=== PATIENT | male | born 1990 | race African-American/Black ===

== ENCOUNTER 2017-08-23 09:49 | Emergency (ER) | payer OTHER ==
--- OUTSIDE RECORDS SUMMARY | 2017-08-23 09:51 | XMS REPORT | Clinical Summary ---
:1990 Author Organization [facility] Address [address] [place] [address] Phone Care Team Providers Name Role Phone Unavailable Primary Care Provider Unavailable Allergies Active Allergy Reactions Severity Noted Date Comments Penicillins Shortness Of Breath, Rash High 08/16/2015 Reaction to ampicillin, but mother believes patient had no reaction to cefepime/ceftriaxone/zos yn. Tolerated cefepime well inpatient. Current Medications Prescription Sig. Disp. Refills Start Date End Date Status baclofen (LIORESAL) 20 Take 20 mg by Active MG tablet mouth 2 (two) times daily. citalopram (CELEXA) 40 Take 40 mg by Active MG tablet mouth daily. ranitidine (ZANTAC) 75 Take 75 mg by Active MG tablet mouth 2 (two) times daily. cetirizine (ZYRTEC) 10 Take 10 mg by Active MG tablet mouth daily. montelukast (SINGULAIR) Take 10 mg by Active 10 mg tablet mouth nightly. fluticasone (FLONASE) 50 1 spray by Nasal 16 g 0 05/30/2016 05/30/2017 mcg/actuation nasal route daily. spray Active Problems Problem Noted Date Pneumonia 05/23/2016 Seizure ([facility]) 05/19/2016 Status epilepticus ([facility]) 08/17/2015 Leukocytosis 08/17/2015 Thrombocytopenia ([facility]) 08/17/2015 Social History Tobacco Use Types Packs/Day Years Used Date Never Smoker Sex Assigned at Date Recorded Not on file Last Filed Vital Signs Not on file Plan of Treatment Not on file Results Not on fileafter 08/22/2016
--- OUTSIDE RECORDS SUMMARY | 2017-08-23 09:53 | XMS REPORT ---
:1990 [facility] Address [address] [place] [address] Care Team Providers Name Role Phone MORIS ESPINOZA Unavailable Unavailable Problems This patient has no known problems. Allergies, Adverse Reactions, Alerts This patient has no known allergies or adverse reactions. Medications This patient has no known medications. Results Test Description Test Time Test Comments Text Results Atomic Results Result Comments POCT-GLUCOSE METER 2016-05-30 12:23:00 Test Item Value Reference Range Comments POC-GLUCOSE METER (BEAKER) (test 82 mg/dL 70-110 TESTED AT [address] twzk=9352) [facility] [address] POCT-GLUCOSE [id number] 08:12:00 Test Item Value Reference Range Comments POC-GLUCOSE METER (BEAKER) 97 mg/dL 70-110 TESTED AT [address] (test gdhm=5175) [facility] [address] CBC W/PLT COUNT & AUTO [id number] 06:38:00 Test Item Value Reference Range Comments WHITE BLOOD CELL COUNT (BEAKER) (test boae=141) 8.1 K/ L 4.0-10.0 RED BLOOD CELL COUNT (BEAKER) (test lckt=180) 5.24 M/ L 4.20-5.80 HEMOGLOBIN (BEAKER) (test ojlu=931) 13.1 GM/DL 13.0-16.8 HEMATOCRIT (BEAKER) (test fhuz=914) 42.6 % 40.0-50.0 MEAN CORPUSCULAR VOLUME (BEAKER) (test wabb=556) 81.2 fL 82.0-98.0 MEAN CORPUSCULAR HEMOGLOBIN (BEAKER) (test 25.0 pg 27.0-33.0 adwm=628) MEAN CORPUSCULAR HEMOGLOBIN CONC (BEAKER) (test 30.7 GM/DL 32.0-36.0 cufr=536) RED CELL DISTRIBUTION WIDTH (BEAKER) (test 14.6 % 10.3-14.2 xbxy=042) PLATELET COUNT (BEAKER) (test khtk=184) 172 K/CU MM 150-430 MEAN PLATELET VOLUME (BEAKER) (test cttv=556) 11.6 fL 6.5-10.5 NUCLEATED RED BLOOD CELLS (BEAKER) (test 0 /100 WBC 0-0 jjqb=534) NEUTROPHILS RELATIVE PERCENT (BEAKER) (test 42 % hxkt=428) LYMPHOCYTES RELATIVE PERCENT (BEAKER) (test 40 % rivp=188) MONOCYTES RELATIVE PERCENT (BEAKER) (test 15 % hlhc=786) EOSINOPHILS RELATIVE PERCENT (BEAKER) (test 2 % yssh=580) BASOPHILS RELATIVE PERCENT (BEAKER) (test 1 % kvld=683) NEUTROPHILS ABSOLUTE COUNT (BEAKER) (test 3.39 K/ L 1.80-8.00 wagd=304) LYMPHOCYTES ABSOLUTE COUNT (BEAKER) (test 3.28 K/ L 1.48-4.50 xacm=900) MONOCYTES ABSOLUTE COUNT (BEAKER) (test 1.24 K/ L 0.00-1.30 phsl=440) EOSINOPHILS ABSOLUTE COUNT (BEAKER) (test 0.12 K/ L 0.00-0.50 fpqr=245) BASOPHILS ABSOLUTE COUNT (BEAKER) (test 0.09 K/ L 0.00-0.20 cjrc=189) 0.00POCT-GLUCOSE [id number] 04:47:00 Test Item Value Reference Range Comments POC-GLUCOSE METER (BEAKER) 73 mg/dL 70-110 TESTED AT [address] (test tyjs=8082) [facility] [address] POCT-GLUCOSE [id number] 00:27:00 Test Item Value Reference Range Comments POC-GLUCOSE METER (BEAKER) 71 mg/dL 70-110 TESTED AT [address] (test snfk=7745) [facility] [address] POCT-GLUCOSE [id number] 12:03:00 Test Item Value Reference Range Comments POC-GLUCOSE METER (BEAKER) 86 mg/dL 70-110 TESTED AT [address] (test vcau=3374) [facility] [address] POCT-GLUCOSE [id number] 06:10:00 Test Item Value Reference Range Comments POC-GLUCOSE METER (BEAKER) 89 mg/dL 70-110 TESTED AT [address] (test xlrl=3406) [facility] [address] POCT-GLUCOSE [id number] 00:20:00 Test Item Value Reference Range Comments POC-GLUCOSE METER (BEAKER) 77 mg/dL 70-110 TESTED AT [address] (test jlwf=4862) [place] [id number] POCT-GLUCOSE [id number] 19:04:00 Test Item Value Reference Range Comments POC-GLUCOSE METER (BEAKER) 129 mg/dL 70-110 TESTED AT [address] (test mqez=7437) [place] [address] POCT-GLUCOSE [id number] 16:34:00 Test Item Value Reference Range Comments POC-GLUCOSE METER (BEAKER) 120 mg/dL 70-110 TESTED AT [address] (test fxyx=8346) [place] [address] POCT-GLUCOSE [id number] 06:09:00 Test Item Value Reference Range Comments POC-GLUCOSE METER (BEAKER) 76 mg/dL 70-110 TESTED AT [address] (test gddx=9674) [facility] [address] POCT-GLUCOSE [id number] 00:51:00 Test Item Value Reference Range Comments POC-GLUCOSE METER (BEAKER) 84 mg/dL 70-110 TESTED AT [address] (test scgl=3749) [place] [address] POCT-GLUCOSE [id number] 14:52:00 Test Item Value Reference Range Comments POC-GLUCOSE METER (BEAKER) 125 mg/dL 70-110 TESTED AT [address] (test tszz=3536) [place] [address] POCT-GLUCOSE [id number] 22:00:00 Test Item Value Reference Range Comments POC-GLUCOSE METER (BEAKER) 102 mg/dL 70-110 TESTED AT [address] (test glhz=4805) [place] [address] POCT-GLUCOSE [id number] 18:36:00 Test Item Value Reference Range Comments POC-GLUCOSE METER (BEAKER) 60 mg/dL 70-110 TESTED AT [address] (test pwrf=4915) [place] [address] BLOOD [id number] 15:25:00 Test Item Value Reference Range Comments CULTURE (BEAKER) From Anaerobic Bottle Only (test kbiw=5626) Coagulase negative Staphylococcus GRAM STAIN RESULT From anaerobic bottle (BEAKER) (test only: gram positive barr=0585) cocci in clusters POCT-GLUCOSE [id number] 13:24:00 Test Item Value Reference Range Comments POC-GLUCOSE METER (BEAKER) 86 mg/dL 70-110 TESTED AT [facility] [address] [facility] (test wgym=5296) [facility] [address] CBC W/PLT COUNT & AUTO [id number] 10:10:00 Test Item Value Reference Range Comments WHITE BLOOD CELL COUNT (BEAKER) (test rxdf=808) 8.0 K/ L 4.0-10.0 RED BLOOD CELL COUNT (BEAKER) (test iuxc=717) 4.77 M/ L 4.20-5.80 HEMOGLOBIN (BEAKER) (test asgq=152) 13.4 GM/DL 13.0-16.8 HEMATOCRIT (BEAKER) (test vkdn=866) 38.7 % 40.0-50.0 MEAN CORPUSCULAR VOLUME (BEAKER) (test kmtu=602) 81.1 fL 82.0-98.0 MEAN CORPUSCULAR HEMOGLOBIN (BEAKER) (test 28.1 pg 27.0-33.0 zhls=652) MEAN CORPUSCULAR HEMOGLOBIN CONC (BEAKER) (test 34.6 GM/DL 32.0-36.0 ynwy=314) RED CELL DISTRIBUTION WIDTH (BEAKER) (test 13.8 % 10.3-14.2 wbma=778) PLATELET COUNT (BEAKER) (test zjfg=802) 109 K/CU MM 150-430 MEAN PLATELET VOLUME (BEAKER) (test qqnh=679) 11.9 fL 6.5-10.5 NUCLEATED RED BLOOD CELLS (BEAKER) (test 2 /100 WBC 0-0 shwk=930) NEUTROPHILS RELATIVE PERCENT (BEAKER) (test 41 % zyxc=052) LYMPHOCYTES RELATIVE PERCENT (BEAKER) (test 40 % ksmg=560) MONOCYTES RELATIVE PERCENT (BEAKER) (test 17 % pwlb=487) EOSINOPHILS RELATIVE PERCENT (BEAKER) (test 2 % uike=537) BASOPHILS RELATIVE PERCENT (BEAKER) (test 1 % vody=743) NEUTROPHILS ABSOLUTE COUNT (BEAKER) (test 3.26 K/ L 1.80-8.00 prsq=265) LYMPHOCYTES ABSOLUTE COUNT (BEAKER) (test 3.16 K/ L 1.48-4.50 tbgj=174) MONOCYTES ABSOLUTE COUNT (BEAKER) (test 1.39 K/ L 0.00-1.30 rknl=770) EOSINOPHILS ABSOLUTE COUNT (BEAKER) (test 0.13 K/ L 0.00-0.50 rrtp=189) BASOPHILS ABSOLUTE COUNT (BEAKER) (test 0.06 K/ L 0.00-0.20 acci=238) 0.00(MANUAL DIFFERENTIAL)2016-05-26 10:10:00 Test Item Value Reference Range Comments TOTAL COUNTED (BEAKER) (test bgej=8226) PLT MORPHOLOGY (BEAKER) (test ilmr=173) Normal RBC MORPHOLOGY (BEAKER) (test ogpj=833) Normal ATYPICAL LYMPHS(BEAKER) (test sduf=7157) Present POCT-GLUCOSE [id number] 00:30:00 Test Item Value Reference Range Comments POC-GLUCOSE METER (BEAKER) 120 mg/dL 70-110 TESTED AT [address] (test rvag=3033) [place] [address] POCT-GLUCOSE [id number] 18:23:00 Test Item Value Reference Range Comments POC-GLUCOSE METER (BEAKER) 82 mg/dL 70-110 TESTED AT [address] (test lhly=8506) [place] [address] ANTI-NUCLEAR ANTIBODY (NORMA)2016-05-25 13:07:00 Test Item Value Reference Range Comments ANTI-NUCLEAR ANTIBODY (NORMA) (BEAKER) (test Negative Negative wzas=055) POCT-GLUCOSE [id number] 12:50:00 Test Item Value Reference Range Comments POC-GLUCOSE METER (BEAKER) 115 mg/dL 70-110 TESTED AT [address] (test geuf=5289) [place] [address] CBC W/PLT COUNT & AUTO [id number] 11:05:00 Test Item Value Reference Range Comments WHITE BLOOD CELL COUNT (BEAKER) (test lzhe=437) 8.3 K/ L 4.0-10.0 RED BLOOD CELL COUNT (BEAKER) (test tjsj=331) 4.95 M/ L 4.20-5.80 HEMOGLOBIN (BEAKER) (test cfgi=109) 13.2 GM/DL 13.0-16.8 HEMATOCRIT (BEAKER) (test cbml=599) 39.6 % 40.0-50.0 MEAN CORPUSCULAR VOLUME (BEAKER) (test wjrn=119) 80.0 fL 82.0-98.0 MEAN CORPUSCULAR HEMOGLOBIN (BEAKER) (test 26.7 pg 27.0-33.0 ucbp=215) MEAN CORPUSCULAR HEMOGLOBIN CONC (BEAKER) (test 33.3 GM/DL 32.0-36.0 oows=644) RED CELL DISTRIBUTION WIDTH (BEAKER) (test 13.3 % 10.3-14.2 ccdu=774) PLATELET COUNT (BEAKER) (test klcw=460) 101 K/CU MM 150-430 MEAN PLATELET VOLUME (BEAKER) (test xive=567) 11.7 fL 6.5-10.5 NUCLEATED RED BLOOD CELLS (BEAKER) (test 0 /100 WBC 0-0 jkre=593) NEUTROPHILS RELATIVE PERCENT (BEAKER) (test 38 % rzpa=782) LYMPHOCYTES RELATIVE PERCENT (BEAKER) (test 39 % tdab=878) MONOCYTES RELATIVE PERCENT (BEAKER) (test 21 % dzwa=745) EOSINOPHILS RELATIVE PERCENT (BEAKER) (test 2 % cidt=432) BASOPHILS RELATIVE PERCENT (BEAKER) (test 1 % difg=762) NEUTROPHILS ABSOLUTE COUNT (BEAKER) (test 3.15 K/ L 1.80-8.00 gcvj=835) LYMPHOCYTES ABSOLUTE COUNT (BEAKER) (test 3.27 K/ L 1.48-4.50 qkbr=172) MONOCYTES ABSOLUTE COUNT (BEAKER) (test 1.70 K/ L 0.00-1.30 vihx=723) EOSINOPHILS ABSOLUTE COUNT (BEAKER) (test 0.15 K/ L 0.00-0.50 mtdl=946) BASOPHILS ABSOLUTE COUNT (BEAKER) (test 0.04 K/ L 0.00-0.20 fowu=305) 0.00POCT-GLUCOSE [id number] 06:12:00 Test Item Value Reference Range Comments POC-GLUCOSE METER (BEAKER) 83 mg/dL 70-110 TESTED AT [facility] [address] (test kkbp=8027) [facility] [address] SPUTUM CULTURE + GRAM [id number] 02:04:00 Test Item Value Reference Range Comments CULTURE (BEAKER) (test PSEUDOMONAS 3+ Pseudomonas xwde=5129) AERUGINOSA aeruginosa Amikacin (test code=1) Susceptible 0-16 , Resistant <0 or >16 Aztreonam (test Susceptible 0-8 , code=32) Resistant <0 or >8 Cefepime (test code=51) Susceptible 0-8 , Resistant <0 or >8 Ceftazidime (test Susceptible 0-8 , code=27) Resistant <0 or >8 Ciprofloxacin (test Susceptible 0-1 , code=7) Resistant <0 or >1 Doripenem (test Susceptible 0-2 , nexs=431) Resistant <0 or >2 Gentamicin (test Susceptible 0-4 , code=18) Resistant <0 or >4 Levofloxacin (test Susceptible 0-2 , code=22) Resistant <0 or >2 Meropenem (test Susceptible 0-2 , code=34) Resistant <0 or >2 Piperacillin (test Susceptible 0-16 , code=24) Resistant <0 or >16 Piperacillin + Susceptible 0-16 , Tazobactam (test Resistant <0 or >16 code=29) Tobramycin (test Susceptible 0-4 , code=25) Resistant <0 or >4 CULTURE (BEAKER) (test 3+ Moraxella mpjk=204398) catarrhalis CULTURE (BEAKER) (test PSEUDOMONAS 3+ Pseudomonas kdht=14869) AERUGINOSA aeruginosaof a second type Amikacin (test code=1) Susceptible 0-16 , Resistant <0 or >16 Aztreonam (test Susceptible 0-8 , code=32) Resistant <0 or >8 Cefepime (test code=51) Susceptible 0-8 , Resistant <0 or >8 Ceftazidime (test Susceptible 0-8 , code=27) Resistant <0 or >8 Ciprofloxacin (test Susceptible 0-1 , code=7) Resistant <0 or >1 Doripenem (test Susceptible 0-2 , qyun=717) Resistant <0 or >2 Gentamicin (test Susceptible 0-4 , code=18) Resistant <0 or >4 Levofloxacin (test Susceptible 0-2 , code=22) Resistant <0 or >2 Meropenem (test Susceptible 0-2 , code=34) Resistant <0 or >2 Piperacillin (test Susceptible 0-16 , code=24) Resistant <0 or >16 Piperacillin + Susceptible 0-16 , Tazobactam (test Resistant <0 or >16 code=29) Tetracycline (test code=2) Ticarcillin + Susceptible 0-16 , Clavulanic Acid (test Resistant <0 or >16 code=80) Tobramycin (test Susceptible 0-4 , code=25) Resistant <0 or >4 GRAM STAIN RESULT <1+ WBCs (BEAKER) (test apgo=7344) GRAM STAIN RESULT 15-20 epithelial (BEAKER) (test cells lghr=056248) GRAM STAIN RESULT 2+ gram negative rods (BEAKER) (test hmyu=972946) GRAM STAIN RESULT <1+ gram positive (BEAKER) (test rods xtpu=023288) GRAM STAIN RESULT 1+ gram positive (BEAKER) (test cocci in chains and lhss=984864) pairs GRAM STAIN RESULT 1+ gram positive (BEAKER) (test coccobacilli ygqd=640994) 3+ Normal respiratory ralph presentPOCT-GLUCOSE [id number] 00:03:00 Test Item Value Reference Range Comments POC-GLUCOSE METER (BEAKER) 86 mg/dL 70-110 TESTED AT [address] (test wjmu=0489) [place] [address] POCT-GLUCOSE [id number] 14:08:00 Test Item Value Reference Range Comments POC-GLUCOSE METER (BEAKER) 71 mg/dL 70-110 TESTED AT [address] (test bgrr=7499) [place] [address] HEPATITIS B SURFACE [id number] 10:56:00 Test Item Value Reference Range Comments HEPATITIS B SURFACE ANTIBODY (BEAKER) (test < mIU/mL <8.0 rjog=775) HEPATITIS B SURFACE [id number] 10:52:00 Test Item Value Reference Range Comments HEPATITIS B SURFACE ANTIGEN (2) (BEAKER) (test Nonreactive Nonreactive bwtn=1347) HEPATITIS C [id number] 10:52:00 Test Item Value Reference Range Comments HEPATITIS C ANTIBODY (BEAKER) (test cakv=566) Nonreactive Nonreactive HEPATITIS B CORE ANTIBODY, [id number] 10:52:00 Test Item Value Reference Range Comments HEPATITIS B CORE TOTAL ANTIBODY (BEAKER) (test Nonreactive Nonreactive vaex=926) HIV-1 ANTIGEN WITH HIV-1/2 [id number] 10:52:00 Test Item Value Reference Range Comments HIV-1 ANTIGEN WITH HIV 1\T\2 ANTIBODY (2) Nonreactive Nonreactive (BEAKER) (test uoht=6840) PERIPHERAL BLOOD SMEAR - HOLD [id number] 07:58:00 Test Item Value Reference Range Comments PERIPHERAL SMEAR SAVE (BEAKER) (test vteq=5933) saved CBC W/PLT COUNT & AUTO [id number] 07:58:00 Test Item Value Reference Range Comments WHITE BLOOD CELL COUNT (BEAKER) (test uakz=349) 7.1 K/ L 4.0-10.0 RED BLOOD CELL COUNT (BEAKER) (test anml=957) 5.04 M/ L 4.20-5.80 HEMOGLOBIN (BEAKER) (test boba=062) 13.1 GM/DL 13.0-16.8 HEMATOCRIT (BEAKER) (test vhdb=180) 41.3 % 40.0-50.0 MEAN CORPUSCULAR VOLUME (BEAKER) (test ciir=079) 81.9 fL 82.0-98.0 MEAN CORPUSCULAR HEMOGLOBIN (BEAKER) (test 26.0 pg 27.0-33.0 wiat=180) MEAN CORPUSCULAR HEMOGLOBIN CONC (BEAKER) (test 31.8 GM/DL 32.0-36.0 ufej=897) RED CELL DISTRIBUTION WIDTH (BEAKER) (test 13.9 % 10.3-14.2 gppl=044) PLATELET COUNT (BEAKER) (test efcr=034) 87 K/CU MM 150-430 MEAN PLATELET VOLUME (BEAKER) (test wdxn=002) 12.1 fL 6.5-10.5 NUCLEATED RED BLOOD CELLS (BEAKER) (test 0 /100 WBC 0-0 sfff=080) NEUTROPHILS RELATIVE PERCENT (BEAKER) (test 42 % odgk=542) LYMPHOCYTES RELATIVE PERCENT (BEAKER) (test 35 % mhre=315) MONOCYTES RELATIVE PERCENT (BEAKER) (test 21 % kuvk=747) EOSINOPHILS RELATIVE PERCENT (BEAKER) (test 2 % dnnf=422) BASOPHILS RELATIVE PERCENT (BEAKER) (test 1 % psze=283) NEUTROPHILS ABSOLUTE COUNT (BEAKER) (test 2.95 K/ L 1.80-8.00 dglo=640) LYMPHOCYTES ABSOLUTE COUNT (BEAKER) (test 2.44 K/ L 1.48-4.50 uisp=019) MONOCYTES ABSOLUTE COUNT (BEAKER) (test buca=616) 1.50 K/ L 0.00-1.30 EOSINOPHILS ABSOLUTE COUNT (BEAKER) (test 0.12 K/ L 0.00-0.50 pwpy=415) BASOPHILS ABSOLUTE COUNT (BEAKER) (test khvd=899) 0.07 K/ L 0.00-0.20 0.00VITAMIN B12 AND [id number] 07:13:00 Test Item Value Reference Range Comments VITAMIN B12 (BEAKER) (test ucqy=600) 1822 pg/mL 213-816 FOLATE (BEAKER) (test zylx=512) 15.2 ng/mL >=7.0 Effective 2013: Folate Reference Range ChangeNew: >=7.0 Previous: & gt;=5.2G-[id number] 06:54:00 Test Item Value Reference Range Comments D-DIMER QUANTITATIVE (BEAKER) (test ilyc=300) 1.39 MG/L FEU <0.50 Intended Use: The D-Dimer Assay can be used to aid in the diagnosis of Deep Vein Thrombosis (DVT) and Pulmonary Embolism Disease (PED).In patients with low pre-test probability, various studies concerning STA Liatest D-dimer test have reported that with a cutoff value of 0.50 MG/L FEU, the Negative Predictive Value (NPV) regarding the exclusion of thrombosis is within 95-100% range.[id number] 06:53:00 Test Item Value Reference Range Comments FIBRINOGEN LEVEL (BEAKER) (test zazw=191) 355 mg/dl 225-434 [id number] 06:53:00 Test Item Value Reference Range Comments PROTIME (BEAKER) (test bfnq=552) 13.9 seconds 11.7-14.7 INR (BEAKER) (test wljc=167) 1.1 <=5.9 PARTIAL THROMBOPLASTIN TIME (BEAKER) (test 31.7 seconds 22.5-36.0 zrko=849) RECOMMENDED COUMADIN/WARFARIN INR THERAPY RANGESSTANDARD DOSE: 2.0 - 3.0 Includes: PROPHYLAXIS forvenous thrombosis, systemic embolization; TREATMENT for venous thrombosis and/or pulmonary embolus.HIGH RISK: Target INR is 2.5-3.5 for patients with mechanical heart valves.COMPREHENSIVE METABOLIC [id number] 06:40:00 Test Item Value Reference Range Comments TOTAL PROTEIN (BEAKER) 6.8 gm/dL 6.0-8.3 (test sybo=192) ALBUMIN (BEAKER) (test 3.1 g/dL 3.5-5.0 fxgu=5965) ALKALINE PHOSPHATASE 72 U/L 40-150 (BEAKER) (test rshb=339) BILIRUBIN TOTAL (BEAKER) 0.4 mg/dL 0.2-1.2 (test ltkj=550) SODIUM (BEAKER) (test 138 meq/L 136-145 jepx=794) POTASSIUM (BEAKER) (test 4.1 meq/L 3.5-5.1 uqtw=760) CHLORIDE (BEAKER) (test 106 meq/L 98-107 zmsl=186) CO2 (BEAKER) (test 27 meq/L 22-29 alrr=885) BLOOD UREA NITROGEN 9 mg/dL 7-21 (BEAKER) (test twrq=515) CREATININE (BEAKER) (test 0.79 mg/dL 0.57-1.25 qpod=613) GLUCOSE RANDOM (BEAKER) 74 mg/dL 70-105 (test agjl=079) CALCIUM (BEAKER) (test 8.7 mg/dL 8.4-10.2 wbyl=213) AST (SGOT) (BEAKER) (test 37 U/L 5-34 yyqb=020) ALT (SGPT) (BEAKER) (test 27 U/L 6-55 qupo=390) EGFR (BEAKER) (test 143 mL/min/1.73 sq ESTIMATED GFR IS NOT txaq=3528) m ACCURATE CREATININE CLEARANCE IN PREDICTING GLOMERULAR FILTRATION RATE. ESTIMATED GFR IS NOT APPLICABLE FOR DIALYSIS PATIENTS. POCT-GLUCOSE [id number] 00:38:00 Test Item Value Reference Range Comments POC-GLUCOSE METER (BEAKER) 104 mg/dL 70-110 TESTED AT [facility] [address] [facility] (test fwrk=8435) [facility] [address] POCT-GLUCOSE [id number] 17:31:00 Test Item Value Reference Range Comments POC-GLUCOSE METER (BEAKER) 83 mg/dL 70-110 TESTED AT [address] (test yuuo=6254) [facility] [address] HEPARIN [id number] 14:04:00 Test Item Value Reference Range Comments HEPARIN ANTIBODY (BEAKER) (test yiuk=001) Negative Negative HEPARIN ANTIBODY OD (BEAKER) (test fkvr=3053) 0.067 <0.400 4T TOTAL SCORE (BEAKER) (test ppwe=1063) 4 Probability of HIT based on scoring system: 6-8=High probability; 4-5= intermediate probability; 0-3=low probabilityPOCT-GLUCOSE [id number] 09:07: 00 Test Item Value Reference Range Comments POC-GLUCOSE METER (BEAKER) 124 mg/dL 70-110 TESTED AT [facility] [address] (test pumw=2264) [facility] [address] CBC W/PLT COUNT & AUTO [id number] 07:37:00 Test Item Value Reference Range Comments WHITE BLOOD CELL COUNT (BEAKER) (test uqxz=760) 9.1 K/ L 4.0-10.0 RED BLOOD CELL COUNT (BEAKER) (test yfed=182) 4.92 M/ L 4.20-5.80 HEMOGLOBIN (BEAKER) (test jnek=653) 13.1 GM/DL 13.0-16.8 HEMATOCRIT (BEAKER) (test gjlj=328) 40.0 % 40.0-50.0 MEAN CORPUSCULAR VOLUME (BEAKER) (test dgzz=873) 81.2 fL 82.0-98.0 MEAN CORPUSCULAR HEMOGLOBIN (BEAKER) (test 26.7 pg 27.0-33.0 fejk=946) MEAN CORPUSCULAR HEMOGLOBIN CONC (BEAKER) (test 32.8 GM/DL 32.0-36.0 nnnu=401) RED CELL DISTRIBUTION WIDTH (BEAKER) (test 13.6 % 10.3-14.2 uwnj=575) PLATELET COUNT (BEAKER) (test qpzs=438) 72 K/CU MM 150-430 MEAN PLATELET VOLUME (BEAKER) (test mspl=756) 12.7 fL 6.5-10.5 NUCLEATED RED BLOOD CELLS (BEAKER) (test 0 /100 WBC 0-0 nxfr=299) NEUTROPHILS RELATIVE PERCENT (BEAKER) (test 46 % kfxz=227) LYMPHOCYTES RELATIVE PERCENT (BEAKER) (test 33 % jnzm=445) MONOCYTES RELATIVE PERCENT (BEAKER) (test 19 % vymy=592) EOSINOPHILS RELATIVE PERCENT (BEAKER) (test 1 % xdas=916) BASOPHILS RELATIVE PERCENT (BEAKER) (test 0 % znsg=804) NEUTROPHILS ABSOLUTE COUNT (BEAKER) (test 4.22 K/ L 1.80-8.00 tzgw=838) LYMPHOCYTES ABSOLUTE COUNT (BEAKER) (test 2.99 K/ L 1.48-4.50 dsmn=009) MONOCYTES ABSOLUTE COUNT (BEAKER) (test zsws=618) 1.72 K/ L 0.00-1.30 EOSINOPHILS ABSOLUTE COUNT (BEAKER) (test 0.12 K/ L 0.00-0.50 dasd=105) BASOPHILS ABSOLUTE COUNT (BEAKER) (test syzp=760) 0.03 K/ L 0.00-0.20 0.00BASI METABOLIC [id number] 07:14:00 Test Item Value Reference Range Comments SODIUM (BEAKER) (test 140 meq/L 136-145 tlld=420) POTASSIUM (BEAKER) (test 3.3 meq/L 3.5-5.1 zoix=240) CHLORIDE (BEAKER) (test 109 meq/L 98-107 eswx=364) CO2 (BEAKER) (test 24 meq/L 22-29 bfdm=950) BLOOD UREA NITROGEN 9 mg/dL 7-21 (BEAKER) (test vanr=484) CREATININE (BEAKER) (test 0.75 mg/dL 0.57-1.25 wwip=637) GLUCOSE RANDOM (BEAKER) 119 mg/dL 70-105 (test mqgv=734) CALCIUM (BEAKER) (test 8.2 mg/dL 8.4-10.2 rivi=059) EGFR (BEAKER) (test 151 mL/min/1.73 sq m ESTIMATED GFR IS NOT zkpi=7466) ACCURATE CREATININE CLEARANCE IN PREDICTING GLOMERULAR FILTRATION RATE. ESTIMATED GFR IS NOT APPLICABLE FOR DIALYSIS PATIENTS. POCT-GLUCOSE [id number] 06:57:00 Test Item Value Reference Range Comments POC-GLUCOSE METER (BEAKER) 123 mg/dL 70-110 TESTED AT [facility] [address] [facility] (test jlzx=7395) [facility] [address] POCT-GLUCOSE [id number] 02:04:00 Test Item Value Reference Range Comments POC-GLUCOSE METER (BEAKER) 144 mg/dL 70-110 TESTED AT [address] (test vrbz=4842) [facility] [address] POCT-GLUCOSE [id number] 21:58:00 Test Item Value Reference Range Comments POC-GLUCOSE METER (BEAKER) 69 mg/dL 70-110 TESTED AT [address] (test sgfv=7339) [facility] [address] POCT-GLUCOSE [id number] 18:24:00 Test Item Value Reference Range Comments POC-GLUCOSE METER (BEAKER) 155 mg/dL 70-110 TESTED AT [address] (test qymw=1300) [place] [id number] POCT-GLUCOSE [id number] 12:34:00 Test Item Value Reference Range Comments POC-GLUCOSE METER (BEAKER) 123 mg/dL 70-110 TESTED AT [address] (test uvxb=6838) [place] [id number] URINE [id number] 10:43:00 Test Item Value Reference Range Comments CULTURE (BEAKER) (test izid=8510) No growth CBC W/PLT COUNT & AUTO [id number] 08:07:00 Test Item Value Reference Range Comments WHITE BLOOD CELL COUNT (BEAKER) (test hmjg=190) 7.1 K/ L 4.0-10.0 RED BLOOD CELL COUNT (BEAKER) (test zmej=419) 4.91 M/ L 4.20-5.80 HEMOGLOBIN (BEAKER) (test fhlm=303) 12.5 GM/DL 13.0-16.8 HEMATOCRIT (BEAKER) (test vgtq=549) 40.0 % 40.0-50.0 MEAN CORPUSCULAR VOLUME (BEAKER) (test ejdv=267) 81.5 fL 82.0-98.0 MEAN CORPUSCULAR HEMOGLOBIN (BEAKER) (test 25.5 pg 27.0-33.0 yhkr=579) MEAN CORPUSCULAR HEMOGLOBIN CONC (BEAKER) (test 31.2 GM/DL 32.0-36.0 ngsv=646) RED CELL DISTRIBUTION WIDTH (BEAKER) (test 13.4 % 10.3-14.2 cync=866) PLATELET COUNT (BEAKER) (test edsg=075) 56 K/CU MM 150-430 MEAN PLATELET VOLUME (BEAKER) (test ygww=507) 13.5 fL 6.5-10.5 NUCLEATED RED BLOOD CELLS (BEAKER) (test 0 /100 WBC 0-0 lozu=838) NEUTROPHILS RELATIVE PERCENT (BEAKER) (test 46 % osno=846) LYMPHOCYTES RELATIVE PERCENT (BEAKER) (test 37 % wxox=395) MONOCYTES RELATIVE PERCENT (BEAKER) (test 15 % egpb=824) EOSINOPHILS RELATIVE PERCENT (BEAKER) (test 1 % rihk=276) BASOPHILS RELATIVE PERCENT (BEAKER) (test 0 % zkjj=347) NEUTROPHILS ABSOLUTE COUNT (BEAKER) (test 3.27 K/ L 1.80-8.00 gmas=964) LYMPHOCYTES ABSOLUTE COUNT (BEAKER) (test 2.58 K/ L 1.48-4.50 gjgg=472) MONOCYTES ABSOLUTE COUNT (BEAKER) (test saop=913) 1.09 K/ L 0.00-1.30 EOSINOPHILS ABSOLUTE COUNT (BEAKER) (test 0.10 K/ L 0.00-0.50 mdao=024) BASOPHILS ABSOLUTE COUNT (BEAKER) (test cord=183) 0.03 K/ L 0.00-0.20 0.00BASIC METABOLIC [id number] 07:39:00 Test Item Value Reference Range Comments SODIUM (BEAKER) (test 141 meq/L 136-145 gtbb=490) POTASSIUM (BEAKER) (test 3.6 meq/L 3.5-5.1 qrfk=304) CHLORIDE (BEAKER) (test 112 meq/L 98-107 cuwg=934) CO2 (BEAKER) (test 23 meq/L 22-29 jhyw=652) BLOOD UREA NITROGEN 8 mg/dL 7-21 (BEAKER) (test vjlf=976) CREATININE (BEAKER) (test 0.74 mg/dL 0.57-1.25 hdjs=708) GLUCOSE RANDOM (BEAKER) 132 mg/dL 70-105 (test qclh=311) CALCIUM (BEAKER) (test 8.0 mg/dL 8.4-10.2 mpgt=751) EGFR (BEAKER) (test 154 mL/min/1.73 sq m ESTIMATED GFR IS NOT gzoh=4221) ACCURATE CREATININE CLEARANCE IN PREDICTING GLOMERULAR FILTRATION RATE. ESTIMATED GFR IS NOT APPLICABLE FOR DIALYSIS PATIENTS. LACTIC ACID, VENOUS, WHOLE [id number] 07:32:00 Test Item Value Reference Range Comments LACTATE BLOOD VENOUS (2) 1.8 mmol/L 0.5-2.2 Specimen slightly hemolyzed (BEAKER) (test wbrx=4266) Effective 06/17/2015: Units/Reference Range ChangeNew: 0.5-2.2 mmol/L Previous: 5 -20 mg/dLPOCT-GLUCOSE [id number] 07:05:00 Test Item Value Reference Range Comments POC-GLUCOSE METER (BEAKER) 138 mg/dL 70-110 TESTED AT [address] (test axdd=7404) [place] [id number] POCT-GLUCOSE [id number] 00:44:00 Test Item Value Reference Range Comments POC-GLUCOSE METER (BEAKER) 124 mg/dL 70-110 TESTED AT [address] (test hxdl=9411) [place] [address] POCT-GLUCOSE [id number] 18:45:00 Test Item Value Reference Range Comments POC-GLUCOSE METER (BEAKER) 125 mg/dL 70-110 TESTED AT [address] (test efio=1725) [place] [address] LACTIC ACID, VENOUS, WHOLE [id number] 17:34:00 Test Item Value Reference Range Comments LACTATE BLOOD VENOUS (2) (BEAKER) (test 0.8 mmol/L 0.5-2.2 kyol=2286) Effective 06/17/2015: Units/Reference Range ChangeNew: 0.5-2.2 mmol/L Previous: 5 -20 mg/dLPOCT-GLUCOSE [id number] 13:08:00 Test Item Value Reference Range Comments POC-GLUCOSE METER (BEAKER) 130 mg/dL 70-110 TESTED AT [address] (test kbcj=3495) [facility] [address] POCT-GLUCOSE [id number] 12:04:00 Test Item Value Reference Range Comments POC-GLUCOSE METER (BEAKER) 60 mg/dL 70-110 Notified RN or MD Patient (test wrae=9365) refused repeat test/TESTED AT [place] [id number] CBC W/PLT COUNT & AUTO [id number] 06:22:00 Test Item Value Reference Range Comments WHITE BLOOD CELL COUNT (BEAKER) (test wlhz=097) 8.3 K/ L 4.0-10.0 RED BLOOD CELL COUNT (BEAKER) (test dfck=820) 4.70 M/ L 4.20-5.80 HEMOGLOBIN (BEAKER) (test hbfk=343) 12.4 GM/DL 13.0-16.8 HEMATOCRIT (BEAKER) (test hwha=912) 38.3 % 40.0-50.0 MEAN CORPUSCULAR VOLUME (BEAKER) (test ugzg=144) 81.4 fL 82.0-98.0 MEAN CORPUSCULAR HEMOGLOBIN (BEAKER) (test 26.3 pg 27.0-33.0 xvmv=965) MEAN CORPUSCULAR HEMOGLOBIN CONC (BEAKER) (test 32.4 GM/DL 32.0-36.0 yrpp=749) RED CELL DISTRIBUTION WIDTH (BEAKER) (test 13.4 % 10.3-14.2 umgd=216) PLATELET COUNT (BEAKER) (test dlwb=512) 56 K/CU MM 150-430 MEAN PLATELET VOLUME (BEAKER) (test eyze=716) 11.4 fL 6.5-10.5 NUCLEATED RED BLOOD CELLS (BEAKER) (test 0 /100 WBC 0-0 yrfq=450) NEUTROPHILS RELATIVE PERCENT (BEAKER) (test 52 % kawf=756) LYMPHOCYTES RELATIVE PERCENT (BEAKER) (test 33 % dkta=026) MONOCYTES RELATIVE PERCENT (BEAKER) (test 14 % sgfb=236) EOSINOPHILS RELATIVE PERCENT (BEAKER) (test 0 % cpke=429) BASOPHILS RELATIVE PERCENT (BEAKER) (test 0 % mkpd=328) NEUTROPHILS ABSOLUTE COUNT (BEAKER) (test 4.33 K/ L 1.80-8.00 bcjy=441) LYMPHOCYTES ABSOLUTE COUNT (BEAKER) (test 2.75 K/ L 1.48-4.50 crfb=551) MONOCYTES ABSOLUTE COUNT (BEAKER) (test hltl=725) 1.16 K/ L 0.00-1.30 EOSINOPHILS ABSOLUTE COUNT (BEAKER) (test 0.04 K/ L 0.00-0.50 zxro=553) BASOPHILS ABSOLUTE COUNT (BEAKER) (test cslk=509) 0.03 K/ L 0.00-0.20 0.00POCT-GLUCOSE [id number] 06:16:00 Test Item Value Reference Range Comments POC-GLUCOSE METER (BEAKER) 100 mg/dL 70-110 TESTED AT [address] (test xhir=2710) [facility] [address] CALCIUM, [id number] 06:05:00 Test Item Value Reference Range Comments CALCIUM IONIZED (BEAKER) (test dvbo=510) 0.96 mmol/L 1.12-1.27 PH, BLOOD (BEAKER) (test czqz=9693) 7.44 Check serum Ionized Calcium level after 4 hours after IV Calcium replacement.[id number] 05:48:00 Test Item Value Reference Range Comments MAGNESIUM (BEAKER) (test jgkn=089) 1.9 mg/dL 1.6-2.6 BASIC METABOLIC [id number] 05:48:00 Test Item Value Reference Range Comments SODIUM (BEAKER) (test 140 meq/L 136-145 lavo=395) POTASSIUM (BEAKER) (test 3.5 meq/L 3.5-5.1 yghh=646) CHLORIDE (BEAKER) (test 110 meq/L 98-107 bgwv=874) CO2 (BEAKER) (test 22 meq/L 22-29 gmck=887) BLOOD UREA NITROGEN 9 mg/dL 7-21 (BEAKER) (test afkg=516) CREATININE (BEAKER) (test 0.71 mg/dL 0.57-1.25 qzre=266) GLUCOSE RANDOM (BEAKER) 81 mg/dL 70-105 (test vruy=330) CALCIUM (BEAKER) (test 8.0 mg/dL 8.4-10.2 fjnu=200) EGFR (BEAKER) (test 161 mL/min/1.73 sq m ESTIMATED GFR IS NOT skzw=0812) ACCURATE CREATININE CLEARANCE IN PREDICTING GLOMERULAR FILTRATION RATE. ESTIMATED GFR IS NOT APPLICABLE FOR DIALYSIS PATIENTS. POCT-GLUCOSE [id number] 19:22:00 Test Item Value Reference Range Comments POC-GLUCOSE METER (BEAKER) 105 mg/dL 70-110 TESTED AT [address] (test hrny=3662) [place] [id number] POCT-GLUCOSE [id number] 12:14:00 Test Item Value Reference Range Comments POC-GLUCOSE METER (BEAKER) 67 mg/dL 70-110 Notified JOSE ELIAS WRIGHT/TESTED AT [facility] (test lkcu=0854) [address] [place] [address] URINALYSIS W/ [id number] 08:32:00 Test Item Value Reference Range Comments COLOR (BEAKER) (test dyvr=202) Yellow CLARITY (BEAKER) (test mmzn=899) Hazy SPECIFIC GRAVITY UA (BEAKER) (test kwom=510) 1.022 1.001-1.035 PH UA (BEAKER) (test afnw=282) 6.5 5.0-8.0 PROTEIN UA (BEAKER) (test ayen=345) 200 mg/dL Negative GLUCOSE UA (BEAKER) (test adwx=999) Negative Negative KETONES UA (BEAKER) (test bdvq=647) 10 mg/dL Negative BILIRUBIN UA (BEAKER) (test oeud=422) Negative Negative BLOOD UA (BEAKER) (test htlx=822) Moderate Negative NITRITE UA (BEAKER) (test lvza=560) Negative Negative LEUKOCYTE ESTERASE UA (BEAKER) (test uvnn=738) Negative Negative UROBILINOGEN UA (BEAKER) (test sztw=934) 0.2 mg/dL 0.2-1.0 RBC UA (BEAKER) (test kupa=917) > /HPF WBC UA (BEAKER) (test cexc=467) 4 /HPF BACTERIA (BEAKER) (test suij=482) Occasional MUCUS (BEAKER) (test rszr=7858) Many AMORPHOUS CRYSTALS (BEAKER) (test cody=6041) Moderate SOURCE(BEAKER) (test ebhw=5234) POCT-GLUCOSE [id number] 06:40:00 Test Item Value Reference Range Comments POC-GLUCOSE METER (BEAKER) 90 mg/dL 70-110 TESTED AT [address] (test cwwf=4623) [facility] [address] PROTHROMBIN [id number] 04:47:00 Test Item Value Reference Range Comments PROTIME (BEAKER) (test cvbq=108) 14.3 seconds 11.7-14.7 INR (BEAKER) (test getv=111) 1.1 <=5.9 RECOMMENDED COUMADIN/WARFARIN INR THERAPY RANGESSTANDARD DOSE: 2.0 - 3.0 Includes: PROPHYLAXIS forvenous thrombosis, systemic embolization; TREATMENT for venous thrombosis and/or pulmonary embolus.HIGH RISK: Target INR is 2.5-3.5 for patients with mechanical heart valves.CBC W/PLT COUNT & AUTO [id number] 04:37:00 Test Item Value Reference Range Comments WHITE BLOOD CELL COUNT (BEAKER) (test tuiw=106) 12.8 K/ L 4.0-10.0 RED BLOOD CELL COUNT (BEAKER) (test nukn=037) 4.89 M/ L 4.20-5.80 HEMOGLOBIN (BEAKER) (test beut=856) 12.9 GM/DL 13.0-16.8 HEMATOCRIT (BEAKER) (test hwxk=550) 39.7 % 40.0-50.0 MEAN CORPUSCULAR VOLUME (BEAKER) (test cohq=385) 81.3 fL 82.0-98.0 MEAN CORPUSCULAR HEMOGLOBIN (BEAKER) (test 26.4 pg 27.0-33.0 xxsr=305) MEAN CORPUSCULAR HEMOGLOBIN CONC (BEAKER) (test 32.4 GM/DL 32.0-36.0 qciv=599) RED CELL DISTRIBUTION WIDTH (BEAKER) (test 14.2 % 10.3-14.2 dujw=355) PLATELET COUNT (BEAKER) (test uxqj=164) 77 K/CU MM 150-430 MEAN PLATELET VOLUME (BEAKER) (test dqmm=267) 9.1 fL 6.5-10.5 NUCLEATED RED BLOOD CELLS (BEAKER) (test 0 /100 WBC 0-0 uius=219) NEUTROPHILS RELATIVE PERCENT (BEAKER) (test 77 % tfxg=856) LYMPHOCYTES RELATIVE PERCENT (BEAKER) (test 13 % iysv=387) MONOCYTES RELATIVE PERCENT (BEAKER) (test 9 % xhbt=462) EOSINOPHILS RELATIVE PERCENT (BEAKER) (test 0 % lefi=537) BASOPHILS RELATIVE PERCENT (BEAKER) (test 0 % blnk=594) NEUTROPHILS ABSOLUTE COUNT (BEAKER) (test 9.91 K/ L 1.80-8.00 lqct=705) LYMPHOCYTES ABSOLUTE COUNT (BEAKER) (test 1.72 K/ L 1.48-4.50 nlgn=541) MONOCYTES ABSOLUTE COUNT (BEAKER) (test rkwh=045) 1.13 K/ L 0.00-1.30 EOSINOPHILS ABSOLUTE COUNT (BEAKER) (test 0.02 K/ L 0.00-0.50 jnzf=570) BASOPHILS ABSOLUTE COUNT (BEAKER) (test omit=122) 0.05 K/ L 0.00-0.20 [id number] 04:27:00 Test Item Value Reference Range Comments ALBUMIN (BEAKER) (test ieqp=1803) 2.9 g/dL 3.5-5.0 BASIC METABOLIC [id number] 04:25:00 Test Item Value Reference Range Comments SODIUM (BEAKER) (test 141 meq/L 136-145 pzdp=884) POTASSIUM (BEAKER) (test 4.6 meq/L 3.5-5.1 clli=689) CHLORIDE (BEAKER) (test 111 meq/L 98-107 xclk=229) CO2 (BEAKER) (test 19 meq/L 22-29 tpds=118) BLOOD UREA NITROGEN 13 mg/dL 7-21 (BEAKER) (test xnor=331) CREATININE (BEAKER) (test 0.81 mg/dL 0.57-1.25 hfxu=493) GLUCOSE RANDOM (BEAKER) 99 mg/dL 70-105 (test mgxz=397) CALCIUM (BEAKER) (test 8.1 mg/dL 8.4-10.2 xtps=991) EGFR (BEAKER) (test 139 mL/min/1.73 sq m ESTIMATED GFR IS NOT aaaa=3762) ACCURATE CREATININE CLEARANCE IN PREDICTING GLOMERULAR FILTRATION RATE. ESTIMATED GFR IS NOT APPLICABLE FOR DIALYSIS PATIENTS. PHENYTOIN LEVEL, [id number] 04:17:00 Test Item Value Reference Range Comments PHENYTOIN (DILANTIN) (BEAKER) (test qulx=642) 5.9 ug/mL 10.0-20.0 POCT-GLUCOSE [id number] 00:13:00 Test Item Value Reference Range Comments POC-GLUCOSE METER (BEAKER) 96 mg/dL 70-110 TESTED AT [facility] [address] [facility] (test vkpo=4608) [facility] [address]
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
[2017-08-23 10:57] LABS: Urine Blood NEGATIVE (NEG); Urine Glucose NEGATIVE (NEG); Urine Protein 1+ (NEG); Urine pH 7.5 (5.0-7.0)
[2017-08-23 11:08] LABS: Urine Bacteria <20 /HPF (NONE SEEN); Urine Culture Reflex Order NOT NEEDED; Urine Mucus 3+ /HPF (NONE SEEN); Urine RBC <5 /HPF (NONE SEEN); Urine Sperm PRESENT (NONE SEEN)
[2017-08-23 12:42] VITALS: TEMP 99.3
[2017-08-23 12:43] VITALS: BP 113/71; O2SAT 97
== END 2017-08-23 12:37 | disposition home or self-care (01) ==
LOC: ER 09:49
DX: K94.23 Gastrostomy malfunction (principal); N39.0 Urinary tract infection, site not specified; J45.909 Unspecified asthma, uncomplicated; Y83.8 Other surgical procedures as the cause of abnormal reaction of the patient, or of later complication, without mention of misadventure at the time of the procedure; Z88.0 Allergy status to penicillin
CPT/HCPCS: 81003; 81015; 87077; 87086; 87088; 87186; 99283

== ENCOUNTER 2017-08-25 05:28 | Observation (INO) | payer OTHER ==
--- OUTSIDE RECORDS SUMMARY | 2017-08-25 05:32 | XMS REPORT | Clinical Summary ---
:1990 Author Organization [facility] Address [address] [place] [address] Phone Care Team Providers Name Role Phone [...] Problems Problem Noted Date Pneumonia 05/23/2016 Seizure ([facility]) 05/19/2016 Status epilepticus ([facility]) 08/17/2015 Leukocytosis 08/17/2015 Thrombocytopenia ([facility]) 08/17/2015 Social History Tobacco Use Types Packs/Day Years Used Date Never Smoker Sex Assigned at Date Recorded Not on file Last Filed Vital Signs Not on file Plan of Treatment Not on file Results Not on fileafter 08/24/2016
--- OUTSIDE RECORDS SUMMARY | 2017-08-25 05:32 | XMS REPORT ---
:1990 [facility] Address [address] [place] [address] Care Team Providers Name Role Phone MORIS [...] (BEAKER) (test 82 mg/dL 70-110 TESTED AT [address] uvht=1524) [facility] [address] POCT-GLUCOSE [id number] 08:12:00 Test Item Value Reference Range Comments POC-GLUCOSE METER (BEAKER) 97 mg/dL 70-110 TESTED AT [address] (test ehdm=7542) [facility] [address] CBC W/PLT COUNT & AUTO [id number] 06:38:00 Test Item Value Reference Range Comments WHITE BLOOD CELL COUNT (BEAKER) (test heem=069) 8.1 K/ L 4.0-10.0 RED BLOOD CELL COUNT (BEAKER) (test pnnt=237) 5.24 M/ L 4.20-5.80 HEMOGLOBIN (BEAKER) (test siww=346) 13.1 GM/DL 13.0-16.8 HEMATOCRIT (BEAKER) (test xxxe=592) 42.6 % 40.0-50.0 MEAN CORPUSCULAR VOLUME (BEAKER) (test jerb=007) 81.2 fL 82.0-98.0 MEAN CORPUSCULAR HEMOGLOBIN (BEAKER) (test 25.0 pg 27.0-33.0 ghji=841) MEAN CORPUSCULAR HEMOGLOBIN CONC (BEAKER) (test 30.7 GM/DL 32.0-36.0 tygo=017) RED CELL DISTRIBUTION WIDTH (BEAKER) (test 14.6 % 10.3-14.2 fexn=372) PLATELET COUNT (BEAKER) (test obnb=584) 172 K/CU MM 150-430 MEAN PLATELET VOLUME (BEAKER) (test tqpb=048) 11.6 fL 6.5-10.5 NUCLEATED RED BLOOD CELLS (BEAKER) (test 0 /100 WBC 0-0 luvc=984) NEUTROPHILS RELATIVE PERCENT (BEAKER) (test 42 % qonv=791) LYMPHOCYTES RELATIVE PERCENT (BEAKER) (test 40 % hkta=286) MONOCYTES RELATIVE PERCENT (BEAKER) (test 15 % tzfm=788) EOSINOPHILS RELATIVE PERCENT (BEAKER) (test 2 % iino=559) BASOPHILS RELATIVE PERCENT (BEAKER) (test 1 % anhm=849) NEUTROPHILS ABSOLUTE COUNT (BEAKER) (test 3.39 K/ L 1.80-8.00 qsbu=266) LYMPHOCYTES ABSOLUTE COUNT (BEAKER) (test 3.28 K/ L 1.48-4.50 vdzw=385) MONOCYTES ABSOLUTE COUNT (BEAKER) (test 1.24 K/ L 0.00-1.30 nkhg=010) EOSINOPHILS ABSOLUTE COUNT (BEAKER) (test 0.12 K/ L 0.00-0.50 lfhz=964) BASOPHILS ABSOLUTE COUNT (BEAKER) (test 0.09 K/ L 0.00-0.20 frnh=651) 0.00POCT-GLUCOSE [id number] 04:47:00 Test Item Value Reference Range Comments POC-GLUCOSE METER (BEAKER) 73 mg/dL 70-110 TESTED AT [address] (test meca=0539) [facility] [address] POCT-GLUCOSE [id number] 00:27:00 Test Item Value Reference Range Comments POC-GLUCOSE METER (BEAKER) 71 mg/dL 70-110 TESTED AT [address] (test umoe=3839) [facility] [address] POCT-GLUCOSE [id number] 12:03:00 Test Item Value Reference Range Comments POC-GLUCOSE METER (BEAKER) 86 mg/dL 70-110 TESTED AT [address] (test jsqe=7523) [facility] [address] POCT-GLUCOSE [id number] 06:10:00 Test Item Value Reference Range Comments POC-GLUCOSE METER (BEAKER) 89 mg/dL 70-110 TESTED AT [address] (test kote=0930) [facility] [address] POCT-GLUCOSE [id number] 00:20:00 Test Item Value Reference Range Comments POC-GLUCOSE METER (BEAKER) 77 mg/dL 70-110 TESTED AT [address] (test ihhv=7898) [place] [id number] POCT-GLUCOSE [id number] 19:04:00 Test Item Value Reference Range Comments POC-GLUCOSE METER (BEAKER) 129 mg/dL 70-110 TESTED AT [address] (test gcin=4383) [place] [address] POCT-GLUCOSE [id number] 16:34:00 Test Item Value Reference Range Comments POC-GLUCOSE METER (BEAKER) 120 mg/dL 70-110 TESTED AT [address] (test gtzd=3770) [place] [address] POCT-GLUCOSE [id number] 06:09:00 Test Item Value Reference Range Comments POC-GLUCOSE METER (BEAKER) 76 mg/dL 70-110 TESTED AT [address] (test dbmw=6924) [facility] [address] POCT-GLUCOSE [id number] 00:51:00 Test Item Value Reference Range Comments POC-GLUCOSE METER (BEAKER) 84 mg/dL 70-110 TESTED AT [address] (test nwnq=7795) [place] [address] POCT-GLUCOSE [id number] 14:52:00 Test Item Value Reference Range Comments POC-GLUCOSE METER (BEAKER) 125 mg/dL 70-110 TESTED AT [address] (test ernr=6546) [place] [address] POCT-GLUCOSE [id number] 22:00:00 Test Item Value Reference Range Comments POC-GLUCOSE METER (BEAKER) 102 mg/dL 70-110 TESTED AT [address] (test pkii=5247) [place] [address] POCT-GLUCOSE [id number] 18:36:00 Test Item Value Reference Range Comments POC-GLUCOSE METER (BEAKER) 60 mg/dL 70-110 TESTED AT [address] (test pvho=7452) [place] [address] BLOOD [id number] 15:25:00 Test Item Value Reference Range Comments CULTURE (BEAKER) From Anaerobic Bottle Only (test evth=9730) Coagulase negative Staphylococcus GRAM STAIN RESULT From anaerobic bottle (BEAKER) (test only: gram positive yizm=0887) cocci in clusters POCT-GLUCOSE [id number] 13:24:00 Test Item Value Reference Range Comments POC-GLUCOSE METER (BEAKER) 86 mg/dL 70-[address] [facility] [address] [facility] (test cimk=1268) [facility] [address] CBC W/PLT COUNT & AUTO [id number] 10:10:00 Test Item Value Reference Range Comments WHITE BLOOD CELL COUNT (BEAKER) (test zrao=236) 8.0 K/ L 4.0-10.0 RED BLOOD CELL COUNT (BEAKER) (test dkrf=188) 4.77 M/ L 4.20-5.80 HEMOGLOBIN (BEAKER) (test epxy=164) 13.4 GM/DL 13.0-16.8 HEMATOCRIT (BEAKER) (test qwpu=518) 38.7 % 40.0-50.0 MEAN CORPUSCULAR VOLUME (BEAKER) (test ngdc=861) 81.1 fL 82.0-98.0 MEAN CORPUSCULAR HEMOGLOBIN (BEAKER) (test 28.1 pg 27.0-33.0 lucc=239) MEAN CORPUSCULAR HEMOGLOBIN CONC (BEAKER) (test 34.6 GM/DL 32.0-36.0 ykdc=396) RED CELL DISTRIBUTION WIDTH (BEAKER) (test 13.8 % 10.3-14.2 bici=088) PLATELET COUNT (BEAKER) (test rmcv=057) 109 K/CU MM 150-430 MEAN PLATELET VOLUME (BEAKER) (test qrvj=515) 11.9 fL 6.5-10.5 NUCLEATED RED BLOOD CELLS (BEAKER) (test 2 /100 WBC 0-0 kdqr=430) NEUTROPHILS RELATIVE PERCENT (BEAKER) (test 41 % hrnz=563) LYMPHOCYTES RELATIVE PERCENT (BEAKER) (test 40 % rsha=073) MONOCYTES RELATIVE PERCENT (BEAKER) (test 17 % fdgw=108) EOSINOPHILS RELATIVE PERCENT (BEAKER) (test 2 % kmxx=489) BASOPHILS RELATIVE PERCENT (BEAKER) (test 1 % hxrz=582) NEUTROPHILS ABSOLUTE COUNT (BEAKER) (test 3.26 K/ L 1.80-8.00 clrx=275) LYMPHOCYTES ABSOLUTE COUNT (BEAKER) (test 3.16 K/ L 1.48-4.50 jraa=460) MONOCYTES ABSOLUTE COUNT (BEAKER) (test 1.39 K/ L 0.00-1.30 tibe=914) EOSINOPHILS ABSOLUTE COUNT (BEAKER) (test 0.13 K/ L 0.00-0.50 lumw=975) BASOPHILS ABSOLUTE COUNT (BEAKER) (test 0.06 K/ L 0.00-0.20 hxiv=536) 0.00(MANUAL DIFFERENTIAL)2016-05-26 10:10:00 Test Item Value Reference Range Comments TOTAL COUNTED (BEAKER) (test ccfl=3200) PLT MORPHOLOGY (BEAKER) (test tqce=155) Normal RBC MORPHOLOGY (BEAKER) (test vrqq=150) Normal ATYPICAL LYMPHS(BEAKER) (test wfov=8262) Present POCT-GLUCOSE [id number] 00:30:00 Test Item Value Reference Range Comments POC-GLUCOSE METER (BEAKER) 120 mg/dL 70-110 TESTED AT [address] (test kbeo=6600) [place] [address] POCT-GLUCOSE [id number] 18:23:00 Test Item Value Reference Range Comments POC-GLUCOSE METER (BEAKER) 82 mg/dL 70-110 TESTED AT [address] (test okmi=9745) [place] [address] ANTI-NUCLEAR ANTIBODY (NORMA)2016-05-25 13:07:00 Test Item Value Reference Range Comments ANTI-NUCLEAR ANTIBODY (NORMA) (BEAKER) (test Negative Negative brqp=668) POCT-GLUCOSE [id number] 12:50:00 Test Item Value Reference Range Comments POC-GLUCOSE METER (BEAKER) 115 mg/dL 70-110 TESTED AT [address] (test fose=4547) [place] [address] CBC W/PLT COUNT & AUTO [id number] 11:05:00 Test Item Value Reference Range Comments WHITE BLOOD CELL COUNT (BEAKER) (test awjc=887) 8.3 K/ L 4.0-10.0 RED BLOOD CELL COUNT (BEAKER) (test twjq=445) 4.95 M/ L 4.20-5.80 HEMOGLOBIN (BEAKER) (test fhfv=409) 13.2 GM/DL 13.0-16.8 HEMATOCRIT (BEAKER) (test vwhp=487) 39.6 % 40.0-50.0 MEAN CORPUSCULAR VOLUME (BEAKER) (test hcjq=495) 80.0 fL 82.0-98.0 MEAN CORPUSCULAR HEMOGLOBIN (BEAKER) (test 26.7 pg 27.0-33.0 ycmi=672) MEAN CORPUSCULAR HEMOGLOBIN CONC (BEAKER) (test 33.3 GM/DL 32.0-36.0 ygid=933) RED CELL DISTRIBUTION WIDTH (BEAKER) (test 13.3 % 10.3-14.2 acld=056) PLATELET COUNT (BEAKER) (test vvdh=529) 101 K/CU MM 150-430 MEAN PLATELET VOLUME (BEAKER) (test vgbt=147) 11.7 fL 6.5-10.5 NUCLEATED RED BLOOD CELLS (BEAKER) (test 0 /100 WBC 0-0 wfsi=373) NEUTROPHILS RELATIVE PERCENT (BEAKER) (test 38 % jifc=811) LYMPHOCYTES RELATIVE PERCENT (BEAKER) (test 39 % ytae=002) MONOCYTES RELATIVE PERCENT (BEAKER) (test 21 % pzpa=420) EOSINOPHILS RELATIVE PERCENT (BEAKER) (test 2 % ipea=039) BASOPHILS RELATIVE PERCENT (BEAKER) (test 1 % lvjt=551) NEUTROPHILS ABSOLUTE COUNT (BEAKER) (test 3.15 K/ L 1.80-8.00 jruc=626) LYMPHOCYTES ABSOLUTE COUNT (BEAKER) (test 3.27 K/ L 1.48-4.50 xuwo=175) MONOCYTES ABSOLUTE COUNT (BEAKER) (test 1.70 K/ L 0.00-1.30 klwz=058) EOSINOPHILS ABSOLUTE COUNT (BEAKER) (test 0.15 K/ L 0.00-0.50 rtti=577) BASOPHILS ABSOLUTE COUNT (BEAKER) (test 0.04 K/ L 0.00-0.20 zghn=627) 0.00POCT-GLUCOSE [id number] 06:12:00 Test Item Value Reference Range Comments POC-GLUCOSE METER (BEAKER) 83 mg/dL 70-[address] [facility] [address] (test pqeg=7411) [facility] [address] SPUTUM CULTURE + GRAM [id number] 02:04:00 Test Item Value Reference Range Comments CULTURE (BEAKER) (test PSEUDOMONAS 3+ Pseudomonas zksa=7262) AERUGINOSA aeruginosa Amikacin (test code=1) Susceptible 0-16 , Resistant <0 or >16 Aztreonam (test Susceptible 0-8 , code=32) Resistant <0 or >8 Cefepime (test code=51) Susceptible 0-8 , Resistant <0 or >8 Ceftazidime (test Susceptible 0-8 , code=27) Resistant <0 or >8 Ciprofloxacin (test Susceptible 0-1 , code=7) Resistant <0 or >1 Doripenem (test Susceptible 0-2 , lkgg=209) Resistant <0 or >2 Gentamicin (test Susceptible [...] or >4 CULTURE (BEAKER) (test 3+ Moraxella wcbi=933873) catarrhalis CULTURE (BEAKER) (test PSEUDOMONAS 3+ Pseudomonas qylo=99422) AERUGINOSA aeruginosaof a second type Amikacin (test code=1) Susceptible 0-16 , Resistant <0 or >16 Aztreonam (test Susceptible 0-8 , code=32) Resistant <0 or >8 Cefepime (test code=51) Susceptible 0-8 , Resistant <0 or >8 Ceftazidime (test Susceptible 0-8 , code=27) Resistant <0 or >8 Ciprofloxacin (test Susceptible 0-1 , code=7) Resistant <0 or >1 Doripenem (test Susceptible 0-2 , nmql=547) Resistant <0 or >2 Gentamicin (test Susceptible [...] GRAM STAIN RESULT <1+ WBCs (BEAKER) (test hwnx=6968) GRAM STAIN RESULT 15-20 epithelial (BEAKER) (test cells hbpg=577876) GRAM STAIN RESULT 2+ gram negative rods (BEAKER) (test bykh=526328) GRAM STAIN RESULT <1+ gram positive (BEAKER) (test rods clmd=856863) GRAM STAIN RESULT 1+ gram positive (BEAKER) (test cocci in chains and zxxj=294873) pairs GRAM STAIN RESULT 1+ gram positive (BEAKER) (test coccobacilli vpko=948066) 3+ Normal respiratory ralph presentPOCT-GLUCOSE [id number] 00:03:00 Test Item Value Reference Range Comments POC-GLUCOSE METER (BEAKER) 86 mg/dL 70-110 TESTED AT [address] (test svxq=6914) [place] [address] POCT-GLUCOSE [id number] 14:08:00 Test Item Value Reference Range Comments POC-GLUCOSE METER (BEAKER) 71 mg/dL 70-110 TESTED AT [address] (test uiux=0789) [place] [address] HEPATITIS B SURFACE [id number] 10:56:00 Test Item Value Reference Range Comments HEPATITIS B SURFACE ANTIBODY (BEAKER) (test < mIU/mL <8.0 hepa=074) HEPATITIS B SURFACE [id number] 10:52:00 Test Item Value Reference Range Comments HEPATITIS B SURFACE ANTIGEN (2) (BEAKER) (test Nonreactive Nonreactive zttm=6145) HEPATITIS C [id number] 10:52:00 Test Item Value Reference Range Comments HEPATITIS C ANTIBODY (BEAKER) (test thxz=284) Nonreactive Nonreactive HEPATITIS B CORE ANTIBODY, [id number] 10:52:00 Test Item Value Reference Range Comments HEPATITIS B CORE TOTAL ANTIBODY (BEAKER) (test Nonreactive Nonreactive lcnz=293) HIV-1 ANTIGEN WITH HIV-1/2 [id number] 10:52:00 Test Item Value Reference Range Comments HIV-1 ANTIGEN WITH HIV 1\T\2 ANTIBODY (2) Nonreactive Nonreactive (BEAKER) (test upuy=2536) PERIPHERAL BLOOD SMEAR - HOLD [id number] 07:58:00 Test Item Value Reference Range Comments PERIPHERAL SMEAR SAVE (BEAKER) (test vggl=3545) saved CBC W/PLT COUNT & AUTO [id number] 07:58:00 Test Item Value Reference Range Comments WHITE BLOOD CELL COUNT (BEAKER) (test drkl=044) 7.1 K/ L 4.0-10.0 RED BLOOD CELL COUNT (BEAKER) (test gpza=511) 5.04 M/ L 4.20-5.80 HEMOGLOBIN (BEAKER) (test ribj=060) 13.1 GM/DL 13.0-16.8 HEMATOCRIT (BEAKER) (test nuvs=101) 41.3 % 40.0-50.0 MEAN CORPUSCULAR VOLUME (BEAKER) (test pric=422) 81.9 fL 82.0-98.0 MEAN CORPUSCULAR HEMOGLOBIN (BEAKER) (test 26.0 pg 27.0-33.0 boxg=299) MEAN CORPUSCULAR HEMOGLOBIN CONC (BEAKER) (test 31.8 GM/DL 32.0-36.0 hyqk=921) RED CELL DISTRIBUTION WIDTH (BEAKER) (test 13.9 % 10.3-14.2 qefj=429) PLATELET COUNT (BEAKER) (test ufpr=800) 87 K/CU MM 150-430 MEAN PLATELET VOLUME (BEAKER) (test nxfc=268) 12.1 fL 6.5-10.5 NUCLEATED RED BLOOD CELLS (BEAKER) (test 0 /100 WBC 0-0 taud=787) NEUTROPHILS RELATIVE PERCENT (BEAKER) (test 42 % mmcw=935) LYMPHOCYTES RELATIVE PERCENT (BEAKER) (test 35 % abnu=548) MONOCYTES RELATIVE PERCENT (BEAKER) (test 21 % bjfd=656) EOSINOPHILS RELATIVE PERCENT (BEAKER) (test 2 % tftp=705) BASOPHILS RELATIVE PERCENT (BEAKER) (test 1 % qumn=500) NEUTROPHILS ABSOLUTE COUNT (BEAKER) (test 2.95 K/ L 1.80-8.00 rumd=716) LYMPHOCYTES ABSOLUTE COUNT (BEAKER) (test 2.44 K/ L 1.48-4.50 scqs=762) MONOCYTES ABSOLUTE COUNT (BEAKER) (test aqkx=263) 1.50 K/ L 0.00-1.30 EOSINOPHILS ABSOLUTE COUNT (BEAKER) (test 0.12 K/ L 0.00-0.50 ptwb=930) BASOPHILS ABSOLUTE COUNT (BEAKER) (test jgiw=065) 0.07 K/ L 0.00-0.20 0.00VITAMIN B12 AND [id number] 07:13:00 Test Item Value Reference Range Comments VITAMIN B12 (BEAKER) (test pkhk=837) 1822 pg/mL 213-816 FOLATE (BEAKER) (test onwx=123) 15.2 ng/mL >=7.0 Effective 2013: Folate Reference Range ChangeNew: >=7.0 Previous: & gt;=[id number] 06:54:00 Test Item Value Reference Range Comments D-DIMER QUANTITATIVE (BEAKER) (test gujs=366) 1.39 MG/L FEU <0.50 Intended Use: The D-Dimer Assay can be used to aid in the diagnosis of Deep Vein Thrombosis (DVT) and Pulmonary Embolism Disease (PED).In patients with low pre-test probability, various studies concerning STA Liatest D-dimer test have reported that with a cutoff value of 0.50 MG/L FEU, the Negative Predictive Value (NPV) regarding the exclusion of thrombosis is within 95-100% range.[id number] 06:53:00 Test Item Value Reference Range Comments FIBRINOGEN LEVEL (BEAKER) (test setq=096) 355 mg/dl 225-434 [id number] 06:53:00 Test Item Value Reference Range Comments PROTIME (BEAKER) (test xopj=615) 13.9 seconds 11.7-14.7 INR (BEAKER) (test qbfp=011) 1.1 <=5.9 PARTIAL THROMBOPLASTIN TIME (BEAKER) (test 31.7 seconds 22.5-36.0 wois=956) RECOMMENDED COUMADIN/WARFARIN INR THERAPY RANGESSTANDARD DOSE: 2.0 - 3.0 Includes: PROPHYLAXIS forvenous thrombosis, systemic embolization; TREATMENT for venous thrombosis and/or pulmonary embolus.HIGH RISK: Target INR is 2.5-3.5 for patients with mechanical heart valves.COMPREHENSIVE METABOLIC [id number] 06:40:00 Test Item Value Reference Range Comments TOTAL PROTEIN (BEAKER) 6.8 gm/dL 6.0-8.3 (test trpp=976) ALBUMIN (BEAKER) (test 3.1 g/dL 3.5-5.0 uadb=8553) ALKALINE PHOSPHATASE 72 U/L 40-150 (BEAKER) (test virv=716) BILIRUBIN TOTAL (BEAKER) 0.4 mg/dL 0.2-1.2 (test swcw=533) SODIUM (BEAKER) (test 138 meq/L 136-145 afwk=235) POTASSIUM (BEAKER) (test 4.1 meq/L 3.5-5.1 myme=801) CHLORIDE (BEAKER) (test 106 meq/L 98-107 wnqy=424) CO2 (BEAKER) (test 27 meq/L 22-29 xrkd=063) BLOOD UREA NITROGEN 9 mg/dL 7-21 (BEAKER) (test argf=665) CREATININE (BEAKER) (test 0.79 mg/dL 0.57-1.25 naqw=876) GLUCOSE RANDOM (BEAKER) 74 mg/dL 70-105 (test xwwl=916) CALCIUM (BEAKER) (test 8.7 mg/dL 8.4-10.2 zgbm=611) AST (SGOT) (BEAKER) (test 37 U/L 5-34 ukwq=892) ALT (SGPT) (BEAKER) (test 27 U/L 6-55 mamn=268) EGFR (BEAKER) (test 143 mL/min/1.73 sq ESTIMATED GFR IS NOT hazs=6887) m ACCURATE CREATININE CLEARANCE IN PREDICTING GLOMERULAR FILTRATION RATE. ESTIMATED GFR IS NOT APPLICABLE FOR DIALYSIS PATIENTS. POCT-GLUCOSE [id number] 00:38:00 Test Item Value Reference Range Comments POC-GLUCOSE METER (BEAKER) 104 mg/dL 70-[address] [facility] [address] [facility] (test hgeo=8314) [facility] [address] POCT-GLUCOSE [id number] 17:31:00 Test Item Value Reference Range Comments POC-GLUCOSE METER (BEAKER) 83 mg/dL 70-110 TESTED AT [address] (test qsll=5301) [facility] [address] HEPARIN [id number] 14:04:00 Test Item Value Reference Range Comments HEPARIN ANTIBODY (BEAKER) (test jocx=241) Negative Negative HEPARIN ANTIBODY OD (BEAKER) (test agfa=9966) 0.067 <0.400 4T TOTAL SCORE (BEAKER) (test txop=2668) 4 Probability of HIT based on scoring system: 6-8=High probability; 4-5= intermediate probability; 0-3=low probabilityPOCT-GLUCOSE [id number] 09:07: 00 Test Item Value Reference Range Comments POC-GLUCOSE METER (BEAKER) 124 mg/dL 70-[address] [facility] [address] (test vtwm=6421) [facility] [address] CBC W/PLT COUNT & AUTO [id number] 07:37:00 Test Item Value Reference Range Comments WHITE BLOOD CELL COUNT (BEAKER) (test fdbp=023) 9.1 K/ L 4.0-10.0 RED BLOOD CELL COUNT (BEAKER) (test rvch=366) 4.92 M/ L 4.20-5.80 HEMOGLOBIN (BEAKER) (test dyte=047) 13.1 GM/DL 13.0-16.8 HEMATOCRIT (BEAKER) (test wyss=482) 40.0 % 40.0-50.0 MEAN CORPUSCULAR VOLUME (BEAKER) (test wtje=122) 81.2 fL 82.0-98.0 MEAN CORPUSCULAR HEMOGLOBIN (BEAKER) (test 26.7 pg 27.0-33.0 cazu=075) MEAN CORPUSCULAR HEMOGLOBIN CONC (BEAKER) (test 32.8 GM/DL 32.0-36.0 yqma=044) RED CELL DISTRIBUTION WIDTH (BEAKER) (test 13.6 % 10.3-14.2 ucug=884) PLATELET COUNT (BEAKER) (test iovn=729) 72 K/CU MM 150-430 MEAN PLATELET VOLUME (BEAKER) (test llcz=218) 12.7 fL 6.5-10.5 NUCLEATED RED BLOOD CELLS (BEAKER) (test 0 /100 WBC 0-0 syse=299) NEUTROPHILS RELATIVE PERCENT (BEAKER) (test 46 % htfa=418) LYMPHOCYTES RELATIVE PERCENT (BEAKER) (test 33 % jqmo=509) MONOCYTES RELATIVE PERCENT (BEAKER) (test 19 % uywd=379) EOSINOPHILS RELATIVE PERCENT (BEAKER) (test 1 % cshu=677) BASOPHILS RELATIVE PERCENT (BEAKER) (test 0 % pbem=761) NEUTROPHILS ABSOLUTE COUNT (BEAKER) (test 4.22 K/ L 1.80-8.00 stgq=951) LYMPHOCYTES ABSOLUTE COUNT (BEAKER) (test 2.99 K/ L 1.48-4.50 jkwo=737) MONOCYTES ABSOLUTE COUNT (BEAKER) (test lsev=901) 1.72 K/ L 0.00-1.30 EOSINOPHILS ABSOLUTE COUNT (BEAKER) (test 0.12 K/ L 0.00-0.50 gyyk=286) BASOPHILS ABSOLUTE COUNT (BEAKER) (test vlwk=215) 0.03 K/ L 0.00-0.20 0.00BASI METABOLIC [id number] 07:14:00 Test Item Value Reference Range Comments SODIUM (BEAKER) (test 140 meq/L 136-145 ewgh=920) POTASSIUM (BEAKER) (test 3.3 meq/L 3.5-5.1 absg=959) CHLORIDE (BEAKER) (test 109 meq/L 98-107 wksa=194) CO2 (BEAKER) (test 24 meq/L 22-29 xtss=226) BLOOD UREA NITROGEN 9 mg/dL 7-21 (BEAKER) (test hdja=817) CREATININE (BEAKER) (test 0.75 mg/dL 0.57-1.25 jdxf=689) GLUCOSE RANDOM (BEAKER) 119 mg/dL 70-105 (test kigh=944) CALCIUM (BEAKER) (test 8.2 mg/dL 8.4-10.2 rbkq=207) EGFR (BEAKER) (test 151 mL/min/1.73 sq m ESTIMATED GFR IS NOT zjyt=4017) ACCURATE CREATININE CLEARANCE IN PREDICTING GLOMERULAR FILTRATION RATE. ESTIMATED GFR IS NOT APPLICABLE FOR DIALYSIS PATIENTS. POCT-GLUCOSE [id number] 06:57:00 Test Item Value Reference Range Comments POC-GLUCOSE METER (BEAKER) 123 mg/dL 70-[address] [facility] [address] [facility] (test zmha=0184) [facility] [address] POCT-GLUCOSE [id number] 02:04:00 Test Item Value Reference Range Comments POC-GLUCOSE METER (BEAKER) 144 mg/dL 70-110 TESTED AT [address] (test vrdl=7972) [facility] [address] POCT-GLUCOSE [id number] 21:58:00 Test Item Value Reference Range Comments POC-GLUCOSE METER (BEAKER) 69 mg/dL 70-110 TESTED AT [address] (test qamq=8627) [facility] [address] POCT-GLUCOSE [id number] 18:24:00 Test Item Value Reference Range Comments POC-GLUCOSE METER (BEAKER) 155 mg/dL 70-110 TESTED AT [address] (test gohv=0428) [place] [id number] POCT-GLUCOSE [id number] 12:34:00 Test Item Value Reference Range Comments POC-GLUCOSE METER (BEAKER) 123 mg/dL 70-110 TESTED AT [address] (test akea=7069) [place] [id number] URINE [id number] 10:43:00 Test Item Value Reference Range Comments CULTURE (BEAKER) (test tktv=5569) No growth CBC W/PLT COUNT & AUTO [id number] 08:07:00 Test Item Value Reference Range Comments WHITE BLOOD CELL COUNT (BEAKER) (test nmzg=198) 7.1 K/ L 4.0-10.0 RED BLOOD CELL COUNT (BEAKER) (test xqwo=980) 4.91 M/ L 4.20-5.80 HEMOGLOBIN (BEAKER) (test avwp=312) 12.5 GM/DL 13.0-16.8 HEMATOCRIT (BEAKER) (test ncdk=463) 40.0 % 40.0-50.0 MEAN CORPUSCULAR VOLUME (BEAKER) (test aqaa=661) 81.5 fL 82.0-98.0 MEAN CORPUSCULAR HEMOGLOBIN (BEAKER) (test 25.5 pg 27.0-33.0 irkl=037) MEAN CORPUSCULAR HEMOGLOBIN CONC (BEAKER) (test 31.2 GM/DL 32.0-36.0 zimo=977) RED CELL DISTRIBUTION WIDTH (BEAKER) (test 13.4 % 10.3-14.2 bsch=297) PLATELET COUNT (BEAKER) (test erti=043) 56 K/CU MM 150-430 MEAN PLATELET VOLUME (BEAKER) (test hvpy=014) 13.5 fL 6.5-10.5 NUCLEATED RED BLOOD CELLS (BEAKER) (test 0 /100 WBC 0-0 oyqc=957) NEUTROPHILS RELATIVE PERCENT (BEAKER) (test 46 % hjjb=274) LYMPHOCYTES RELATIVE PERCENT (BEAKER) (test 37 % rnwd=314) MONOCYTES RELATIVE PERCENT (BEAKER) (test 15 % mxhh=245) EOSINOPHILS RELATIVE PERCENT (BEAKER) (test 1 % leeh=425) BASOPHILS RELATIVE PERCENT (BEAKER) (test 0 % ypnd=964) NEUTROPHILS ABSOLUTE COUNT (BEAKER) (test 3.27 K/ L 1.80-8.00 yddg=658) LYMPHOCYTES ABSOLUTE COUNT (BEAKER) (test 2.58 K/ L 1.48-4.50 luol=178) MONOCYTES ABSOLUTE COUNT (BEAKER) (test uxlx=218) 1.09 K/ L 0.00-1.30 EOSINOPHILS ABSOLUTE COUNT (BEAKER) (test 0.10 K/ L 0.00-0.50 bidd=327) BASOPHILS ABSOLUTE COUNT (BEAKER) (test zbxh=482) 0.03 K/ L 0.00-0.20 0.00BASIC METABOLIC [id number] 07:39:00 Test Item Value Reference Range Comments SODIUM (BEAKER) (test 141 meq/L 136-145 jawc=653) POTASSIUM (BEAKER) (test 3.6 meq/L 3.5-5.1 dphc=003) CHLORIDE (BEAKER) (test 112 meq/L 98-107 dsym=335) CO2 (BEAKER) (test 23 meq/L 22-29 qefm=112) BLOOD UREA NITROGEN 8 mg/dL 7-21 (BEAKER) (test yeso=967) CREATININE (BEAKER) (test 0.74 mg/dL 0.57-1.25 zlfm=834) GLUCOSE RANDOM (BEAKER) 132 mg/dL 70-105 (test sxds=999) CALCIUM (BEAKER) (test 8.0 mg/dL 8.4-10.2 kmew=068) EGFR (BEAKER) (test 154 mL/min/1.73 sq m ESTIMATED GFR IS NOT csjt=5063) ACCURATE CREATININE CLEARANCE IN PREDICTING GLOMERULAR FILTRATION RATE. ESTIMATED GFR IS NOT APPLICABLE FOR DIALYSIS PATIENTS. LACTIC ACID, VENOUS, WHOLE [id number] 07:32:00 Test Item Value Reference Range Comments LACTATE BLOOD VENOUS (2) 1.8 mmol/L 0.5-2.2 Specimen slightly hemolyzed (BEAKER) (test ftlj=6410) Effective 06/17/2015: Units/Reference Range ChangeNew: 0.5-2.2 mmol/L Previous: 5 -20 mg/dLPOCT-GLUCOSE [id number] 07:05:00 Test Item Value Reference Range Comments POC-GLUCOSE METER (BEAKER) 138 mg/dL 70-110 TESTED AT [address] (test mzvy=4884) [place] [id number] POCT-GLUCOSE [id number] 00:44:00 Test Item Value Reference Range Comments POC-GLUCOSE METER (BEAKER) 124 mg/dL 70-110 TESTED AT [address] (test tbmw=9538) [place] [address] POCT-GLUCOSE [id number] 18:45:00 Test Item Value Reference Range Comments POC-GLUCOSE METER (BEAKER) 125 mg/dL 70-110 TESTED AT [address] (test mixd=5471) [place] [address] LACTIC ACID, VENOUS, WHOLE [id number] 17:34:00 Test Item Value Reference Range Comments LACTATE BLOOD VENOUS (2) (BEAKER) (test 0.8 mmol/L 0.5-2.2 kjwq=7573) Effective 06/17/2015: Units/Reference Range ChangeNew: 0.5-2.2 mmol/L Previous: 5 -20 mg/dLPOCT-GLUCOSE [id number] 13:08:00 Test Item Value Reference Range Comments POC-GLUCOSE METER (BEAKER) 130 mg/dL 70-110 TESTED AT [address] (test npbo=9550) [facility] [address] POCT-GLUCOSE [id number] 12:04:00 Test Item Value Reference Range Comments POC-GLUCOSE METER (BEAKER) 60 mg/dL 70-110 Notified RN or MD Patient (test wxhq=9480) refused repeat test/TESTED AT [place] [id number] CBC W/PLT COUNT & AUTO [id number] 06:22:00 Test Item Value Reference Range Comments WHITE BLOOD CELL COUNT (BEAKER) (test appg=177) 8.3 K/ L 4.0-10.0 RED BLOOD CELL COUNT (BEAKER) (test tpmk=562) 4.70 M/ L 4.20-5.80 HEMOGLOBIN (BEAKER) (test fpge=269) 12.4 GM/DL 13.0-16.8 HEMATOCRIT (BEAKER) (test itxx=997) 38.3 % 40.0-50.0 MEAN CORPUSCULAR VOLUME (BEAKER) (test fhbw=117) 81.4 fL 82.0-98.0 MEAN CORPUSCULAR HEMOGLOBIN (BEAKER) (test 26.3 pg 27.0-33.0 uxxi=142) MEAN CORPUSCULAR HEMOGLOBIN CONC (BEAKER) (test 32.4 GM/DL 32.0-36.0 ardj=195) RED CELL DISTRIBUTION WIDTH (BEAKER) (test 13.4 % 10.3-14.2 bvrb=707) PLATELET COUNT (BEAKER) (test bnwo=648) 56 K/CU MM 150-430 MEAN PLATELET VOLUME (BEAKER) (test dneu=482) 11.4 fL 6.5-10.5 NUCLEATED RED BLOOD CELLS (BEAKER) (test 0 /100 WBC 0-0 uwwf=199) NEUTROPHILS RELATIVE PERCENT (BEAKER) (test 52 % nhgl=850) LYMPHOCYTES RELATIVE PERCENT (BEAKER) (test 33 % nqxc=596) MONOCYTES RELATIVE PERCENT (BEAKER) (test 14 % wccw=724) EOSINOPHILS RELATIVE PERCENT (BEAKER) (test 0 % mnyr=386) BASOPHILS RELATIVE PERCENT (BEAKER) (test 0 % fisj=716) NEUTROPHILS ABSOLUTE COUNT (BEAKER) (test 4.33 K/ L 1.80-8.00 tsqt=836) LYMPHOCYTES ABSOLUTE COUNT (BEAKER) (test 2.75 K/ L 1.48-4.50 mwxf=082) MONOCYTES ABSOLUTE COUNT (BEAKER) (test ofmp=378) 1.16 K/ L 0.00-1.30 EOSINOPHILS ABSOLUTE COUNT (BEAKER) (test 0.04 K/ L 0.00-0.50 amsb=671) BASOPHILS ABSOLUTE COUNT (BEAKER) (test aqqm=173) 0.03 K/ L 0.00-0.20 0.00POCT-GLUCOSE [id number] 06:16:00 Test Item Value Reference Range Comments POC-GLUCOSE METER (BEAKER) 100 mg/dL 70-110 TESTED AT [address] (test gzoy=1092) [facility] [address] CALCIUM, [id number] 06:05:00 Test Item Value Reference Range Comments CALCIUM IONIZED (BEAKER) (test dvwv=381) 0.96 mmol/L 1.12-1.27 PH, BLOOD (BEAKER) (test sqjb=0876) 7.44 Check serum Ionized Calcium level after 4 hours after IV Calcium replacement.[id number] 05:48:00 Test Item Value Reference Range Comments MAGNESIUM (BEAKER) (test gsmi=909) 1.9 mg/dL 1.6-2.6 BASIC METABOLIC [id number] 05:48:00 Test Item Value Reference Range Comments SODIUM (BEAKER) (test 140 meq/L 136-145 rowj=466) POTASSIUM (BEAKER) (test 3.5 meq/L 3.5-5.1 mhnp=275) CHLORIDE (BEAKER) (test 110 meq/L 98-107 uodx=980) CO2 (BEAKER) (test 22 meq/L 22-29 eugv=183) BLOOD UREA NITROGEN 9 mg/dL 7-21 (BEAKER) (test rygr=978) CREATININE (BEAKER) (test 0.71 mg/dL 0.57-1.25 qqtp=403) GLUCOSE RANDOM (BEAKER) 81 mg/dL 70-105 (test gtri=593) CALCIUM (BEAKER) (test 8.0 mg/dL 8.4-10.2 juuk=903) EGFR (BEAKER) (test 161 mL/min/1.73 sq m ESTIMATED GFR IS NOT zyeg=8173) ACCURATE CREATININE CLEARANCE IN PREDICTING GLOMERULAR FILTRATION RATE. ESTIMATED GFR IS NOT APPLICABLE FOR DIALYSIS PATIENTS. POCT-GLUCOSE [id number] 19:22:00 Test Item Value Reference Range Comments POC-GLUCOSE METER (BEAKER) 105 mg/dL 70-110 TESTED AT [address] (test vklf=5202) [place] [id number] POCT-GLUCOSE [id number] 12:14:00 Test Item Value Reference Range Comments POC-GLUCOSE METER (BEAKER) 67 mg/dL 70-110 Notified JOSE ELIAS WRIGHT/TESTED AT [facility] (test vcuy=3230) [address] [place] [address] URINALYSIS W/ [id number] 08:32:00 Test Item Value Reference Range Comments COLOR (BEAKER) (test csdq=518) Yellow CLARITY (BEAKER) (test hbrf=325) Hazy SPECIFIC GRAVITY UA (BEAKER) (test gwyo=745) 1.022 1.001-1.035 PH UA (BEAKER) (test jaua=138) 6.5 5.0-8.0 PROTEIN UA (BEAKER) (test pjca=684) 200 mg/dL Negative GLUCOSE UA (BEAKER) (test kzcq=328) Negative Negative KETONES UA (BEAKER) (test oeia=308) 10 mg/dL Negative BILIRUBIN UA (BEAKER) (test ubux=406) Negative Negative BLOOD UA (BEAKER) (test pjev=988) Moderate Negative NITRITE UA (BEAKER) (test uhjr=598) Negative Negative LEUKOCYTE ESTERASE UA (BEAKER) (test rzne=795) Negative Negative UROBILINOGEN UA (BEAKER) (test yjcg=896) 0.2 mg/dL 0.2-1.0 RBC UA (BEAKER) (test adye=009) > /HPF WBC UA (BEAKER) (test erdg=166) 4 /HPF BACTERIA (BEAKER) (test atwt=917) Occasional MUCUS (BEAKER) (test fvfa=0784) Many AMORPHOUS CRYSTALS (BEAKER) (test kzyg=7870) Moderate SOURCE(BEAKER) (test pkhp=6358) POCT-GLUCOSE [id number] 06:40:00 Test Item Value Reference Range Comments POC-GLUCOSE METER (BEAKER) 90 mg/dL 70-110 TESTED AT [address] (test euco=7797) [facility] [address] PROTHROMBIN [id number] 04:47:00 Test Item Value Reference Range Comments PROTIME (BEAKER) (test prln=153) 14.3 seconds 11.7-14.7 INR (BEAKER) (test ikyg=849) 1.1 <=5.9 RECOMMENDED COUMADIN/WARFARIN INR THERAPY RANGESSTANDARD DOSE: 2.0 - 3.0 Includes: PROPHYLAXIS forvenous thrombosis, systemic embolization; TREATMENT for venous thrombosis and/or pulmonary embolus.HIGH RISK: Target INR is 2.5-3.5 for patients with mechanical heart valves.CBC W/PLT COUNT & AUTO [id number] 04:37:00 Test Item Value Reference Range Comments WHITE BLOOD CELL COUNT (BEAKER) (test rylv=064) 12.8 K/ L 4.0-10.0 RED BLOOD CELL COUNT (BEAKER) (test czyb=861) 4.89 M/ L 4.20-5.80 HEMOGLOBIN (BEAKER) (test mamw=218) 12.9 GM/DL 13.0-16.8 HEMATOCRIT (BEAKER) (test aasd=702) 39.7 % 40.0-50.0 MEAN CORPUSCULAR VOLUME (BEAKER) (test nhst=908) 81.3 fL 82.0-98.0 MEAN CORPUSCULAR HEMOGLOBIN (BEAKER) (test 26.4 pg 27.0-33.0 xwbg=690) MEAN CORPUSCULAR HEMOGLOBIN CONC (BEAKER) (test 32.4 GM/DL 32.0-36.0 rvnk=470) RED CELL DISTRIBUTION WIDTH (BEAKER) (test 14.2 % 10.3-14.2 pcfm=647) PLATELET COUNT (BEAKER) (test ssxj=429) 77 K/CU MM 150-430 MEAN PLATELET VOLUME (BEAKER) (test nrat=031) 9.1 fL 6.5-10.5 NUCLEATED RED BLOOD CELLS (BEAKER) (test 0 /100 WBC 0-0 obgn=312) NEUTROPHILS RELATIVE PERCENT (BEAKER) (test 77 % lbfo=440) LYMPHOCYTES RELATIVE PERCENT (BEAKER) (test 13 % atwp=214) MONOCYTES RELATIVE PERCENT (BEAKER) (test 9 % zejd=697) EOSINOPHILS RELATIVE PERCENT (BEAKER) (test 0 % cmht=049) BASOPHILS RELATIVE PERCENT (BEAKER) (test 0 % syfr=109) NEUTROPHILS ABSOLUTE COUNT (BEAKER) (test 9.91 K/ L 1.80-8.00 pxrc=289) LYMPHOCYTES ABSOLUTE COUNT (BEAKER) (test 1.72 K/ L 1.48-4.50 tpmr=737) MONOCYTES ABSOLUTE COUNT (BEAKER) (test mhry=615) 1.13 K/ L 0.00-1.30 EOSINOPHILS ABSOLUTE COUNT (BEAKER) (test 0.02 K/ L 0.00-0.50 ospb=665) BASOPHILS ABSOLUTE COUNT (BEAKER) (test yeas=468) 0.05 K/ L 0.00-0.20 [id number] 04:27:00 Test Item Value Reference Range Comments ALBUMIN (BEAKER) (test bmjz=4734) 2.9 g/dL 3.5-5.0 BASIC METABOLIC [id number] 04:25:00 Test Item Value Reference Range Comments SODIUM (BEAKER) (test 141 meq/L 136-145 ghhp=626) POTASSIUM (BEAKER) (test 4.6 meq/L 3.5-5.1 dlfo=462) CHLORIDE (BEAKER) (test 111 meq/L 98-107 kiaa=052) CO2 (BEAKER) (test 19 meq/L 22-29 zbad=726) BLOOD UREA NITROGEN 13 mg/dL 7-21 (BEAKER) (test boik=440) CREATININE (BEAKER) (test 0.81 mg/dL 0.57-1.25 lxgr=983) GLUCOSE RANDOM (BEAKER) 99 mg/dL 70-105 (test irhm=668) CALCIUM (BEAKER) (test 8.1 mg/dL 8.4-10.2 llwk=971) EGFR (BEAKER) (test 139 mL/min/1.73 sq m ESTIMATED GFR IS NOT yipy=4681) ACCURATE CREATININE CLEARANCE IN PREDICTING GLOMERULAR FILTRATION RATE. ESTIMATED GFR IS NOT APPLICABLE FOR DIALYSIS PATIENTS. PHENYTOIN LEVEL, [id number] 04:17:00 Test Item Value Reference Range Comments PHENYTOIN (DILANTIN) (BEAKER) (test tpbt=264) 5.9 ug/mL 10.0-20.0 POCT-GLUCOSE [id number] 00:13:00 Test Item Value Reference Range Comments POC-GLUCOSE METER (BEAKER) 96 mg/dL 70-[address] [facility] [address] [facility] (test yspm=5743) [facility] [address]
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
[2017-08-25] MEDS ORDERED: NA CHLORIDE 0.9% 100 ML IV ONE (06:14)
[2017-08-25] MEDS ORDERED: NA CHLORIDE 0.9% 1,000 ML ONE (06:14)
[2017-08-25] MEDS ORDERED: LEVETIRACETAM 500 MG/5 ML VIAL IV ONE (06:14)
[2017-08-25 06:26] LABS: Absolute Lymphocytes (CBC) 2.3 K/uL (0.7-4.9); Absolute Neutrophil 7.9 K/uL (1.8-8.0); Basophils % 0.4 % (0-1.3); Eosinophils % 0.1 % (0-4.4); Hematocrit 47.2 % (39.6-49.0); Lymphocytes % 20.6 % (15.3-44.8); MCH 25.5 pg (27.0-35.0); MCV 79.6 fL (80-100); MPV 12.5 fL (7.6-11.3); Monocytes % 9.1 % (3.3-12.3); RBC Red Blood Cell Count 5.93 M/uL (4.33-5.43)
[2017-08-25 06:34] LABS: ALT/SGPT 35 U/L (12-78); AST/SGOT 25 U/L (15-37); Albumin 3.8 g/dL (3.4-5.0); Alkaline Phosphatase 108 U/L (45-117); BUN Blood Urea Nitrogen 23 mg/dL (7-18); Bicarbonate 23 mmol/L (21-32); Bilirubin Total 0.8 mg/dL (0.2-1.0); Glucose Level 79 mg/dL (74-106); Potassium 3.9 mmol/L (3.5-5.1); Protein, Total 9.3 g/dL (6.4-8.2); Sodium Level 141 mmol/L (136-145)
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
[2017-08-25] MEDS: NA CHLORIDE 0.9% 1,000 ML IV SCH ×4 (07:00→15:12)
[2017-08-25] MEDS ORDERED: NA CHLORIDE 0.9% 0 ML ONE (07:50)
--- NOTE | 2017-08-25 08:41 | RAD REPORT ---
EXAM DESCRIPTION: RAD - Chest Single View - 08/25/2017 7:33 am CLINICAL HISTORY: COUGH Chest pain. COMPARISON: Chest Single View dated 05/19/2016; Chest Single View dated 01/10/2016; Chest Single View dated 08/16/2015; CHEST SINGLE VIEW dated 04/06/2015 FINDINGS: Portable technique limits examination quality. The lungs are underinflated resulting in vascular crowding. The heart is upper limit normal in size w ith tortuous thoracic aorta. Fullness along the right hilar and peritracheal stripe appears unchanged and chronic in nature. No displaced fractures are seen. IMPRESSION: No acute intrathoracic process suspected.
[2017-08-25] MEDS ORDERED: ONDANSETRON 4 MG/2 ML VIAL IV PRN (09:57)
[2017-08-25 10:40] VITALS: BMI 24.7
[2017-08-25] MEDS ORDERED: LIDOCAINE 1% MPF 5 ML VIAL ONE (14:32)
[2017-08-25] MEDS ORDERED: PROPOFOL 200 MG/20 ML VIAL IV ONE (14:32)
[2017-08-25 15:29] VITALS: O2SAT 97
--- NOTE | 2017-08-25 17:11 | OP ---
Date of Procedure: 08/25/2017 Surgeon: Ira Ely MD Procedures: 1.Esophagogastroduodenoscopy. 2.Old PEG tube removal. 3.New PEG tube placement, 20-Portuguese. Indications: See my consult. Anesthesia: By Department of Anesthesia. Medications: See the anesthesia provider document. Complexity: Moderate. Tolerance Of Sedation: Excellent. Procedure In Detail: The procedure, possible complications, alternatives, and possible complications explained to the family. Informed consent was obtained. The patient was placed supine. After appr opriate level of anesthesia, scope was passed. Esophageal mucosa in the proximal, mid, and distal as pect appeared to be within normal range. In the stomach, diffuse gastritis noted. PEG tube appeared to be mushroom variety and was pulled out. Duodenal bulb, duodenal angle, duodenal part 2 appeared to be within normal range. Existing stoma was used to minimize the invasiveness of the procedure and using strictly photovoltaic technician nique, a 20-Portuguese PEG tube was replaced and put at 3.5 cm to anterior abdominal wall that left enoug h laxity and 360 degree rotation. As noted above, there is ischemic injury in the skin area. Impression: Successful PEG tube placement. Plan: Use the PEG tube for all purposes since only existing stoma has been used and no new incision has been done. Complications: None immediately. The patient tolerated the procedure well. Disposition: As above. KATHERINE/SAMMY Voice ID: [id number] Report ID: [id number]
--- NOTE | 2017-08-25 17:11 | CON ---
Date of Consultation: 08/25/2017 A 26-year-old male, Dr. Arreola. Reason For Consultation: Dysfunctional PEG tube, possible seizure activity. History Of Present Illness: Mr. Lopez is a 26-year-old gentleman, who is paraplegic and does not giv e any history. No communication can be done with him. According to the family, his sister was watch ing him, who saw "weird eye movement." Thought he might have had a seizure. The patient has been oseas luated in the ER, has been kept n.p.o. Later on, anesthesia MD, Dr. Sandoval was called in, who thought that he needed neurology clearance and apparently neurology clearance has been obtained. For last ma ny years, the patient has been fed through the PEG tube. The patient's family does not know exactly where this PEG tube has been placed and what type of PEG tube is this. There is no history of hemate mesis, melena, or hematochezia. Physical Examination: General: No other acute distress noted. Hemodynamic and respiratory profile within normal range. HEENT: Apparently, atraumatic normocephalic. No other changes noted. Neck: Very stiff, however, this appears to be chronic. Pulmonary: Bilateral crackles, however, air exchange is good. Cardiac: S1, S2 is normal. Abdomen: Soft, nontender, nondistended. The PEG tube site has minimum discharge. Skin: Deteriorated, likely from chronic ischemic changes. Bowel sounds are excellent. Neurologic: Paraplegic. Cannot communicate. Impression, Plan, Recommendation: Mr. lopez is a 26-year-old gentleman, who has dysphagia and organi c brain syndrome, paraplegic. Therefore dysfunctioning PEG tube needs to be replaced as soon as poss ible. In fact, this will be very important for his fluid nutrition and medication status. I have sp oken with the family and we have discussed about the possibility of bleeding, perforation, tear, infe ction, sepsis, need for surgery, need for blood transfusion, accidental misplacement along with anest hesia related risks including rare fatalities. They have good understanding. They are agreeable. H is ASA classification will be 3. KATHERINE/MODL Voice ID: [id number] Report ID: [id number]
[2017-08-25 18:21] VITALS: BP 107/58; TEMP 97.1
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
== END 2017-08-25 17:50 | disposition home or self-care (01) ==
LOC: ER 05:28 → ERHOLD 06:36 → 2ND 08:11
PROVIDERS: ADMIT Internal Medicine; ATTEND Family Medicine
PROC: 0DH63UZ Insertion of Feeding Device into Stomach, Percutaneous Approach (ICD-10-PCS; principal; 2017-08-25 15:00)
DX: K94.23 Gastrostomy malfunction (principal); G40.209 Localization-related (focal) (partial) symptomatic epilepsy and epileptic syndromes with complex partial seizures, not intractable, without status epilepticus; Z87.820 Personal history of traumatic brain injury; G82.50 Quadriplegia, unspecified
CPT/HCPCS: 36415; 43246; 71045; 80053; 85025; 96365; 96366; 99285; J1953; J7030 ×2; 96361; G0378

== ENCOUNTER 2017-09-03 00:43 | Emergency (ER) | payer OTHER ==
--- OUTSIDE RECORDS SUMMARY | 2017-09-03 00:46 | XMS REPORT | Clinical Summary ---
:1990 Author Organization [facility] Address [address] [place] [address] Phone Care Team Providers Name Role Phone [...] Problems Problem Noted Date Pneumonia 05/23/2016 Seizure ([facility]) 05/19/2016 Status epilepticus ([facility]) 08/17/2015 Leukocytosis 08/17/2015 Thrombocytopenia ([facility]) 08/17/2015 Social History Tobacco Use Types Packs/Day Years Used Date Never Smoker Sex Assigned at Date Recorded Not on file Last Filed Vital Signs Not on file Plan of Treatment Not on file Results Not on fileafter 09/02/2016
--- OUTSIDE RECORDS SUMMARY | 2017-09-03 00:46 | XMS REPORT ---
:1990 [facility] [address] [place] [address] Care Team Providers Name Role Phone MORIS [...] (BEAKER) (test 82 mg/dL 70-110 TESTED AT [address] kyla=4521) [facility] [address] POCT-GLUCOSE [id number] 08:12:00 Test Item Value Reference Range Comments POC-GLUCOSE METER (BEAKER) 97 mg/dL 70-110 TESTED AT [address] (test zrkv=6846) [facility] [address] CBC W/PLT COUNT & AUTO [id number] 06:38:00 Test Item Value Reference Range Comments WHITE BLOOD CELL COUNT (BEAKER) (test kzxe=731) 8.1 K/ L 4.0-10.0 RED BLOOD CELL COUNT (BEAKER) (test cxmb=451) 5.24 M/ L 4.20-5.80 HEMOGLOBIN (BEAKER) (test bywz=474) 13.1 GM/DL 13.0-16.8 HEMATOCRIT (BEAKER) (test jwji=643) 42.6 % 40.0-50.0 MEAN CORPUSCULAR VOLUME (BEAKER) (test uuzh=843) 81.2 fL 82.0-98.0 MEAN CORPUSCULAR HEMOGLOBIN (BEAKER) (test 25.0 pg 27.0-33.0 iswg=465) MEAN CORPUSCULAR HEMOGLOBIN CONC (BEAKER) (test 30.7 GM/DL 32.0-36.0 rtij=428) RED CELL DISTRIBUTION WIDTH (BEAKER) (test 14.6 % 10.3-14.2 vxpg=194) PLATELET COUNT (BEAKER) (test lhgl=159) 172 K/CU MM 150-430 MEAN PLATELET VOLUME (BEAKER) (test fkkb=334) 11.6 fL 6.5-10.5 NUCLEATED RED BLOOD CELLS (BEAKER) (test 0 /100 WBC 0-0 exvu=072) NEUTROPHILS RELATIVE PERCENT (BEAKER) (test 42 % rcni=568) LYMPHOCYTES RELATIVE PERCENT (BEAKER) (test 40 % iggv=500) MONOCYTES RELATIVE PERCENT (BEAKER) (test 15 % jhro=643) EOSINOPHILS RELATIVE PERCENT (BEAKER) (test 2 % gydv=388) BASOPHILS RELATIVE PERCENT (BEAKER) (test 1 % dfve=071) NEUTROPHILS ABSOLUTE COUNT (BEAKER) (test 3.39 K/ L 1.80-8.00 wjeh=788) LYMPHOCYTES ABSOLUTE COUNT (BEAKER) (test 3.28 K/ L 1.48-4.50 mvkg=200) MONOCYTES ABSOLUTE COUNT (BEAKER) (test 1.24 K/ L 0.00-1.30 zesx=561) EOSINOPHILS ABSOLUTE COUNT (BEAKER) (test 0.12 K/ L 0.00-0.50 egen=785) BASOPHILS ABSOLUTE COUNT (BEAKER) (test 0.09 K/ L 0.00-0.20 fniv=654) 0.00POCT-GLUCOSE [id number] 04:47:00 Test Item Value Reference Range Comments POC-GLUCOSE METER (BEAKER) 73 mg/dL 70-110 TESTED AT [address] (test xivv=4943) [facility] [address] POCT-GLUCOSE [id number] 00:27:00 Test Item Value Reference Range Comments POC-GLUCOSE METER (BEAKER) 71 mg/dL 70-110 TESTED AT [address] (test rlbz=3945) [facility] [address] POCT-GLUCOSE [id number] 12:03:00 Test Item Value Reference Range Comments POC-GLUCOSE METER (BEAKER) 86 mg/dL 70-110 TESTED AT [address] (test hmqs=6528) [facility] [address] POCT-GLUCOSE [id number] 06:10:00 Test Item Value Reference Range Comments POC-GLUCOSE METER (BEAKER) 89 mg/dL 70-110 TESTED AT [address] (test mzaw=1430) [facility] [address] POCT-GLUCOSE [id number] 00:20:00 Test Item Value Reference Range Comments POC-GLUCOSE METER (BEAKER) 77 mg/dL 70-110 TESTED AT [address] (test rcng=6689) [place] [address] POCT-GLUCOSE [id number] 19:04:00 Test Item Value Reference Range Comments POC-GLUCOSE METER (BEAKER) 129 mg/dL 70-110 TESTED AT [address] (test beja=1986) [place] [address] POCT-GLUCOSE [id number] 16:34:00 Test Item Value Reference Range Comments POC-GLUCOSE METER (BEAKER) 120 mg/dL 70-110 TESTED AT [address] (test xlgf=2942) [place] [address] POCT-GLUCOSE [id number] 06:09:00 Test Item Value Reference Range Comments POC-GLUCOSE METER (BEAKER) 76 mg/dL 70-110 TESTED AT [address] (test qqhs=9765) [facility] [address] POCT-GLUCOSE [id number] 00:51:00 Test Item Value Reference Range Comments POC-GLUCOSE METER (BEAKER) 84 mg/dL 70-110 TESTED AT [address] (test qzmv=3738) [place] [address] POCT-GLUCOSE [id number] 14:52:00 Test Item Value Reference Range Comments POC-GLUCOSE METER (BEAKER) 125 mg/dL 70-110 TESTED AT [address] (test ecxx=2608) [place] [address] POCT-GLUCOSE [id number] 22:00:00 Test Item Value Reference Range Comments POC-GLUCOSE METER (BEAKER) 102 mg/dL 70-110 TESTED AT [address] (test wgsj=1342) [place] [address] POCT-GLUCOSE [id number] 18:36:00 Test Item Value Reference Range Comments POC-GLUCOSE METER (BEAKER) 60 mg/dL 70-110 TESTED AT [address] (test bedz=2463) [place] [address] BLOOD [id number] 15:25:00 Test Item Value Reference Range Comments CULTURE (BEAKER) From Anaerobic Bottle Only (test vvwq=4976) Coagulase negative Staphylococcus GRAM STAIN RESULT From anaerobic bottle (BEAKER) (test only: gram positive cvde=9874) cocci in clusters POCT-GLUCOSE [id number] 13:24:00 Test Item Value Reference Range Comments POC-GLUCOSE METER (BEAKER) 86 mg/dL 70-110 TESTED AT [facility] [address] [facility] (test cfbp=4547) [facility] [address] CBC W/PLT COUNT & AUTO [id number] 10:10:00 Test Item Value Reference Range Comments WHITE BLOOD CELL COUNT (BEAKER) (test cucx=423) 8.0 K/ L 4.0-10.0 RED BLOOD CELL COUNT (BEAKER) (test odpn=727) 4.77 M/ L 4.20-5.80 HEMOGLOBIN (BEAKER) (test ijit=442) 13.4 GM/DL 13.0-16.8 HEMATOCRIT (BEAKER) (test hyxz=383) 38.7 % 40.0-50.0 MEAN CORPUSCULAR VOLUME (BEAKER) (test obrq=775) 81.1 fL 82.0-98.0 MEAN CORPUSCULAR HEMOGLOBIN (BEAKER) (test 28.1 pg 27.0-33.0 bkvv=831) MEAN CORPUSCULAR HEMOGLOBIN CONC (BEAKER) (test 34.6 GM/DL 32.0-36.0 ifbf=727) RED CELL DISTRIBUTION WIDTH (BEAKER) (test 13.8 % 10.3-14.2 jmlt=352) PLATELET COUNT (BEAKER) (test jpik=260) 109 K/CU MM 150-430 MEAN PLATELET VOLUME (BEAKER) (test cpvl=894) 11.9 fL 6.5-10.5 NUCLEATED RED BLOOD CELLS (BEAKER) (test 2 /100 WBC 0-0 oszk=816) NEUTROPHILS RELATIVE PERCENT (BEAKER) (test 41 % vvuh=093) LYMPHOCYTES RELATIVE PERCENT (BEAKER) (test 40 % buij=413) MONOCYTES RELATIVE PERCENT (BEAKER) (test 17 % xelw=298) EOSINOPHILS RELATIVE PERCENT (BEAKER) (test 2 % gnhs=334) BASOPHILS RELATIVE PERCENT (BEAKER) (test 1 % qscd=615) NEUTROPHILS ABSOLUTE COUNT (BEAKER) (test 3.26 K/ L 1.80-8.00 hasl=242) LYMPHOCYTES ABSOLUTE COUNT (BEAKER) (test 3.16 K/ L 1.48-4.50 wdys=092) MONOCYTES ABSOLUTE COUNT (BEAKER) (test 1.39 K/ L 0.00-1.30 wxdx=528) EOSINOPHILS ABSOLUTE COUNT (BEAKER) (test 0.13 K/ L 0.00-0.50 vxri=769) BASOPHILS ABSOLUTE COUNT (BEAKER) (test 0.06 K/ L 0.00-0.20 ojrm=780) 0.00(MANUAL DIFFERENTIAL)2016-05-26 10:10:00 Test Item Value Reference Range Comments TOTAL COUNTED (BEAKER) (test vtxj=8560) PLT MORPHOLOGY (BEAKER) (test parq=593) Normal RBC MORPHOLOGY (BEAKER) (test onwr=462) Normal ATYPICAL LYMPHS(BEAKER) (test rpur=9966) Present POCT-GLUCOSE [id number] 00:30:00 Test Item Value Reference Range Comments POC-GLUCOSE METER (BEAKER) 120 mg/dL 70-110 TESTED AT [address] (test ecam=7893) [place] [address] POCT-GLUCOSE [id number] 18:23:00 Test Item Value Reference Range Comments POC-GLUCOSE METER (BEAKER) 82 mg/dL 70-110 TESTED AT [address] (test iebo=7249) [place] [address] ANTI-NUCLEAR ANTIBODY (NORMA)2016-05-25 13:07:00 Test Item Value Reference Range Comments ANTI-NUCLEAR ANTIBODY (NORMA) (BEAKER) (test Negative Negative dfdw=998) POCT-GLUCOSE [id number] 12:50:00 Test Item Value Reference Range Comments POC-GLUCOSE METER (BEAKER) 115 mg/dL 70-110 TESTED AT [address] (test iyoj=1138) [place] [address] CBC W/PLT COUNT & AUTO [id number] 11:05:00 Test Item Value Reference Range Comments WHITE BLOOD CELL COUNT (BEAKER) (test wkkn=074) 8.3 K/ L 4.0-10.0 RED BLOOD CELL COUNT (BEAKER) (test ectg=572) 4.95 M/ L 4.20-5.80 HEMOGLOBIN (BEAKER) (test xvbx=315) 13.2 GM/DL 13.0-16.8 HEMATOCRIT (BEAKER) (test ryjc=863) 39.6 % 40.0-50.0 MEAN CORPUSCULAR VOLUME (BEAKER) (test ygwy=257) 80.0 fL 82.0-98.0 MEAN CORPUSCULAR HEMOGLOBIN (BEAKER) (test 26.7 pg 27.0-33.0 kyss=239) MEAN CORPUSCULAR HEMOGLOBIN CONC (BEAKER) (test 33.3 GM/DL 32.0-36.0 pxzu=512) RED CELL DISTRIBUTION WIDTH (BEAKER) (test 13.3 % 10.3-14.2 ehgf=024) PLATELET COUNT (BEAKER) (test owuz=768) 101 K/CU MM 150-430 MEAN PLATELET VOLUME (BEAKER) (test cfoh=754) 11.7 fL 6.5-10.5 NUCLEATED RED BLOOD CELLS (BEAKER) (test 0 /100 WBC 0-0 skns=895) NEUTROPHILS RELATIVE PERCENT (BEAKER) (test 38 % iqmz=982) LYMPHOCYTES RELATIVE PERCENT (BEAKER) (test 39 % uhnq=765) MONOCYTES RELATIVE PERCENT (BEAKER) (test 21 % htog=315) EOSINOPHILS RELATIVE PERCENT (BEAKER) (test 2 % txhb=010) BASOPHILS RELATIVE PERCENT (BEAKER) (test 1 % holm=139) NEUTROPHILS ABSOLUTE COUNT (BEAKER) (test 3.15 K/ L 1.80-8.00 ffiw=863) LYMPHOCYTES ABSOLUTE COUNT (BEAKER) (test 3.27 K/ L 1.48-4.50 nufl=628) MONOCYTES ABSOLUTE COUNT (BEAKER) (test 1.70 K/ L 0.00-1.30 pxuw=140) EOSINOPHILS ABSOLUTE COUNT (BEAKER) (test 0.15 K/ L 0.00-0.50 irbv=475) BASOPHILS ABSOLUTE COUNT (BEAKER) (test 0.04 K/ L 0.00-0.20 yukf=895) 0.00POCT-GLUCOSE [id number] 06:12:00 Test Item Value Reference Range Comments POC-GLUCOSE METER (BEAKER) 83 mg/dL 70-110 TESTED AT [facility] [address] (test buye=8413) [facility] [address] SPUTUM CULTURE + GRAM [id number] 02:04:00 Test Item Value Reference Range Comments CULTURE (BEAKER) (test PSEUDOMONAS 3+ Pseudomonas ffpk=1489) AERUGINOSA aeruginosa Amikacin (test code=1) Susceptible 0-16 , Resistant <0 or >16 Aztreonam (test Susceptible 0-8 , code=32) Resistant <0 or >8 Cefepime (test code=51) Susceptible 0-8 , Resistant <0 or >8 Ceftazidime (test Susceptible 0-8 , code=27) Resistant <0 or >8 Ciprofloxacin (test Susceptible 0-1 , code=7) Resistant <0 or >1 Doripenem (test Susceptible 0-2 , gpsd=907) Resistant <0 or >2 Gentamicin (test Susceptible [...] or >4 CULTURE (BEAKER) (test 3+ Moraxella jvwe=108968) catarrhalis CULTURE (BEAKER) (test PSEUDOMONAS 3+ Pseudomonas ignh=78149) AERUGINOSA aeruginosaof a second type Amikacin (test code=1) Susceptible 0-16 , Resistant <0 or >16 Aztreonam (test Susceptible 0-8 , code=32) Resistant <0 or >8 Cefepime (test code=51) Susceptible 0-8 , Resistant <0 or >8 Ceftazidime (test Susceptible 0-8 , code=27) Resistant <0 or >8 Ciprofloxacin (test Susceptible 0-1 , code=7) Resistant <0 or >1 Doripenem (test Susceptible 0-2 , aeew=048) Resistant <0 or >2 Gentamicin (test Susceptible [...] GRAM STAIN RESULT <1+ WBCs (BEAKER) (test otwo=9297) GRAM STAIN RESULT 15-20 epithelial (BEAKER) (test cells mxcn=492005) GRAM STAIN RESULT 2+ gram negative rods (BEAKER) (test jrbp=670371) GRAM STAIN RESULT <1+ gram positive (BEAKER) (test rods cvov=930005) GRAM STAIN RESULT 1+ gram positive (BEAKER) (test cocci in chains and uykd=795037) pairs GRAM STAIN RESULT 1+ gram positive (BEAKER) (test coccobacilli okjd=704957) 3+ Normal respiratory ralph presentPOCT-GLUCOSE [id number] 00:03:00 Test Item Value Reference Range Comments POC-GLUCOSE METER (BEAKER) 86 mg/dL 70-110 TESTED AT [address] (test psll=8457) [place] [address] POCT-GLUCOSE [id number] 14:08:00 Test Item Value Reference Range Comments POC-GLUCOSE METER (BEAKER) 71 mg/dL 70-110 TESTED AT [address] (test noof=7602) [place] [address] HEPATITIS B SURFACE [id number] 10:56:00 Test Item Value Reference Range Comments HEPATITIS B SURFACE ANTIBODY (BEAKER) (test < mIU/mL <8.0 ywia=433) HEPATITIS B SURFACE [id number] 10:52:00 Test Item Value Reference Range Comments HEPATITIS B SURFACE ANTIGEN (2) (BEAKER) (test Nonreactive Nonreactive ruok=4101) HEPATITIS C [id number] 10:52:00 Test Item Value Reference Range Comments HEPATITIS C ANTIBODY (BEAKER) (test hwjb=724) Nonreactive Nonreactive HEPATITIS B CORE ANTIBODY, [id number] 10:52:00 Test Item Value Reference Range Comments HEPATITIS B CORE TOTAL ANTIBODY (BEAKER) (test Nonreactive Nonreactive jkmq=663) HIV-1 ANTIGEN WITH HIV-1/2 [id number] 10:52:00 Test Item Value Reference Range Comments HIV-1 ANTIGEN WITH HIV 1\T\2 ANTIBODY (2) Nonreactive Nonreactive (BEAKER) (test wcke=7325) PERIPHERAL BLOOD SMEAR - HOLD [id number] 07:58:00 Test Item Value Reference Range Comments PERIPHERAL SMEAR SAVE (BEAKER) (test wwcf=7292) saved CBC W/PLT COUNT & AUTO [id number] 07:58:00 Test Item Value Reference Range Comments WHITE BLOOD CELL COUNT (BEAKER) (test vseu=447) 7.1 K/ L 4.0-10.0 RED BLOOD CELL COUNT (BEAKER) (test iiyl=508) 5.04 M/ L 4.20-5.80 HEMOGLOBIN (BEAKER) (test bgqy=454) 13.1 GM/DL 13.0-16.8 HEMATOCRIT (BEAKER) (test jauy=444) 41.3 % 40.0-50.0 MEAN CORPUSCULAR VOLUME (BEAKER) (test slzk=881) 81.9 fL 82.0-98.0 MEAN CORPUSCULAR HEMOGLOBIN (BEAKER) (test 26.0 pg 27.0-33.0 liax=666) MEAN CORPUSCULAR HEMOGLOBIN CONC (BEAKER) (test 31.8 GM/DL 32.0-36.0 rstz=492) RED CELL DISTRIBUTION WIDTH (BEAKER) (test 13.9 % 10.3-14.2 gtsr=752) PLATELET COUNT (BEAKER) (test spik=187) 87 K/CU MM 150-430 MEAN PLATELET VOLUME (BEAKER) (test lqvp=937) 12.1 fL 6.5-10.5 NUCLEATED RED BLOOD CELLS (BEAKER) (test 0 /100 WBC 0-0 pgvq=165) NEUTROPHILS RELATIVE PERCENT (BEAKER) (test 42 % ilqb=192) LYMPHOCYTES RELATIVE PERCENT (BEAKER) (test 35 % azls=260) MONOCYTES RELATIVE PERCENT (BEAKER) (test 21 % nqso=961) EOSINOPHILS RELATIVE PERCENT (BEAKER) (test 2 % bkeq=197) BASOPHILS RELATIVE PERCENT (BEAKER) (test 1 % vnwh=423) NEUTROPHILS ABSOLUTE COUNT (BEAKER) (test 2.95 K/ L 1.80-8.00 jwme=446) LYMPHOCYTES ABSOLUTE COUNT (BEAKER) (test 2.44 K/ L 1.48-4.50 kdxb=838) MONOCYTES ABSOLUTE COUNT (BEAKER) (test vxtn=289) 1.50 K/ L 0.00-1.30 EOSINOPHILS ABSOLUTE COUNT (BEAKER) (test 0.12 K/ L 0.00-0.50 optc=109) BASOPHILS ABSOLUTE COUNT (BEAKER) (test grlk=284) 0.07 K/ L 0.00-0.20 0.00VITAMIN B12 AND [id number] 07:13:00 Test Item Value Reference Range Comments VITAMIN B12 (BEAKER) (test qfjy=616) 1822 pg/mL 213-816 FOLATE (BEAKER) (test wnvq=963) 15.2 ng/mL >=7.0 Effective 2013: Folate Reference Range ChangeNew: >=7.0 Previous: & gt;=5.8I-[id number] 06:54:00 Test Item Value Reference Range Comments D-DIMER QUANTITATIVE (BEAKER) (test apby=725) 1.39 MG/L FEU <0.50 Intended Use: The D-Dimer Assay can be used to aid in the diagnosis of Deep Vein Thrombosis (DVT) and Pulmonary Embolism Disease (PED).In patients with low pre-test probability, various studies concerning STA Liatest D-dimer test have reported that with a cutoff value of 0.50 MG/L FEU, the Negative Predictive Value (NPV) regarding the exclusion of thrombosis is within 95-100% range.[id number] 06:53:00 Test Item Value Reference Range Comments FIBRINOGEN LEVEL (BEAKER) (test qvnh=882) 355 mg/dl 225-434 PT/[id number] 06:53:00 Test Item Value Reference Range Comments PROTIME (BEAKER) (test cbzs=692) 13.9 seconds 11.7-14.7 INR (BEAKER) (test zrvb=134) 1.1 <=5.9 PARTIAL THROMBOPLASTIN TIME (BEAKER) (test 31.7 seconds 22.5-36.0 lujl=315) RECOMMENDED COUMADIN/WARFARIN INR THERAPY RANGESSTANDARD DOSE: 2.0 - 3.0 Includes: PROPHYLAXIS forvenous thrombosis, systemic embolization; TREATMENT for venous thrombosis and/or pulmonary embolus.HIGH RISK: Target INR is 2.5-3.5 for patients with mechanical heart valves.COMPREHENSIVE METABOLIC [id number] 06:40:00 Test Item Value Reference Range Comments TOTAL PROTEIN (BEAKER) 6.8 gm/dL 6.0-8.3 (test pzos=011) ALBUMIN (BEAKER) (test 3.1 g/dL 3.5-5.0 miri=3419) ALKALINE PHOSPHATASE 72 U/L 40-150 (BEAKER) (test pqib=689) BILIRUBIN TOTAL (BEAKER) 0.4 mg/dL 0.2-1.2 (test zjoo=605) SODIUM (BEAKER) (test 138 meq/L 136-145 ybuy=935) POTASSIUM (BEAKER) (test 4.1 meq/L 3.5-5.1 urdu=105) CHLORIDE (BEAKER) (test 106 meq/L 98-107 lium=598) CO2 (BEAKER) (test 27 meq/L 22-29 eqlx=914) BLOOD UREA NITROGEN 9 mg/dL 7-21 (BEAKER) (test oxtk=585) CREATININE (BEAKER) (test 0.79 mg/dL 0.57-1.25 rcvy=015) GLUCOSE RANDOM (BEAKER) 74 mg/dL 70-105 (test dbmt=813) CALCIUM (BEAKER) (test 8.7 mg/dL 8.4-10.2 fuol=984) AST (SGOT) (BEAKER) (test 37 U/L 5-34 hkdm=289) ALT (SGPT) (BEAKER) (test 27 U/L 6-55 aljk=008) EGFR (BEAKER) (test 143 mL/min/1.73 sq ESTIMATED GFR IS NOT lbxf=9887) m ACCURATE CREATININE CLEARANCE IN PREDICTING GLOMERULAR FILTRATION RATE. ESTIMATED GFR IS NOT APPLICABLE FOR DIALYSIS PATIENTS. POCT-GLUCOSE [id number] 00:38:00 Test Item Value Reference Range Comments POC-GLUCOSE METER (BEAKER) 104 mg/dL 70-110 TESTED AT [facility] [address] [facility] (test buto=2440) [facility] [address] POCT-GLUCOSE [id number] 17:31:00 Test Item Value Reference Range Comments POC-GLUCOSE METER (BEAKER) 83 mg/dL 70-110 TESTED AT [address] (test vvwa=3086) [facility] [address] HEPARIN [id number] 14:04:00 Test Item Value Reference Range Comments HEPARIN ANTIBODY (BEAKER) (test phvu=915) Negative Negative HEPARIN ANTIBODY OD (BEAKER) (test hnea=9253) 0.067 <0.400 4T TOTAL SCORE (BEAKER) (test lsep=3618) 4 Probability of HIT based on scoring system: 6-8=High probability; 4-5= intermediate probability; 0-3=low probabilityPOCT-GLUCOSE [id number] 09:07: 00 Test Item Value Reference Range Comments POC-GLUCOSE METER (BEAKER) 124 mg/dL 70-110 TESTED AT [facility] [address] (test pjte=1845) [facility] [address] CBC W/PLT COUNT & AUTO [id number] 07:37:00 Test Item Value Reference Range Comments WHITE BLOOD CELL COUNT (BEAKER) (test tdqv=056) 9.1 K/ L 4.0-10.0 RED BLOOD CELL COUNT (BEAKER) (test agdt=676) 4.92 M/ L 4.20-5.80 HEMOGLOBIN (BEAKER) (test bosl=789) 13.1 GM/DL 13.0-16.8 HEMATOCRIT (BEAKER) (test cboa=466) 40.0 % 40.0-50.0 MEAN CORPUSCULAR VOLUME (BEAKER) (test csqb=719) 81.2 fL 82.0-98.0 MEAN CORPUSCULAR HEMOGLOBIN (BEAKER) (test 26.7 pg 27.0-33.0 bfpt=285) MEAN CORPUSCULAR HEMOGLOBIN CONC (BEAKER) (test 32.8 GM/DL 32.0-36.0 jszo=081) RED CELL DISTRIBUTION WIDTH (BEAKER) (test 13.6 % 10.3-14.2 jnpt=601) PLATELET COUNT (BEAKER) (test ahcl=196) 72 K/CU MM 150-430 MEAN PLATELET VOLUME (BEAKER) (test rsqc=010) 12.7 fL 6.5-10.5 NUCLEATED RED BLOOD CELLS (BEAKER) (test 0 /100 WBC 0-0 ymig=042) NEUTROPHILS RELATIVE PERCENT (BEAKER) (test 46 % ksea=647) LYMPHOCYTES RELATIVE PERCENT (BEAKER) (test 33 % nerv=017) MONOCYTES RELATIVE PERCENT (BEAKER) (test 19 % pnfi=067) EOSINOPHILS RELATIVE PERCENT (BEAKER) (test 1 % sozf=577) BASOPHILS RELATIVE PERCENT (BEAKER) (test 0 % rtlf=248) NEUTROPHILS ABSOLUTE COUNT (BEAKER) (test 4.22 K/ L 1.80-8.00 axmj=707) LYMPHOCYTES ABSOLUTE COUNT (BEAKER) (test 2.99 K/ L 1.48-4.50 bziq=223) MONOCYTES ABSOLUTE COUNT (BEAKER) (test jjei=143) 1.72 K/ L 0.00-1.30 EOSINOPHILS ABSOLUTE COUNT (BEAKER) (test 0.12 K/ L 0.00-0.50 oixt=154) BASOPHILS ABSOLUTE COUNT (BEAKER) (test jxni=126) 0.03 K/ L 0.00-0.20 0.00BASI METABOLIC [id number] 07:14:00 Test Item Value Reference Range Comments SODIUM (BEAKER) (test 140 meq/L 136-145 htcg=245) POTASSIUM (BEAKER) (test 3.3 meq/L 3.5-5.1 xudt=396) CHLORIDE (BEAKER) (test 109 meq/L 98-107 ptvu=847) CO2 (BEAKER) (test 24 meq/L 22-29 icfv=016) BLOOD UREA NITROGEN 9 mg/dL 7-21 (BEAKER) (test xkhg=128) CREATININE (BEAKER) (test 0.75 mg/dL 0.57-1.25 wzmr=669) GLUCOSE RANDOM (BEAKER) 119 mg/dL 70-105 (test pyol=471) CALCIUM (BEAKER) (test 8.2 mg/dL 8.4-10.2 vpth=016) EGFR (BEAKER) (test 151 mL/min/1.73 sq m ESTIMATED GFR IS NOT rumy=1545) ACCURATE CREATININE CLEARANCE IN PREDICTING GLOMERULAR FILTRATION RATE. ESTIMATED GFR IS NOT APPLICABLE FOR DIALYSIS PATIENTS. POCT-GLUCOSE [id number] 06:57:00 Test Item Value Reference Range Comments POC-GLUCOSE METER (BEAKER) 123 mg/dL 70-110 TESTED AT [facility] [address] [facility] (test qnhi=3000) [facility] [address] POCT-GLUCOSE [id number] 02:04:00 Test Item Value Reference Range Comments POC-GLUCOSE METER (BEAKER) 144 mg/dL 70-110 TESTED AT [address] (test ezgx=8631) [facility] [address] POCT-GLUCOSE [id number] 21:58:00 Test Item Value Reference Range Comments POC-GLUCOSE METER (BEAKER) 69 mg/dL 70-110 TESTED AT [address] (test yryw=0020) [facility] [address] POCT-GLUCOSE [id number] 18:24:00 Test Item Value Reference Range Comments POC-GLUCOSE METER (BEAKER) 155 mg/dL 70-110 TESTED AT [address] (test kuar=0312) [place] [id number] POCT-GLUCOSE [id number] 12:34:00 Test Item Value Reference Range Comments POC-GLUCOSE METER (BEAKER) 123 mg/dL 70-110 TESTED AT [address] (test quhu=7596) [place] [id number] URINE [id number] 10:43:00 Test Item Value Reference Range Comments CULTURE (BEAKER) (test ezwf=9514) No growth CBC W/PLT COUNT & AUTO [id number] 08:07:00 Test Item Value Reference Range Comments WHITE BLOOD CELL COUNT (BEAKER) (test vlal=184) 7.1 K/ L 4.0-10.0 RED BLOOD CELL COUNT (BEAKER) (test wbou=888) 4.91 M/ L 4.20-5.80 HEMOGLOBIN (BEAKER) (test ypat=737) 12.5 GM/DL 13.0-16.8 HEMATOCRIT (BEAKER) (test mcmg=734) 40.0 % 40.0-50.0 MEAN CORPUSCULAR VOLUME (BEAKER) (test fack=963) 81.5 fL 82.0-98.0 MEAN CORPUSCULAR HEMOGLOBIN (BEAKER) (test 25.5 pg 27.0-33.0 scoz=368) MEAN CORPUSCULAR HEMOGLOBIN CONC (BEAKER) (test 31.2 GM/DL 32.0-36.0 ffyn=148) RED CELL DISTRIBUTION WIDTH (BEAKER) (test 13.4 % 10.3-14.2 jaid=179) PLATELET COUNT (BEAKER) (test kqjg=297) 56 K/CU MM 150-430 MEAN PLATELET VOLUME (BEAKER) (test ezib=978) 13.5 fL 6.5-10.5 NUCLEATED RED BLOOD CELLS (BEAKER) (test 0 /100 WBC 0-0 ctch=661) NEUTROPHILS RELATIVE PERCENT (BEAKER) (test 46 % akxm=148) LYMPHOCYTES RELATIVE PERCENT (BEAKER) (test 37 % bmry=559) MONOCYTES RELATIVE PERCENT (BEAKER) (test 15 % vktk=448) EOSINOPHILS RELATIVE PERCENT (BEAKER) (test 1 % cvog=586) BASOPHILS RELATIVE PERCENT (BEAKER) (test 0 % sxdw=940) NEUTROPHILS ABSOLUTE COUNT (BEAKER) (test 3.27 K/ L 1.80-8.00 heff=812) LYMPHOCYTES ABSOLUTE COUNT (BEAKER) (test 2.58 K/ L 1.48-4.50 qagy=941) MONOCYTES ABSOLUTE COUNT (BEAKER) (test amah=879) 1.09 K/ L 0.00-1.30 EOSINOPHILS ABSOLUTE COUNT (BEAKER) (test 0.10 K/ L 0.00-0.50 jgwe=593) BASOPHILS ABSOLUTE COUNT (BEAKER) (test hwlz=198) 0.03 K/ L 0.00-0.20 0.00BASIC METABOLIC [id number] 07:39:00 Test Item Value Reference Range Comments SODIUM (BEAKER) (test 141 meq/L 136-145 yxjv=580) POTASSIUM (BEAKER) (test 3.6 meq/L 3.5-5.1 ymsq=003) CHLORIDE (BEAKER) (test 112 meq/L 98-107 wxim=474) CO2 (BEAKER) (test 23 meq/L 22-29 hgsr=577) BLOOD UREA NITROGEN 8 mg/dL 7-21 (BEAKER) (test eyvl=529) CREATININE (BEAKER) (test 0.74 mg/dL 0.57-1.25 wnym=441) GLUCOSE RANDOM (BEAKER) 132 mg/dL 70-105 (test jhsp=933) CALCIUM (BEAKER) (test 8.0 mg/dL 8.4-10.2 yzed=158) EGFR (BEAKER) (test 154 mL/min/1.73 sq m ESTIMATED GFR IS NOT noys=5178) ACCURATE CREATININE CLEARANCE IN PREDICTING GLOMERULAR FILTRATION RATE. ESTIMATED GFR IS NOT APPLICABLE FOR DIALYSIS PATIENTS. LACTIC ACID, VENOUS, WHOLE [id number] 07:32:00 Test Item Value Reference Range Comments LACTATE BLOOD VENOUS (2) 1.8 mmol/L 0.5-2.2 Specimen slightly hemolyzed (BEAKER) (test etcx=5207) Effective 06/17/2015: Units/Reference Range ChangeNew: 0.5-2.2 mmol/L Previous: 5 -20 mg/dLPOCT-GLUCOSE [id number] 07:05:00 Test Item Value Reference Range Comments POC-GLUCOSE METER (BEAKER) 138 mg/dL 70-110 TESTED AT [address] (test uhwq=4842) [place] [id number] POCT-GLUCOSE [id number] 00:44:00 Test Item Value Reference Range Comments POC-GLUCOSE METER (BEAKER) 124 mg/dL 70-110 TESTED AT [address] (test xdnn=6197) [place] [address] POCT-GLUCOSE [id number] 18:45:00 Test Item Value Reference Range Comments POC-GLUCOSE METER (BEAKER) 125 mg/dL 70-110 TESTED AT [address] (test gchs=9346) [place] [address] LACTIC ACID, VENOUS, WHOLE [id number] 17:34:00 Test Item Value Reference Range Comments LACTATE BLOOD VENOUS (2) (BEAKER) (test 0.8 mmol/L 0.5-2.2 poxl=5869) Effective 06/17/2015: Units/Reference Range ChangeNew: 0.5-2.2 mmol/L Previous: 5 -20 mg/dLPOCT-GLUCOSE [id number] 13:08:00 Test Item Value Reference Range Comments POC-GLUCOSE METER (BEAKER) 130 mg/dL 70-110 TESTED AT [address] (test zsal=0990) [facility] [address] POCT-GLUCOSE [id number] 12:04:00 Test Item Value Reference Range Comments POC-GLUCOSE METER (BEAKER) 60 mg/dL 70-110 Notified RN or MD Patient (test jrck=7844) refused repeat test/TESTED AT [place] [id number] CBC W/PLT COUNT & AUTO [id number] 06:22:00 Test Item Value Reference Range Comments WHITE BLOOD CELL COUNT (BEAKER) (test knsj=887) 8.3 K/ L 4.0-10.0 RED BLOOD CELL COUNT (BEAKER) (test cxya=009) 4.70 M/ L 4.20-5.80 HEMOGLOBIN (BEAKER) (test tveu=546) 12.4 GM/DL 13.0-16.8 HEMATOCRIT (BEAKER) (test okjq=999) 38.3 % 40.0-50.0 MEAN CORPUSCULAR VOLUME (BEAKER) (test itla=583) 81.4 fL 82.0-98.0 MEAN CORPUSCULAR HEMOGLOBIN (BEAKER) (test 26.3 pg 27.0-33.0 gjzs=300) MEAN CORPUSCULAR HEMOGLOBIN CONC (BEAKER) (test 32.4 GM/DL 32.0-36.0 rgiy=917) RED CELL DISTRIBUTION WIDTH (BEAKER) (test 13.4 % 10.3-14.2 gwkp=262) PLATELET COUNT (BEAKER) (test eghy=148) 56 K/CU MM 150-430 MEAN PLATELET VOLUME (BEAKER) (test ogoq=265) 11.4 fL 6.5-10.5 NUCLEATED RED BLOOD CELLS (BEAKER) (test 0 /100 WBC 0-0 zjzw=011) NEUTROPHILS RELATIVE PERCENT (BEAKER) (test 52 % tjtc=205) LYMPHOCYTES RELATIVE PERCENT (BEAKER) (test 33 % kulm=240) MONOCYTES RELATIVE PERCENT (BEAKER) (test 14 % zolx=295) EOSINOPHILS RELATIVE PERCENT (BEAKER) (test 0 % kzri=971) BASOPHILS RELATIVE PERCENT (BEAKER) (test 0 % rwrs=312) NEUTROPHILS ABSOLUTE COUNT (BEAKER) (test 4.33 K/ L 1.80-8.00 zknu=638) LYMPHOCYTES ABSOLUTE COUNT (BEAKER) (test 2.75 K/ L 1.48-4.50 epsl=624) MONOCYTES ABSOLUTE COUNT (BEAKER) (test ikas=823) 1.16 K/ L 0.00-1.30 EOSINOPHILS ABSOLUTE COUNT (BEAKER) (test 0.04 K/ L 0.00-0.50 hvwv=491) BASOPHILS ABSOLUTE COUNT (BEAKER) (test nbak=028) 0.03 K/ L 0.00-0.20 0.00POCT-GLUCOSE [id number] 06:16:00 Test Item Value Reference Range Comments POC-GLUCOSE METER (BEAKER) 100 mg/dL 70-110 TESTED AT [address] (test kgaf=8210) [facility] [id number] CALCIUM, [id number] 06:05:00 Test Item Value Reference Range Comments CALCIUM IONIZED (BEAKER) (test iunj=357) 0.96 mmol/L 1.12-1.27 PH, BLOOD (BEAKER) (test njqk=3339) 7.44 Check serum Ionized Calcium level after 4 hours after IV Calcium replacement.[id number] 05:48:00 Test Item Value Reference Range Comments MAGNESIUM (BEAKER) (test bfbi=752) 1.9 mg/dL 1.6-2.6 BASIC METABOLIC [id number] 05:48:00 Test Item Value Reference Range Comments SODIUM (BEAKER) (test 140 meq/L 136-145 nikk=925) POTASSIUM (BEAKER) (test 3.5 meq/L 3.5-5.1 nwhp=633) CHLORIDE (BEAKER) (test 110 meq/L 98-107 krqp=151) CO2 (BEAKER) (test 22 meq/L 22-29 bqxr=705) BLOOD UREA NITROGEN 9 mg/dL 7-21 (BEAKER) (test juwv=264) CREATININE (BEAKER) (test 0.71 mg/dL 0.57-1.25 nxfu=479) GLUCOSE RANDOM (BEAKER) 81 mg/dL 70-105 (test azzf=953) CALCIUM (BEAKER) (test 8.0 mg/dL 8.4-10.2 luin=076) EGFR (BEAKER) (test 161 mL/min/1.73 sq m ESTIMATED GFR IS NOT vbvp=2059) ACCURATE CREATININE CLEARANCE IN PREDICTING GLOMERULAR FILTRATION RATE. ESTIMATED GFR IS NOT APPLICABLE FOR DIALYSIS PATIENTS. POCT-GLUCOSE [id number] 19:22:00 Test Item Value Reference Range Comments POC-GLUCOSE METER (BEAKER) 105 mg/dL 70-110 TESTED AT [address] (test gejj=7966) [place] [id number] POCT-GLUCOSE [id number] 12:14:00 Test Item Value Reference Range Comments POC-GLUCOSE METER (BEAKER) 67 mg/dL 70-110 Notified JOSE ELIAS WRIGHT/TESTED AT [facility] (test ekwf=7812) [address] [place] [address] URINALYSIS W/ [id number] 08:32:00 Test Item Value Reference Range Comments COLOR (BEAKER) (test ogle=437) Yellow CLARITY (BEAKER) (test qswn=244) Hazy SPECIFIC GRAVITY UA (BEAKER) (test mmdm=019) 1.022 1.001-1.035 PH UA (BEAKER) (test pvzv=275) 6.5 5.0-8.0 PROTEIN UA (BEAKER) (test hgmw=736) 200 mg/dL Negative GLUCOSE UA (BEAKER) (test fxlw=798) Negative Negative KETONES UA (BEAKER) (test kipe=094) 10 mg/dL Negative BILIRUBIN UA (BEAKER) (test ivpy=773) Negative Negative BLOOD UA (BEAKER) (test cvsw=794) Moderate Negative NITRITE UA (BEAKER) (test csyq=706) Negative Negative LEUKOCYTE ESTERASE UA (BEAKER) (test oeap=551) Negative Negative UROBILINOGEN UA (BEAKER) (test ewon=056) 0.2 mg/dL 0.2-1.0 RBC UA (BEAKER) (test gnvb=150) > /HPF WBC UA (BEAKER) (test pkbp=551) 4 /HPF BACTERIA (BEAKER) (test fhsj=369) Occasional MUCUS (BEAKER) (test frhg=6906) Many AMORPHOUS CRYSTALS (BEAKER) (test vpue=7791) Moderate SOURCE(BEAKER) (test ovwi=6628) POCT-GLUCOSE [id number] 06:40:00 Test Item Value Reference Range Comments POC-GLUCOSE METER (BEAKER) 90 mg/dL 70-110 TESTED AT [address] (test jpkr=1945) [facility] [address] PROTHROMBIN [id number] 04:47:00 Test Item Value Reference Range Comments PROTIME (BEAKER) (test jrrn=651) 14.3 seconds 11.7-14.7 INR (BEAKER) (test dnsk=231) 1.1 <=5.9 RECOMMENDED COUMADIN/WARFARIN INR THERAPY RANGESSTANDARD DOSE: 2.0 - 3.0 Includes: PROPHYLAXIS forvenous thrombosis, systemic embolization; TREATMENT for venous thrombosis and/or pulmonary embolus.HIGH RISK: Target INR is 2.5-3.5 for patients with mechanical heart valves.CBC W/PLT COUNT & AUTO [id number] 04:37:00 Test Item Value Reference Range Comments WHITE BLOOD CELL COUNT (BEAKER) (test uzrm=688) 12.8 K/ L 4.0-10.0 RED BLOOD CELL COUNT (BEAKER) (test ridn=211) 4.89 M/ L 4.20-5.80 HEMOGLOBIN (BEAKER) (test kelt=388) 12.9 GM/DL 13.0-16.8 HEMATOCRIT (BEAKER) (test mkvt=116) 39.7 % 40.0-50.0 MEAN CORPUSCULAR VOLUME (BEAKER) (test mktn=343) 81.3 fL 82.0-98.0 MEAN CORPUSCULAR HEMOGLOBIN (BEAKER) (test 26.4 pg 27.0-33.0 ktwi=235) MEAN CORPUSCULAR HEMOGLOBIN CONC (BEAKER) (test 32.4 GM/DL 32.0-36.0 pqmh=417) RED CELL DISTRIBUTION WIDTH (BEAKER) (test 14.2 % 10.3-14.2 vvmu=639) PLATELET COUNT (BEAKER) (test hdut=250) 77 K/CU MM 150-430 MEAN PLATELET VOLUME (BEAKER) (test xbek=583) 9.1 fL 6.5-10.5 NUCLEATED RED BLOOD CELLS (BEAKER) (test 0 /100 WBC 0-0 cjoo=033) NEUTROPHILS RELATIVE PERCENT (BEAKER) (test 77 % udvz=028) LYMPHOCYTES RELATIVE PERCENT (BEAKER) (test 13 % vjkx=453) MONOCYTES RELATIVE PERCENT (BEAKER) (test 9 % uqqs=859) EOSINOPHILS RELATIVE PERCENT (BEAKER) (test 0 % yypm=185) BASOPHILS RELATIVE PERCENT (BEAKER) (test 0 % agwr=824) NEUTROPHILS ABSOLUTE COUNT (BEAKER) (test 9.91 K/ L 1.80-8.00 uhci=571) LYMPHOCYTES ABSOLUTE COUNT (BEAKER) (test 1.72 K/ L 1.48-4.50 kaqn=847) MONOCYTES ABSOLUTE COUNT (BEAKER) (test mydg=101) 1.13 K/ L 0.00-1.30 EOSINOPHILS ABSOLUTE COUNT (BEAKER) (test 0.02 K/ L 0.00-0.50 yooe=843) BASOPHILS ABSOLUTE COUNT (BEAKER) (test znem=106) 0.05 K/ L 0.00-0.20 [id number] 04:27:00 Test Item Value Reference Range Comments ALBUMIN (BEAKER) (test thyw=6383) 2.9 g/dL 3.5-5.0 BASIC METABOLIC [id number] 04:25:00 Test Item Value Reference Range Comments SODIUM (BEAKER) (test 141 meq/L 136-145 wxwy=417) POTASSIUM (BEAKER) (test 4.6 meq/L 3.5-5.1 kreg=214) CHLORIDE (BEAKER) (test 111 meq/L 98-107 hgzs=279) CO2 (BEAKER) (test 19 meq/L 22-29 xyma=429) BLOOD UREA NITROGEN 13 mg/dL 7-21 (BEAKER) (test mrwc=030) CREATININE (BEAKER) (test 0.81 mg/dL 0.57-1.25 ghjl=603) GLUCOSE RANDOM (BEAKER) 99 mg/dL 70-105 (test bnoh=820) CALCIUM (BEAKER) (test 8.1 mg/dL 8.4-10.2 ggad=697) EGFR (BEAKER) (test 139 mL/min/1.73 sq m ESTIMATED GFR IS NOT swvt=4429) ACCURATE CREATININE CLEARANCE IN PREDICTING GLOMERULAR FILTRATION RATE. ESTIMATED GFR IS NOT APPLICABLE FOR DIALYSIS PATIENTS. PHENYTOIN LEVEL, [id number] 04:17:00 Test Item Value Reference Range Comments PHENYTOIN (DILANTIN) (BEAKER) (test gcce=142) 5.9 ug/mL 10.0-20.0 POCT-GLUCOSE [id number] 00:13:00 Test Item Value Reference Range Comments POC-GLUCOSE METER (BEAKER) 96 mg/dL 70-110 TESTED AT [facility] [address] [facility] (test oefi=4204) [facility] [address]
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
[2017-09-03 02:32] VITALS: BP 99/75; O2SAT 96
--- NOTE | 2017-09-03 08:29 | RAD REPORT ---
EXAM DESCRIPTION: RAD - Abdomen Acute Series - 09/03/2017 1:44 am CLINICAL HISTORY: Leaking G-tube, to check or repositioning procedure COMPARISON: None. FINDINGS: Two KUB images of the upper abdomen were obtained. Balloon tip of a G-tube is present. Thi s is hyperdense indicating a contrast material within the lumen of the bulb. The bulb is superimposed over the gastric air bubble. Stomach is not dilated. Motion degradation is present. No contrast appe ars to been injected via the tube itself. No abnormal air density. Balloon tip is superimposed over t he gastric bubble. Positioning of the balloon tip relative to the stomach in the anterior posterior p leena cannot be confirmed. IMPRESSION: Hyperdense balloon tip of a PEG tube is superimposed over nondilated stomach.
== END 2017-09-03 02:20 | disposition home or self-care (01) ==
LOC: ER 00:43
DX: Z43.1 Encounter for attention to gastrostomy (principal); G40.909 Epilepsy, unspecified, not intractable, without status epilepticus; G82.50 Quadriplegia, unspecified; Z88.0 Allergy status to penicillin
CPT/HCPCS: 74022; 99283

== ENCOUNTER 2018-04-28 15:36 | Emergency (ER) | payer OTHER ==
--- OUTSIDE RECORDS SUMMARY | 2018-04-28 15:39 | XMS REPORT | Clinical Summary ---
:1990 Author Organization [facility] Address [address] [place] [address] Care Team Providers Name Role Phone Emilie Primary Care Provider Allergies Active Allergy Reactions Severity Noted Date Comments Penicillins Shortness Of Breath, Rash High 08/16/2015 Reaction to ampicillin, but mother believes patient had no reaction to cefepime/ceftriaxone/zos yn. Tolerated cefepime well inpatient. Medications Medication Sig Dispensed Refills Start Date End Date Status baclofen (LIORESAL) 20 Take 20 mg by 0 Active MG tablet mouth 2 (two) times daily. citalopram (CELEXA) 40 Take 40 mg by 0 Active MG tablet mouth daily. ranitidine (ZANTAC) 75 Take 75 mg by 0 Active MG tablet mouth 2 (two) times daily. cetirizine (ZYRTEC) 10 Take 10 mg by 0 Active MG tablet mouth daily. montelukast Take 10 mg by 0 Active (SINGULAIR) 10 mg mouth nightly. tablet fluticasone (FLONASE) 1 spray by 16 g 0 05/30/2016 05/30/2017 50 mcg/actuation nasal Nasal route spray daily. Active Problems Problem Noted Date Pneumonia 05/23/2016 Seizure 05/19/2016 Status epilepticus 08/17/2015 Leukocytosis 08/17/2015 Thrombocytopenia 08/17/2015 Social History Tobacco Use Types Packs/Day Years Used Date Never Smoker Sex Assigned at Date Recorded Not on file Job Start Date Occupation Industry Not on file Not on file Not on file Travel History Travel Start Travel End No recent travel history available. Last Filed Vital Signs Not on file Plan of Treatment Not on file Results Not on fileafter 04/27/2017 Insurance Payer Benefit Plan / Group Subscriber ID Type Phone Address MEDICARE MEDICARE A B xxxxxxxxxx Medicare MEDICAID MEDICAID [facility] xxxxxxxxx Medicaid Advance Directives For more information, please contact:[address] [phone] Code Status Date Activated Date Inactivated Comments Full Code 05/21/2016 5:03 PM 05/30/2016 4:08 PM This code status was determined by: Patient Full Code 01/10/2016 6:01 PM 01/21/2016 1:51 PM This code status was determined by: Patient Full Code 08/16/2015 5:09 PM 08/20/2015 4:36 PM This code status was determined by: Patient
--- OUTSIDE RECORDS SUMMARY | 2018-04-28 15:40 | XMS REPORT ---
:1990 [facility] [address] [place] [address] Care Team Providers Name Role Phone MORIS [...] (BEAKER) (test 82 mg/dL 70-110 TESTED AT [address] wfmw=7458) [facility] [address] POCT-GLUCOSE [id number] 08:12:00 Test Item Value Reference Range Comments POC-GLUCOSE METER (BEAKER) 97 mg/dL 70-110 TESTED AT [address] (test qqfo=8566) [facility] [address] CBC W/PLT COUNT & AUTO [id number] 06:38:00 Test Item Value Reference Range Comments WHITE BLOOD CELL COUNT (BEAKER) (test fspy=812) 8.1 K/ L 4.0-10.0 RED BLOOD CELL COUNT (BEAKER) (test qgav=050) 5.24 M/ L 4.20-5.80 HEMOGLOBIN (BEAKER) (test cbbr=234) 13.1 GM/DL 13.0-16.8 HEMATOCRIT (BEAKER) (test gsur=084) 42.6 % 40.0-50.0 MEAN CORPUSCULAR VOLUME (BEAKER) (test srcx=688) 81.2 fL 82.0-98.0 MEAN CORPUSCULAR HEMOGLOBIN (BEAKER) (test 25.0 pg 27.0-33.0 uihe=154) MEAN CORPUSCULAR HEMOGLOBIN CONC (BEAKER) (test 30.7 GM/DL 32.0-36.0 bcyt=573) RED CELL DISTRIBUTION WIDTH (BEAKER) (test 14.6 % 10.3-14.2 cxbp=562) PLATELET COUNT (BEAKER) (test xlqp=784) 172 K/CU MM 150-430 MEAN PLATELET VOLUME (BEAKER) (test dhoz=865) 11.6 fL 6.5-10.5 NUCLEATED RED BLOOD CELLS (BEAKER) (test 0 /100 WBC 0-0 kxbo=125) NEUTROPHILS RELATIVE PERCENT (BEAKER) (test 42 % azzz=738) LYMPHOCYTES RELATIVE PERCENT (BEAKER) (test 40 % cyjx=700) MONOCYTES RELATIVE PERCENT (BEAKER) (test 15 % wztr=220) EOSINOPHILS RELATIVE PERCENT (BEAKER) (test 2 % xxah=412) BASOPHILS RELATIVE PERCENT (BEAKER) (test 1 % cquj=835) NEUTROPHILS ABSOLUTE COUNT (BEAKER) (test 3.39 K/ L 1.80-8.00 mczt=776) LYMPHOCYTES ABSOLUTE COUNT (BEAKER) (test 3.28 K/ L 1.48-4.50 gxme=012) MONOCYTES ABSOLUTE COUNT (BEAKER) (test 1.24 K/ L 0.00-1.30 qiqu=620) EOSINOPHILS ABSOLUTE COUNT (BEAKER) (test 0.12 K/ L 0.00-0.50 rivc=092) BASOPHILS ABSOLUTE COUNT (BEAKER) (test 0.09 K/ L 0.00-0.20 eueq=427) 0.00POCT-GLUCOSE [id number] 04:47:00 Test Item Value Reference Range Comments POC-GLUCOSE METER (BEAKER) 73 mg/dL 70-110 TESTED AT [address] (test opve=8575) [facility] [address] POCT-GLUCOSE [id number] 00:27:00 Test Item Value Reference Range Comments POC-GLUCOSE METER (BEAKER) 71 mg/dL 70-110 TESTED AT [address] (test csln=8200) [facility] [address] POCT-GLUCOSE [id number] 12:03:00 Test Item Value Reference Range Comments POC-GLUCOSE METER (BEAKER) 86 mg/dL 70-110 TESTED AT [address] (test xyro=2155) [facility] [address] POCT-GLUCOSE [id number] 06:10:00 Test Item Value Reference Range Comments POC-GLUCOSE METER (BEAKER) 89 mg/dL 70-110 TESTED AT [address] (test jbbr=7282) [facility] [address] POCT-GLUCOSE [id number] 00:20:00 Test Item Value Reference Range Comments POC-GLUCOSE METER (BEAKER) 77 mg/dL 70-110 TESTED AT [address] (test upfw=1258) [place] [id number] POCT-GLUCOSE [id number] 19:04:00 Test Item Value Reference Range Comments POC-GLUCOSE METER (BEAKER) 129 mg/dL 70-110 TESTED AT [address] (test bmwk=2317) [place] [id number] POCT-GLUCOSE [id number] 16:34:00 Test Item Value Reference Range Comments POC-GLUCOSE METER (BEAKER) 120 mg/dL 70-110 TESTED AT [address] (test aqnr=7432) [place] [id number] POCT-GLUCOSE [id number] 06:09:00 Test Item Value Reference Range Comments POC-GLUCOSE METER (BEAKER) 76 mg/dL 70-110 TESTED AT [address] (test gkfi=2463) [facility] [address] POCT-GLUCOSE [id number] 00:51:00 Test Item Value Reference Range Comments POC-GLUCOSE METER (BEAKER) 84 mg/dL 70-110 TESTED AT [address] (test wqeg=2729) [place] [address] POCT-GLUCOSE [id number] 14:52:00 Test Item Value Reference Range Comments POC-GLUCOSE METER (BEAKER) 125 mg/dL 70-110 TESTED AT [address] (test nkeb=4393) [place] [id number] POCT-GLUCOSE [id number] 22:00:00 Test Item Value Reference Range Comments POC-GLUCOSE METER (BEAKER) 102 mg/dL 70-110 TESTED AT [address] (test cqya=3690) [place] [address] POCT-GLUCOSE [id number] 18:36:00 Test Item Value Reference Range Comments POC-GLUCOSE METER (BEAKER) 60 mg/dL 70-110 TESTED AT [address] (test ekqz=7460) [place] [address] BLOOD [id number] 15:25:00 Test Item Value Reference Range Comments CULTURE (BEAKER) From Anaerobic Bottle Only (test mbqi=6617) Coagulase negative Staphylococcus GRAM STAIN RESULT From anaerobic bottle (BEAKER) (test only: gram positive ykpi=4158) cocci in clusters POCT-GLUCOSE [id number] 13:24:00 Test Item Value Reference Range Comments POC-GLUCOSE METER (BEAKER) 86 mg/dL 70-[address] [facility] [address] [facility] (test kedb=1250) [facility] [address] CBC W/PLT COUNT & AUTO [id number] 10:10:00 Test Item Value Reference Range Comments WHITE BLOOD CELL COUNT (BEAKER) (test llkq=320) 8.0 K/ L 4.0-10.0 RED BLOOD CELL COUNT (BEAKER) (test hmai=007) 4.77 M/ L 4.20-5.80 HEMOGLOBIN (BEAKER) (test moqd=501) 13.4 GM/DL 13.0-16.8 HEMATOCRIT (BEAKER) (test butb=070) 38.7 % 40.0-50.0 MEAN CORPUSCULAR VOLUME (BEAKER) (test ygep=960) 81.1 fL 82.0-98.0 MEAN CORPUSCULAR HEMOGLOBIN (BEAKER) (test 28.1 pg 27.0-33.0 bvrg=791) MEAN CORPUSCULAR HEMOGLOBIN CONC (BEAKER) (test 34.6 GM/DL 32.0-36.0 cbza=242) RED CELL DISTRIBUTION WIDTH (BEAKER) (test 13.8 % 10.3-14.2 otla=141) PLATELET COUNT (BEAKER) (test dmnk=379) 109 K/CU MM 150-430 MEAN PLATELET VOLUME (BEAKER) (test slae=589) 11.9 fL 6.5-10.5 NUCLEATED RED BLOOD CELLS (BEAKER) (test 2 /100 WBC 0-0 xvwe=859) NEUTROPHILS RELATIVE PERCENT (BEAKER) (test 41 % jkqe=110) LYMPHOCYTES RELATIVE PERCENT (BEAKER) (test 40 % ojeu=148) MONOCYTES RELATIVE PERCENT (BEAKER) (test 17 % frcb=708) EOSINOPHILS RELATIVE PERCENT (BEAKER) (test 2 % ampm=264) BASOPHILS RELATIVE PERCENT (BEAKER) (test 1 % xvbl=652) NEUTROPHILS ABSOLUTE COUNT (BEAKER) (test 3.26 K/ L 1.80-8.00 desx=867) LYMPHOCYTES ABSOLUTE COUNT (BEAKER) (test 3.16 K/ L 1.48-4.50 zwqq=868) MONOCYTES ABSOLUTE COUNT (BEAKER) (test 1.39 K/ L 0.00-1.30 pgwl=858) EOSINOPHILS ABSOLUTE COUNT (BEAKER) (test 0.13 K/ L 0.00-0.50 nvii=544) BASOPHILS ABSOLUTE COUNT (BEAKER) (test 0.06 K/ L 0.00-0.20 mfjh=767) 0.00(MANUAL DIFFERENTIAL)2016-05-26 10:10:00 Test Item Value Reference Range Comments TOTAL COUNTED (BEAKER) (test fdjy=3896) PLT MORPHOLOGY (BEAKER) (test ugxe=463) Normal RBC MORPHOLOGY (BEAKER) (test unbb=414) Normal ATYPICAL LYMPHS(BEAKER) (test dnyp=2212) Present POCT-GLUCOSE [id number] 00:30:00 Test Item Value Reference Range Comments POC-GLUCOSE METER (BEAKER) 120 mg/dL 70-110 TESTED AT [address] (test xuvg=8022) [place] [address] POCT-GLUCOSE [id number] 18:23:00 Test Item Value Reference Range Comments POC-GLUCOSE METER (BEAKER) 82 mg/dL 70-110 TESTED AT [address] (test kinp=1311) [place] [address] ANTI-NUCLEAR ANTIBODY (NORMA)2016-05-25 13:07:00 Test Item Value Reference Range Comments ANTI-NUCLEAR ANTIBODY (NORMA) (BEAKER) (test Negative Negative bkzz=037) POCT-GLUCOSE [id number] 12:50:00 Test Item Value Reference Range Comments POC-GLUCOSE METER (BEAKER) 115 mg/dL 70-110 TESTED AT [address] (test fzez=5471) [place] [address] CBC W/PLT COUNT & AUTO [id number] 11:05:00 Test Item Value Reference Range Comments WHITE BLOOD CELL COUNT (BEAKER) (test rekk=374) 8.3 K/ L 4.0-10.0 RED BLOOD CELL COUNT (BEAKER) (test fgds=508) 4.95 M/ L 4.20-5.80 HEMOGLOBIN (BEAKER) (test ceqn=522) 13.2 GM/DL 13.0-16.8 HEMATOCRIT (BEAKER) (test rgho=529) 39.6 % 40.0-50.0 MEAN CORPUSCULAR VOLUME (BEAKER) (test gxyo=384) 80.0 fL 82.0-98.0 MEAN CORPUSCULAR HEMOGLOBIN (BEAKER) (test 26.7 pg 27.0-33.0 wolz=868) MEAN CORPUSCULAR HEMOGLOBIN CONC (BEAKER) (test 33.3 GM/DL 32.0-36.0 bwwd=522) RED CELL DISTRIBUTION WIDTH (BEAKER) (test 13.3 % 10.3-14.2 oouk=799) PLATELET COUNT (BEAKER) (test umvo=387) 101 K/CU MM 150-430 MEAN PLATELET VOLUME (BEAKER) (test lcpg=161) 11.7 fL 6.5-10.5 NUCLEATED RED BLOOD CELLS (BEAKER) (test 0 /100 WBC 0-0 bkzt=635) NEUTROPHILS RELATIVE PERCENT (BEAKER) (test 38 % yspe=392) LYMPHOCYTES RELATIVE PERCENT (BEAKER) (test 39 % dczj=427) MONOCYTES RELATIVE PERCENT (BEAKER) (test 21 % nuev=551) EOSINOPHILS RELATIVE PERCENT (BEAKER) (test 2 % wzbz=616) BASOPHILS RELATIVE PERCENT (BEAKER) (test 1 % yimk=073) NEUTROPHILS ABSOLUTE COUNT (BEAKER) (test 3.15 K/ L 1.80-8.00 yabt=776) LYMPHOCYTES ABSOLUTE COUNT (BEAKER) (test 3.27 K/ L 1.48-4.50 luyq=512) MONOCYTES ABSOLUTE COUNT (BEAKER) (test 1.70 K/ L 0.00-1.30 eieh=654) EOSINOPHILS ABSOLUTE COUNT (BEAKER) (test 0.15 K/ L 0.00-0.50 iftl=846) BASOPHILS ABSOLUTE COUNT (BEAKER) (test 0.04 K/ L 0.00-0.20 phrd=812) 0.00POCT-GLUCOSE [id number] 06:12:00 Test Item Value Reference Range Comments POC-GLUCOSE METER (BEAKER) 83 mg/dL 70-[address] [facility] [address] (test decv=0517) [facility] [address] SPUTUM CULTURE + GRAM [id number] 02:04:00 Test Item Value Reference Range Comments CULTURE (BEAKER) (test PSEUDOMONAS 3+ Pseudomonas cvge=1818) AERUGINOSA aeruginosa Amikacin (test code=1) Susceptible 0-16 , Resistant <0 or >16 Aztreonam (test Susceptible 0-8 , code=32) Resistant <0 or >8 Cefepime (test code=51) Susceptible 0-8 , Resistant <0 or >8 Ceftazidime (test Susceptible 0-8 , code=27) Resistant <0 or >8 Ciprofloxacin (test Susceptible 0-1 , code=7) Resistant <0 or >1 Doripenem (test Susceptible 0-2 , xbvv=164) Resistant <0 or >2 Gentamicin (test Susceptible [...] or >4 CULTURE (BEAKER) (test 3+ Moraxella uxmy=343244) catarrhalis CULTURE (BEAKER) (test PSEUDOMONAS 3+ Pseudomonas gxbr=72893) AERUGINOSA aeruginosaof a second type Amikacin (test code=1) Susceptible 0-16 , Resistant <0 or >16 Aztreonam (test Susceptible 0-8 , code=32) Resistant <0 or >8 Cefepime (test code=51) Susceptible 0-8 , Resistant <0 or >8 Ceftazidime (test Susceptible 0-8 , code=27) Resistant <0 or >8 Ciprofloxacin (test Susceptible 0-1 , code=7) Resistant <0 or >1 Doripenem (test Susceptible 0-2 , lcli=552) Resistant <0 or >2 Gentamicin (test Susceptible [...] GRAM STAIN RESULT <1+ WBCs (BEAKER) (test rmog=9815) GRAM STAIN RESULT 15-20 epithelial (BEAKER) (test cells gcue=604862) GRAM STAIN RESULT 2+ gram negative rods (BEAKER) (test fuop=028382) GRAM STAIN RESULT <1+ gram positive (BEAKER) (test rods facg=612480) GRAM STAIN RESULT 1+ gram positive (BEAKER) (test cocci in chains and scdh=547823) pairs GRAM STAIN RESULT 1+ gram positive (BEAKER) (test coccobacilli hdvm=771006) 3+ Normal respiratory ralph presentPOCT-GLUCOSE [id number] 00:03:00 Test Item Value Reference Range Comments POC-GLUCOSE METER (BEAKER) 86 mg/dL 70-110 TESTED AT [address] (test uvrt=2013) [place] [address] POCT-GLUCOSE [id number] 14:08:00 Test Item Value Reference Range Comments POC-GLUCOSE METER (BEAKER) 71 mg/dL 70-110 TESTED AT [address] (test uiuk=6572) [place] [address] HEPATITIS B SURFACE [id number] 10:56:00 Test Item Value Reference Range Comments HEPATITIS B SURFACE ANTIBODY (BEAKER) (test < mIU/mL <8.0 naqx=790) HEPATITIS B SURFACE [id number] 10:52:00 Test Item Value Reference Range Comments HEPATITIS B SURFACE ANTIGEN (2) (BEAKER) (test Nonreactive Nonreactive hgsr=9928) HEPATITIS C [id number] 10:52:00 Test Item Value Reference Range Comments HEPATITIS C ANTIBODY (BEAKER) (test ybxw=215) Nonreactive Nonreactive HEPATITIS B CORE ANTIBODY, [id number] 10:52:00 Test Item Value Reference Range Comments HEPATITIS B CORE TOTAL ANTIBODY (BEAKER) (test Nonreactive Nonreactive sneh=782) HIV-1 ANTIGEN WITH HIV-1/2 [id number] 10:52:00 Test Item Value Reference Range Comments HIV-1 ANTIGEN WITH HIV 1\T\2 ANTIBODY (2) Nonreactive Nonreactive (BEAKER) (test tjff=8271) PERIPHERAL BLOOD SMEAR - HOLD [id number] 07:58:00 Test Item Value Reference Range Comments PERIPHERAL SMEAR SAVE (BEAKER) (test slfp=6108) saved CBC W/PLT COUNT & AUTO [id number] 07:58:00 Test Item Value Reference Range Comments WHITE BLOOD CELL COUNT (BEAKER) (test ehms=096) 7.1 K/ L 4.0-10.0 RED BLOOD CELL COUNT (BEAKER) (test seoo=098) 5.04 M/ L 4.20-5.80 HEMOGLOBIN (BEAKER) (test sqox=226) 13.1 GM/DL 13.0-16.8 HEMATOCRIT (BEAKER) (test dssc=848) 41.3 % 40.0-50.0 MEAN CORPUSCULAR VOLUME (BEAKER) (test dxux=948) 81.9 fL 82.0-98.0 MEAN CORPUSCULAR HEMOGLOBIN (BEAKER) (test 26.0 pg 27.0-33.0 anod=369) MEAN CORPUSCULAR HEMOGLOBIN CONC (BEAKER) (test 31.8 GM/DL 32.0-36.0 dkgi=505) RED CELL DISTRIBUTION WIDTH (BEAKER) (test 13.9 % 10.3-14.2 loue=550) PLATELET COUNT (BEAKER) (test kyco=527) 87 K/CU MM 150-430 MEAN PLATELET VOLUME (BEAKER) (test cgem=644) 12.1 fL 6.5-10.5 NUCLEATED RED BLOOD CELLS (BEAKER) (test 0 /100 WBC 0-0 rlsz=686) NEUTROPHILS RELATIVE PERCENT (BEAKER) (test 42 % oznh=209) LYMPHOCYTES RELATIVE PERCENT (BEAKER) (test 35 % qzhb=666) MONOCYTES RELATIVE PERCENT (BEAKER) (test 21 % avbs=374) EOSINOPHILS RELATIVE PERCENT (BEAKER) (test 2 % imrn=275) BASOPHILS RELATIVE PERCENT (BEAKER) (test 1 % ebsz=970) NEUTROPHILS ABSOLUTE COUNT (BEAKER) (test 2.95 K/ L 1.80-8.00 jvcl=041) LYMPHOCYTES ABSOLUTE COUNT (BEAKER) (test 2.44 K/ L 1.48-4.50 vyks=733) MONOCYTES ABSOLUTE COUNT (BEAKER) (test xfuz=694) 1.50 K/ L 0.00-1.30 EOSINOPHILS ABSOLUTE COUNT (BEAKER) (test 0.12 K/ L 0.00-0.50 ranm=995) BASOPHILS ABSOLUTE COUNT (BEAKER) (test ajwh=715) 0.07 K/ L 0.00-0.20 0.00VITAMIN B12 AND [id number] 07:13:00 Test Item Value Reference Range Comments VITAMIN B12 (BEAKER) (test cwwc=335) 1822 pg/mL 213-816 FOLATE (BEAKER) (test ormw=013) 15.2 ng/mL >=7.0 Effective 2013: Folate Reference Range ChangeNew: >=7.0 Previous: & gt;=5.6Y-[id number] 06:54:00 Test Item Value Reference Range Comments D-DIMER QUANTITATIVE (BEAKER) (test dugf=122) 1.39 MG/L FEU <0.50 Intended Use: The D-Dimer Assay can be used to aid in the diagnosis of Deep Vein Thrombosis (DVT) and Pulmonary Embolism Disease (PED).In patients with low pre-test probability, various studies concerning STA Liatest D-dimer test have reported that with a cutoff value of 0.50 MG/L FEU, the Negative Predictive Value (NPV) regarding the exclusion of thrombosis is within 95-100% range.[id number] 06:53:00 Test Item Value Reference Range Comments FIBRINOGEN LEVEL (BEAKER) (test ziry=823) 355 mg/dl 225-434 [id number] 06:53:00 Test Item Value Reference Range Comments PROTIME (BEAKER) (test kayy=859) 13.9 seconds 11.7-14.7 INR (BEAKER) (test oqov=427) 1.1 <=5.9 PARTIAL THROMBOPLASTIN TIME (BEAKER) (test 31.7 seconds 22.5-36.0 qbew=709) RECOMMENDED COUMADIN/WARFARIN INR THERAPY RANGESSTANDARD DOSE: 2.0 - 3.0 Includes: PROPHYLAXIS forvenous thrombosis, systemic embolization; TREATMENT for venous thrombosis and/or pulmonary embolus.HIGH RISK: Target INR is 2.5-3.5 for patients with mechanical heart valves.COMPREHENSIVE METABOLIC [id number] 06:40:00 Test Item Value Reference Range Comments TOTAL PROTEIN (BEAKER) 6.8 gm/dL 6.0-8.3 (test hoxt=679) ALBUMIN (BEAKER) (test 3.1 g/dL 3.5-5.0 pcos=1174) ALKALINE PHOSPHATASE 72 U/L 40-150 (BEAKER) (test ureb=232) BILIRUBIN TOTAL (BEAKER) 0.4 mg/dL 0.2-1.2 (test jzhm=553) SODIUM (BEAKER) (test 138 meq/L 136-145 ykqm=161) POTASSIUM (BEAKER) (test 4.1 meq/L 3.5-5.1 wclx=119) CHLORIDE (BEAKER) (test 106 meq/L 98-107 kroa=054) CO2 (BEAKER) (test 27 meq/L 22-29 gpmn=666) BLOOD UREA NITROGEN 9 mg/dL 7-21 (BEAKER) (test coib=022) CREATININE (BEAKER) (test 0.79 mg/dL 0.57-1.25 nibr=011) GLUCOSE RANDOM (BEAKER) 74 mg/dL 70-105 (test snqb=033) CALCIUM (BEAKER) (test 8.7 mg/dL 8.4-10.2 siiz=549) AST (SGOT) (BEAKER) (test 37 U/L 5-34 btxc=474) ALT (SGPT) (BEAKER) (test 27 U/L 6-55 yomb=789) EGFR (BEAKER) (test 143 mL/min/1.73 sq ESTIMATED GFR IS NOT bhsn=3144) m ACCURATE CREATININE CLEARANCE IN PREDICTING GLOMERULAR FILTRATION RATE. ESTIMATED GFR IS NOT APPLICABLE FOR DIALYSIS PATIENTS. POCT-GLUCOSE [id number] 00:38:00 Test Item Value Reference Range Comments POC-GLUCOSE METER (BEAKER) 104 mg/dL 70-[address] [facility] [address] [facility] (test wmfo=8433) [facility] [address] POCT-GLUCOSE [id number] 17:31:00 Test Item Value Reference Range Comments POC-GLUCOSE METER (BEAKER) 83 mg/dL 70-110 TESTED AT [address] (test uatb=8874) [facility] [address] HEPARIN [id number] 14:04:00 Test Item Value Reference Range Comments HEPARIN ANTIBODY (BEAKER) (test rlyl=223) Negative Negative HEPARIN ANTIBODY OD (BEAKER) (test empz=2066) 0.067 <0.400 4T TOTAL SCORE (BEAKER) (test imis=4712) 4 Probability of HIT based on scoring system: 6-8=High probability; 4-5= intermediate probability; 0-3=low probabilityPOCT-GLUCOSE [id number] 09:07: 00 Test Item Value Reference Range Comments POC-GLUCOSE METER (BEAKER) 124 mg/dL 70-[address] [facility] [address] (test ahev=0100) [facility] [address] CBC W/PLT COUNT & AUTO [id number] 07:37:00 Test Item Value Reference Range Comments WHITE BLOOD CELL COUNT (BEAKER) (test pdnx=830) 9.1 K/ L 4.0-10.0 RED BLOOD CELL COUNT (BEAKER) (test yyer=743) 4.92 M/ L 4.20-5.80 HEMOGLOBIN (BEAKER) (test qacy=009) 13.1 GM/DL 13.0-16.8 HEMATOCRIT (BEAKER) (test nlbv=747) 40.0 % 40.0-50.0 MEAN CORPUSCULAR VOLUME (BEAKER) (test omih=278) 81.2 fL 82.0-98.0 MEAN CORPUSCULAR HEMOGLOBIN (BEAKER) (test 26.7 pg 27.0-33.0 fyin=734) MEAN CORPUSCULAR HEMOGLOBIN CONC (BEAKER) (test 32.8 GM/DL 32.0-36.0 wglk=447) RED CELL DISTRIBUTION WIDTH (BEAKER) (test 13.6 % 10.3-14.2 jawv=769) PLATELET COUNT (BEAKER) (test utog=978) 72 K/CU MM 150-430 MEAN PLATELET VOLUME (BEAKER) (test cuil=229) 12.7 fL 6.5-10.5 NUCLEATED RED BLOOD CELLS (BEAKER) (test 0 /100 WBC 0-0 zfrh=403) NEUTROPHILS RELATIVE PERCENT (BEAKER) (test 46 % gica=123) LYMPHOCYTES RELATIVE PERCENT (BEAKER) (test 33 % ogca=537) MONOCYTES RELATIVE PERCENT (BEAKER) (test 19 % fhna=603) EOSINOPHILS RELATIVE PERCENT (BEAKER) (test 1 % xfxa=584) BASOPHILS RELATIVE PERCENT (BEAKER) (test 0 % zapn=152) NEUTROPHILS ABSOLUTE COUNT (BEAKER) (test 4.22 K/ L 1.80-8.00 buui=728) LYMPHOCYTES ABSOLUTE COUNT (BEAKER) (test 2.99 K/ L 1.48-4.50 dvjx=241) MONOCYTES ABSOLUTE COUNT (BEAKER) (test ygbx=080) 1.72 K/ L 0.00-1.30 EOSINOPHILS ABSOLUTE COUNT (BEAKER) (test 0.12 K/ L 0.00-0.50 inng=318) BASOPHILS ABSOLUTE COUNT (BEAKER) (test tila=160) 0.03 K/ L 0.00-0.20 0.00BASI METABOLIC [id number] 07:14:00 Test Item Value Reference Range Comments SODIUM (BEAKER) (test 140 meq/L 136-145 nzuu=875) POTASSIUM (BEAKER) (test 3.3 meq/L 3.5-5.1 qrbd=351) CHLORIDE (BEAKER) (test 109 meq/L 98-107 qknh=732) CO2 (BEAKER) (test 24 meq/L 22-29 pbdv=687) BLOOD UREA NITROGEN 9 mg/dL 7-21 (BEAKER) (test kxsh=190) CREATININE (BEAKER) (test 0.75 mg/dL 0.57-1.25 uune=255) GLUCOSE RANDOM (BEAKER) 119 mg/dL 70-105 (test buci=584) CALCIUM (BEAKER) (test 8.2 mg/dL 8.4-10.2 iagt=641) EGFR (BEAKER) (test 151 mL/min/1.73 sq m ESTIMATED GFR IS NOT jmzo=7966) ACCURATE CREATININE CLEARANCE IN PREDICTING GLOMERULAR FILTRATION RATE. ESTIMATED GFR IS NOT APPLICABLE FOR DIALYSIS PATIENTS. POCT-GLUCOSE [id number] 06:57:00 Test Item Value Reference Range Comments POC-GLUCOSE METER (BEAKER) 123 mg/dL 70-[address] [facility] [address] [facility] (test ujwm=1382) [facility] [address] POCT-GLUCOSE [id number] 02:04:00 Test Item Value Reference Range Comments POC-GLUCOSE METER (BEAKER) 144 mg/dL 70-110 TESTED AT [address] (test vgmg=3720) [facility] [address] POCT-GLUCOSE [id number] 21:58:00 Test Item Value Reference Range Comments POC-GLUCOSE METER (BEAKER) 69 mg/dL 70-110 TESTED AT [address] (test tjvt=3116) [facility] [address] POCT-GLUCOSE [id number] 18:24:00 Test Item Value Reference Range Comments POC-GLUCOSE METER (BEAKER) 155 mg/dL 70-110 TESTED AT [address] (test tima=2310) [place] [id number] POCT-GLUCOSE [id number] 12:34:00 Test Item Value Reference Range Comments POC-GLUCOSE METER (BEAKER) 123 mg/dL 70-110 TESTED AT [address] (test uhvy=9151) [place] [id number] URINE [id number] 10:43:00 Test Item Value Reference Range Comments CULTURE (BEAKER) (test dlcg=5531) No growth CBC W/PLT COUNT & AUTO [id number] 08:07:00 Test Item Value Reference Range Comments WHITE BLOOD CELL COUNT (BEAKER) (test btyp=157) 7.1 K/ L 4.0-10.0 RED BLOOD CELL COUNT (BEAKER) (test mift=314) 4.91 M/ L 4.20-5.80 HEMOGLOBIN (BEAKER) (test dwsy=437) 12.5 GM/DL 13.0-16.8 HEMATOCRIT (BEAKER) (test lwpa=918) 40.0 % 40.0-50.0 MEAN CORPUSCULAR VOLUME (BEAKER) (test ozfg=968) 81.5 fL 82.0-98.0 MEAN CORPUSCULAR HEMOGLOBIN (BEAKER) (test 25.5 pg 27.0-33.0 ddgr=691) MEAN CORPUSCULAR HEMOGLOBIN CONC (BEAKER) (test 31.2 GM/DL 32.0-36.0 tcnb=479) RED CELL DISTRIBUTION WIDTH (BEAKER) (test 13.4 % 10.3-14.2 elvm=199) PLATELET COUNT (BEAKER) (test cukm=812) 56 K/CU MM 150-430 MEAN PLATELET VOLUME (BEAKER) (test dzcl=783) 13.5 fL 6.5-10.5 NUCLEATED RED BLOOD CELLS (BEAKER) (test 0 /100 WBC 0-0 gjao=248) NEUTROPHILS RELATIVE PERCENT (BEAKER) (test 46 % nqmo=295) LYMPHOCYTES RELATIVE PERCENT (BEAKER) (test 37 % pwzf=383) MONOCYTES RELATIVE PERCENT (BEAKER) (test 15 % ddtc=137) EOSINOPHILS RELATIVE PERCENT (BEAKER) (test 1 % kyie=342) BASOPHILS RELATIVE PERCENT (BEAKER) (test 0 % yymj=602) NEUTROPHILS ABSOLUTE COUNT (BEAKER) (test 3.27 K/ L 1.80-8.00 qpks=792) LYMPHOCYTES ABSOLUTE COUNT (BEAKER) (test 2.58 K/ L 1.48-4.50 nxvn=767) MONOCYTES ABSOLUTE COUNT (BEAKER) (test loez=764) 1.09 K/ L 0.00-1.30 EOSINOPHILS ABSOLUTE COUNT (BEAKER) (test 0.10 K/ L 0.00-0.50 oast=351) BASOPHILS ABSOLUTE COUNT (BEAKER) (test adzf=998) 0.03 K/ L 0.00-0.20 0.00BASIC METABOLIC [id number] 07:39:00 Test Item Value Reference Range Comments SODIUM (BEAKER) (test 141 meq/L 136-145 wfwg=966) POTASSIUM (BEAKER) (test 3.6 meq/L 3.5-5.1 fpqr=767) CHLORIDE (BEAKER) (test 112 meq/L 98-107 andf=566) CO2 (BEAKER) (test 23 meq/L 22-29 iluy=179) BLOOD UREA NITROGEN 8 mg/dL 7-21 (BEAKER) (test epdy=205) CREATININE (BEAKER) (test 0.74 mg/dL 0.57-1.25 rwvi=903) GLUCOSE RANDOM (BEAKER) 132 mg/dL 70-105 (test gtjb=356) CALCIUM (BEAKER) (test 8.0 mg/dL 8.4-10.2 zpgo=728) EGFR (BEAKER) (test 154 mL/min/1.73 sq m ESTIMATED GFR IS NOT nyfl=8337) ACCURATE CREATININE CLEARANCE IN PREDICTING GLOMERULAR FILTRATION RATE. ESTIMATED GFR IS NOT APPLICABLE FOR DIALYSIS PATIENTS. LACTIC ACID, VENOUS, WHOLE [id number] 07:32:00 Test Item Value Reference Range Comments LACTATE BLOOD VENOUS (2) 1.8 mmol/L 0.5-2.2 Specimen slightly hemolyzed (BEAKER) (test qqah=7502) Effective 06/17/2015: Units/Reference Range ChangeNew: 0.5-2.2 mmol/L Previous: 5 -20 mg/dLPOCT-GLUCOSE [id number] 07:05:00 Test Item Value Reference Range Comments POC-GLUCOSE METER (BEAKER) 138 mg/dL 70-110 TESTED AT [address] (test ngkj=9809) [place] [id number] POCT-GLUCOSE [id number] 00:44:00 Test Item Value Reference Range Comments POC-GLUCOSE METER (BEAKER) 124 mg/dL 70-110 TESTED AT [address] (test rpyp=3711) [place] [address] POCT-GLUCOSE [id number] 18:45:00 Test Item Value Reference Range Comments POC-GLUCOSE METER (BEAKER) 125 mg/dL 70-110 TESTED AT [address] (test jskn=0086) [place] [address] LACTIC ACID, VENOUS, WHOLE [id number] 17:34:00 Test Item Value Reference Range Comments LACTATE BLOOD VENOUS (2) (BEAKER) (test 0.8 mmol/L 0.5-2.2 matc=8978) Effective 06/17/2015: Units/Reference Range ChangeNew: 0.5-2.2 mmol/L Previous: 5 -20 mg/dLPOCT-GLUCOSE [id number] 13:08:00 Test Item Value Reference Range Comments POC-GLUCOSE METER (BEAKER) 130 mg/dL 70-110 TESTED AT [address] (test jkpf=3767) [facility] [address] POCT-GLUCOSE [id number] 12:04:00 Test Item Value Reference Range Comments POC-GLUCOSE METER (BEAKER) 60 mg/dL 70-110 Notified RN or MD Patient (test xcwx=9376) refused repeat test/TESTED AT [place] [id number] CBC W/PLT COUNT & AUTO [id number] 06:22:00 Test Item Value Reference Range Comments WHITE BLOOD CELL COUNT (BEAKER) (test ynan=708) 8.3 K/ L 4.0-10.0 RED BLOOD CELL COUNT (BEAKER) (test vvjk=390) 4.70 M/ L 4.20-5.80 HEMOGLOBIN (BEAKER) (test kith=286) 12.4 GM/DL 13.0-16.8 HEMATOCRIT (BEAKER) (test mtyb=754) 38.3 % 40.0-50.0 MEAN CORPUSCULAR VOLUME (BEAKER) (test tywm=647) 81.4 fL 82.0-98.0 MEAN CORPUSCULAR HEMOGLOBIN (BEAKER) (test 26.3 pg 27.0-33.0 sjmm=761) MEAN CORPUSCULAR HEMOGLOBIN CONC (BEAKER) (test 32.4 GM/DL 32.0-36.0 pang=811) RED CELL DISTRIBUTION WIDTH (BEAKER) (test 13.4 % 10.3-14.2 hgyi=084) PLATELET COUNT (BEAKER) (test jxlt=720) 56 K/CU MM 150-430 MEAN PLATELET VOLUME (BEAKER) (test vubc=532) 11.4 fL 6.5-10.5 NUCLEATED RED BLOOD CELLS (BEAKER) (test 0 /100 WBC 0-0 mkas=105) NEUTROPHILS RELATIVE PERCENT (BEAKER) (test 52 % ydkw=508) LYMPHOCYTES RELATIVE PERCENT (BEAKER) (test 33 % gkrc=214) MONOCYTES RELATIVE PERCENT (BEAKER) (test 14 % kqau=883) EOSINOPHILS RELATIVE PERCENT (BEAKER) (test 0 % ezgq=820) BASOPHILS RELATIVE PERCENT (BEAKER) (test 0 % gqfg=966) NEUTROPHILS ABSOLUTE COUNT (BEAKER) (test 4.33 K/ L 1.80-8.00 oipa=652) LYMPHOCYTES ABSOLUTE COUNT (BEAKER) (test 2.75 K/ L 1.48-4.50 wmwp=191) MONOCYTES ABSOLUTE COUNT (BEAKER) (test qkwg=785) 1.16 K/ L 0.00-1.30 EOSINOPHILS ABSOLUTE COUNT (BEAKER) (test 0.04 K/ L 0.00-0.50 zuuf=317) BASOPHILS ABSOLUTE COUNT (BEAKER) (test qdsy=601) 0.03 K/ L 0.00-0.20 0.00POCT-GLUCOSE [id number] 06:16:00 Test Item Value Reference Range Comments POC-GLUCOSE METER (BEAKER) 100 mg/dL 70-110 TESTED AT [address] (test kelr=4520) [facility] [address] CALCIUM, [id number] 06:05:00 Test Item Value Reference Range Comments CALCIUM IONIZED (BEAKER) (test syuq=332) 0.96 mmol/L 1.12-1.27 PH, BLOOD (BEAKER) (test tfce=6983) 7.44 Check serum Ionized Calcium level after 4 hours after IV Calcium replacement.[id number] 05:48:00 Test Item Value Reference Range Comments MAGNESIUM (BEAKER) (test ihyq=509) 1.9 mg/dL 1.6-2.6 BASIC METABOLIC [id number] 05:48:00 Test Item Value Reference Range Comments SODIUM (BEAKER) (test 140 meq/L 136-145 sctv=723) POTASSIUM (BEAKER) (test 3.5 meq/L 3.5-5.1 osht=838) CHLORIDE (BEAKER) (test 110 meq/L 98-107 kbuh=982) CO2 (BEAKER) (test 22 meq/L 22-29 xodp=256) BLOOD UREA NITROGEN 9 mg/dL 7-21 (BEAKER) (test eqlk=201) CREATININE (BEAKER) (test 0.71 mg/dL 0.57-1.25 xcdl=184) GLUCOSE RANDOM (BEAKER) 81 mg/dL 70-105 (test ntks=191) CALCIUM (BEAKER) (test 8.0 mg/dL 8.4-10.2 cucb=555) EGFR (BEAKER) (test 161 mL/min/1.73 sq m ESTIMATED GFR IS NOT nogp=3885) ACCURATE CREATININE CLEARANCE IN PREDICTING GLOMERULAR FILTRATION RATE. ESTIMATED GFR IS NOT APPLICABLE FOR DIALYSIS PATIENTS. POCT-GLUCOSE [id number] 19:22:00 Test Item Value Reference Range Comments POC-GLUCOSE METER (BEAKER) 105 mg/dL 70-110 TESTED AT [address] (test lrrg=7964) [place] [id number] POCT-GLUCOSE [id number] 12:14:00 Test Item Value Reference Range Comments POC-GLUCOSE METER (BEAKER) 67 mg/dL 70-110 Notified JOSE ELIAS WRIGHT/TESTED AT [facility] (test uafi=0608) [address] [place] [address] URINALYSIS W/ [id number] 08:32:00 Test Item Value Reference Range Comments COLOR (BEAKER) (test ehvo=001) Yellow CLARITY (BEAKER) (test yagb=329) Hazy SPECIFIC GRAVITY UA (BEAKER) (test iglw=721) 1.022 1.001-1.035 PH UA (BEAKER) (test hlhc=088) 6.5 5.0-8.0 PROTEIN UA (BEAKER) (test dzmr=546) 200 mg/dL Negative GLUCOSE UA (BEAKER) (test utes=592) Negative Negative KETONES UA (BEAKER) (test qipw=539) 10 mg/dL Negative BILIRUBIN UA (BEAKER) (test tazg=517) Negative Negative BLOOD UA (BEAKER) (test pvju=962) Moderate Negative NITRITE UA (BEAKER) (test jtzd=931) Negative Negative LEUKOCYTE ESTERASE UA (BEAKER) (test kkmn=492) Negative Negative UROBILINOGEN UA (BEAKER) (test xkln=251) 0.2 mg/dL 0.2-1.0 RBC UA (BEAKER) (test kuve=996) > /HPF WBC UA (BEAKER) (test auzw=487) 4 /HPF BACTERIA (BEAKER) (test offm=754) Occasional MUCUS (BEAKER) (test tsey=4382) Many AMORPHOUS CRYSTALS (BEAKER) (test wphr=8183) Moderate SOURCE(BEAKER) (test ctrg=3581) POCT-GLUCOSE [id number] 06:40:00 Test Item Value Reference Range Comments POC-GLUCOSE METER (BEAKER) 90 mg/dL 70-110 TESTED AT [address] (test tfni=3157) [facility] [address] PROTHROMBIN [id number] 04:47:00 Test Item Value Reference Range Comments PROTIME (BEAKER) (test rwjz=936) 14.3 seconds 11.7-14.7 INR (BEAKER) (test ncpc=748) 1.1 <=5.9 RECOMMENDED COUMADIN/WARFARIN INR THERAPY RANGESSTANDARD DOSE: 2.0 - 3.0 Includes: PROPHYLAXIS forvenous thrombosis, systemic embolization; TREATMENT for venous thrombosis and/or pulmonary embolus.HIGH RISK: Target INR is 2.5-3.5 for patients with mechanical heart valves.CBC W/PLT COUNT & AUTO [id number] 04:37:00 Test Item Value Reference Range Comments WHITE BLOOD CELL COUNT (BEAKER) (test jaqn=505) 12.8 K/ L 4.0-10.0 RED BLOOD CELL COUNT (BEAKER) (test rblf=752) 4.89 M/ L 4.20-5.80 HEMOGLOBIN (BEAKER) (test prlc=148) 12.9 GM/DL 13.0-16.8 HEMATOCRIT (BEAKER) (test aark=265) 39.7 % 40.0-50.0 MEAN CORPUSCULAR VOLUME (BEAKER) (test qhtc=102) 81.3 fL 82.0-98.0 MEAN CORPUSCULAR HEMOGLOBIN (BEAKER) (test 26.4 pg 27.0-33.0 azjv=328) MEAN CORPUSCULAR HEMOGLOBIN CONC (BEAKER) (test 32.4 GM/DL 32.0-36.0 svfj=561) RED CELL DISTRIBUTION WIDTH (BEAKER) (test 14.2 % 10.3-14.2 vyhc=785) PLATELET COUNT (BEAKER) (test njih=816) 77 K/CU MM 150-430 MEAN PLATELET VOLUME (BEAKER) (test kwcv=371) 9.1 fL 6.5-10.5 NUCLEATED RED BLOOD CELLS (BEAKER) (test 0 /100 WBC 0-0 ltrr=366) NEUTROPHILS RELATIVE PERCENT (BEAKER) (test 77 % ziwr=530) LYMPHOCYTES RELATIVE PERCENT (BEAKER) (test 13 % jmca=877) MONOCYTES RELATIVE PERCENT (BEAKER) (test 9 % vclr=557) EOSINOPHILS RELATIVE PERCENT (BEAKER) (test 0 % vcbl=963) BASOPHILS RELATIVE PERCENT (BEAKER) (test 0 % nicl=348) NEUTROPHILS ABSOLUTE COUNT (BEAKER) (test 9.91 K/ L 1.80-8.00 ssvl=244) LYMPHOCYTES ABSOLUTE COUNT (BEAKER) (test 1.72 K/ L 1.48-4.50 upvt=949) MONOCYTES ABSOLUTE COUNT (BEAKER) (test wrze=929) 1.13 K/ L 0.00-1.30 EOSINOPHILS ABSOLUTE COUNT (BEAKER) (test 0.02 K/ L 0.00-0.50 vrzg=010) BASOPHILS ABSOLUTE COUNT (BEAKER) (test tyzb=956) 0.05 K/ L 0.00-0.20 [id number] 04:27:00 Test Item Value Reference Range Comments ALBUMIN (BEAKER) (test sthy=5613) 2.9 g/dL 3.5-5.0 BASIC METABOLIC [id number] 04:25:00 Test Item Value Reference Range Comments SODIUM (BEAKER) (test 141 meq/L 136-145 ssww=006) POTASSIUM (BEAKER) (test 4.6 meq/L 3.5-5.1 kjmo=793) CHLORIDE (BEAKER) (test 111 meq/L 98-107 rmod=640) CO2 (BEAKER) (test 19 meq/L 22-29 pzdl=123) BLOOD UREA NITROGEN 13 mg/dL 7-21 (BEAKER) (test qutz=772) CREATININE (BEAKER) (test 0.81 mg/dL 0.57-1.25 fvft=425) GLUCOSE RANDOM (BEAKER) 99 mg/dL 70-105 (test dosn=550) CALCIUM (BEAKER) (test 8.1 mg/dL 8.4-10.2 yzln=412) EGFR (BEAKER) (test 139 mL/min/1.73 sq m ESTIMATED GFR IS NOT csgx=1363) ACCURATE CREATININE CLEARANCE IN PREDICTING GLOMERULAR FILTRATION RATE. ESTIMATED GFR IS NOT APPLICABLE FOR DIALYSIS PATIENTS. PHENYTOIN LEVEL, [id number] 04:17:00 Test Item Value Reference Range Comments PHENYTOIN (DILANTIN) (BEAKER) (test ozaw=062) 5.9 ug/mL 10.0-20.0 POCT-GLUCOSE [id number] 00:13:00 Test Item Value Reference Range Comments POC-GLUCOSE METER (BEAKER) 96 mg/dL 70-[address] [facility] [address] [facility] (test tdrl=3246) [facility] [address]
--- NOTE | 2018-04-28 17:29 | RAD REPORT ---
EXAM DESCRIPTION: RAD - ENTEROSTOMY TUBE CHECK W/CONTR - 04/28/2018 4:58 pm CLINICAL HISTORY: peg tube placement COMPARISON: Abdomen Pelvis W Contrast dated 08/16/2015 FINDINGS: Two plain radiographs of the abdomen are submitted before and after contrast injection via G-tube. No fluoroscopy performed. On the postcontrast radiographs, contrast fills the stomach, indic ating appropriate placement of feeding tube.
--- NOTE | 2018-04-28 17:29 | RAD REPORT ---
EXAM DESCRIPTION: RAD - Chest Single View - 04/28/2018 4:59 pm CLINICAL HISTORY: FEVER Chest pain. COMPARISON: <Comparisons> FINDINGS: Portable technique limits examination quality. The lungs are grossly clear. The heart is normal in size. No displaced fractures. IMPRESSION: No acute intrathoracic process suspected.
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
[2018-04-28 18:39] VITALS: TEMP 98; O2SAT 98
[2018-04-28 18:41] VITALS: BP 106/74
[2018-04-28 19:54] LABS: Urine Blood NEGATIVE (NEG); Urine Glucose NEGATIVE (NEG); Urine Protein 2+ (NEG); Urine Specific Gravity 1.015 (1.005-1.030); Urine pH 7.5 (5.0-7.0)
== END 2018-04-28 18:35 | disposition home or self-care (01) ==
LOC: ER 15:36
PROC: 0D20XUZ Change Feeding Device in Upper Intestinal Tract, External Approach (ICD-10-PCS; principal; 2018-04-28)
DX: K94.20 Gastrostomy complication, unspecified (principal); J06.9 Acute upper respiratory infection, unspecified; J45.909 Unspecified asthma, uncomplicated; Z88.0 Allergy status to penicillin
CPT/HCPCS: 49465; 51702; 71045; 81003; 87077; 87086; 87088; 87186; 87804; 99284

== ENCOUNTER 2018-05-02 15:57 | Inpatient (IN) | payer OTHER ==
--- OUTSIDE RECORDS SUMMARY | 2018-05-02 15:59 | XMS REPORT | Clinical Summary ---
:1990 Author Organization [facility] Address [address] [place] [address] Care Team Providers Name Role Phone Emilie [...] Not on file Results Not on fileafter 05/01/2017 Insurance Payer Benefit Plan / Group Subscriber ID Type Phone Address MEDICARE MEDICARE A B xxxxxxxxxx Medicare MEDICAID MEDICAID [facility] xxxxxxxxx Medicaid Advance Directives For more information, please contact:[address] [phone] Code Status Date Activated Date Inactivated Comments Full Code 05/21/2016 5:03 PM 05/30/2016 4:08 PM This code status was determined by: Patient Full Code 01/10/2016 6:01 PM 01/21/2016 1:51 PM This code status was determined by: Patient Full Code 08/16/2015 5:09 PM 08/20/2015 4:36 PM This code status was determined by: Patient
--- OUTSIDE RECORDS SUMMARY | 2018-05-02 16:00 | XMS REPORT ---
:1990 [facility] Address [address] [place] [address] Care Team Providers Name Role Phone MORIS [...] (BEAKER) (test 82 mg/dL 70-110 TESTED AT [address] jpqe=3475) [facility] [address] POCT-GLUCOSE [id number] 08:12:00 Test Item Value Reference Range Comments POC-GLUCOSE METER (BEAKER) 97 mg/dL 70-110 TESTED AT [address] (test ufje=2742) [facility] [address] CBC W/PLT COUNT & AUTO [id number] 06:38:00 Test Item Value Reference Range Comments WHITE BLOOD CELL COUNT (BEAKER) (test aora=905) 8.1 K/ L 4.0-10.0 RED BLOOD CELL COUNT (BEAKER) (test tucy=477) 5.24 M/ L 4.20-5.80 HEMOGLOBIN (BEAKER) (test qmax=387) 13.1 GM/DL 13.0-16.8 HEMATOCRIT (BEAKER) (test wsly=161) 42.6 % 40.0-50.0 MEAN CORPUSCULAR VOLUME (BEAKER) (test zkpg=045) 81.2 fL 82.0-98.0 MEAN CORPUSCULAR HEMOGLOBIN (BEAKER) (test 25.0 pg 27.0-33.0 wcnf=579) MEAN CORPUSCULAR HEMOGLOBIN CONC (BEAKER) (test 30.7 GM/DL 32.0-36.0 iifx=016) RED CELL DISTRIBUTION WIDTH (BEAKER) (test 14.6 % 10.3-14.2 wnas=642) PLATELET COUNT (BEAKER) (test qwst=156) 172 K/CU MM 150-430 MEAN PLATELET VOLUME (BEAKER) (test bztr=702) 11.6 fL 6.5-10.5 NUCLEATED RED BLOOD CELLS (BEAKER) (test 0 /100 WBC 0-0 rqmd=355) NEUTROPHILS RELATIVE PERCENT (BEAKER) (test 42 % vcnt=504) LYMPHOCYTES RELATIVE PERCENT (BEAKER) (test 40 % ascf=072) MONOCYTES RELATIVE PERCENT (BEAKER) (test 15 % ihpp=102) EOSINOPHILS RELATIVE PERCENT (BEAKER) (test 2 % edgu=162) BASOPHILS RELATIVE PERCENT (BEAKER) (test 1 % tmwb=479) NEUTROPHILS ABSOLUTE COUNT (BEAKER) (test 3.39 K/ L 1.80-8.00 rwgo=706) LYMPHOCYTES ABSOLUTE COUNT (BEAKER) (test 3.28 K/ L 1.48-4.50 dtvo=928) MONOCYTES ABSOLUTE COUNT (BEAKER) (test 1.24 K/ L 0.00-1.30 ygsx=045) EOSINOPHILS ABSOLUTE COUNT (BEAKER) (test 0.12 K/ L 0.00-0.50 bdxl=962) BASOPHILS ABSOLUTE COUNT (BEAKER) (test 0.09 K/ L 0.00-0.20 itdn=916) 0.00POCT-GLUCOSE [id number] 04:47:00 Test Item Value Reference Range Comments POC-GLUCOSE METER (BEAKER) 73 mg/dL 70-110 TESTED AT [address] (test tyna=4745) [facility] [address] POCT-GLUCOSE [id number] 00:27:00 Test Item Value Reference Range Comments POC-GLUCOSE METER (BEAKER) 71 mg/dL 70-110 TESTED AT [address] (test uobt=1294) [facility] [address] POCT-GLUCOSE [id number] 12:03:00 Test Item Value Reference Range Comments POC-GLUCOSE METER (BEAKER) 86 mg/dL 70-110 TESTED AT [address] (test qcoi=9536) [facility] [address] POCT-GLUCOSE [id number] 06:10:00 Test Item Value Reference Range Comments POC-GLUCOSE METER (BEAKER) 89 mg/dL 70-110 TESTED AT [address] (test stez=1318) [facility] [address] POCT-GLUCOSE [id number] 00:20:00 Test Item Value Reference Range Comments POC-GLUCOSE METER (BEAKER) 77 mg/dL 70-110 TESTED AT [address] (test nhic=3146) [place] [id number] POCT-GLUCOSE [id number] 19:04:00 Test Item Value Reference Range Comments POC-GLUCOSE METER (BEAKER) 129 mg/dL 70-110 TESTED AT [address] (test qtfo=8535) [place] [id number] POCT-GLUCOSE [id number] 16:34:00 Test Item Value Reference Range Comments POC-GLUCOSE METER (BEAKER) 120 mg/dL 70-110 TESTED AT [address] (test gqjp=4211) [place] [id number] POCT-GLUCOSE [id number] 06:09:00 Test Item Value Reference Range Comments POC-GLUCOSE METER (BEAKER) 76 mg/dL 70-110 TESTED AT [address] (test oznn=6241) [facility] [address] POCT-GLUCOSE [id number] 00:51:00 Test Item Value Reference Range Comments POC-GLUCOSE METER (BEAKER) 84 mg/dL 70-110 TESTED AT [address] (test yibv=4417) [place] [id number] POCT-GLUCOSE [id number] 14:52:00 Test Item Value Reference Range Comments POC-GLUCOSE METER (BEAKER) 125 mg/dL 70-110 TESTED AT [address] (test kxtd=5898) [place] [address] POCT-GLUCOSE [id number] 22:00:00 Test Item Value Reference Range Comments POC-GLUCOSE METER (BEAKER) 102 mg/dL 70-110 TESTED AT [address] (test shug=2727) [place] [id number] POCT-GLUCOSE [id number] 18:36:00 Test Item Value Reference Range Comments POC-GLUCOSE METER (BEAKER) 60 mg/dL 70-110 TESTED AT [address] (test vxgv=5979) [place] [id number] BLOOD [id number] 15:25:00 Test Item Value Reference Range Comments CULTURE (BEAKER) From Anaerobic Bottle Only (test wsjk=6152) Coagulase negative Staphylococcus GRAM STAIN RESULT From anaerobic bottle (BEAKER) (test only: gram positive gnph=8693) cocci in clusters POCT-GLUCOSE [id number] 13:24:00 Test Item Value Reference Range Comments POC-GLUCOSE METER (BEAKER) 86 mg/dL 70-[address] [facility] [address] [facility] (test wovu=7092) [facility] [address] CBC W/PLT COUNT & AUTO [id number] 10:10:00 Test Item Value Reference Range Comments WHITE BLOOD CELL COUNT (BEAKER) (test ocos=737) 8.0 K/ L 4.0-10.0 RED BLOOD CELL COUNT (BEAKER) (test pgxs=281) 4.77 M/ L 4.20-5.80 HEMOGLOBIN (BEAKER) (test zxzv=265) 13.4 GM/DL 13.0-16.8 HEMATOCRIT (BEAKER) (test ibgx=120) 38.7 % 40.0-50.0 MEAN CORPUSCULAR VOLUME (BEAKER) (test nqxy=692) 81.1 fL 82.0-98.0 MEAN CORPUSCULAR HEMOGLOBIN (BEAKER) (test 28.1 pg 27.0-33.0 zovh=190) MEAN CORPUSCULAR HEMOGLOBIN CONC (BEAKER) (test 34.6 GM/DL 32.0-36.0 ejkn=021) RED CELL DISTRIBUTION WIDTH (BEAKER) (test 13.8 % 10.3-14.2 ggnb=108) PLATELET COUNT (BEAKER) (test xxjj=294) 109 K/CU MM 150-430 MEAN PLATELET VOLUME (BEAKER) (test xlkt=956) 11.9 fL 6.5-10.5 NUCLEATED RED BLOOD CELLS (BEAKER) (test 2 /100 WBC 0-0 fctj=148) NEUTROPHILS RELATIVE PERCENT (BEAKER) (test 41 % eovp=598) LYMPHOCYTES RELATIVE PERCENT (BEAKER) (test 40 % dyhx=047) MONOCYTES RELATIVE PERCENT (BEAKER) (test 17 % avtb=021) EOSINOPHILS RELATIVE PERCENT (BEAKER) (test 2 % ycol=316) BASOPHILS RELATIVE PERCENT (BEAKER) (test 1 % suni=533) NEUTROPHILS ABSOLUTE COUNT (BEAKER) (test 3.26 K/ L 1.80-8.00 geqb=150) LYMPHOCYTES ABSOLUTE COUNT (BEAKER) (test 3.16 K/ L 1.48-4.50 iura=535) MONOCYTES ABSOLUTE COUNT (BEAKER) (test 1.39 K/ L 0.00-1.30 yqkn=417) EOSINOPHILS ABSOLUTE COUNT (BEAKER) (test 0.13 K/ L 0.00-0.50 hfem=453) BASOPHILS ABSOLUTE COUNT (BEAKER) (test 0.06 K/ L 0.00-0.20 ikge=860) 0.00(MANUAL DIFFERENTIAL)2016-05-26 10:10:00 Test Item Value Reference Range Comments TOTAL COUNTED (BEAKER) (test xzhe=5355) PLT MORPHOLOGY (BEAKER) (test rxdn=409) Normal RBC MORPHOLOGY (BEAKER) (test wiil=868) Normal ATYPICAL LYMPHS(BEAKER) (test nxki=9626) Present POCT-GLUCOSE [id number] 00:30:00 Test Item Value Reference Range Comments POC-GLUCOSE METER (BEAKER) 120 mg/dL 70-110 TESTED AT [address] (test dqsb=6628) [place] [address] POCT-GLUCOSE [id number] 18:23:00 Test Item Value Reference Range Comments POC-GLUCOSE METER (BEAKER) 82 mg/dL 70-110 TESTED AT [address] (test mpnm=8250) [place] [address] ANTI-NUCLEAR ANTIBODY (NORMA)2016-05-25 13:07:00 Test Item Value Reference Range Comments ANTI-NUCLEAR ANTIBODY (NORMA) (BEAKER) (test Negative Negative uflc=246) POCT-GLUCOSE [id number] 12:50:00 Test Item Value Reference Range Comments POC-GLUCOSE METER (BEAKER) 115 mg/dL 70-110 TESTED AT [address] (test lkvu=3311) [place] [address] CBC W/PLT COUNT & AUTO [id number] 11:05:00 Test Item Value Reference Range Comments WHITE BLOOD CELL COUNT (BEAKER) (test ceut=177) 8.3 K/ L 4.0-10.0 RED BLOOD CELL COUNT (BEAKER) (test ogyy=967) 4.95 M/ L 4.20-5.80 HEMOGLOBIN (BEAKER) (test iula=865) 13.2 GM/DL 13.0-16.8 HEMATOCRIT (BEAKER) (test ryjc=094) 39.6 % 40.0-50.0 MEAN CORPUSCULAR VOLUME (BEAKER) (test belj=999) 80.0 fL 82.0-98.0 MEAN CORPUSCULAR HEMOGLOBIN (BEAKER) (test 26.7 pg 27.0-33.0 fqdf=101) MEAN CORPUSCULAR HEMOGLOBIN CONC (BEAKER) (test 33.3 GM/DL 32.0-36.0 qali=145) RED CELL DISTRIBUTION WIDTH (BEAKER) (test 13.3 % 10.3-14.2 oilr=786) PLATELET COUNT (BEAKER) (test zuij=325) 101 K/CU MM 150-430 MEAN PLATELET VOLUME (BEAKER) (test yven=280) 11.7 fL 6.5-10.5 NUCLEATED RED BLOOD CELLS (BEAKER) (test 0 /100 WBC 0-0 utmo=242) NEUTROPHILS RELATIVE PERCENT (BEAKER) (test 38 % efrn=886) LYMPHOCYTES RELATIVE PERCENT (BEAKER) (test 39 % onjv=644) MONOCYTES RELATIVE PERCENT (BEAKER) (test 21 % mvan=098) EOSINOPHILS RELATIVE PERCENT (BEAKER) (test 2 % hhwu=053) BASOPHILS RELATIVE PERCENT (BEAKER) (test 1 % etio=642) NEUTROPHILS ABSOLUTE COUNT (BEAKER) (test 3.15 K/ L 1.80-8.00 dcxt=726) LYMPHOCYTES ABSOLUTE COUNT (BEAKER) (test 3.27 K/ L 1.48-4.50 wbth=084) MONOCYTES ABSOLUTE COUNT (BEAKER) (test 1.70 K/ L 0.00-1.30 cqzx=483) EOSINOPHILS ABSOLUTE COUNT (BEAKER) (test 0.15 K/ L 0.00-0.50 uadh=254) BASOPHILS ABSOLUTE COUNT (BEAKER) (test 0.04 K/ L 0.00-0.20 fjei=599) 0.00POCT-GLUCOSE [id number] 06:12:00 Test Item Value Reference Range Comments POC-GLUCOSE METER (BEAKER) 83 mg/dL 70-[address] [facility] [address] (test vjbj=7356) [facility] [address] SPUTUM CULTURE + GRAM [id number] 02:04:00 Test Item Value Reference Range Comments CULTURE (BEAKER) (test PSEUDOMONAS 3+ Pseudomonas bwtx=4504) AERUGINOSA aeruginosa Amikacin (test code=1) Susceptible 0-16 , Resistant <0 or >16 Aztreonam (test Susceptible 0-8 , code=32) Resistant <0 or >8 Cefepime (test code=51) Susceptible 0-8 , Resistant <0 or >8 Ceftazidime (test Susceptible 0-8 , code=27) Resistant <0 or >8 Ciprofloxacin (test Susceptible 0-1 , code=7) Resistant <0 or >1 Doripenem (test Susceptible 0-2 , lbco=728) Resistant <0 or >2 Gentamicin (test Susceptible [...] or >4 CULTURE (BEAKER) (test 3+ Moraxella gzet=036727) catarrhalis CULTURE (BEAKER) (test PSEUDOMONAS 3+ Pseudomonas rnui=63682) AERUGINOSA aeruginosaof a second type Amikacin (test code=1) Susceptible 0-16 , Resistant <0 or >16 Aztreonam (test Susceptible 0-8 , code=32) Resistant <0 or >8 Cefepime (test code=51) Susceptible 0-8 , Resistant <0 or >8 Ceftazidime (test Susceptible 0-8 , code=27) Resistant <0 or >8 Ciprofloxacin (test Susceptible 0-1 , code=7) Resistant <0 or >1 Doripenem (test Susceptible 0-2 , pbld=936) Resistant <0 or >2 Gentamicin (test Susceptible [...] GRAM STAIN RESULT <1+ WBCs (BEAKER) (test gsbi=5351) GRAM STAIN RESULT 15-20 epithelial (BEAKER) (test cells bvql=442881) GRAM STAIN RESULT 2+ gram negative rods (BEAKER) (test ixvn=102867) GRAM STAIN RESULT <1+ gram positive (BEAKER) (test rods texq=594255) GRAM STAIN RESULT 1+ gram positive (BEAKER) (test cocci in chains and bgvk=394614) pairs GRAM STAIN RESULT 1+ gram positive (BEAKER) (test coccobacilli orha=232675) 3+ Normal respiratory ralph presentPOCT-GLUCOSE [id number] 00:03:00 Test Item Value Reference Range Comments POC-GLUCOSE METER (BEAKER) 86 mg/dL 70-110 TESTED AT [address] (test oxen=6160) [place] [address] POCT-GLUCOSE [id number] 14:08:00 Test Item Value Reference Range Comments POC-GLUCOSE METER (BEAKER) 71 mg/dL 70-110 TESTED AT [address] (test gjeq=4744) [place] [address] HEPATITIS B SURFACE [id number] 10:56:00 Test Item Value Reference Range Comments HEPATITIS B SURFACE ANTIBODY (BEAKER) (test < mIU/mL <8.0 aulj=813) HEPATITIS B SURFACE [id number] 10:52:00 Test Item Value Reference Range Comments HEPATITIS B SURFACE ANTIGEN (2) (BEAKER) (test Nonreactive Nonreactive vrlm=8190) HEPATITIS C [id number] 10:52:00 Test Item Value Reference Range Comments HEPATITIS C ANTIBODY (BEAKER) (test uhov=066) Nonreactive Nonreactive HEPATITIS B CORE ANTIBODY, [id number] 10:52:00 Test Item Value Reference Range Comments HEPATITIS B CORE TOTAL ANTIBODY (BEAKER) (test Nonreactive Nonreactive mtwo=871) HIV-1 ANTIGEN WITH HIV-1/2 [id number] 10:52:00 Test Item Value Reference Range Comments HIV-1 ANTIGEN WITH HIV 1\T\2 ANTIBODY (2) Nonreactive Nonreactive (BEAKER) (test nbcv=8159) PERIPHERAL BLOOD SMEAR - HOLD [id number] 07:58:00 Test Item Value Reference Range Comments PERIPHERAL SMEAR SAVE (BEAKER) (test jrjk=6820) saved CBC W/PLT COUNT & AUTO [id number] 07:58:00 Test Item Value Reference Range Comments WHITE BLOOD CELL COUNT (BEAKER) (test rftw=941) 7.1 K/ L 4.0-10.0 RED BLOOD CELL COUNT (BEAKER) (test opux=007) 5.04 M/ L 4.20-5.80 HEMOGLOBIN (BEAKER) (test crhq=857) 13.1 GM/DL 13.0-16.8 HEMATOCRIT (BEAKER) (test lpwt=123) 41.3 % 40.0-50.0 MEAN CORPUSCULAR VOLUME (BEAKER) (test frnx=470) 81.9 fL 82.0-98.0 MEAN CORPUSCULAR HEMOGLOBIN (BEAKER) (test 26.0 pg 27.0-33.0 krwu=699) MEAN CORPUSCULAR HEMOGLOBIN CONC (BEAKER) (test 31.8 GM/DL 32.0-36.0 ewvk=395) RED CELL DISTRIBUTION WIDTH (BEAKER) (test 13.9 % 10.3-14.2 nctx=224) PLATELET COUNT (BEAKER) (test xtub=000) 87 K/CU MM 150-430 MEAN PLATELET VOLUME (BEAKER) (test jmfq=273) 12.1 fL 6.5-10.5 NUCLEATED RED BLOOD CELLS (BEAKER) (test 0 /100 WBC 0-0 klff=534) NEUTROPHILS RELATIVE PERCENT (BEAKER) (test 42 % qcsm=738) LYMPHOCYTES RELATIVE PERCENT (BEAKER) (test 35 % wjkd=962) MONOCYTES RELATIVE PERCENT (BEAKER) (test 21 % kshw=345) EOSINOPHILS RELATIVE PERCENT (BEAKER) (test 2 % nudt=057) BASOPHILS RELATIVE PERCENT (BEAKER) (test 1 % bqoc=622) NEUTROPHILS ABSOLUTE COUNT (BEAKER) (test 2.95 K/ L 1.80-8.00 onaa=550) LYMPHOCYTES ABSOLUTE COUNT (BEAKER) (test 2.44 K/ L 1.48-4.50 asxf=441) MONOCYTES ABSOLUTE COUNT (BEAKER) (test xhps=325) 1.50 K/ L 0.00-1.30 EOSINOPHILS ABSOLUTE COUNT (BEAKER) (test 0.12 K/ L 0.00-0.50 dalg=209) BASOPHILS ABSOLUTE COUNT (BEAKER) (test julb=609) 0.07 K/ L 0.00-0.20 0.00VITAMIN B12 AND [id number] 07:13:00 Test Item Value Reference Range Comments VITAMIN B12 (BEAKER) (test trok=001) 1822 pg/mL 213-816 FOLATE (BEAKER) (test gsgt=131) 15.2 ng/mL >=7.0 Effective 2013: Folate Reference Range ChangeNew: >=7.0 Previous: & gt;=[id number] 06:54:00 Test Item Value Reference Range Comments D-DIMER QUANTITATIVE (BEAKER) (test ecmm=243) 1.39 MG/L FEU <0.50 Intended Use: The D-Dimer Assay can be used to aid in the diagnosis of Deep Vein Thrombosis (DVT) and Pulmonary Embolism Disease (PED).In patients with low pre-test probability, various studies concerning STA Liatest D-dimer test have reported that with a cutoff value of 0.50 MG/L FEU, the Negative Predictive Value (NPV) regarding the exclusion of thrombosis is within 95-100% range.[id number] 06:53:00 Test Item Value Reference Range Comments FIBRINOGEN LEVEL (BEAKER) (test nrqx=212) 355 mg/dl 225-434 [id number] 06:53:00 Test Item Value Reference Range Comments PROTIME (BEAKER) (test cuga=325) 13.9 seconds 11.7-14.7 INR (BEAKER) (test iwfa=601) 1.1 <=5.9 PARTIAL THROMBOPLASTIN TIME (BEAKER) (test 31.7 seconds 22.5-36.0 qkxp=993) RECOMMENDED COUMADIN/WARFARIN INR THERAPY RANGESSTANDARD DOSE: 2.0 - 3.0 Includes: PROPHYLAXIS forvenous thrombosis, systemic embolization; TREATMENT for venous thrombosis and/or pulmonary embolus.HIGH RISK: Target INR is 2.5-3.5 for patients with mechanical heart valves.COMPREHENSIVE METABOLIC [id number] 06:40:00 Test Item Value Reference Range Comments TOTAL PROTEIN (BEAKER) 6.8 gm/dL 6.0-8.3 (test iiqc=421) ALBUMIN (BEAKER) (test 3.1 g/dL 3.5-5.0 qwjd=6174) ALKALINE PHOSPHATASE 72 U/L 40-150 (BEAKER) (test xqeo=694) BILIRUBIN TOTAL (BEAKER) 0.4 mg/dL 0.2-1.2 (test wcqi=998) SODIUM (BEAKER) (test 138 meq/L 136-145 vsni=403) POTASSIUM (BEAKER) (test 4.1 meq/L 3.5-5.1 idja=161) CHLORIDE (BEAKER) (test 106 meq/L 98-107 uhry=516) CO2 (BEAKER) (test 27 meq/L 22-29 evnb=904) BLOOD UREA NITROGEN 9 mg/dL 7-21 (BEAKER) (test fpth=263) CREATININE (BEAKER) (test 0.79 mg/dL 0.57-1.25 rcdy=959) GLUCOSE RANDOM (BEAKER) 74 mg/dL 70-105 (test ofne=433) CALCIUM (BEAKER) (test 8.7 mg/dL 8.4-10.2 mlmi=463) AST (SGOT) (BEAKER) (test 37 U/L 5-34 sonh=480) ALT (SGPT) (BEAKER) (test 27 U/L 6-55 tygc=985) EGFR (BEAKER) (test 143 mL/min/1.73 sq ESTIMATED GFR IS NOT pmce=6332) m ACCURATE CREATININE CLEARANCE IN PREDICTING GLOMERULAR FILTRATION RATE. ESTIMATED GFR IS NOT APPLICABLE FOR DIALYSIS PATIENTS. POCT-GLUCOSE [id number] 00:38:00 Test Item Value Reference Range Comments POC-GLUCOSE METER (BEAKER) 104 mg/dL 70-[address] [facility] [address] [facility] (test jevb=8369) [facility] [address] POCT-GLUCOSE [id number] 17:31:00 Test Item Value Reference Range Comments POC-GLUCOSE METER (BEAKER) 83 mg/dL 70-110 TESTED AT [address] (test hmqz=3747) [facility] [address] HEPARIN [id number] 14:04:00 Test Item Value Reference Range Comments HEPARIN ANTIBODY (BEAKER) (test gghv=660) Negative Negative HEPARIN ANTIBODY OD (BEAKER) (test pbwv=2609) 0.067 <0.400 4T TOTAL SCORE (BEAKER) (test dtud=4704) 4 Probability of HIT based on scoring system: 6-8=High probability; 4-5= intermediate probability; 0-3=low probabilityPOCT-GLUCOSE [id number] 09:07: 00 Test Item Value Reference Range Comments POC-GLUCOSE METER (BEAKER) 124 mg/dL 70-[address] [facility] [address] (test epbn=1753) [facility] [address] CBC W/PLT COUNT & AUTO [id number] 07:37:00 Test Item Value Reference Range Comments WHITE BLOOD CELL COUNT (BEAKER) (test rbcb=325) 9.1 K/ L 4.0-10.0 RED BLOOD CELL COUNT (BEAKER) (test vlxr=374) 4.92 M/ L 4.20-5.80 HEMOGLOBIN (BEAKER) (test plrd=204) 13.1 GM/DL 13.0-16.8 HEMATOCRIT (BEAKER) (test wrmz=844) 40.0 % 40.0-50.0 MEAN CORPUSCULAR VOLUME (BEAKER) (test iucj=682) 81.2 fL 82.0-98.0 MEAN CORPUSCULAR HEMOGLOBIN (BEAKER) (test 26.7 pg 27.0-33.0 kiqr=883) MEAN CORPUSCULAR HEMOGLOBIN CONC (BEAKER) (test 32.8 GM/DL 32.0-36.0 oeng=170) RED CELL DISTRIBUTION WIDTH (BEAKER) (test 13.6 % 10.3-14.2 tvbi=184) PLATELET COUNT (BEAKER) (test mtqh=613) 72 K/CU MM 150-430 MEAN PLATELET VOLUME (BEAKER) (test yvqt=315) 12.7 fL 6.5-10.5 NUCLEATED RED BLOOD CELLS (BEAKER) (test 0 /100 WBC 0-0 qeer=094) NEUTROPHILS RELATIVE PERCENT (BEAKER) (test 46 % nzzw=725) LYMPHOCYTES RELATIVE PERCENT (BEAKER) (test 33 % frij=926) MONOCYTES RELATIVE PERCENT (BEAKER) (test 19 % bxzq=056) EOSINOPHILS RELATIVE PERCENT (BEAKER) (test 1 % qvkg=175) BASOPHILS RELATIVE PERCENT (BEAKER) (test 0 % iokd=673) NEUTROPHILS ABSOLUTE COUNT (BEAKER) (test 4.22 K/ L 1.80-8.00 fwjb=761) LYMPHOCYTES ABSOLUTE COUNT (BEAKER) (test 2.99 K/ L 1.48-4.50 bipw=991) MONOCYTES ABSOLUTE COUNT (BEAKER) (test nndg=316) 1.72 K/ L 0.00-1.30 EOSINOPHILS ABSOLUTE COUNT (BEAKER) (test 0.12 K/ L 0.00-0.50 zoqn=379) BASOPHILS ABSOLUTE COUNT (BEAKER) (test ygat=504) 0.03 K/ L 0.00-0.20 0.00BASI METABOLIC [id number] 07:14:00 Test Item Value Reference Range Comments SODIUM (BEAKER) (test 140 meq/L 136-145 fzaa=680) POTASSIUM (BEAKER) (test 3.3 meq/L 3.5-5.1 pnua=245) CHLORIDE (BEAKER) (test 109 meq/L 98-107 ftnv=064) CO2 (BEAKER) (test 24 meq/L 22-29 etwm=023) BLOOD UREA NITROGEN 9 mg/dL 7-21 (BEAKER) (test ogwr=843) CREATININE (BEAKER) (test 0.75 mg/dL 0.57-1.25 xsde=395) GLUCOSE RANDOM (BEAKER) 119 mg/dL 70-105 (test vsne=319) CALCIUM (BEAKER) (test 8.2 mg/dL 8.4-10.2 yvez=033) EGFR (BEAKER) (test 151 mL/min/1.73 sq m ESTIMATED GFR IS NOT dhou=9889) ACCURATE CREATININE CLEARANCE IN PREDICTING GLOMERULAR FILTRATION RATE. ESTIMATED GFR IS NOT APPLICABLE FOR DIALYSIS PATIENTS. POCT-GLUCOSE [id number] 06:57:00 Test Item Value Reference Range Comments POC-GLUCOSE METER (BEAKER) 123 mg/dL 70-[address] [facility] [address] [facility] (test cktp=5580) [facility] [address] POCT-GLUCOSE [id number] 02:04:00 Test Item Value Reference Range Comments POC-GLUCOSE METER (BEAKER) 144 mg/dL 70-110 TESTED AT [address] (test tqlt=9486) [facility] [address] POCT-GLUCOSE [id number] 21:58:00 Test Item Value Reference Range Comments POC-GLUCOSE METER (BEAKER) 69 mg/dL 70-110 TESTED AT [address] (test ytoa=9745) [facility] [address] POCT-GLUCOSE [id number] 18:24:00 Test Item Value Reference Range Comments POC-GLUCOSE METER (BEAKER) 155 mg/dL 70-110 TESTED AT [address] (test kcek=3602) [place] [id number] POCT-GLUCOSE [id number] 12:34:00 Test Item Value Reference Range Comments POC-GLUCOSE METER (BEAKER) 123 mg/dL 70-110 TESTED AT [address] (test ymxg=6394) [place] [id number] URINE [id number] 10:43:00 Test Item Value Reference Range Comments CULTURE (BEAKER) (test qswa=0510) No growth CBC W/PLT COUNT & AUTO [id number] 08:07:00 Test Item Value Reference Range Comments WHITE BLOOD CELL COUNT (BEAKER) (test twoe=432) 7.1 K/ L 4.0-10.0 RED BLOOD CELL COUNT (BEAKER) (test yhtm=550) 4.91 M/ L 4.20-5.80 HEMOGLOBIN (BEAKER) (test dwiv=207) 12.5 GM/DL 13.0-16.8 HEMATOCRIT (BEAKER) (test ekqa=444) 40.0 % 40.0-50.0 MEAN CORPUSCULAR VOLUME (BEAKER) (test czss=498) 81.5 fL 82.0-98.0 MEAN CORPUSCULAR HEMOGLOBIN (BEAKER) (test 25.5 pg 27.0-33.0 pbzp=410) MEAN CORPUSCULAR HEMOGLOBIN CONC (BEAKER) (test 31.2 GM/DL 32.0-36.0 yack=490) RED CELL DISTRIBUTION WIDTH (BEAKER) (test 13.4 % 10.3-14.2 rzgj=822) PLATELET COUNT (BEAKER) (test bjwz=275) 56 K/CU MM 150-430 MEAN PLATELET VOLUME (BEAKER) (test tzvj=085) 13.5 fL 6.5-10.5 NUCLEATED RED BLOOD CELLS (BEAKER) (test 0 /100 WBC 0-0 ktpl=879) NEUTROPHILS RELATIVE PERCENT (BEAKER) (test 46 % byno=636) LYMPHOCYTES RELATIVE PERCENT (BEAKER) (test 37 % vbms=228) MONOCYTES RELATIVE PERCENT (BEAKER) (test 15 % bivc=563) EOSINOPHILS RELATIVE PERCENT (BEAKER) (test 1 % iubr=770) BASOPHILS RELATIVE PERCENT (BEAKER) (test 0 % rrgm=238) NEUTROPHILS ABSOLUTE COUNT (BEAKER) (test 3.27 K/ L 1.80-8.00 uoiz=098) LYMPHOCYTES ABSOLUTE COUNT (BEAKER) (test 2.58 K/ L 1.48-4.50 uuao=280) MONOCYTES ABSOLUTE COUNT (BEAKER) (test gdco=742) 1.09 K/ L 0.00-1.30 EOSINOPHILS ABSOLUTE COUNT (BEAKER) (test 0.10 K/ L 0.00-0.50 wicb=852) BASOPHILS ABSOLUTE COUNT (BEAKER) (test drtr=854) 0.03 K/ L 0.00-0.20 0.00BASIC METABOLIC [id number] 07:39:00 Test Item Value Reference Range Comments SODIUM (BEAKER) (test 141 meq/L 136-145 uptn=702) POTASSIUM (BEAKER) (test 3.6 meq/L 3.5-5.1 ubgt=663) CHLORIDE (BEAKER) (test 112 meq/L 98-107 fnul=934) CO2 (BEAKER) (test 23 meq/L 22-29 xnxf=214) BLOOD UREA NITROGEN 8 mg/dL 7-21 (BEAKER) (test bust=297) CREATININE (BEAKER) (test 0.74 mg/dL 0.57-1.25 rabs=384) GLUCOSE RANDOM (BEAKER) 132 mg/dL 70-105 (test atir=651) CALCIUM (BEAKER) (test 8.0 mg/dL 8.4-10.2 avem=192) EGFR (BEAKER) (test 154 mL/min/1.73 sq m ESTIMATED GFR IS NOT qlxw=1238) ACCURATE CREATININE CLEARANCE IN PREDICTING GLOMERULAR FILTRATION RATE. ESTIMATED GFR IS NOT APPLICABLE FOR DIALYSIS PATIENTS. LACTIC ACID, VENOUS, WHOLE [id number] 07:32:00 Test Item Value Reference Range Comments LACTATE BLOOD VENOUS (2) 1.8 mmol/L 0.5-2.2 Specimen slightly hemolyzed (BEAKER) (test rgyq=6977) Effective 06/17/2015: Units/Reference Range ChangeNew: 0.5-2.2 mmol/L Previous: 5 -20 mg/dLPOCT-GLUCOSE [id number] 07:05:00 Test Item Value Reference Range Comments POC-GLUCOSE METER (BEAKER) 138 mg/dL 70-110 TESTED AT [address] (test cgtu=1637) [place] [id number] POCT-GLUCOSE [id number] 00:44:00 Test Item Value Reference Range Comments POC-GLUCOSE METER (BEAKER) 124 mg/dL 70-110 TESTED AT [address] (test ljrx=2623) [place] [address] POCT-GLUCOSE [id number] 18:45:00 Test Item Value Reference Range Comments POC-GLUCOSE METER (BEAKER) 125 mg/dL 70-110 TESTED AT [address] (test heia=9806) [place] [address] LACTIC ACID, VENOUS, WHOLE [id number] 17:34:00 Test Item Value Reference Range Comments LACTATE BLOOD VENOUS (2) (BEAKER) (test 0.8 mmol/L 0.5-2.2 kdxv=0978) Effective 06/17/2015: Units/Reference Range ChangeNew: 0.5-2.2 mmol/L Previous: 5 -20 mg/dLPOCT-GLUCOSE [id number] 13:08:00 Test Item Value Reference Range Comments POC-GLUCOSE METER (BEAKER) 130 mg/dL 70-110 TESTED AT [address] (test pnyp=9073) [facility] [address] POCT-GLUCOSE [id number] 12:04:00 Test Item Value Reference Range Comments POC-GLUCOSE METER (BEAKER) 60 mg/dL 70-110 Notified RN or MD Patient (test rhjl=7017) refused repeat test/TESTED AT [place] [id number] CBC W/PLT COUNT & AUTO [id number] 06:22:00 Test Item Value Reference Range Comments WHITE BLOOD CELL COUNT (BEAKER) (test mjda=273) 8.3 K/ L 4.0-10.0 RED BLOOD CELL COUNT (BEAKER) (test imcd=546) 4.70 M/ L 4.20-5.80 HEMOGLOBIN (BEAKER) (test aqsu=342) 12.4 GM/DL 13.0-16.8 HEMATOCRIT (BEAKER) (test ekxx=852) 38.3 % 40.0-50.0 MEAN CORPUSCULAR VOLUME (BEAKER) (test xdzy=650) 81.4 fL 82.0-98.0 MEAN CORPUSCULAR HEMOGLOBIN (BEAKER) (test 26.3 pg 27.0-33.0 fvch=970) MEAN CORPUSCULAR HEMOGLOBIN CONC (BEAKER) (test 32.4 GM/DL 32.0-36.0 gpnr=648) RED CELL DISTRIBUTION WIDTH (BEAKER) (test 13.4 % 10.3-14.2 zscg=413) PLATELET COUNT (BEAKER) (test wolw=628) 56 K/CU MM 150-430 MEAN PLATELET VOLUME (BEAKER) (test pxgm=831) 11.4 fL 6.5-10.5 NUCLEATED RED BLOOD CELLS (BEAKER) (test 0 /100 WBC 0-0 keis=357) NEUTROPHILS RELATIVE PERCENT (BEAKER) (test 52 % botf=913) LYMPHOCYTES RELATIVE PERCENT (BEAKER) (test 33 % deop=068) MONOCYTES RELATIVE PERCENT (BEAKER) (test 14 % eznx=300) EOSINOPHILS RELATIVE PERCENT (BEAKER) (test 0 % sgvj=841) BASOPHILS RELATIVE PERCENT (BEAKER) (test 0 % zadz=772) NEUTROPHILS ABSOLUTE COUNT (BEAKER) (test 4.33 K/ L 1.80-8.00 lqfs=791) LYMPHOCYTES ABSOLUTE COUNT (BEAKER) (test 2.75 K/ L 1.48-4.50 muam=341) MONOCYTES ABSOLUTE COUNT (BEAKER) (test xntj=326) 1.16 K/ L 0.00-1.30 EOSINOPHILS ABSOLUTE COUNT (BEAKER) (test 0.04 K/ L 0.00-0.50 faob=174) BASOPHILS ABSOLUTE COUNT (BEAKER) (test umnb=762) 0.03 K/ L 0.00-0.20 0.00POCT-GLUCOSE [id number] 06:16:00 Test Item Value Reference Range Comments POC-GLUCOSE METER (BEAKER) 100 mg/dL 70-110 TESTED AT [address] (test pjnv=7648) [facility] [id number] CALCIUM, [id number] 06:05:00 Test Item Value Reference Range Comments CALCIUM IONIZED (BEAKER) (test odvn=188) 0.96 mmol/L 1.12-1.27 PH, BLOOD (BEAKER) (test agtq=4355) 7.44 Check serum Ionized Calcium level after 4 hours after IV Calcium replacement.[id number] 05:48:00 Test Item Value Reference Range Comments MAGNESIUM (BEAKER) (test tqgc=510) 1.9 mg/dL 1.6-2.6 BASIC METABOLIC [id number] 05:48:00 Test Item Value Reference Range Comments SODIUM (BEAKER) (test 140 meq/L 136-145 nkqn=455) POTASSIUM (BEAKER) (test 3.5 meq/L 3.5-5.1 cjbr=053) CHLORIDE (BEAKER) (test 110 meq/L 98-107 ssnh=833) CO2 (BEAKER) (test 22 meq/L 22-29 sljz=928) BLOOD UREA NITROGEN 9 mg/dL 7-21 (BEAKER) (test bgnu=021) CREATININE (BEAKER) (test 0.71 mg/dL 0.57-1.25 fbyy=532) GLUCOSE RANDOM (BEAKER) 81 mg/dL 70-105 (test xazx=894) CALCIUM (BEAKER) (test 8.0 mg/dL 8.4-10.2 lkiw=831) EGFR (BEAKER) (test 161 mL/min/1.73 sq m ESTIMATED GFR IS NOT hhoe=0516) ACCURATE CREATININE CLEARANCE IN PREDICTING GLOMERULAR FILTRATION RATE. ESTIMATED GFR IS NOT APPLICABLE FOR DIALYSIS PATIENTS. POCT-GLUCOSE [id number] 19:22:00 Test Item Value Reference Range Comments POC-GLUCOSE METER (BEAKER) 105 mg/dL 70-110 TESTED AT [address] (test xywl=0095) [place] [id number] POCT-GLUCOSE [id number] 12:14:00 Test Item Value Reference Range Comments POC-GLUCOSE METER (BEAKER) 67 mg/dL 70-110 Notified JOSE ELIAS WRIGHT/TESTED AT [facility] (test jdxj=9147) [address] [place] [address] URINALYSIS W/ [id number] 08:32:00 Test Item Value Reference Range Comments COLOR (BEAKER) (test elzc=402) Yellow CLARITY (BEAKER) (test dshi=596) Hazy SPECIFIC GRAVITY UA (BEAKER) (test kjin=694) 1.022 1.001-1.035 PH UA (BEAKER) (test endl=357) 6.5 5.0-8.0 PROTEIN UA (BEAKER) (test rfhn=947) 200 mg/dL Negative GLUCOSE UA (BEAKER) (test fslm=267) Negative Negative KETONES UA (BEAKER) (test ggwq=960) 10 mg/dL Negative BILIRUBIN UA (BEAKER) (test dbxd=206) Negative Negative BLOOD UA (BEAKER) (test pyxs=586) Moderate Negative NITRITE UA (BEAKER) (test usay=953) Negative Negative LEUKOCYTE ESTERASE UA (BEAKER) (test thls=009) Negative Negative UROBILINOGEN UA (BEAKER) (test lsev=530) 0.2 mg/dL 0.2-1.0 RBC UA (BEAKER) (test aaur=150) > /HPF WBC UA (BEAKER) (test yjtg=557) 4 /HPF BACTERIA (BEAKER) (test oahe=537) Occasional MUCUS (BEAKER) (test lprv=3070) Many AMORPHOUS CRYSTALS (BEAKER) (test logi=4876) Moderate SOURCE(BEAKER) (test vgcy=6841) POCT-GLUCOSE [id number] 06:40:00 Test Item Value Reference Range Comments POC-GLUCOSE METER (BEAKER) 90 mg/dL 70-110 TESTED AT [address] (test vvoo=2391) [facility] [address] PROTHROMBIN [id number] 04:47:00 Test Item Value Reference Range Comments PROTIME (BEAKER) (test nffd=003) 14.3 seconds 11.7-14.7 INR (BEAKER) (test yesr=854) 1.1 <=5.9 RECOMMENDED COUMADIN/WARFARIN INR THERAPY RANGESSTANDARD DOSE: 2.0 - 3.0 Includes: PROPHYLAXIS forvenous thrombosis, systemic embolization; TREATMENT for venous thrombosis and/or pulmonary embolus.HIGH RISK: Target INR is 2.5-3.5 for patients with mechanical heart valves.CBC W/PLT COUNT & AUTO [id number] 04:37:00 Test Item Value Reference Range Comments WHITE BLOOD CELL COUNT (BEAKER) (test ruiv=083) 12.8 K/ L 4.0-10.0 RED BLOOD CELL COUNT (BEAKER) (test ehbr=827) 4.89 M/ L 4.20-5.80 HEMOGLOBIN (BEAKER) (test dsnm=010) 12.9 GM/DL 13.0-16.8 HEMATOCRIT (BEAKER) (test dysb=762) 39.7 % 40.0-50.0 MEAN CORPUSCULAR VOLUME (BEAKER) (test rfjt=101) 81.3 fL 82.0-98.0 MEAN CORPUSCULAR HEMOGLOBIN (BEAKER) (test 26.4 pg 27.0-33.0 twxh=473) MEAN CORPUSCULAR HEMOGLOBIN CONC (BEAKER) (test 32.4 GM/DL 32.0-36.0 syti=575) RED CELL DISTRIBUTION WIDTH (BEAKER) (test 14.2 % 10.3-14.2 raoh=421) PLATELET COUNT (BEAKER) (test meib=671) 77 K/CU MM 150-430 MEAN PLATELET VOLUME (BEAKER) (test lmrp=107) 9.1 fL 6.5-10.5 NUCLEATED RED BLOOD CELLS (BEAKER) (test 0 /100 WBC 0-0 hpad=531) NEUTROPHILS RELATIVE PERCENT (BEAKER) (test 77 % gfme=978) LYMPHOCYTES RELATIVE PERCENT (BEAKER) (test 13 % zxbm=852) MONOCYTES RELATIVE PERCENT (BEAKER) (test 9 % xrxe=953) EOSINOPHILS RELATIVE PERCENT (BEAKER) (test 0 % hmgy=972) BASOPHILS RELATIVE PERCENT (BEAKER) (test 0 % hcfi=847) NEUTROPHILS ABSOLUTE COUNT (BEAKER) (test 9.91 K/ L 1.80-8.00 rjoh=675) LYMPHOCYTES ABSOLUTE COUNT (BEAKER) (test 1.72 K/ L 1.48-4.50 vzyb=357) MONOCYTES ABSOLUTE COUNT (BEAKER) (test yoqx=545) 1.13 K/ L 0.00-1.30 EOSINOPHILS ABSOLUTE COUNT (BEAKER) (test 0.02 K/ L 0.00-0.50 dwsw=620) BASOPHILS ABSOLUTE COUNT (BEAKER) (test uwak=392) 0.05 K/ L 0.00-0.20 [id number] 04:27:00 Test Item Value Reference Range Comments ALBUMIN (BEAKER) (test zxul=3348) 2.9 g/dL 3.5-5.0 BASIC METABOLIC [id number] 04:25:00 Test Item Value Reference Range Comments SODIUM (BEAKER) (test 141 meq/L 136-145 xisq=435) POTASSIUM (BEAKER) (test 4.6 meq/L 3.5-5.1 qckm=528) CHLORIDE (BEAKER) (test 111 meq/L 98-107 szpz=812) CO2 (BEAKER) (test 19 meq/L 22-29 btez=029) BLOOD UREA NITROGEN 13 mg/dL 7-21 (BEAKER) (test ukmc=378) CREATININE (BEAKER) (test 0.81 mg/dL 0.57-1.25 pyit=861) GLUCOSE RANDOM (BEAKER) 99 mg/dL 70-105 (test hkqg=486) CALCIUM (BEAKER) (test 8.1 mg/dL 8.4-10.2 mimz=657) EGFR (BEAKER) (test 139 mL/min/1.73 sq m ESTIMATED GFR IS NOT bgcg=8353) ACCURATE CREATININE CLEARANCE IN PREDICTING GLOMERULAR FILTRATION RATE. ESTIMATED GFR IS NOT APPLICABLE FOR DIALYSIS PATIENTS. PHENYTOIN LEVEL, [id number] 04:17:00 Test Item Value Reference Range Comments PHENYTOIN (DILANTIN) (BEAKER) (test xvyr=018) 5.9 ug/mL 10.0-20.0 POCT-GLUCOSE [id number] 00:13:00 Test Item Value Reference Range Comments POC-GLUCOSE METER (BEAKER) 96 mg/dL 70-[address] [facility] [address] [facility] (test oivj=9825) [facility] [id number]
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
--- NOTE | 2018-05-02 17:09 | RAD REPORT ---
EXAM DESCRIPTION: RAD - Chest Single View - 05/02/2018 4:59 pm CLINICAL HISTORY: COUGH Chest pain. COMPARISON: Chest Single View dated 04/28/2018; Abdomen Acute Series dated 09/03/2017; Chest Single Vi ew dated 08/25/2017; Chest Single View dated 05/19/2016 FINDINGS: Portable technique limits examination quality. The lungs are underinflated resulting in vascular crowding. No focal infiltrate is seen. The heart is normal in size. No displaced fractures.
[2018-05-02 17:59] LABS: ALT/SGPT 37 U/L (12-78); AST/SGOT 33 U/L (15-37); Albumin 3.5 g/dL (3.4-5.0); Alkaline Phosphatase 119 U/L (45-117); BUN Blood Urea Nitrogen 12 mg/dL (7-18); Bicarbonate 27 mmol/L (21-32); Bilirubin Total 0.4 mg/dL (0.2-1.0); Glucose Level 80 mg/dL (74-106); Potassium 4.4 mmol/L (3.5-5.1); Protein, Total 8.7 g/dL (6.4-8.2); Sodium Level 140 mmol/L (136-145)
[2018-05-02] MEDS ORDERED: AZTREONAM 1 GM/50 ML BAG IV SCH (18:00)
[2018-05-02] MEDS ORDERED: NA CHLORIDE 0.9% 500 ML ONE (18:09)
[2018-05-02] MEDS ORDERED: NA CHLORIDE 0.9% 1,000 ML ONE (18:09)
[2018-05-02 18:30] LABS: Absolute Lymphocytes (CBC) 3.3 K/uL (0.7-4.9); Absolute Monocytes 0.7 K/uL (0.1-1.3); Absolute Neutrophil 4.8 K/uL (1.8-8.0); Basophils % 0.8 % (0-1.3); Eosinophils % 1.3 % (0-4.4); Lymphocytes % 36.8 % (15.3-44.8); Monocytes % 8.2 % (3.3-12.3); RBC Red Blood Cell Count 5.85 M/uL (4.33-5.43)
[2018-05-02 19:13] LABS: MPV 13.7 fL (7.6-11.3)
[2018-05-02 19:14] LABS: Platelet Estimate ADEQ; Platelets, Giant PRESENT; Urine White Blood Cell Casts OK
[2018-05-02 19:15] LABS: Blood Morphology Comment NOT SEEN (NOT SEEN)
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
[2018-05-02] MEDS ORDERED: ONDANSETRON 4 MG/2 ML VIAL IV PRN (20:29)
[2018-05-02] MEDS ORDERED: ACETAMINOPHEN 500 MG TAB PO PRN (20:29)
[2018-05-02] MEDS: AZTREONAM 1 GM/VIAL IV SCH ×2 (21:00→23:46)
[2018-05-02] MEDS ORDERED: AZTREONAM 1 GM/VIAL ONE (23:42)
[2018-05-02] MEDS: NA CHLORIDE 0.9% 1,000 ML IV SCH (23:46)
[2018-05-03] MEDS: AZTREONAM 1 GM/VIAL IV SCH (01:49)
[2018-05-03 02:02] LABS: Absolute Lymphocytes (CBC) 2.8 K/uL (0.7-4.9); Absolute Monocytes 0.6 K/uL (0.1-1.3); Absolute Neutrophil 3.7 K/uL (1.8-8.0); Basophils % 0.5 % (0-1.3); Eosinophils % 1.6 % (0-4.4); Hematocrit 43.9 % (39.6-49.0); Lymphocytes % 39.1 % (15.3-44.8); MPV 12.8 fL (7.6-11.3); Monocytes % 7.9 % (3.3-12.3); RBC Red Blood Cell Count 5.58 M/uL (4.33-5.43)
[2018-05-03 02:28] LABS: ALT/SGPT 34 U/L (12-78); AST/SGOT 26 U/L (15-37); Albumin 3.1 g/dL (3.4-5.0); Alkaline Phosphatase 107 U/L (45-117); BUN Blood Urea Nitrogen 14 mg/dL (7-18); Bicarbonate 27 mmol/L (21-32); Bilirubin Total 0.4 mg/dL (0.2-1.0); Glucose Level 135 mg/dL (74-106); Potassium 3.8 mmol/L (3.5-5.1); Protein, Total 7.6 g/dL (6.4-8.2); Sodium Level 140 mmol/L (136-145)
[2018-05-03 02:48] VITALS: BMI 25.4
[2018-05-03] MEDS ORDERED: JEVITY 1.5 CAL LIQUID 1,000 ML BOT FT SCH (07:00)
[2018-05-03] MEDS ORDERED: FLUTICASONE 50MCG NASAL SPRAY NAS PRN (09:00)
[2018-05-03] MEDS ORDERED: ALBUTEROL 2.5 MG/3 ML NEB SOL IH PRN (09:00)
[2018-05-03] MEDS ORDERED: MELATONIN 3 MG TABLET PO PRN (09:45)
[2018-05-03] MEDS ORDERED: LACTULOSE 20 GM/30 ML UCUP FT PRN (10:00)
[2018-05-03] MEDS ORDERED: LACTULOSE 20 GM/30 ML UCUP PO PRN (10:00)
[2018-05-03] MEDS: ENOXAPARIN 40 MG/0.4 ML SQ SCH (10:04)
[2018-05-03] MEDS: AZTREONAM 1 GM in NA CHLORIDE 0.9% 50 ML IV SCH ×2 (10:04→17:39)
[2018-05-03] MEDS: levETIRAcetam 500 MG TAB FT SCH ×2 (10:05→20:36)
[2018-05-03] MEDS: CETIRIZINE HCL 5 MG TABLET FT SCH (10:05)
[2018-05-03] MEDS: NA CHLORIDE 0.9% 1,000 ML IV SCH ×2 (10:05→16:29)
[2018-05-03] MEDS: RANITIDINE 150 MG TABLET FT SCH ×2 (10:06→20:37)
[2018-05-03] MEDS: CITALOPRAM 10 MG TABLET FT SCH (10:06)
[2018-05-03] MEDS: BACLOFEN 10 MG TAB FT SCH ×2 (10:06→20:36)
[2018-05-03] MEDS: JEVITY 1.5 CAL LIQUID 1,000 ML BOT FT SCH ×2 (12:00→20:36)
--- NOTE | 2018-05-03 13:38 | RAD REPORT ---
EXAM DESCRIPTION: RAD - Chest Single View - 05/03/2018 1:33 pm CLINICAL HISTORY: PICC line placement COMPARISON: None. FINDINGS: Portable chest was obtained following placement of a right upper extremity PICC line. The catheter tip is in the left brachiocephalic vein.
[2018-05-03] MEDS: Pantoprazole (granules) 40 MG/BLIST PACKET FT SCH (14:32)
[2018-05-03 16:59] LABS: Urine Appearance CLEAR; Urine Bilirubin NEGATIVE (NEG); Urine Blood NEGATIVE (NEG); Urine Color YELLOW; Urine Glucose NEGATIVE (NEG); Urine Protein NEGATIVE (NEG); Urine pH 6.5 (5.0-7.0)
[2018-05-03 17:01] LABS: Urine Microscopic Reflex ORDER UMIC
[2018-05-03 17:12] LABS: Urine Bacteria NONE SEEN /HPF (NONE SEEN); Urine Culture Reflex Order NOT NEEDED; Urine RBC NONE SEEN /HPF (NONE SEEN)
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
[2018-05-03] MEDS: MONTELUKAST 10 MG TAB FT SCH (20:37)
[2018-05-04] MEDS: NA CHLORIDE 0.9% 1,000 ML IV SCH ×4 (00:14→20:19)
[2018-05-04] MEDS: AZTREONAM 1 GM in NA CHLORIDE 0.9% 50 ML IV SCH ×3 (00:14→17:15)
--- NOTE | 2018-05-04 07:05 | RAD REPORT ---
EXAM DESCRIPTION: RAD - Abdomen 1 View (KUB) - 05/03/2018 9:10 pm CLINICAL HISTORY: Peg tube placement or repositioning COMPARISON: None. FINDINGS: Two KUB images were obtained prior to and subsequent to retrograde injection of contrast v ia the PEG tube. Peg tube was repositioned or replaced. Postcontrast exam shows PEG tube in the body of the stomach. All contrast is contained within the lumen of the stomach. IMPRESSION: PEG tube has been placed or repositioned in the body of the stomach. All injected contra st remains within the lumen of the bowel.
[2018-05-04] MEDS ORDERED: JEVITY 1.5 CAL LIQUID 1,000 ML BOT FT SCH (08:00)
[2018-05-04] MEDS: levETIRAcetam 500 MG TAB FT SCH (10:16)
[2018-05-04] MEDS: CETIRIZINE HCL 5 MG TABLET FT SCH (10:16)
[2018-05-04] MEDS: CITALOPRAM 10 MG TABLET FT SCH (10:19)
[2018-05-04] MEDS: GUAIFENESIN 600 MG SA TAB PO SCH ×2 (10:19→21:00)
[2018-05-04] MEDS: BACLOFEN 10 MG TAB FT SCH ×2 (10:19→21:00)
[2018-05-04] MEDS: RANITIDINE 150 MG TABLET FT SCH ×2 (10:19→21:00)
[2018-05-04] MEDS: ENOXAPARIN 40 MG/0.4 ML SQ SCH (10:20)
[2018-05-04] MEDS: Pantoprazole (granules) 40 MG/BLIST PACKET FT SCH (10:20)
[2018-05-04] MEDS: JEVITY 1.5 CAL LIQUID 1,000 ML BOT FT SCH ×2 (12:00→21:00)
--- NOTE | 2018-05-04 15:40 | PN ---
Subjective: The patient lying in bed. Mom is by the bedside. No new acute event. Objective: Vital Signs: Temperature 97, pulse 65, respirations 18, blood pressure 108/74. No new changes in examination. Laboratory Data: Urinalysis shows no WBC count. Micro data; blood cultures are negative. Assessment/plan: Continue IV antibiotic for total of 3 days till urinary tract infection improved. Continue supportive care. We will follow the patient as needed. NF/MODL Voice ID: [id number] Report ID: [id number]
[2018-05-04] MEDS: levETIRAcetam 500 MG in NA CHLORIDE 0.9% 100 ML IV SCH (20:19)
[2018-05-04] MEDS: MONTELUKAST 10 MG TAB FT SCH (21:00)
--- NOTE | 2018-05-04 21:43 | PN ---
Date of Progress Note: 05/04/2018 History: The patient seen and examined. Chart reviewed and case discussed with RN and Dr. Babcock. The patient still having some extravasation of feedings from the PEG tube. Medications: List reviewed. Physical Examination: Vital Signs: Temperature 97.3, heart rate 70, blood pressure 112/69, respirations 18, O2 96% on room air. General: Awake, alert. Follows commands. Does not appear to be in any acute distress. CV: S1, S2. Regular rate and rhythm. Peripheral pulses present. Respiratory: Diminished breath sounds at the bases, otherwise moving air well bilaterally. Gastrointestinal: Abdomen is soft, nontender, nondistended. Positive bowel sounds. PEG tube in chao ce. No signs of infection of the PEG tube. Stoma looks normal. Extremities: No clubbing or cyanosis. Pedal edema present. Neuro: The patient is quadriplegic. Skin: No rashes. Laboratory Data: Pending blood cultures. No growth to date. Assessment And Plan: A 27-year-old male with: 1.Acute cystitis without hematuria secondary to Pseudomonas. We will continue IV antibiotics for 3 more days. Likely colonization with some acute infection per Infectious Disease. Appreciate their i nput. The patient will not need long-term IV antibiotics. 2.PEG tube dysfunction. Contrast study with x-ray shows contrast going into the bowel and stomach. The patient has been evaluated by GI, Dr. Babcock. He recommends decreasing the feeding amount to 250 cc and only have 25 cc of water before and after the feeding and advance as tolerated. The patie nt already has largest PEG tube size [address] Stoma does not show any signs of infection. We will hold feeds for 24 hours at this time. 3.Functional quadriplegia. 4.Traumatic brain injury without loss of consciousness, sequela. 5.Seizure disorder. Continue seizure precautions. 6.Intermittent asthma. Continue albuterol p.r.n. 7.Deep vein thrombosis prophylaxis with Lovenox. SA/MODL Voice ID: [id number] Report ID: [id number]
[2018-05-05] MEDS: AZTREONAM 1 GM in NA CHLORIDE 0.9% 50 ML IV SCH ×3 (01:45→17:00)
[2018-05-05 05:00] LABS: Absolute Lymphocytes (CBC) 3.2 K/uL (0.7-4.9); Absolute Monocytes 0.6 K/uL (0.1-1.3); Absolute Neutrophil 2.8 K/uL (1.8-8.0); Eosinophils % 1.3 % (0-4.4); Hematocrit 39.9 % (39.6-49.0); Lymphocytes % 46.8 % (15.3-44.8); Monocytes % 8.9 % (3.3-12.3); RBC Red Blood Cell Count 5.11 M/uL (4.33-5.43)
[2018-05-05 05:25] LABS: ALT/SGPT 28 U/L (12-78); AST/SGOT 22 U/L (15-37); Albumin 2.8 g/dL (3.4-5.0); Alkaline Phosphatase 101 U/L (45-117); BUN Blood Urea Nitrogen 10 mg/dL (7-18); Bicarbonate 23 mmol/L (21-32); Bilirubin Total 0.7 mg/dL (0.2-1.0); Glucose Level 75 mg/dL (74-106); Potassium 4.2 mmol/L (3.5-5.1); Protein, Total 6.9 g/dL (6.4-8.2); Sodium Level 143 mmol/L (136-145)
[2018-05-05] MEDS: NA CHLORIDE 0.9% 1,000 ML IV SCH ×2 (08:29→16:28)
[2018-05-05] MEDS: JEVITY 1.5 CAL LIQUID 1,000 ML BOT FT SCH ×3 (09:00→19:55)
[2018-05-05] MEDS: levETIRAcetam 500 MG in NA CHLORIDE 0.9% 100 ML IV SCH ×2 (09:01→20:02)
[2018-05-05] MEDS: ENOXAPARIN 40 MG/0.4 ML SQ SCH (09:32)
[2018-05-05] MEDS: CITALOPRAM 10 MG TABLET FT SCH (09:32)
[2018-05-05] MEDS: Pantoprazole (granules) 40 MG/BLIST PACKET FT SCH (09:32)
[2018-05-05] MEDS: CETIRIZINE HCL 5 MG TABLET FT SCH (09:32)
[2018-05-05] MEDS: RANITIDINE 150 MG TABLET FT SCH ×2 (09:33→20:47)
[2018-05-05] MEDS: GUAIFENESIN 600 MG SA TAB PO SCH ×2 (09:33→20:47)
[2018-05-05] MEDS: BACLOFEN 10 MG TAB FT SCH ×2 (09:33→20:46)
--- NOTE | 2018-05-05 13:28 | PN ---
Date of Progress Note: 05/05/2018 Subjective: The patient seen and examined. Chart reviewed and case discussed with RN and Dr. Ihsan hull. The patient's PEG tube was evaluated yesterday. His bolus dose was decreased along with amount of water with each bolus, however, the patient is still having tube feeding leaking. For now, we aileen l hold off on feedings. Medications: List reviewed. Physical Examination: Vital Signs: Temperature 97.9, heart rate 74, blood pressure 118/68, respirations 18, O2 95% on room air. General: Awake, alert, nonverbal, cooperative male. CV: S1, S2. Regular rate and rhythm. Peripheral pulses present. Respiratory: Diminished breath sounds at the bases. Otherwise, moving air well bilaterally. Gastrointestinal: Abdomen is soft, nontender, nondistended. Positive bowel sounds. PEG tube in chao ce with no signs of infection of the ostomy site. Extremities: No clubbing or cyanosis. The patient has pedal edema. Neurologic: Quadriplegia. Laboratory Data: Sodium 143, potassium 4.2, chloride 114, CO2 23, BUN 10, creatinine 0.62, glucose 7 5, calcium 8.1. WBC 6.7, H and H 12.8/39.9, platelets 32, MCV 78. Blood cultures showed no growth t o date. Urine culture from ER visit growing Pseudomonas aeruginosa, sensitive to aztreonam. Assessment And Plan: A 27-year-old male with: 1.Acute cystitis without hematuria secondary to Pseudomonas. We will continue aztreonam. Last dose will be in a.m. tomorrow. Appreciate Dr. Ramirez's input. The patient has an acute infection of his probable colonization. 2.Percutaneous endoscopic gastrostomy tube dysfunction. The patient is still having some extravasat ion of the feeds. Dr. Babcock recommends pulling out the PEG tube, allowing the ostomy to heal, and then to have smaller tube placed on Monday after the ostomy site has healed. For now, we will place NG tube, hold feeds until tonight. 3.Functional quadriplegia. 4.Traumatic brain injury without loss of consciousness sequela. 5.Seizure disorder. Continue seizure precautions. 6.Intermittent asthma, stable. We will use albuterol p.r.n. 7.Deep vein thrombosis prophylaxis with Lovenox. The patient is bed bound. SA/MODL Voice ID: [id number] Report ID: [id number]
[2018-05-05] MEDS: MONTELUKAST 10 MG TAB FT SCH (20:47)
[2018-05-06] MEDS: NA CHLORIDE 0.9% 1,000 ML IV SCH (03:02)
[2018-05-06 05:19] LABS: Absolute Monocytes 0.7 K/uL (0.1-1.3); Hematocrit 41.5 % (39.6-49.0)
[2018-05-06 05:37] LABS: Absolute Lymphocytes (CBC) 2.9 K/uL (0.7-4.9); Absolute Neutrophil 4.1 K/uL (1.8-8.0); Basophils % 0.5 % (0-1.3); Eosinophils % 1.2 % (0-4.4); Lymphocytes % 36.8 % (15.3-44.8); Monocytes % 8.7 % (3.3-12.3); RBC Red Blood Cell Count 5.29 M/uL (4.33-5.43)
[2018-05-06 05:38] LABS: ALT/SGPT 29 U/L (12-78); AST/SGOT 32 U/L (15-37); Albumin 2.7 g/dL (3.4-5.0); Alkaline Phosphatase 95 U/L (45-117); BUN Blood Urea Nitrogen 11 mg/dL (7-18); Bicarbonate 18 mmol/L (21-32); Bilirubin Total 0.7 mg/dL (0.2-1.0); Glucose Level 54 mg/dL (74-106); Potassium 4.7 mmol/L (3.5-5.1); Protein, Total 7.1 g/dL (6.4-8.2); Sodium Level 141 mmol/L (136-145)
[2018-05-06] MEDS ORDERED: D50W 25 GM/50 ML SYRINGE IV ONE ×2 (05:44→19:30)
[2018-05-06 05:52] LABS: Blood Morphology Comment NOT SEEN (NOT SEEN); Platelet Estimate ADEQ; Urine White Blood Cell Casts OK
[2018-05-06] MEDS: levETIRAcetam 500 MG in NA CHLORIDE 0.9% 100 ML IV SCH ×2 (08:38→21:42)
[2018-05-06] MEDS: GUAIFENESIN 600 MG SA TAB PO SCH ×2 (08:39→21:00)
[2018-05-06] MEDS: BACLOFEN 10 MG TAB FT SCH ×2 (08:39→21:00)
[2018-05-06] MEDS: ENOXAPARIN 40 MG/0.4 ML SQ SCH (08:39)
[2018-05-06] MEDS: CETIRIZINE HCL 5 MG TABLET FT SCH (08:40)
[2018-05-06] MEDS: Pantoprazole (granules) 40 MG/BLIST PACKET FT SCH (08:40)
[2018-05-06] MEDS: RANITIDINE 150 MG TABLET FT SCH ×2 (08:40→21:00)
[2018-05-06] MEDS: CITALOPRAM 10 MG TABLET FT SCH (08:46)
[2018-05-06] MEDS: JEVITY 1.5 CAL LIQUID 1,000 ML BOT FT SCH ×3 (08:46→21:00)
[2018-05-06] MEDS ORDERED: SODIUM CHLORIDE 0.9% 10ML INJ IV PRN (08:57)
[2018-05-06] MEDS: D5 0.45 NS 1,000 ML IV SCH ×2 (09:37→19:23)
[2018-05-06] MEDS: PANTOPRAZOLE 40 MG INJ IVP SCH ×2 (09:37→21:43)
--- NOTE | 2018-05-06 14:18 | PN ---
Date of Progress Note: 05/06/2018 History Of Present Illness: Patient seen and examined. Chart reviewed and case discussed with RN and Dr. Babcock. PEG tube was removed yesterday to allow the patient to have some closure of the ostomy and we will have a new endoscopic gastrostomy tube placement in a.m. depending on amount of closure. The patient unable to tolerate NG tube, has ripped in out previously on 3 occasions. Therefore, was switched over to IV medications and fluids, D5 half NS for fluids. Medications: List reviewed. Physical Examination: Vital Signs: Temperature 97.5, heart rate 55, blood pressure 120/68, respirations 16, O2 97% on room air. General: Awake and alert. Follows commands. No acute distress. CV: S1, S2. Regular rate and rhythm. Peripheral pulses present. Respiratory: Moving air well except at the bases; some diminished breath sounds at the bases. No wheezing or stridor. Gastrointestinal: Abdomen is soft, nontender. Minimal distention. Positive bowel sounds. No guarding or rigidity. Extremities: No clubbing or cyanosis. The patient has peripheral edema. Neuro: Quadriplegia. Contractions present. Laboratory Data: Sodium 141, potassium 4.7, chloride 113, CO2 18, BUN 11, creatinine 0.62, glucose 54, calcium 7.8, albumin 2.7. WBC 7.7, H and H 13.7/ 41.5, platelets 148, neutrophils 52. Blood cultures, no growth to date. Assessment And Plan: A 27-year-old male with: 1. Acute cystitis without hematuria secondary to Pseudomonas. Continue aztreonam for a total of 3 days. ID on board. 2. Percutaneous endoscopic gastrostomy tube dysfunction. Tube has been removed. We will have replacement endoscopically done in the a.m. Dr. Babcock on the case. 3. Quadriplegia. 4. Traumatic brain injury without loss of consciousness sequela. 5. Seizure disorder. Medications will be switched to IV. 6. Hypoglycemia. We will switch patient to D5 half NS and monitor blood glucose levels. 7. Intermittent asthma. Albuterol as needed. 8. Deep vein thrombosis prophylaxis with Lovenox. Plan: Anticipate PEG tube placement in a.m. depending on ostomy closure. /SAMMY Voice ID: [id number] Report ID: [id number] MTDD
[2018-05-06] MEDS: MONTELUKAST 10 MG TAB FT SCH (21:00)
[2018-05-07] MEDS: D5 0.45 NS 1,000 ML IV SCH ×3 (06:00→20:53)
[2018-05-07 07:19] LABS: Potassium 3.7 mmol/L (3.5-5.1); Sodium Level 141 mmol/L (136-145)
[2018-05-07 07:20] LABS: BUN Blood Urea Nitrogen 5 mg/dL (7-18); Bicarbonate 23 mmol/L (21-32); Glucose Level 86 mg/dL (74-106)
[2018-05-07] MEDS: levETIRAcetam 500 MG in NA CHLORIDE 0.9% 100 ML IV SCH ×2 (08:45→20:53)
[2018-05-07] MEDS: GUAIFENESIN 600 MG SA TAB PO SCH ×2 (08:46→20:55)
[2018-05-07] MEDS: ENOXAPARIN 40 MG/0.4 ML SQ SCH (08:46)
[2018-05-07] MEDS: CETIRIZINE HCL 5 MG TABLET FT SCH (08:46)
[2018-05-07] MEDS: RANITIDINE 150 MG TABLET FT SCH ×2 (08:46→20:55)
[2018-05-07] MEDS: PANTOPRAZOLE 40 MG INJ IVP SCH ×2 (08:46→20:53)
[2018-05-07] MEDS: CITALOPRAM 10 MG TABLET FT SCH (08:47)
[2018-05-07] MEDS: JEVITY 1.5 CAL LIQUID 1,000 ML BOT FT SCH ×2 (08:47→14:00)
[2018-05-07] MEDS: BACLOFEN 10 MG TAB FT SCH ×2 (08:47→20:55)
[2018-05-07] MEDS ORDERED: Ringers Lactate 1,000 ML IV ONE (14:21)
[2018-05-07] MEDS ORDERED: LIDOCAINE 1% MPF 5 ML VIAL ONE (14:37)
[2018-05-07] MEDS ORDERED: PROPOFOL 200 MG/20 ML VIAL IV ONE (14:37)
--- NOTE | 2018-05-07 16:39 | PN ---
Date of Progress Note: 05/07/2018 Subjective: Patient is seen and examined. Chart reviewed and case discussed with RN and Dr. Babcock. The patient is going for PEG tube placement today. The patient did not have an NG tube placed per request from mother. Medications: List reviewed. Physical Examination: Vital Signs: Temperature 97.5, heart rate 59, blood pressure 137/75, respirations 18, O2 95% on room air. General: Awake, alert, not in any acute distress. CV: S1, S2. Regular rate and rhythm. Respiratory: Moving air well bilaterally. No wheezing. Gastrointestinal: Abdomen is soft, nontender, nondistended. Ostomy is closing with minimal oozing of serous fluid. Extremities: No clubbing or cyanosis. The patient has pedal edema. NEURO: Paraplegia. Laboratory Data: Sodium 141, potassium 3.7, chloride 112, CO2 23, BUN 5, creatinine 0.62, glucose 86, CBC pending. Assessment And Plan: A 27-year-old male with. 1. Acute cystitis without hematuria secondary to Pseudomonas. The patient will complete antibiotics today. No need for long-term IV antibiotics. Appreciate Dr. Ramirez's input. The patient had an acute infection of colonization. No signs of sepsis. 2. Percutaneous endoscopic gastrostomy tube dysfunction, tube removed. Will be going for replacement by Dr. Babcock. The patient's family declined NG tube feeds for now. 3. Quadriplegia. 4. Traumatic brain injury without loss of consciousness sequela. 5. Seizure disorder. Continue IV Keppra until PEG tube is replaced. 6. Hypoglycemia, improving. The patient is currently on D5 half NS. 7. Intermittent asthma. Continue albuterol as needed. 8. Deep venous thrombosis prophylaxis with Lovenox. Plan: Anticipate PEG tube placement today. Resume feeds as per GI. Likely discharge in a.m. ADDENDUM: Patient likely has fistula formation and if previous gastrostomy site does not close will need surgical consultation. /SAMMY Voice ID: [id number] Report ID: [id number] MTDTori
[2018-05-07] MEDS: CEFAZOLIN/SWI 2gm 2 GM/20 ML SYR IV SCH (20:53)
[2018-05-07] MEDS: MONTELUKAST 10 MG TAB FT SCH (20:55)
[2018-05-08] MEDS ORDERED: MORPHINE 2 MG/ML SYR IV ONE (02:09)
[2018-05-08] MEDS: CEFAZOLIN/SWI 2gm 2 GM/20 ML SYR IV SCH (03:01)
[2018-05-08] MEDS: D5 0.45 NS 1,000 ML IV SCH ×2 (05:17→11:00)
[2018-05-08 07:14] LABS: Absolute Lymphocytes (CBC) 2.4 K/uL (0.7-4.9); Absolute Neutrophil 5.2 K/uL (1.8-8.0); Basophils % 0.4 % (0-1.3); Eosinophils % 1.5 % (0-4.4); Hematocrit 43.1 % (39.6-49.0); Lymphocytes % 27.2 % (15.3-44.8); MPV 13.1 fL (7.6-11.3); Monocytes % 11.2 % (3.3-12.3)
[2018-05-08 07:53] LABS: BUN Blood Urea Nitrogen 4 mg/dL (7-18); Bicarbonate 25 mmol/L (21-32); Glucose Level 87 mg/dL (74-106); Potassium 3.5 mmol/L (3.5-5.1); Sodium Level 142 mmol/L (136-145)
[2018-05-08] MEDS ORDERED: CEFAZOLIN 2 GM in NA CHLORIDE 0.9% 100 ML IVPB SCH ×4 (09:00)
[2018-05-08] MEDS: CETIRIZINE HCL 5 MG TABLET FT SCH (10:19)
[2018-05-08] MEDS: GUAIFENESIN 600 MG SA TAB PO SCH ×2 (10:20→21:00)
[2018-05-08] MEDS: PANTOPRAZOLE 40 MG INJ IVP SCH ×2 (10:20→22:22)
[2018-05-08] MEDS: RANITIDINE 150 MG TABLET FT SCH ×2 (10:20→22:20)
[2018-05-08] MEDS: CITALOPRAM 10 MG TABLET FT SCH (10:20)
[2018-05-08] MEDS: ENOXAPARIN 40 MG/0.4 ML SQ SCH (10:20)
[2018-05-08] MEDS: BACLOFEN 10 MG TAB FT SCH ×2 (10:20→22:20)
[2018-05-08] MEDS: levETIRAcetam 500 MG in NA CHLORIDE 0.9% 100 ML IV SCH ×2 (10:21→22:19)
[2018-05-08] MEDS: JEVITY 1.5 CAL LIQUID 1,000 ML BOT FT SCH ×2 (10:22→20:47)
--- NOTE | 2018-05-08 12:44 | OP ---
Date of Procedure: 05/07/2018 Surgeon: Matthew Babcock MD Procedure To Be Performed: Esophagogastroduodenoscopy with PEG placement and attempted closure of ga strocutaneous fistula. Plan For Anesthesia: Monitored anesthesia care. Complexity: High due to probability of therapeutic intervention. Technique: After obtaining informed consent from the patient's mother and explaining risks and compl ications, which include, but are not limited to bleeding, infection, perforation, and anesthesia comp lication, the patient was placed in the supine position and sedation was given. Scope was advanced t hrough the mouth and carefully guided up to the second part of the duodenum. After the completion of examination and all therapeutic maneuvers, the scope equipment were withdrawn and procedure terminat ed in a safe manner. Findings: Esophagus: Small hiatal hernia seen in the distal esophagus. Stomach: In the body of the stomach, opening for the prior PEG tube was seen. This was still patent and we could see air leaking out from the outside of the abdominal wall. First found a suitable chao ce to put the new PEG tube and confirmed with transillumination and one-to-one pressure. [employer] 20-[place] PEG tube was placed with a pull guidewire technique under aseptic precautions. The external bumper was at 3 cm. Subsequently we did ablation of the internal part of the fistula an d also placed the clips, unclear if this would be successful. The duodenum and second portion appear ed normal. Mild patchy erythema was seen in the gastric antrum. Complications: None. Tolerance To Anesthesia: Excellent. Postoperative Diagnosis: Gastrocutaneous fistula, status post new PEG placement. Plan: Continue current management. We will keep the patient n.p.o. for now. Can start feeding at a low rate tomorrow and see if there is any drainage from the site of the fistula. If the drainage pe rsists, we will need surgical evaluation. US/MODL Voice ID: [id number] Report ID: [id number]
--- NOTE | 2018-05-08 13:34 | RAD REPORT ---
EXAM DESCRIPTION: RAD - Abdomen 1 View (KUB) - 05/08/2018 1:29 pm CLINICAL HISTORY: Bloated stomach s/p PEG insertion Pain COMPARISON: Abdomen 1 View (KUB) dated 05/03/2018 FINDINGS: The bowel gas pattern is non-obstructive. No evidence of free air or pneumatosis. Contrast is seen in the colon. Peg tube is present projecting over the central abdomen. IMPRESSION: No unusual or unexpected finding.
--- NOTE | 2018-05-08 15:53 | P.DS ---
Admission Date: 05/02/18 Discharge Date: 05/08/18 Disposition: ROUTINE DISCHARGE Discharge Condition: FAIR Reason for Admission: Pseudomona UTI Consultations: GI - Dr Babcock Procedures: PEG tube placed - Problems (1) Urinary tract infectious disease Onset Date: 04/07/15 Current Visit: No Status: Acute Qualifiers: Urinary tract infection type: acute cystitis Hematuria presence: without hematuria Qualified Code(s): N30.00 - Acute cystitis without hematuria (2) Malfunction of gastrostomy tube Onset Date: 08/28/17 Current Visit: No Status: Acute (3) TBI (traumatic brain injury) Onset Date: 08/28/17 Current Visit: No Status: Acute Qualifiers: Encounter type: sequela Loss of consciousness presence/duration: without LOC Qualified Code(s): S06.9X0S - Unspecified intracranial injury without loss of consciousness, sequela (4) Seizure Onset Date: 08/28/17 Current Visit: No Status: Acute Brief History of Present Illness: See HPI Hospital Course: Overall during the hospital stay patient remained stable Patient was initially admitted to the hospital after having fever at home after being discharged from the hospital. Patient was found to have urinary tract infection with multidrug resistant bacteria. Was started on IV antibiotics and had completed the course of total of 7 days. Patient also had a PEG tube displacement while here in the hospital and thus GI was consulted who replaced the PEG tube. After the PEG tube was replaced patient had feeding done which patient tolerated well however the amount was decreased to 150 mL t.i.d. from 237ml due to delayed gastric emptying. Patient also was found to have some serosanguineous drainage from the initial PEG tube site GI was informed who recommended the patient can have outpatient general surgery consult if serosanguineous discharge continuous after 1-2 weeks. Patient is family member demonstrated understanding and thus was discharged home under stable condition. Vital Signs/Physical Exam: Temp Pulse Resp BP Pulse Ox 97.7 F 81 18 98/60 95 05/08/18 12:00 05/08/18 12:00 05/08/18 12:00 05/08/18 12:00 05/08/18 12:00 Laboratory Data at Discharge: WBC 8.8 K/uL (4.3-10.9) D 05/08/18 06:46 Hgb 14.0 g/dL (13.6-17.9) 05/08/18 06:46 Hct 43.1 % (39.6-49.0) 05/08/18 06:46 Plt Count 134 K/uL (152-406) L 05/08/18 06:46 Sodium 142 mmol/L (136-145) 05/08/18 06:46 Potassium 3.5 mmol/L (3.5-5.1) 05/08/18 06:46 BUN 4 mg/dL (7-18) L 05/08/18 06:46 Creatinine 0.70 mg/dL (0.55-1.3) 05/08/18 06:46 Glucose 87 mg/dL (74-106) 05/08/18 06:46 Total Bilirubin 0.7 mg/dL (0.2-1.0) 05/06/18 04:31 AST 32 U/L (15-37) 05/06/18 04:31 ALT 29 U/L (12-78) 05/06/18 04:31 Alkaline Phosphatase 95 U/L (45-117) 05/06/18 04:31 Home Medications: Albuterol Sulfate [Albuterol Sulfate 0.083% Neb Soln] 2.5 mg IH Q4HP PRN Jevity 1.5 Aaron [Jevity 1.5 Aaron*] 240 ml FT BEDTIME 09/10/13 Jevity 1.5 Aaron [Jevity 1.5 Aaron*] 480 ml FT BREAKFAST 09/10/13 Jevity 1.5 Aaron [Jevity 1.5 Aaron*] 480 ml FT LUNCH 09/10/13 Fluticasone [Flonase 50MCG Nasal [place]*] 2 sprays NS DAILY PRN #1 btl 04/16/15 Cetirizine HCl [Zyrtec*] 10 mg FT DAILY #30 tablet 08/25/17 Citalopram [Celexa*] 40 mg GT DAILY #30 tablet 08/25/17 Esomeprazole Mag Trihydrate [Nexium] 40 mg FT DAILY 30 Days capsule. Lactulose 10 gm PO PRN PRN 08/25/17 Levetiracetam [Keppra] 500 mg FT BID 30 Days tablet 08/25/17 Melatonin/Pyridoxine HCl (B6) [Melatonin 3 mg Tablet] 1 each PO BEDTIME PRN #30 tablet 08/25/17 Montelukast [Singulair*] 10 mg GT BEDTIME #30 tab 08/25/17 Ranitidine [Zantac*] 150 mg FT BID 30 Days btl 08/25/17 Baclofen [Lioresal*] 10 mg GT BID 05/02/18 Patient Discharge Instructions: Please followup with primary care provider and GI in 1-2 weeks post discharge. Continue with all medication as prescribed by primary care doctor. Resume the feeding as prescribed by PCP as well Diet: Regular Activity: Ad ophelia Followup: Matthew Babcock MD [ACTIVE - CAN ADMIT] - 1-2 Weeks
--- NOTE | 2018-05-08 19:53 | PN ---
Subjective: The patient lying in bed, somnolent. No acute event. No distress. Objective: Vital Signs: Temperature 97.7, pulse 81, respirations 18, blood pressure 98/60. Lungs: Clear to auscultation. Heart: S1, S2. Regular. Abdomen: Soft, nontender. Bowel sounds present. Extremity: Muscle wasting noted. Laboratory Data: WBC 8.8, hemoglobin 14, platelets are 134. Chemistry shows sodium 142, potassium 3 .5, chloride 110, bicarb 25, BUN 4, creatinine 0.7, glucose is 87. Micro data blood cultures are neg ative. KUB done today shows no unusual finding. The patient had a PEG tube placement and gastrocuta neous fistula. Assessment/plan: Acute cystitis secondary to Pseudomonas, PEG tube removal, quadriplegia. Continue antibiotic and supportive care. We will follow the patient as needed. The patient completed the ant ibiotic and doing well. Urinalysis is negative for WBC. NF/MODL Voice ID: [id number] Report ID: [id number]
[2018-05-08] MEDS: MONTELUKAST 10 MG TAB FT SCH (22:20)
[2018-05-08] MEDS: FLUTICASONE 50MCG NASAL SPRAY NAS SCH (22:22)
[2018-05-09] MEDS: D5 0.45 NS 1,000 ML IV SCH (05:05)
[2018-05-09] MEDS: CETIRIZINE HCL 5 MG TABLET FT SCH (07:48)
[2018-05-09] MEDS: RANITIDINE 150 MG TABLET FT SCH ×2 (07:48→20:57)
[2018-05-09] MEDS: PANTOPRAZOLE 40 MG INJ IVP SCH ×2 (07:48→21:09)
[2018-05-09] MEDS: ENOXAPARIN 40 MG/0.4 ML SQ SCH (07:49)
[2018-05-09] MEDS: GUAIFENESIN 600 MG SA TAB PO SCH ×2 (07:49→20:56)
[2018-05-09] MEDS: CITALOPRAM 10 MG TABLET FT SCH (07:49)
[2018-05-09] MEDS: FLUTICASONE 50MCG NASAL SPRAY NAS SCH ×2 (07:50→19:59)
[2018-05-09] MEDS: BACLOFEN 10 MG TAB FT SCH ×2 (07:50→20:56)
[2018-05-09] MEDS: JEVITY 1.5 CAL LIQUID 1,000 ML BOT FT SCH ×3 (07:50→20:56)
[2018-05-09 08:13] VITALS: O2SAT 96
[2018-05-09] MEDS: levETIRAcetam 500 MG in NA CHLORIDE 0.9% 100 ML IV SCH ×2 (09:31→19:59)
--- NOTE | 2018-05-09 11:53 | P.PN ---
Subjective Date of Service: 05/09/18 Chief Complaint: Pseudomona UTI Patient seen and examined at bedside with RN. Chart reviewed. Patient's discharge was held yesterday due to patient unable to tolerate feeding. This morning episode of hypoglycemia with blood sugar of 67. Doing well overall today. Tolerating his feedings well as well. Review of Systems 10-point ROS is otherwise unremarkable Physical Examination - Vital Signs Temperature: 97.3 F Blood Pressure: 128/73 Pulse: 56 Respirations: 16 Pulse Ox (%): 97 - Physical Exam General: Alert, In no apparent distress, Demented HEENT: EOMI Neck: Supple, JVD not distended Respiratory: Clear to auscultation bilaterally, Normal air movement Cardiovascular: Regular rate/rhythm, Normal S1 S2 Gastrointestinal: Normal bowel sounds, Other (PEG tube in place. Incision is clean dry and intact. Old PEG tube insertion site with no drainage noted) Musculoskeletal: No tenderness, Contractures Integumentary: No rashes Neurological: Abnormal speech, Abnormal tone Lymphatics: No axilla or inguinal lymphadenopathy - Studies Medications List Reviewed: Yes Assessment And Plan - Current Problems (Diagnosis) (1) Urinary tract infectious disease Onset Date: 04/07/15 Current Visit: No Status: Acute Qualifiers: Urinary tract infection type: acute cystitis Hematuria presence: without hematuria Qualified Code(s): N30.00 - Acute cystitis without hematuria (2) Malfunction of gastrostomy tube Onset Date: 08/28/17 Current Visit: No Status: Acute (3) TBI (traumatic brain injury) Onset Date: 08/28/17 Current Visit: No Status: Acute Qualifiers: Encounter type: sequela Loss of consciousness presence/duration: without LOC Qualified Code(s): S06.9X0S - Unspecified intracranial injury without loss of consciousness, sequela (4) Seizure Onset Date: 08/28/17 Current Visit: No Status: Acute - Plan Assessment And Plan: 1. Acute cystitis without hematuria secondary to Pseudomonas. -The patient will complete antibiotics -No need for long-term IV antibiotics per Dr. Ramirez's Reccs. -The patient had an acute infection of colonization. No signs of sepsis. 2. Percutaneous endoscopic gastrostomy tube dysfunction, tube removed. -status post replacement of the PEG tube. -currently on Jevity 1.5 at 200 mL b.i.d. -tolerating his diet well today. Low gastric residual noted -will continue to monitor closely if patient is doing well. I anticipate discharge in 24 hr 3. Quadriplegia. 4. Traumatic brain injury without loss of consciousness sequela. 5. Seizure disorder. -Continue PO Keppra 6. Hypoglycemia, improving now. -Restarted on tube feedings. D5 W discontinued today 7. Intermittent asthma. Continue albuterol as needed. 8. Deep venous thrombosis prophylaxis with Lovenox. Plan: Will monitor the patient closely while here in the hospital if tolerating diet well will anticipate discharge later on today. Discharge Plan: Home Plan to discharge in: 24 Hours - Code Status/Comfort Care Code Status Assessed: Yes Critical Care: No
--- NOTE | 2018-05-09 15:42 | PN ---
Subjective: The patient is doing well without any antibiotic. No fevers. Objective: Vital Signs: Temperature 97.3, pulse 56, respirations 16, blood pressure 128/73. No bernal ges in examination. Laboratory Data: WBC 8.8, hemoglobin 14, platelets are 134. The patient is off antibiotic. Assessment And Plan: Colonization of urine secondary to multidrug resistant bacteria. We will monit or the patient for any signs of fevers, infection. To start the patient on antibiotic at this time. We will just monitor without antibiotic. Urinary tract infection resolved. NF/MODL Voice ID: [id number] Report ID: [id number]
[2018-05-09 20:45] VITALS: BP 127/73; TEMP 98
[2018-05-09] MEDS: MONTELUKAST 10 MG TAB FT SCH (20:56)
== END 2018-05-09 21:30 | disposition home or self-care (01) | DRG 981 ==
LOC: ER 15:57 → ERHOLD 17:13 → 4TH 19:41 → 3RD-ICU 05-04 21:56 → 4TH 05-04 22:12
PROVIDERS: ADMIT Family Medicine; ATTEND Family Medicine
PROC: 0DH68UZ Insertion of Feeding Device into Stomach, Via Natural or Artificial Opening Endoscopic (ICD-10-PCS; 2018-05-07)
PROC: 0DP6XUZ Removal of Feeding Device from Stomach, External Approach (ICD-10-PCS; 2018-05-07)
PROC: 0DQ48ZZ Repair Esophagogastric Junction, Via Natural or Artificial Opening Endoscopic (ICD-10-PCS; principal; 2018-05-07 10:00)
DX: N30.00 Acute cystitis without hematuria (principal); G82.50 Quadriplegia, unspecified; K94.23 Gastrostomy malfunction; K31.6 Fistula of stomach and duodenum; B96.5 Pseudomonas (aeruginosa) (mallei) (pseudomallei) as the cause of diseases classified elsewhere; Z88.0 Allergy status to penicillin; S06.9X0S Unspecified intracranial injury without loss of consciousness, sequela; G40.909 Epilepsy, unspecified, not intractable, without status epilepticus; J45.20 Mild intermittent asthma, uncomplicated; Y83.3 Surgical operation with formation of external stoma as the cause of abnormal reaction of the patient, or of later complication, without mention of misadventure at the time of the procedure; Y92.019 Unspecified place in single-family (private) house as the place of occurrence of the external cause; E16.2 Hypoglycemia, unspecified; K44.9 Diaphragmatic hernia without obstruction or gangrene
CPT/HCPCS: 36415; 71045; 74018; 80048; 80053; 81003; 81015; 82962; 83605; 84145; 85025; 87040; 94760; 96374; 99285; C9113; J0690; J1650; J1953; J2270; J2704; J7030

== ENCOUNTER 2019-04-02 20:39 | Inpatient (IN) | payer OTHER ==
--- OUTSIDE RECORDS SUMMARY | 2019-04-02 20:42 | XMS REPORT ---
:1990 [facility] Address [address] [place] [address] Care Team Providers Name Role Phone MORIS [...] (BEAKER) (test 82 mg/dL 70-110 TESTED AT [address] pvvt=0379) [facility] [address] POCT-GLUCOSE [id number] 08:12:00 Test Item Value Reference Range Comments POC-GLUCOSE METER (BEAKER) 97 mg/dL 70-110 TESTED AT [address] (test cdid=8802) [facility] [address] CBC W/PLT COUNT & AUTO [id number] 06:38:00 Test Item Value Reference Range Comments WHITE BLOOD CELL COUNT (BEAKER) (test igja=612) 8.1 K/ L 4.0-10.0 RED BLOOD CELL COUNT (BEAKER) (test vgpt=505) 5.24 M/ L 4.20-5.80 HEMOGLOBIN (BEAKER) (test ddis=066) 13.1 GM/DL 13.0-16.8 HEMATOCRIT (BEAKER) (test ahkl=014) 42.6 % 40.0-50.0 MEAN CORPUSCULAR VOLUME (BEAKER) (test cjjq=566) 81.2 fL 82.0-98.0 MEAN CORPUSCULAR HEMOGLOBIN (BEAKER) (test 25.0 pg 27.0-33.0 bjrw=347) MEAN CORPUSCULAR HEMOGLOBIN CONC (BEAKER) (test 30.7 GM/DL 32.0-36.0 ewue=825) RED CELL DISTRIBUTION WIDTH (BEAKER) (test 14.6 % 10.3-14.2 kikp=411) PLATELET COUNT (BEAKER) (test utaz=587) 172 K/CU MM 150-430 MEAN PLATELET VOLUME (BEAKER) (test jdfe=894) 11.6 fL 6.5-10.5 NUCLEATED RED BLOOD CELLS (BEAKER) (test 0 /100 WBC 0-0 xesr=692) NEUTROPHILS RELATIVE PERCENT (BEAKER) (test 42 % tfte=621) LYMPHOCYTES RELATIVE PERCENT (BEAKER) (test 40 % ixuz=722) MONOCYTES RELATIVE PERCENT (BEAKER) (test 15 % efwz=720) EOSINOPHILS RELATIVE PERCENT (BEAKER) (test 2 % haws=246) BASOPHILS RELATIVE PERCENT (BEAKER) (test 1 % ayew=651) NEUTROPHILS ABSOLUTE COUNT (BEAKER) (test 3.39 K/ L 1.80-8.00 nyjg=778) LYMPHOCYTES ABSOLUTE COUNT (BEAKER) (test 3.28 K/ L 1.48-4.50 rzld=172) MONOCYTES ABSOLUTE COUNT (BEAKER) (test 1.24 K/ L 0.00-1.30 qlkk=611) EOSINOPHILS ABSOLUTE COUNT (BEAKER) (test 0.12 K/ L 0.00-0.50 vgse=153) BASOPHILS ABSOLUTE COUNT (BEAKER) (test 0.09 K/ L 0.00-0.20 gnsy=611) 0.00POCT-GLUCOSE [id number] 04:47:00 Test Item Value Reference Range Comments POC-GLUCOSE METER (BEAKER) 73 mg/dL 70-110 TESTED AT [address] (test ghyb=6106) [facility] [address] POCT-GLUCOSE [id number] 00:27:00 Test Item Value Reference Range Comments POC-GLUCOSE METER (BEAKER) 71 mg/dL 70-110 TESTED AT [address] (test dwkg=8044) [facility] [address] POCT-GLUCOSE [id number] 12:03:00 Test Item Value Reference Range Comments POC-GLUCOSE METER (BEAKER) 86 mg/dL 70-110 TESTED AT [address] (test kcxv=4220) [facility] [address] POCT-GLUCOSE [id number] 06:10:00 Test Item Value Reference Range Comments POC-GLUCOSE METER (BEAKER) 89 mg/dL 70-110 TESTED AT [address] (test lant=1531) [facility] [address] POCT-GLUCOSE [id number] 00:20:00 Test Item Value Reference Range Comments POC-GLUCOSE METER (BEAKER) 77 mg/dL 70-110 TESTED AT [address] (test toer=6941) [place] [id number] POCT-GLUCOSE [id number] 19:04:00 Test Item Value Reference Range Comments POC-GLUCOSE METER (BEAKER) 129 mg/dL 70-110 TESTED AT [address] (test qygp=3362) [place] [id number] POCT-GLUCOSE [id number] 16:34:00 Test Item Value Reference Range Comments POC-GLUCOSE METER (BEAKER) 120 mg/dL 70-110 TESTED AT [address] (test nefv=6194) [place] [id number] POCT-GLUCOSE [id number] 06:09:00 Test Item Value Reference Range Comments POC-GLUCOSE METER (BEAKER) 76 mg/dL 70-110 TESTED AT [address] (test mrjs=4907) [facility] [address] POCT-GLUCOSE [id number] 00:51:00 Test Item Value Reference Range Comments POC-GLUCOSE METER (BEAKER) 84 mg/dL 70-110 TESTED AT [address] (test vozm=4426) [place] [id number] POCT-GLUCOSE [id number] 14:52:00 Test Item Value Reference Range Comments POC-GLUCOSE METER (BEAKER) 125 mg/dL 70-110 TESTED AT [address] (test ivgs=7602) [place] [id number] POCT-GLUCOSE [id number] 22:00:00 Test Item Value Reference Range Comments POC-GLUCOSE METER (BEAKER) 102 mg/dL 70-110 TESTED AT [address] (test atdv=6998) [place] [id number] POCT-GLUCOSE [id number] 18:36:00 Test Item Value Reference Range Comments POC-GLUCOSE METER (BEAKER) 60 mg/dL 70-110 TESTED AT [address] (test eqou=7643) [place] [address] BLOOD [id number] 15:25:00 Test Item Value Reference Range Comments CULTURE (BEAKER) From Anaerobic Bottle Only (test ashq=2232) Coagulase negative Staphylococcus GRAM STAIN RESULT From anaerobic bottle (BEAKER) (test only: gram positive zazg=3948) cocci in clusters POCT-GLUCOSE [id number] 13:24:00 Test Item Value Reference Range Comments POC-GLUCOSE METER (BEAKER) 86 mg/dL 70-110 TESTED AT [facility] [address] [facility] (test ezgy=1187) [facility] [address] CBC W/PLT COUNT & AUTO [id number] 10:10:00 Test Item Value Reference Range Comments WHITE BLOOD CELL COUNT (BEAKER) (test rjor=372) 8.0 K/ L 4.0-10.0 RED BLOOD CELL COUNT (BEAKER) (test qqbk=691) 4.77 M/ L 4.20-5.80 HEMOGLOBIN (BEAKER) (test gbxy=224) 13.4 GM/DL 13.0-16.8 HEMATOCRIT (BEAKER) (test smrk=308) 38.7 % 40.0-50.0 MEAN CORPUSCULAR VOLUME (BEAKER) (test zlut=259) 81.1 fL 82.0-98.0 MEAN CORPUSCULAR HEMOGLOBIN (BEAKER) (test 28.1 pg 27.0-33.0 ditx=118) MEAN CORPUSCULAR HEMOGLOBIN CONC (BEAKER) (test 34.6 GM/DL 32.0-36.0 ltsz=099) RED CELL DISTRIBUTION WIDTH (BEAKER) (test 13.8 % 10.3-14.2 msbw=870) PLATELET COUNT (BEAKER) (test vvgi=231) 109 K/CU MM 150-430 MEAN PLATELET VOLUME (BEAKER) (test xqpj=607) 11.9 fL 6.5-10.5 NUCLEATED RED BLOOD CELLS (BEAKER) (test 2 /100 WBC 0-0 xaeg=288) NEUTROPHILS RELATIVE PERCENT (BEAKER) (test 41 % vbvl=503) LYMPHOCYTES RELATIVE PERCENT (BEAKER) (test 40 % azow=063) MONOCYTES RELATIVE PERCENT (BEAKER) (test 17 % vrni=690) EOSINOPHILS RELATIVE PERCENT (BEAKER) (test 2 % cohf=882) BASOPHILS RELATIVE PERCENT (BEAKER) (test 1 % vxiy=947) NEUTROPHILS ABSOLUTE COUNT (BEAKER) (test 3.26 K/ L 1.80-8.00 mejg=220) LYMPHOCYTES ABSOLUTE COUNT (BEAKER) (test 3.16 K/ L 1.48-4.50 wkvi=662) MONOCYTES ABSOLUTE COUNT (BEAKER) (test 1.39 K/ L 0.00-1.30 sfer=774) EOSINOPHILS ABSOLUTE COUNT (BEAKER) (test 0.13 K/ L 0.00-0.50 edab=858) BASOPHILS ABSOLUTE COUNT (BEAKER) (test 0.06 K/ L 0.00-0.20 jbwk=407) 0.00(MANUAL DIFFERENTIAL)2016-05-26 10:10:00 Test Item Value Reference Range Comments TOTAL COUNTED (BEAKER) (test rqgr=8755) PLT MORPHOLOGY (BEAKER) (test vopu=079) Normal RBC MORPHOLOGY (BEAKER) (test voxq=612) Normal ATYPICAL LYMPHS(BEAKER) (test leyt=7595) Present POCT-GLUCOSE [id number] 00:30:00 Test Item Value Reference Range Comments POC-GLUCOSE METER (BEAKER) 120 mg/dL 70-110 TESTED AT [address] (test uqsb=0350) [place] [address] POCT-GLUCOSE [id number] 18:23:00 Test Item Value Reference Range Comments POC-GLUCOSE METER (BEAKER) 82 mg/dL 70-110 TESTED AT [address] (test xcej=4363) [place] [address] ANTI-NUCLEAR ANTIBODY (NORMA)2016-05-25 13:07:00 Test Item Value Reference Range Comments ANTI-NUCLEAR ANTIBODY (NORMA) (BEAKER) (test Negative Negative uore=895) POCT-GLUCOSE [id number] 12:50:00 Test Item Value Reference Range Comments POC-GLUCOSE METER (BEAKER) 115 mg/dL 70-110 TESTED AT [address] (test lkxi=0494) [place] [address] CBC W/PLT COUNT & AUTO [id number] 11:05:00 Test Item Value Reference Range Comments WHITE BLOOD CELL COUNT (BEAKER) (test fmvl=845) 8.3 K/ L 4.0-10.0 RED BLOOD CELL COUNT (BEAKER) (test asof=492) 4.95 M/ L 4.20-5.80 HEMOGLOBIN (BEAKER) (test rdha=783) 13.2 GM/DL 13.0-16.8 HEMATOCRIT (BEAKER) (test cdvd=628) 39.6 % 40.0-50.0 MEAN CORPUSCULAR VOLUME (BEAKER) (test riay=056) 80.0 fL 82.0-98.0 MEAN CORPUSCULAR HEMOGLOBIN (BEAKER) (test 26.7 pg 27.0-33.0 rphj=347) MEAN CORPUSCULAR HEMOGLOBIN CONC (BEAKER) (test 33.3 GM/DL 32.0-36.0 sdzf=338) RED CELL DISTRIBUTION WIDTH (BEAKER) (test 13.3 % 10.3-14.2 zmyb=725) PLATELET COUNT (BEAKER) (test gakj=269) 101 K/CU MM 150-430 MEAN PLATELET VOLUME (BEAKER) (test unea=960) 11.7 fL 6.5-10.5 NUCLEATED RED BLOOD CELLS (BEAKER) (test 0 /100 WBC 0-0 qmsa=930) NEUTROPHILS RELATIVE PERCENT (BEAKER) (test 38 % hxmf=060) LYMPHOCYTES RELATIVE PERCENT (BEAKER) (test 39 % hony=471) MONOCYTES RELATIVE PERCENT (BEAKER) (test 21 % gkvl=675) EOSINOPHILS RELATIVE PERCENT (BEAKER) (test 2 % fklb=085) BASOPHILS RELATIVE PERCENT (BEAKER) (test 1 % oikv=383) NEUTROPHILS ABSOLUTE COUNT (BEAKER) (test 3.15 K/ L 1.80-8.00 hkqu=719) LYMPHOCYTES ABSOLUTE COUNT (BEAKER) (test 3.27 K/ L 1.48-4.50 dorb=760) MONOCYTES ABSOLUTE COUNT (BEAKER) (test 1.70 K/ L 0.00-1.30 jshk=564) EOSINOPHILS ABSOLUTE COUNT (BEAKER) (test 0.15 K/ L 0.00-0.50 zyap=064) BASOPHILS ABSOLUTE COUNT (BEAKER) (test 0.04 K/ L 0.00-0.20 mvih=257) 0.00POCT-GLUCOSE [id number] 06:12:00 Test Item Value Reference Range Comments POC-GLUCOSE METER (BEAKER) 83 mg/dL 70-110 TESTED AT [facility] [address] (test mdro=7999) [facility] [address] SPUTUM CULTURE + GRAM [id number] 02:04:00 Test Item Value Reference Range Comments CULTURE (BEAKER) (test PSEUDOMONAS 3+ Pseudomonas alth=1477) AERUGINOSA aeruginosa Amikacin (test code=1) Susceptible 0-16 , Resistant <0 or >16 Aztreonam (test Susceptible 0-8 , code=32) Resistant <0 or >8 Cefepime (test code=51) Susceptible 0-8 , Resistant <0 or >8 Ceftazidime (test Susceptible 0-8 , code=27) Resistant <0 or >8 Ciprofloxacin (test Susceptible 0-1 , code=7) Resistant <0 or >1 Doripenem (test Susceptible 0-2 , ekgz=538) Resistant <0 or >2 Gentamicin (test Susceptible [...] or >4 CULTURE (BEAKER) (test 3+ Moraxella sxye=141163) catarrhalis CULTURE (BEAKER) (test PSEUDOMONAS 3+ Pseudomonas jbiy=84839) AERUGINOSA aeruginosaof a second type Amikacin (test code=1) Susceptible 0-16 , Resistant <0 or >16 Aztreonam (test Susceptible 0-8 , code=32) Resistant <0 or >8 Cefepime (test code=51) Susceptible 0-8 , Resistant <0 or >8 Ceftazidime (test Susceptible 0-8 , code=27) Resistant <0 or >8 Ciprofloxacin (test Susceptible 0-1 , code=7) Resistant <0 or >1 Doripenem (test Susceptible 0-2 , jpxv=595) Resistant <0 or >2 Gentamicin (test Susceptible [...] GRAM STAIN RESULT <1+ WBCs (BEAKER) (test kcmi=2166) GRAM STAIN RESULT 15-20 epithelial (BEAKER) (test cells csmt=652631) GRAM STAIN RESULT 2+ gram negative rods (BEAKER) (test nhcd=086489) GRAM STAIN RESULT <1+ gram positive (BEAKER) (test rods otlj=466008) GRAM STAIN RESULT 1+ gram positive (BEAKER) (test cocci in chains and chsx=490798) pairs GRAM STAIN RESULT 1+ gram positive (BEAKER) (test coccobacilli sarj=870798) 3+ Normal respiratory ralph presentPOCT-GLUCOSE [id number] 00:03:00 Test Item Value Reference Range Comments POC-GLUCOSE METER (BEAKER) 86 mg/dL 70-110 TESTED AT [address] (test noho=4576) [place] [address] POCT-GLUCOSE [id number] 14:08:00 Test Item Value Reference Range Comments POC-GLUCOSE METER (BEAKER) 71 mg/dL 70-110 TESTED AT [address] (test mjed=3171) [place] [address] HEPATITIS B SURFACE [id number] 10:56:00 Test Item Value Reference Range Comments HEPATITIS B SURFACE ANTIBODY (BEAKER) (test < mIU/mL <8.0 zxis=539) HEPATITIS B SURFACE [id number] 10:52:00 Test Item Value Reference Range Comments HEPATITIS B SURFACE ANTIGEN (2) (BEAKER) (test Nonreactive Nonreactive vutn=1651) HEPATITIS C [id number] 10:52:00 Test Item Value Reference Range Comments HEPATITIS C ANTIBODY (BEAKER) (test mong=543) Nonreactive Nonreactive HEPATITIS B CORE ANTIBODY, [id number] 10:52:00 Test Item Value Reference Range Comments HEPATITIS B CORE TOTAL ANTIBODY (BEAKER) (test Nonreactive Nonreactive stey=119) HIV-1 ANTIGEN WITH HIV-1/2 [id number] 10:52:00 Test Item Value Reference Range Comments HIV-1 ANTIGEN WITH HIV 1\T\2 ANTIBODY (2) Nonreactive Nonreactive (BEAKER) (test qnwq=5081) PERIPHERAL BLOOD SMEAR - HOLD [id number] 07:58:00 Test Item Value Reference Range Comments PERIPHERAL SMEAR SAVE (BEAKER) (test fsyt=5788) saved CBC W/PLT COUNT & AUTO [id number] 07:58:00 Test Item Value Reference Range Comments WHITE BLOOD CELL COUNT (BEAKER) (test zfaz=659) 7.1 K/ L 4.0-10.0 RED BLOOD CELL COUNT (BEAKER) (test svww=998) 5.04 M/ L 4.20-5.80 HEMOGLOBIN (BEAKER) (test xums=956) 13.1 GM/DL 13.0-16.8 HEMATOCRIT (BEAKER) (test kcme=787) 41.3 % 40.0-50.0 MEAN CORPUSCULAR VOLUME (BEAKER) (test xusi=231) 81.9 fL 82.0-98.0 MEAN CORPUSCULAR HEMOGLOBIN (BEAKER) (test 26.0 pg 27.0-33.0 zutl=141) MEAN CORPUSCULAR HEMOGLOBIN CONC (BEAKER) (test 31.8 GM/DL 32.0-36.0 upbp=707) RED CELL DISTRIBUTION WIDTH (BEAKER) (test 13.9 % 10.3-14.2 ssio=172) PLATELET COUNT (BEAKER) (test hfqd=391) 87 K/CU MM 150-430 MEAN PLATELET VOLUME (BEAKER) (test ccld=171) 12.1 fL 6.5-10.5 NUCLEATED RED BLOOD CELLS (BEAKER) (test 0 /100 WBC 0-0 fwxk=896) NEUTROPHILS RELATIVE PERCENT (BEAKER) (test 42 % vrzg=879) LYMPHOCYTES RELATIVE PERCENT (BEAKER) (test 35 % ajby=951) MONOCYTES RELATIVE PERCENT (BEAKER) (test 21 % ktdy=301) EOSINOPHILS RELATIVE PERCENT (BEAKER) (test 2 % dgem=879) BASOPHILS RELATIVE PERCENT (BEAKER) (test 1 % osub=772) NEUTROPHILS ABSOLUTE COUNT (BEAKER) (test 2.95 K/ L 1.80-8.00 vzxg=610) LYMPHOCYTES ABSOLUTE COUNT (BEAKER) (test 2.44 K/ L 1.48-4.50 dcks=014) MONOCYTES ABSOLUTE COUNT (BEAKER) (test dpbd=692) 1.50 K/ L 0.00-1.30 EOSINOPHILS ABSOLUTE COUNT (BEAKER) (test 0.12 K/ L 0.00-0.50 thqy=899) BASOPHILS ABSOLUTE COUNT (BEAKER) (test qpjl=690) 0.07 K/ L 0.00-0.20 0.00VITAMIN B12 AND [id number] 07:13:00 Test Item Value Reference Range Comments VITAMIN B12 (BEAKER) (test kxrl=114) 1822 pg/mL 213-816 FOLATE (BEAKER) (test clhq=004) 15.2 ng/mL >=7.0 Effective 2013: Folate Reference Range ChangeNew: >=7.0 Previous: & gt;=5.4Z-[id number] 06:54:00 Test Item Value Reference Range Comments D-DIMER QUANTITATIVE (BEAKER) (test uuyy=054) 1.39 MG/L FEU <0.50 Intended Use: The D-Dimer Assay can be used to aid in the diagnosis of Deep Vein Thrombosis (DVT) and Pulmonary Embolism Disease (PED).In patients with low pre-test probability, various studies concerning STA Liatest D-dimer test have reported that with a cutoff value of 0.50 MG/L FEU, the Negative Predictive Value (NPV) regarding the exclusion of thrombosis is within 95-100% range.[id number] 06:53:00 Test Item Value Reference Range Comments FIBRINOGEN LEVEL (BEAKER) (test pzry=829) 355 mg/dl 225-434 PT/[id number] 06:53:00 Test Item Value Reference Range Comments PROTIME (BEAKER) (test hpes=814) 13.9 seconds 11.7-14.7 INR (BEAKER) (test qnoi=932) 1.1 <=5.9 PARTIAL THROMBOPLASTIN TIME (BEAKER) (test 31.7 seconds 22.5-36.0 nqwq=234) RECOMMENDED COUMADIN/WARFARIN INR THERAPY RANGESSTANDARD DOSE: 2.0 - 3.0 Includes: PROPHYLAXIS forvenous thrombosis, systemic embolization; TREATMENT for venous thrombosis and/or pulmonary embolus.HIGH RISK: Target INR is 2.5-3.5 for patients with mechanical heart valves.COMPREHENSIVE METABOLIC [id number] 06:40:00 Test Item Value Reference Range Comments TOTAL PROTEIN (BEAKER) 6.8 gm/dL 6.0-8.3 (test orew=919) ALBUMIN (BEAKER) (test 3.1 g/dL 3.5-5.0 ddws=6326) ALKALINE PHOSPHATASE 72 U/L 40-150 (BEAKER) (test faiz=784) BILIRUBIN TOTAL (BEAKER) 0.4 mg/dL 0.2-1.2 (test tlcu=913) SODIUM (BEAKER) (test 138 meq/L 136-145 hwim=461) POTASSIUM (BEAKER) (test 4.1 meq/L 3.5-5.1 egeh=940) CHLORIDE (BEAKER) (test 106 meq/L 98-107 bvhi=743) CO2 (BEAKER) (test 27 meq/L 22-29 yqmt=466) BLOOD UREA NITROGEN 9 mg/dL 7-21 (BEAKER) (test kzcf=906) CREATININE (BEAKER) (test 0.79 mg/dL 0.57-1.25 dzpd=496) GLUCOSE RANDOM (BEAKER) 74 mg/dL 70-105 (test ccmk=940) CALCIUM (BEAKER) (test 8.7 mg/dL 8.4-10.2 zrfw=427) AST (SGOT) (BEAKER) (test 37 U/L 5-34 tgwb=347) ALT (SGPT) (BEAKER) (test 27 U/L 6-55 srvc=076) EGFR (BEAKER) (test 143 mL/min/1.73 sq ESTIMATED GFR IS NOT tbjf=5452) m ACCURATE CREATININE CLEARANCE IN PREDICTING GLOMERULAR FILTRATION RATE. ESTIMATED GFR IS NOT APPLICABLE FOR DIALYSIS PATIENTS. POCT-GLUCOSE [id number] 00:38:00 Test Item Value Reference Range Comments POC-GLUCOSE METER (BEAKER) 104 mg/dL 70-110 TESTED AT [facility] [address] [facility] (test wqla=5980) [facility] [address] POCT-GLUCOSE [id number] 17:31:00 Test Item Value Reference Range Comments POC-GLUCOSE METER (BEAKER) 83 mg/dL 70-110 TESTED AT [address] (test pzsf=5597) [facility] [address] HEPARIN [id number] 14:04:00 Test Item Value Reference Range Comments HEPARIN ANTIBODY (BEAKER) (test pwqp=665) Negative Negative HEPARIN ANTIBODY OD (BEAKER) (test ettx=5213) 0.067 <0.400 4T TOTAL SCORE (BEAKER) (test lxxi=2285) 4 Probability of HIT based on scoring system: 6-8=High probability; 4-5= intermediate probability; 0-3=low probabilityPOCT-GLUCOSE [id number] 09:07: 00 Test Item Value Reference Range Comments POC-GLUCOSE METER (BEAKER) 124 mg/dL 70-110 TESTED AT [facility] [address] (test jxlf=4048) [facility] [address] CBC W/PLT COUNT & AUTO [id number] 07:37:00 Test Item Value Reference Range Comments WHITE BLOOD CELL COUNT (BEAKER) (test abxh=284) 9.1 K/ L 4.0-10.0 RED BLOOD CELL COUNT (BEAKER) (test qhsq=852) 4.92 M/ L 4.20-5.80 HEMOGLOBIN (BEAKER) (test bked=683) 13.1 GM/DL 13.0-16.8 HEMATOCRIT (BEAKER) (test yvag=231) 40.0 % 40.0-50.0 MEAN CORPUSCULAR VOLUME (BEAKER) (test dcqp=473) 81.2 fL 82.0-98.0 MEAN CORPUSCULAR HEMOGLOBIN (BEAKER) (test 26.7 pg 27.0-33.0 hmqy=149) MEAN CORPUSCULAR HEMOGLOBIN CONC (BEAKER) (test 32.8 GM/DL 32.0-36.0 yncs=971) RED CELL DISTRIBUTION WIDTH (BEAKER) (test 13.6 % 10.3-14.2 pvgw=334) PLATELET COUNT (BEAKER) (test yipn=430) 72 K/CU MM 150-430 MEAN PLATELET VOLUME (BEAKER) (test npmq=038) 12.7 fL 6.5-10.5 NUCLEATED RED BLOOD CELLS (BEAKER) (test 0 /100 WBC 0-0 cxhd=311) NEUTROPHILS RELATIVE PERCENT (BEAKER) (test 46 % jtzn=477) LYMPHOCYTES RELATIVE PERCENT (BEAKER) (test 33 % kvkh=124) MONOCYTES RELATIVE PERCENT (BEAKER) (test 19 % wwyd=712) EOSINOPHILS RELATIVE PERCENT (BEAKER) (test 1 % thbs=019) BASOPHILS RELATIVE PERCENT (BEAKER) (test 0 % akys=941) NEUTROPHILS ABSOLUTE COUNT (BEAKER) (test 4.22 K/ L 1.80-8.00 meek=355) LYMPHOCYTES ABSOLUTE COUNT (BEAKER) (test 2.99 K/ L 1.48-4.50 eajv=174) MONOCYTES ABSOLUTE COUNT (BEAKER) (test vxat=487) 1.72 K/ L 0.00-1.30 EOSINOPHILS ABSOLUTE COUNT (BEAKER) (test 0.12 K/ L 0.00-0.50 rsqe=304) BASOPHILS ABSOLUTE COUNT (BEAKER) (test vwgr=525) 0.03 K/ L 0.00-0.20 0.00BASI METABOLIC [id number] 07:14:00 Test Item Value Reference Range Comments SODIUM (BEAKER) (test 140 meq/L 136-145 ssfu=468) POTASSIUM (BEAKER) (test 3.3 meq/L 3.5-5.1 fbmh=205) CHLORIDE (BEAKER) (test 109 meq/L 98-107 amtf=261) CO2 (BEAKER) (test 24 meq/L 22-29 nlao=986) BLOOD UREA NITROGEN 9 mg/dL 7-21 (BEAKER) (test yctj=298) CREATININE (BEAKER) (test 0.75 mg/dL 0.57-1.25 lesf=881) GLUCOSE RANDOM (BEAKER) 119 mg/dL 70-105 (test xxfy=416) CALCIUM (BEAKER) (test 8.2 mg/dL 8.4-10.2 gyvr=439) EGFR (BEAKER) (test 151 mL/min/1.73 sq m ESTIMATED GFR IS NOT pedp=1577) ACCURATE CREATININE CLEARANCE IN PREDICTING GLOMERULAR FILTRATION RATE. ESTIMATED GFR IS NOT APPLICABLE FOR DIALYSIS PATIENTS. POCT-GLUCOSE [id number] 06:57:00 Test Item Value Reference Range Comments POC-GLUCOSE METER (BEAKER) 123 mg/dL 70-110 TESTED AT [facility] [address] [facility] (test vxtf=3480) [facility] [address] POCT-GLUCOSE [id number] 02:04:00 Test Item Value Reference Range Comments POC-GLUCOSE METER (BEAKER) 144 mg/dL 70-110 TESTED AT [address] (test inqb=9075) [facility] [address] POCT-GLUCOSE [id number] 21:58:00 Test Item Value Reference Range Comments POC-GLUCOSE METER (BEAKER) 69 mg/dL 70-110 TESTED AT [address] (test cxoq=1747) [facility] [address] POCT-GLUCOSE [id number] 18:24:00 Test Item Value Reference Range Comments POC-GLUCOSE METER (BEAKER) 155 mg/dL 70-110 TESTED AT [address] (test dqrs=7822) [place] [id number] POCT-GLUCOSE [id number] 12:34:00 Test Item Value Reference Range Comments POC-GLUCOSE METER (BEAKER) 123 mg/dL 70-110 TESTED AT [address] (test zedh=0510) [place] [id number] URINE [id number] 10:43:00 Test Item Value Reference Range Comments CULTURE (BEAKER) (test jrei=0084) No growth CBC W/PLT COUNT & AUTO [id number] 08:07:00 Test Item Value Reference Range Comments WHITE BLOOD CELL COUNT (BEAKER) (test wdgx=661) 7.1 K/ L 4.0-10.0 RED BLOOD CELL COUNT (BEAKER) (test nhkz=284) 4.91 M/ L 4.20-5.80 HEMOGLOBIN (BEAKER) (test ufxx=565) 12.5 GM/DL 13.0-16.8 HEMATOCRIT (BEAKER) (test zhdc=926) 40.0 % 40.0-50.0 MEAN CORPUSCULAR VOLUME (BEAKER) (test rbaz=317) 81.5 fL 82.0-98.0 MEAN CORPUSCULAR HEMOGLOBIN (BEAKER) (test 25.5 pg 27.0-33.0 rlvn=060) MEAN CORPUSCULAR HEMOGLOBIN CONC (BEAKER) (test 31.2 GM/DL 32.0-36.0 fwnx=501) RED CELL DISTRIBUTION WIDTH (BEAKER) (test 13.4 % 10.3-14.2 jkxi=072) PLATELET COUNT (BEAKER) (test pwit=384) 56 K/CU MM 150-430 MEAN PLATELET VOLUME (BEAKER) (test dnjv=119) 13.5 fL 6.5-10.5 NUCLEATED RED BLOOD CELLS (BEAKER) (test 0 /100 WBC 0-0 etef=847) NEUTROPHILS RELATIVE PERCENT (BEAKER) (test 46 % yolx=271) LYMPHOCYTES RELATIVE PERCENT (BEAKER) (test 37 % wekb=119) MONOCYTES RELATIVE PERCENT (BEAKER) (test 15 % yrvx=435) EOSINOPHILS RELATIVE PERCENT (BEAKER) (test 1 % hmua=989) BASOPHILS RELATIVE PERCENT (BEAKER) (test 0 % dbyx=919) NEUTROPHILS ABSOLUTE COUNT (BEAKER) (test 3.27 K/ L 1.80-8.00 jmbw=287) LYMPHOCYTES ABSOLUTE COUNT (BEAKER) (test 2.58 K/ L 1.48-4.50 chus=768) MONOCYTES ABSOLUTE COUNT (BEAKER) (test gkou=162) 1.09 K/ L 0.00-1.30 EOSINOPHILS ABSOLUTE COUNT (BEAKER) (test 0.10 K/ L 0.00-0.50 hfbw=851) BASOPHILS ABSOLUTE COUNT (BEAKER) (test elaf=949) 0.03 K/ L 0.00-0.20 0.00BASIC METABOLIC [id number] 07:39:00 Test Item Value Reference Range Comments SODIUM (BEAKER) (test 141 meq/L 136-145 iqbs=036) POTASSIUM (BEAKER) (test 3.6 meq/L 3.5-5.1 nucn=775) CHLORIDE (BEAKER) (test 112 meq/L 98-107 mwze=353) CO2 (BEAKER) (test 23 meq/L 22-29 jgjo=442) BLOOD UREA NITROGEN 8 mg/dL 7-21 (BEAKER) (test foyo=595) CREATININE (BEAKER) (test 0.74 mg/dL 0.57-1.25 ttec=829) GLUCOSE RANDOM (BEAKER) 132 mg/dL 70-105 (test nbzr=025) CALCIUM (BEAKER) (test 8.0 mg/dL 8.4-10.2 smfy=341) EGFR (BEAKER) (test 154 mL/min/1.73 sq m ESTIMATED GFR IS NOT ehqv=7442) ACCURATE CREATININE CLEARANCE IN PREDICTING GLOMERULAR FILTRATION RATE. ESTIMATED GFR IS NOT APPLICABLE FOR DIALYSIS PATIENTS. LACTIC ACID, VENOUS, WHOLE [id number] 07:32:00 Test Item Value Reference Range Comments LACTATE BLOOD VENOUS (2) 1.8 mmol/L 0.5-2.2 Specimen slightly hemolyzed (BEAKER) (test jcst=8146) Effective 06/17/2015: Units/Reference Range ChangeNew: 0.5-2.2 mmol/L Previous: 5 -20 mg/dLPOCT-GLUCOSE [id number] 07:05:00 Test Item Value Reference Range Comments POC-GLUCOSE METER (BEAKER) 138 mg/dL 70-110 TESTED AT [address] (test dxgn=3838) [place] [id number] POCT-GLUCOSE [id number] 00:44:00 Test Item Value Reference Range Comments POC-GLUCOSE METER (BEAKER) 124 mg/dL 70-110 TESTED AT [address] (test sidw=9927) [place] [address] POCT-GLUCOSE [id number] 18:45:00 Test Item Value Reference Range Comments POC-GLUCOSE METER (BEAKER) 125 mg/dL 70-110 TESTED AT [address] (test hjfa=3399) [place] [address] LACTIC ACID, VENOUS, WHOLE [id number] 17:34:00 Test Item Value Reference Range Comments LACTATE BLOOD VENOUS (2) (BEAKER) (test 0.8 mmol/L 0.5-2.2 nwfg=5610) Effective 06/17/2015: Units/Reference Range ChangeNew: 0.5-2.2 mmol/L Previous: 5 -20 mg/dLPOCT-GLUCOSE [id number] 13:08:00 Test Item Value Reference Range Comments POC-GLUCOSE METER (BEAKER) 130 mg/dL 70-110 TESTED AT [address] (test aosc=6733) [facility] [facility] [address] POCT-GLUCOSE [id number] 12:04:00 Test Item Value Reference Range Comments POC-GLUCOSE METER (BEAKER) 60 mg/dL 70-110 Notified RN or MD Patient (test okrq=1622) refused repeat test/TESTED AT [place] [id number] CBC W/PLT COUNT & AUTO [id number] 06:22:00 Test Item Value Reference Range Comments WHITE BLOOD CELL COUNT (BEAKER) (test swrt=513) 8.3 K/ L 4.0-10.0 RED BLOOD CELL COUNT (BEAKER) (test fgml=231) 4.70 M/ L 4.20-5.80 HEMOGLOBIN (BEAKER) (test isjc=914) 12.4 GM/DL 13.0-16.8 HEMATOCRIT (BEAKER) (test hawm=746) 38.3 % 40.0-50.0 MEAN CORPUSCULAR VOLUME (BEAKER) (test fshi=661) 81.4 fL 82.0-98.0 MEAN CORPUSCULAR HEMOGLOBIN (BEAKER) (test 26.3 pg 27.0-33.0 eiex=291) MEAN CORPUSCULAR HEMOGLOBIN CONC (BEAKER) (test 32.4 GM/DL 32.0-36.0 sqcw=504) RED CELL DISTRIBUTION WIDTH (BEAKER) (test 13.4 % 10.3-14.2 heqd=237) PLATELET COUNT (BEAKER) (test ymws=100) 56 K/CU MM 150-430 MEAN PLATELET VOLUME (BEAKER) (test htsd=781) 11.4 fL 6.5-10.5 NUCLEATED RED BLOOD CELLS (BEAKER) (test 0 /100 WBC 0-0 sclr=154) NEUTROPHILS RELATIVE PERCENT (BEAKER) (test 52 % xgie=986) LYMPHOCYTES RELATIVE PERCENT (BEAKER) (test 33 % vvop=559) MONOCYTES RELATIVE PERCENT (BEAKER) (test 14 % hltn=408) EOSINOPHILS RELATIVE PERCENT (BEAKER) (test 0 % zxrc=478) BASOPHILS RELATIVE PERCENT (BEAKER) (test 0 % fgdl=885) NEUTROPHILS ABSOLUTE COUNT (BEAKER) (test 4.33 K/ L 1.80-8.00 zwhk=939) LYMPHOCYTES ABSOLUTE COUNT (BEAKER) (test 2.75 K/ L 1.48-4.50 zbbv=067) MONOCYTES ABSOLUTE COUNT (BEAKER) (test itgt=499) 1.16 K/ L 0.00-1.30 EOSINOPHILS ABSOLUTE COUNT (BEAKER) (test 0.04 K/ L 0.00-0.50 fezc=478) BASOPHILS ABSOLUTE COUNT (BEAKER) (test drry=504) 0.03 K/ L 0.00-0.20 0.00POCT-GLUCOSE [id number] 06:16:00 Test Item Value Reference Range Comments POC-GLUCOSE METER (BEAKER) 100 mg/dL 70-110 TESTED AT [address] (test pezl=6567) [facility] [address] CALCIUM, [id number] 06:05:00 Test Item Value Reference Range Comments CALCIUM IONIZED (BEAKER) (test rwhi=705) 0.96 mmol/L 1.12-1.27 PH, BLOOD (BEAKER) (test mzvd=0796) 7.44 Check serum Ionized Calcium level after 4 hours after IV Calcium replacement.[id number] 05:48:00 Test Item Value Reference Range Comments MAGNESIUM (BEAKER) (test zadp=407) 1.9 mg/dL 1.6-2.6 BASIC METABOLIC [id number] 05:48:00 Test Item Value Reference Range Comments SODIUM (BEAKER) (test 140 meq/L 136-145 bucy=405) POTASSIUM (BEAKER) (test 3.5 meq/L 3.5-5.1 wcfd=173) CHLORIDE (BEAKER) (test 110 meq/L 98-107 obwz=672) CO2 (BEAKER) (test 22 meq/L 22-29 lilw=297) BLOOD UREA NITROGEN 9 mg/dL 7-21 (BEAKER) (test tovw=617) CREATININE (BEAKER) (test 0.71 mg/dL 0.57-1.25 tibm=471) GLUCOSE RANDOM (BEAKER) 81 mg/dL 70-105 (test ptzc=934) CALCIUM (BEAKER) (test 8.0 mg/dL 8.4-10.2 mrqr=730) EGFR (BEAKER) (test 161 mL/min/1.73 sq m ESTIMATED GFR IS NOT liva=8654) ACCURATE CREATININE CLEARANCE IN PREDICTING GLOMERULAR FILTRATION RATE. ESTIMATED GFR IS NOT APPLICABLE FOR DIALYSIS PATIENTS. POCT-GLUCOSE [id number] 19:22:00 Test Item Value Reference Range Comments POC-GLUCOSE METER (BEAKER) 105 mg/dL 70-110 TESTED AT [address] (test tpce=9640) [place] [id number] POCT-GLUCOSE [id number] 12:14:00 Test Item Value Reference Range Comments POC-GLUCOSE METER (BEAKER) 67 mg/dL 70-110 Notified JOSE ELIAS WRIGHT/TESTED AT [facility] (test ancm=7636) [address] [place] [address] URINALYSIS W/ [id number] 08:32:00 Test Item Value Reference Range Comments COLOR (BEAKER) (test lxak=937) Yellow CLARITY (BEAKER) (test grcl=593) Hazy SPECIFIC GRAVITY UA (BEAKER) (test unop=278) 1.022 1.001-1.035 PH UA (BEAKER) (test ktxp=695) 6.5 5.0-8.0 PROTEIN UA (BEAKER) (test dkgb=821) 200 mg/dL Negative GLUCOSE UA (BEAKER) (test oujl=644) Negative Negative KETONES UA (BEAKER) (test lsbm=552) 10 mg/dL Negative BILIRUBIN UA (BEAKER) (test nnsy=480) Negative Negative BLOOD UA (BEAKER) (test znmd=682) Moderate Negative NITRITE UA (BEAKER) (test akdr=805) Negative Negative LEUKOCYTE ESTERASE UA (BEAKER) (test rrmh=474) Negative Negative UROBILINOGEN UA (BEAKER) (test lkky=226) 0.2 mg/dL 0.2-1.0 RBC UA (BEAKER) (test ydln=935) > /HPF WBC UA (BEAKER) (test wifs=386) 4 /HPF BACTERIA (BEAKER) (test cmnf=533) Occasional MUCUS (BEAKER) (test rpcs=7984) Many AMORPHOUS CRYSTALS (BEAKER) (test kwho=0054) Moderate SOURCE(BEAKER) (test nsrk=1614) POCT-GLUCOSE [id number] 06:40:00 Test Item Value Reference Range Comments POC-GLUCOSE METER (BEAKER) 90 mg/dL 70-110 TESTED AT [address] (test etwn=8581) [facility] [address] PROTHROMBIN [id number] 04:47:00 Test Item Value Reference Range Comments PROTIME (BEAKER) (test jknd=083) 14.3 seconds 11.7-14.7 INR (BEAKER) (test yaoa=584) 1.1 <=5.9 RECOMMENDED COUMADIN/WARFARIN INR THERAPY RANGESSTANDARD DOSE: 2.0 - 3.0 Includes: PROPHYLAXIS forvenous thrombosis, systemic embolization; TREATMENT for venous thrombosis and/or pulmonary embolus.HIGH RISK: Target INR is 2.5-3.5 for patients with mechanical heart valves.CBC W/PLT COUNT & AUTO [id number] 04:37:00 Test Item Value Reference Range Comments WHITE BLOOD CELL COUNT (BEAKER) (test qwbr=044) 12.8 K/ L 4.0-10.0 RED BLOOD CELL COUNT (BEAKER) (test bbrt=574) 4.89 M/ L 4.20-5.80 HEMOGLOBIN (BEAKER) (test oieo=418) 12.9 GM/DL 13.0-16.8 HEMATOCRIT (BEAKER) (test tejy=472) 39.7 % 40.0-50.0 MEAN CORPUSCULAR VOLUME (BEAKER) (test bamr=859) 81.3 fL 82.0-98.0 MEAN CORPUSCULAR HEMOGLOBIN (BEAKER) (test 26.4 pg 27.0-33.0 yyzb=480) MEAN CORPUSCULAR HEMOGLOBIN CONC (BEAKER) (test 32.4 GM/DL 32.0-36.0 oumx=459) RED CELL DISTRIBUTION WIDTH (BEAKER) (test 14.2 % 10.3-14.2 wtkr=229) PLATELET COUNT (BEAKER) (test rmhn=985) 77 K/CU MM 150-430 MEAN PLATELET VOLUME (BEAKER) (test dwqr=612) 9.1 fL 6.5-10.5 NUCLEATED RED BLOOD CELLS (BEAKER) (test 0 /100 WBC 0-0 geei=425) NEUTROPHILS RELATIVE PERCENT (BEAKER) (test 77 % mfxl=361) LYMPHOCYTES RELATIVE PERCENT (BEAKER) (test 13 % lndm=302) MONOCYTES RELATIVE PERCENT (BEAKER) (test 9 % dfgd=915) EOSINOPHILS RELATIVE PERCENT (BEAKER) (test 0 % fmzw=574) BASOPHILS RELATIVE PERCENT (BEAKER) (test 0 % ijzy=129) NEUTROPHILS ABSOLUTE COUNT (BEAKER) (test 9.91 K/ L 1.80-8.00 ukcv=186) LYMPHOCYTES ABSOLUTE COUNT (BEAKER) (test 1.72 K/ L 1.48-4.50 soyw=183) MONOCYTES ABSOLUTE COUNT (BEAKER) (test mndm=281) 1.13 K/ L 0.00-1.30 EOSINOPHILS ABSOLUTE COUNT (BEAKER) (test 0.02 K/ L 0.00-0.50 tqux=099) BASOPHILS ABSOLUTE COUNT (BEAKER) (test rliu=230) 0.05 K/ L 0.00-0.20 [id number] 04:27:00 Test Item Value Reference Range Comments ALBUMIN (BEAKER) (test dmmh=9182) 2.9 g/dL 3.5-5.0 BASIC METABOLIC [id number] 04:25:00 Test Item Value Reference Range Comments SODIUM (BEAKER) (test 141 meq/L 136-145 mgky=223) POTASSIUM (BEAKER) (test 4.6 meq/L 3.5-5.1 yrwp=679) CHLORIDE (BEAKER) (test 111 meq/L 98-107 sfuu=924) CO2 (BEAKER) (test 19 meq/L 22-29 qtro=363) BLOOD UREA NITROGEN 13 mg/dL 7-21 (BEAKER) (test mipu=269) CREATININE (BEAKER) (test 0.81 mg/dL 0.57-1.25 paac=644) GLUCOSE RANDOM (BEAKER) 99 mg/dL 70-105 (test aqoo=024) CALCIUM (BEAKER) (test 8.1 mg/dL 8.4-10.2 jbry=735) EGFR (BEAKER) (test 139 mL/min/1.73 sq m ESTIMATED GFR IS NOT dcqn=3980) ACCURATE CREATININE CLEARANCE IN PREDICTING GLOMERULAR FILTRATION RATE. ESTIMATED GFR IS NOT APPLICABLE FOR DIALYSIS PATIENTS. PHENYTOIN LEVEL, [id number] 04:17:00 Test Item Value Reference Range Comments PHENYTOIN (DILANTIN) (BEAKER) (test fqpl=140) 5.9 ug/mL 10.0-20.0 POCT-GLUCOSE [id number] 00:13:00 Test Item Value Reference Range Comments POC-GLUCOSE METER (BEAKER) 96 mg/dL 70-110 TESTED AT [facility] [address] [facility] (test dpzy=1417) [facility] [address]
[2019-04-02] MEDS ORDERED: ONDANSETRON 4 MG/2 ML VIAL ONE (21:16)
[2019-04-02] MEDS ORDERED: NA CHLORIDE 0.9% 1,000 ML ONE (21:16)
[2019-04-02] MEDS ORDERED: PANTOPRAZOLE 40 MG INJ ONE (21:16)
[2019-04-02] MEDS ORDERED: NA CHLORIDE 0.9% 500 ML ONE (21:17)
--- NOTE | 2019-04-02 22:27 | RAD REPORT ---
EXAM DESCRIPTION: RAD - Chest Single View - 04/02/2019 9:18 pm CLINICAL HISTORY: ABDOMINAL DISTENTION Chest pain. COMPARISON: Abdomen 1 View (KUB) dated 05/08/2018; Abdomen 1 View (KUB) dated 05/03/2018; Chest Single View dated 05/03/2018; Chest Single View dated 05/02/2018 FINDINGS: Portable technique limits examination quality. The lungs are grossly clear. The heart is normal in size. No displaced fractures. IMPRESSION: No acute intrathoracic process suspected.
[2019-04-02] MEDS ORDERED: LEVETIRACETAM 500 MG/5 ML VIAL IV ONE (23:13)
[2019-04-02] MEDS ORDERED: NA CHLORIDE 0.9% 100 ML IV ONE (23:13)
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
[2019-04-02 23:49] LABS: Protime INR 1.06
[2019-04-02 23:51] LABS: Absolute Lymphocytes (CBC) 3.2 K/uL (0.7-4.9); Basophils % 0.6 % (0-1.3); Hematocrit 41.3 % (39.6-49.0); Lymphocytes % 33.3 % (15.3-44.8); MPV 12.7 fL (7.6-11.3); RBC Red Blood Cell Count 5.26 M/uL (4.33-5.43)
[2019-04-03 00:09] LABS: ALT/SGPT 17 U/L (12-78); AST/SGOT 18 U/L (15-37); Albumin 2.9 g/dL (3.4-5.0); Alkaline Phosphatase 99 U/L (45-117); BUN Blood Urea Nitrogen 11 mg/dL (7-18); Bicarbonate 27 mmol/L (21-32); Bilirubin Direct 0.1 mg/dL (0-0.2); Bilirubin Total 0.4 mg/dL (0.2-1.0); Glucose Level 69 mg/dL (74-106); Magnesium 2.3 mg/dL (1.8-2.4); NT PRO-BNP 14 pg/mL (<125); Potassium 3.9 mmol/L (3.5-5.1); Protein, Total 7.4 g/dL (6.4-8.2); Sodium Level 141 mmol/L (136-145); Troponin (Emerg Dept Use Only) < 0.02 ng/mL (0.0-0.045)
--- NOTE | 2019-04-03 00:39 | P.HP ---
Certification for Inpatient Patient admitted to: Inpatient With expected LOS: >2 Midnights Practitioner: I am a practitioner with admitting privileges, knowledge of patient current condition, hospital course, and medical plan of care. Services: Services provided to patient in accordance with Admission requirements found in Title 42 Section 412.3 of the Code of Federal Regulations Patient History Date of Service: 04/03/19 Reason for admission: Coffee-ground emesis History of Present Illness: 28-year-old gentleman with a history TBI with quadriplegia, status post PEG tube , history of seizure disorder, was brought to the emergency department due to coffee-ground emesis. Patient mother reports 1 episode of coffee-ground emesis which occurred yesterday. She also reports that his abdomen is distended. Mother report the patient had a small hard bowel movement yesterday, and a regular bowel movement 2 days ago. Mother reports an episode of fever yesterday. Blood work in the ED is unremarkable. CT abdomen and pelvis is done and the result is pending. ED nurse reports small gastric residual. CT abdomen and pelvis image reviewed and noted high stool burden in the entire colon and small bowel dilatation. Per ED physician, Dr. Babcock has been informed and will see patient in the morning for GI bleed. Patient is admitted for further management. Allergies Penicillins Allergy (Intermediate, Verified 04/03/19 05:39) Rash Home Medications: Acetaminophen [Tylenol] 2 tab FT Q6HP PRN 04/03/19 Albuterol Neb [Proventil 0.083% Neb Soln] 3 amp IH Q6HP PRN 04/03/19 Baclofen [Lioresal] 20 mg PO BID 04/03/19 Cetirizine HCl [Zyrtec*] 10 mg PO DAILY 04/03/19 Citalopram [Celexa*] 20 mg PO DAILY 04/03/19 Fluticasone [Flonase 50MCG Nasal [place]*] 1 spray IH PRN 04/03/19 Ipratropium Neb [Atrovent Neb] 0.5 mg IH Q6HP PRN 04/03/19 Jevity 1.5 Aaron [Jevity 1.5 Aaron*] 240 ml PF TID 04/03/19 Lactulose [Cephulac*] 30 ml FT DAILYPRN PRN 04/03/19 Montelukast [Singulair*] 1 tab FT BEDTIME 04/03/19 Pantoprazole [Protonix Tab*] 1 tab FT DAILY 04/03/19 Ranitidine [Zantac*] 1 tab FT BID 04/03/19 levETIRAcetam [Keppra*] 1 tab FT BID 04/03/19 - Past Medical/Surgical History Diabetic: No -: Seizures -: Traumatic Brain Injury - quadraplegic -: Recurrent UTI's/Cystitis -: Eczema -: Asthma -: G-tube placement -: Tracheostomy - removed - Family History Mother -: Other (see notes) Notes: asthma - Social History Alcohol use: No CD- Drugs: No Caffeine use: No Review of Systems Other: ROS is limited. Except as documented, other systems reviewed and are negative. Physical Examination - Physical Exam General: In no apparent distress, Other (Awake) HEENT: PERRLA, Sclerae nonicteric Neck: Supple, JVD not distended Respiratory: Clear to auscultation bilaterally, Normal air movement Cardiovascular: No edema, Regular rate/rhythm, Normal S1 S2 Capillary refill: <2 Seconds Gastrointestinal: Normal bowel sounds, Soft and benign, No tenderness, Distended Musculoskeletal: No swelling, Contractures Integumentary: No rashes Neurological: Other (Quadriplegic) - Studies Laboratory Data (last 24 hrs) 04/02/19 23:34: PT 12.5, INR 1.06 04/02/19 23:34: WBC 9.7, Hgb 12.9 L, Hct 41.3, Plt Count 156 04/02/19 23:34: Sodium 141, Potassium 3.9, BUN 11, Creatinine 0.67, Glucose 69 L , Magnesium 2.3, Total Bilirubin 0.4, AST 18, ALT 17, Alkaline Phosphatase 99 Assessment and Plan - Problems (Diagnosis) (1) Upper GI bleed Current Visit: Yes Status: Acute (2) PEG (percutaneous endoscopic gastrostomy) status Current Visit: Yes Status: Chronic (3) Quadriplegia Current Visit: Yes Status: Chronic (4) Seizure Onset Date: 08/28/17 Current Visit: No Status: Chronic (5) TBI (traumatic brain injury) Onset Date: 08/28/17 Current Visit: No Status: Chronic Qualifiers: Encounter type: sequela Loss of consciousness presence/duration: without LOC Qualified Code(s): S06.9X0S - Unspecified intracranial injury without loss of consciousness, sequela (6) Constipation Current Visit: Yes Status: Acute - Plan Admit to medical Floor Start IV protonix Keep NPO except meds Follow CT abdomen and pelvis result to assess for bowel obstruction. Trial of enema for constipation. GI consult Check urinalysis. Continue home medications. - Advance Directives Does patient have a Living Will: No Does patient have a Durable POA for Healthcare: No
[2019-04-03] MEDS ORDERED: FLEET ENEMA ADULT PR ONE (02:07)
[2019-04-03] MEDS ORDERED: ONDANSETRON 4 MG/2 ML VIAL IV PRN (02:07)
[2019-04-03] MEDS ORDERED: ACETAMINOPHEN 650MG/RECT SUPP RECT PRN (02:07)
[2019-04-03] MEDS ORDERED: SODIUM CHLORIDE 0.9% 10ML INJ IV PRN (02:07)
[2019-04-03] MEDS ORDERED: MORPHINE 2 MG/ML SYR IV PRN (02:07)
[2019-04-03 02:27] VITALS: BMI 22.1
[2019-04-03] MEDS: D5 0.9 NS 1,000 ML IV SCH ×3 (02:45→22:07)
[2019-04-03 03:22] LABS: Absolute Lymphocytes (CBC) 3.8 K/uL (0.7-4.9); Basophils % 0.6 % (0-1.3); Hematocrit 43.6 % (39.6-49.0); Lymphocytes % 39.7 % (15.3-44.8); MPV 12.6 fL (7.6-11.3); RBC Red Blood Cell Count 5.49 M/uL (4.33-5.43)
[2019-04-03 03:35] LABS: ALT/SGPT 16 U/L (12-78); AST/SGOT 19 U/L (15-37); Albumin 3.1 g/dL (3.4-5.0); Alkaline Phosphatase 98 U/L (45-117); BUN Blood Urea Nitrogen 10 mg/dL (7-18); Bicarbonate 28 mmol/L (21-32); Bilirubin Total 0.5 mg/dL (0.2-1.0); Glucose Level 85 mg/dL (74-106); Magnesium 2.3 mg/dL (1.8-2.4); Phosphorus 2.8 mg/dL (2.5-4.9); Protein, Total 7.8 g/dL (6.4-8.2); Sodium Level 142 mmol/L (136-145)
[2019-04-03 03:52] LABS: Urine White Blood Cell Casts OK
[2019-04-03 03:53] LABS: Blood Morphology Comment NOTED (NOT SEEN); Hypochromasia 1+; Platelet Estimate ADEQ; Platelets, Giant FEW; Stomatocytes 1+; Target Cells 1+; Teardrop Cell 1+
--- NOTE | 2019-04-03 07:50 | EKG ---
Test Date: 2019-04-02 Test Time: 21:23:12 Swing Ride Operator: GEORGINA MEASUREMENT RESULTS: Intervals: Rate: 86 OR: 154 QRSD: 72 QT: 344 QTc: 411 [place]: P: 52 OR: 154 QRS: 49 T: 29 INTERPRETIVE STATEMENTS: Normal sinus rhythm Normal ECG Compared to ECG 05/19/2016 17:25:43 Sinus tachycardia no longer present Right-axis deviation no longer present Electronically Signed On 04-03-19 07:49:54 RADIUS GRINDER by Ankit Dobson
--- NOTE | 2019-04-03 09:28 | P.PN ---
Subjective Date of Service: 04/03/19 Chief Complaint: Coffee-ground emesis Subjective: Improving (No further episodes of hematemesis Denies any melena) Review of Systems Unremarkable Physical Examination - Vital Signs Temperature: 97.6 F Blood Pressure: 114/54 Pulse: 64 Respirations: 18 Pulse Ox (%): 95 - Physical Exam General: Alert, In no apparent distress HEENT: Atraumatic, Normocephalic Neck: Supple Respiratory: Clear to auscultation bilaterally Cardiovascular: No edema, Regular rate/rhythm Capillary refill: <2 Seconds Gastrointestinal: Other (mild distention of the abdomen ) Musculoskeletal: Contractures, Scoliosis Integumentary: No rashes Neurological: Abnormal gait, Abnormal speech Lymphatics: No axilla or inguinal lymphadenopathy External genitalia: Deferred Rectal: Deferred - Studies Laboratory Data (last 24 hrs) 04/02/19 23:34: PT 12.5, INR 1.06 04/02/19 23:34: WBC 9.7, Hgb 12.9 L, Hct 41.3, Plt Count 156 04/02/19 23:34: Sodium 141, Potassium 3.9, BUN 11, Creatinine 0.67, Glucose 69 L , Magnesium 2.3, Total Bilirubin 0.4, AST 18, ALT 17, Alkaline Phosphatase 99 Assessment & Plan - Problems (Diagnosis) (1) Constipation Current Visit: Yes Status: Acute (2) PEG (percutaneous endoscopic gastrostomy) status Current Visit: Yes Status: Chronic (3) Quadriplegia Current Visit: Yes Status: Chronic (4) Upper GI bleed Current Visit: Yes Status: Acute (5) Seizure Onset Date: 08/28/17 Current Visit: No Status: Chronic (6) TBI (traumatic brain injury) Onset Date: 08/28/17 Current Visit: No Status: Chronic Plan: Admit to medical Floor On IV protonix Keep NPO except meds CT abdomen and pelvis: No signs of bowel obstruction. Signs of constipation Appreciate help from surgery GI consult awaited No further episodes of hematemesis Started on enema Continue home medications. The HH is monitored and was stable Monitor closely Qualifiers: Encounter type: sequela Loss of consciousness presence/duration: without LOC Qualified Code(s): S06.9X0S - Unspecified intracranial injury without loss of consciousness, sequela
[2019-04-03] MEDS: PANTOPRAZOLE 40 MG INJ IVP SCH ×2 (10:07→22:34)
--- NOTE | 2019-04-03 10:31 | RAD REPORT ---
EXAM DESCRIPTION: CT abdomen and pelvis without intravenous contrast CLINICAL HISTORY: 28-year-old male with abdominal pain and constipation, coffee ground emesis, abdom inal distention TECHNIQUE: Axial CT imaging of the abdomen and pelvis was performed. Sagittal and coronal reconstr ucted images were then performed. The CT study is performed according to ALARA (as low as reasonably achievable) or ALARA/IMAGE GENTLY, with automatic adjustment of mA and/or kV according to patient siz e. Performed on: 04/02/2019 11:52 PM COMPARISON: CT abdomen and pelvis performed on 01/10/2016. FINDINGS: Lung bases: The lung bases are clear. There is minimal bibasilar atelectasis and/or fibros is. There are right hilar calcified lymph nodes. Liver: The liver is normal in size and configuration. No focal hepatic abnormalities are appreciated on this unenhanced scan. Liver attenuation is within normal limits. Spleen: The spleen is normal is size, configuration and attenuation. No focal splenic abnormalities a re appreciated on this unenhanced scan. Gallbladder and bile duct: The gallbladder is well distended and unremarkable. There is no biliary ductal dilatation. Pancreas: The pancreas is grossly normal in size and configuration. Adrenal Glands: The adrenal glands are normal in size and configuration. Kidneys: The kidneys are normal in size and configuration. There is no evidence of hydronephrosis. Th ere are nonobstructing calcifications in the right kidney. No focal renal abnormalities are identifie d. Stomach: The stomach is grossly normal. There is no definite hiatal hernia. There is a percutaneous g astrostomy catheter. The balloon tip is located at the junction of the 2nd and 3rd portions of the du odenum. Bowel: The bowel gas pattern is non specific and non obstructive. There is moderate fecal residue sca ttered throughout the colon and there is a large volume of fecal residue in the rectum. No definite a bnormal small bowel dilatation is identified. Appendix: The appendix is normal. Free air: There is no evidence of free air. Free fluid: There is no evidence of free fluid. Vasculature: The aorta is normal in caliber and contour. The inferior vena cava is grossly unremarkab le. Lymphadenopathy: No pathologic lymphadenopathy is identified. Bladder: The bladder is well distended and smooth in contour. Reproductive: The prostate gland is grossly within normal limits. Bones: No acute osseous abnormalities are identified. There is chronic levoscoliosis of the lumbar sp ine. There is an old fracture of the lateral left 6th rib. Soft tissues: No focal soft tissue abnormalities are identified. IMPRESSION: 1. There is moderate fecal residue scattered throughout the colon and there is a large v olume of fecal residue in the rectum. There is no evidence of bowel obstruction. 2. Percutaneous gastrostomy catheter present. The balloon tip is located at the junction of the 2nd a nd 3rd portions of the duodenum. 3. Nonobstructing right nephrolithiasis. 4. Evidence of prior granulomatous disease. 5. Levoscoliosis of the lumbar spine. Electronically signed by: Roxana Anderson DO 04/03/2019 12:16 AM MEDICAL ASSISTANT Due to temporary technical issues with the PACS/Fluency reporting system, reports are being signed by the in house radiologist as a courtesy to ensure prompt reporting. The interpreting radiologist is f ully responsible for the content of the report.
[2019-04-03] MEDS ORDERED: Ringers Lactate 1,000 ML IV ONE (12:39)
[2019-04-03] MEDS ORDERED: propofoL 200 MG/20 ML VIAL IV ONE (12:59)
[2019-04-03] MEDS ORDERED: LIDOCAINE 1% MPF 5 ML VIAL ONE (12:59)
--- NOTE | 2019-04-03 13:07 | CON ---
Date of Consultation: 04/03/2019 Brief History Of Present Illness: Patient is a 28-year-old black male with a history of TBI and quad riplegia, status post PEG tube placement; history of seizure disorder, who came to the emergency depa rtment with reported coffee-ground emesis. Patient is nonverbal and as such, the information is obta ined from the chart. By report, patient had an episode of coffee-ground emesis yesterday or day befo re and had some abdominal distention. He has been having hard bowel movements and regular bowel move ments as of 2 days ago, so he has been constipated by report. There was an episode of subjective fev er, but it was not documented what the actual was. I am unable to obtain any more information from t he patient with respect to his current HPI. Allergies: TO PENICILLIN. Home Medications: Include Jevity, albuterol, fluticasone, Zyrtec, Celexa, Nexium, lactulose, Keppra, melatonin, Singulair, Zantac, baclofen. Past Medical History: Significant for seizure disorder, traumatic brain injury, quadriplegia, recurr ent UTI, cystitis, eczema, asthma. Past Surgical History: Tracheostomy placement with decannulation, G-tube placement. Social History: Unable to obtain, but by report, no alcohol, drug use, or smoking. Review of Systems: Ten-point review of systems is unable to obtain. Physical Examination: Vital Signs: At the time of my examination, patient's vital signs were a BMI of 22, temperature 98.0 , pulse 82, respiratory rate 20, blood pressure 111/53, SpO2 of 95% on room air. General: He is awake and alert. He responds with yes and no nods to my questioning. HEENT: He is otherwise normocephalic. His sclerae are anicteric. His mucous membranes are moist. His oropharynx is clear. Neck: Supple. No JVD. Chest: Normal expansion, excursion. Cardiovascular: Regular rate and rhythm. Pulmonary: Clear to auscultation bilaterally. Abdomen: Somewhat firm, nontender, mildly distended. There is a PEG tube in place, which is clamped . It appears to be in appropriate position by imaging. He has a condom catheter on as well. Extremities: He has significant contractures and has some movement of his contractures in 4 extremit ies. Neurologic: He is otherwise thin and frail. Laboratory Data: Reveals a white blood count of 9.5, hemoglobin 13.7, hematocrit 43.6, platelet coun t is 142, neutrophils are 51%. His PT is 12.5, INR 1.26. Chemistry shows a sodium of 142, potassium 4.0, chloride 109, carbon dioxide 28, BUN 10, creatinine 0.7, glucose is 85. Phos is 2.8, magnesium 2.3. Total bilirubin 0.5, AST 19, ALT 16, alk phos 98. He had imaging performed as well, which inc luded a CT scan of the abdomen and pelvis. It was officially read as moderate fecal residue scattere d throughout the colon. There is a large volume of fecal material in the rectum. There is no eviden ce of bowel obstruction. Percutaneous G-tube is present. The balloon tip is located at the junction of second and third portion of the duodenum. Nonobstructing right nephrolithiasis. Evidence of aurelio or granulomatous disease. Levoscoliosis of the lumbar spine. Assessment And Plan: This is a 28-year-old man with quadriplegia with traumatic brain injury history , who presents with significant constipation. 1.I recommend decompression G-tube to gravity. 2.Gentle enemas to start with tap-water enemas until bowel movement is restored. 3.Serial abdominal exams. 4.Continue medical management. 5.I find no evidence of bowel obstruction. However, I will follow along with you. Thank you for this interesting consult. CARMEN/SAMMY Voice ID: [id number] Report ID: [id number]
[2019-04-03 14:24] LABS: Urine Appearance CLOUDY; Urine Bilirubin NEGATIVE (NEG); Urine Blood NEGATIVE (NEG); Urine Color YELLOW; Urine Glucose NEGATIVE (NEG); Urine Protein NEGATIVE (NEG); Urine pH 7.5 (5.0-7.0)
[2019-04-03 14:53] LABS: Urine Microscopic Reflex ORDER UMIC
[2019-04-03 14:57] LABS: Urine Bacteria >50 /HPF (NONE SEEN); Urine Culture Reflex Order REFLEXED; Urine RBC <5 /HPF (NONE SEEN)
[2019-04-03] MEDS ORDERED: ACETAMINOPHEN FT PRN (18:40)
[2019-04-03] MEDS ORDERED: LACTULOSE 20 GM/30 ML UCUP FT PRN (18:40)
[2019-04-03] MEDS ORDERED: ACETAMINOPHEN 325 MG TABLET FT PRN (18:59)
[2019-04-03] MEDS ORDERED: FLUTICASONE 50MCG NASAL SPRAY NAS SCH (19:00)
[2019-04-03] MEDS ORDERED: FLUTICASONE 50MCG NASAL SPRAY NAS PRN (19:01)
[2019-04-03] MEDS ORDERED: JEVITY 1.5 CAL LIQUID 1,000 ML BOT FT SCH (21:00)
[2019-04-03] MEDS ORDERED: levETIRAcetam 500 MG TAB FT SCH (21:00)
[2019-04-03] MEDS ORDERED: BACLOFEN 20 MG PO SCH (21:00)
[2019-04-03] MEDS: Levofloxacin500mg IV 500 MG/100 ML BAG IV SCH (22:34)
[2019-04-03] MEDS: MONTELUKAST 10 MG TAB FT SCH (22:35)
[2019-04-03] MEDS: BACLOFEN 10 MG TAB FT SCH (22:36)
[2019-04-03] MEDS: CETIRIZINE HCL 5 MG TABLET FT SCH (22:37)
[2019-04-03] MEDS: RANITIDINE 150 MG TABLET FT SCH (22:37)
[2019-04-03] MEDS: CITALOPRAM 10 MG TABLET FT SCH (22:37)
[2019-04-03] MEDS: JEVITY 1.5 CAL LIQUID 1,000 ML BOT FT SCH (22:39)
[2019-04-03] MEDS ORDERED: levETIRAcetam 500 MG in NA CHLORIDE 0.9% 100 ML IV SCH (23:15)
[2019-04-03] MEDS ORDERED: LEVETIRACETAM 500 MG/5 ML VIAL IV ONE (23:59)
[2019-04-04] MEDS ORDERED: NA CHLORIDE 0.9% 100 ML IV ONE (00:01)
--- NOTE | 2019-04-04 00:20 | OP ---
Surgeon: Matthew Babcock MD Procedure Performed: Esophagogastroduodenoscopy. Indication For Procedure: PEG replacement as well as upper GI bleed, coffee-grounds emesis. Plan For Anesthesia: Monitored anesthesia care. Complexity: Average. Technique: After obtaining informed consent from the patient's mother and explaining risks and compl ications which include, but are not limited to bleeding, infection, perforation, and anesthesia compl ication, patient was placed in a supine position due to his comorbidities and contracture and sedatio n was given. The scope was advanced through the mouth and first of all could only be guided up until the antrum. This was due to the fact that patient had a Huizar that was placed at the replacement fo r a pulled out PEG tube. However, the balloon of the Huizar seems to have migrated beyond the pylorus and into the duodenum. Therefore, the balloon was aspirated and the Huizar was removed with traction . Subsequently, the scope was able to be advanced into the second portion of the duodenum. After e completion of examination, all diagnostic and therapeutic maneuvers, scope and equipment were withd rawn and procedure terminated in a safe manner. Findings: Esophagus: No gross lesion seen in the entire esophagus. Stomach: Moderate patchy erythema with evidence of some hemorrhagic gastritis and erosions were seen scattered in the entire stomach. Antral and body biopsies taken. Also seen in the body was Huizar w ith a balloon that had propagated further into the duodenum. This was removed after aspirating the b alloon. The duodenum of bulb and second portion were normal. After I completed the examination, gerson dewire was passed through the open stoma where the old replacement Huizar had been removed. This was grasped with a snare and with a pull guidewire technique. A 20-[employer] PEG tube was placed. Position was confirmed with endoscopy after placement. External bumper was at 2.5 to 3 cm. No incision or injection was needed as I utilized the same open stoma. Procedure was done under as eptic precautions. Complications: None. Tolerance To Anesthesia: Excellent. Postoperative Diagnoses: Hemorrhagic gastritis with erosions, displaced feeding tube removed and a n ew feeding tube was placed. Plan: 1.Await pathology results. 2.PPI to continue. 3.Can resume feeding immediately. 4.Can follow up in the GI clinic in 2 weeks. US/MODL Voice ID: [id number] Report ID: [id number]
[2019-04-04 04:57] LABS: Basophils % 0.5 % (0-1.3); Hematocrit 38.6 % (39.6-49.0); Lymphocytes % 48.8 % (15.3-44.8); MPV 13.3 fL (7.6-11.3); RBC Red Blood Cell Count 4.95 M/uL (4.33-5.43)
[2019-04-04 05:06] LABS: BUN Blood Urea Nitrogen 8 mg/dL (7-18); Bicarbonate 27 mmol/L (21-32); Glucose Level 80 mg/dL (74-106); Magnesium 2.3 mg/dL (1.8-2.4); Phosphorus 3.1 mg/dL (2.5-4.9); Potassium 4.2 mmol/L (3.5-5.1); Sodium Level 142 mmol/L (136-145)
[2019-04-04] MEDS: ALBUTEROL 2.5 MG/3 ML NEB SOL IH PRN (07:58)
[2019-04-04] MEDS: IPRATROPIUM BROM 0.5MG/2.5ML IH PRN (07:58)
[2019-04-04] MEDS: JEVITY 1.5 CAL LIQUID 1,000 ML BOT FT SCH ×4 (09:00→17:55)
[2019-04-04] MEDS ORDERED: levETIRAcetam 500 MG in NA CHLORIDE 0.9% 100 ML IV SCH (09:00)
[2019-04-04] MEDS: CETIRIZINE HCL 5 MG TABLET FT SCH (10:45)
[2019-04-04] MEDS: BACLOFEN 10 MG TAB FT SCH ×2 (10:45→21:29)
[2019-04-04] MEDS: CITALOPRAM 10 MG TABLET FT SCH (10:46)
[2019-04-04] MEDS: RANITIDINE 150 MG TABLET FT SCH ×2 (10:46→21:29)
[2019-04-04] MEDS: levETIRAcetam 500 MG/5 ML OSYR PO SCH ×2 (10:47→21:00)
[2019-04-04] MEDS: PANTOPRAZOLE 40 MG INJ IVP SCH ×2 (10:47→21:30)
--- NOTE | 2019-04-04 14:15 | P.PN ---
Subjective Date of Service: 04/04/19 Chief Complaint: Coffee-ground emesis Subjective: Improving Physical Examination - Vital Signs Temperature: 97.3 F Blood Pressure: 99/66 Pulse: 65 Respirations: 15 Pulse Ox (%): 96 - Physical Exam General: Alert Gastrointestinal: Soft and benign, Non-distended, No ascites, No tenderness, No masses, No rebound, No guarding Assessment And Plan - Current Problems (Diagnosis) (1) Constipation Current Visit: Yes Status: Acute Plan: Continue bowel regime - no surgical intervention at this time
--- NOTE | 2019-04-04 14:52 | P.PN ---
Subjective Date of Service: 04/04/19 Chief Complaint: Coffee-ground emesis Subjective: Doing well (Further episodes of bleeding) Review of Systems is unable to be obtained Physical Examination - Vital Signs Temperature: 97.3 F Blood Pressure: 99/66 Pulse: 65 Respirations: 15 Pulse Ox (%): 96 - Physical Exam General: Alert, In no apparent distress HEENT: Atraumatic, Normocephalic Neck: Supple Respiratory: Clear to auscultation bilaterally Cardiovascular: No edema, Regular rate/rhythm Capillary refill: <2 Seconds Gastrointestinal: Soft and benign Musculoskeletal: No clubbing, No swelling Integumentary: No rashes Neurological: Abnormal gait, Abnormal speech, Abnormal strength Lymphatics: No axilla or inguinal lymphadenopathy External genitalia: Deferred Rectal: Deferred Assessment & Plan - Problems (Diagnosis) (1) Constipation Current Visit: Yes Status: Acute (2) PEG (percutaneous endoscopic gastrostomy) status Current Visit: Yes Status: Chronic (3) Quadriplegia Current Visit: Yes Status: Chronic (4) Upper GI bleed Current Visit: Yes Status: Acute (5) Seizure Onset Date: 08/28/17 Current Visit: No Status: Chronic (6) TBI (traumatic brain injury) Onset Date: 08/28/17 Current Visit: No Status: Chronic Plan: Monitor closely On PPI CT abdomen and pelvis: No signs of bowel obstruction. Signs of constipation Appreciate help from surgery GI consult appreciated Status post EGD Hemorrhagic gastritis Pathology pending Possibly UTI noted Started on antibiotic empirically No further episodes of hematemesis Continue home medications. The HH is monitored and was stable Monitor closely Discussed with family once home health Will get a social service consult Possibly see in a.m. to home with home health Qualifiers: Encounter type: sequela Loss of consciousness presence/duration: without LOC Qualified Code(s): S06.9X0S - Unspecified intracranial injury without loss of consciousness, sequela Time Spent Managing Pts Care (In Minutes): 43
[2019-04-04] MEDS ORDERED: levETIRAcetam 500 MG TAB ONE (21:27)
[2019-04-04] MEDS: MONTELUKAST 10 MG TAB FT SCH (21:29)
[2019-04-04] MEDS: Levofloxacin500mg IV 500 MG/100 ML BAG IV SCH (21:30)
[2019-04-05] MEDS: JEVITY 1.5 CAL LIQUID 1,000 ML BOT FT SCH ×7 (00:38→20:51)
[2019-04-05 05:28] LABS: Absolute Lymphocytes (CBC) 2.8 K/uL (0.7-4.9); Basophils % 0.4 % (0-1.3); Hematocrit 40.5 % (39.6-49.0); Lymphocytes % 43.5 % (15.3-44.8); MPV 13.7 fL (7.6-11.3); RBC Red Blood Cell Count 5.13 M/uL (4.33-5.43)
[2019-04-05 05:45] LABS: BUN Blood Urea Nitrogen 10 mg/dL (7-18); Bicarbonate 28 mmol/L (21-32); Glucose Level 73 mg/dL (74-106); Sodium Level 142 mmol/L (136-145)
[2019-04-05] MEDS: CETIRIZINE HCL 5 MG TABLET FT SCH (10:23)
[2019-04-05] MEDS: RANITIDINE 150 MG TABLET FT SCH ×2 (10:24→20:46)
[2019-04-05] MEDS: CITALOPRAM 10 MG TABLET FT SCH (10:24)
[2019-04-05] MEDS: BACLOFEN 10 MG TAB FT SCH ×2 (10:24→20:46)
[2019-04-05] MEDS: levETIRAcetam 500 MG/5 ML OSYR PO SCH ×2 (10:44→20:47)
[2019-04-05] MEDS: PANTOPRAZOLE 40 MG INJ IVP SCH ×2 (10:48→20:48)
--- NOTE | 2019-04-05 11:28 | P.PN ---
Subjective Date of Service: 04/05/19 Chief Complaint: Coffee-ground emesis Subjective: New changes Review of Systems 10-point ROS is otherwise unremarkable Physical Examination - Vital Signs Temperature: 98.7 F Blood Pressure: 138/81 Pulse: 61 Respirations: 18 Pulse Ox (%): 98 - Physical Exam General: Alert, In no apparent distress HEENT: Atraumatic, Normocephalic Neck: Supple Respiratory: Clear to auscultation bilaterally Cardiovascular: Normal pulses, Regular rate/rhythm Capillary refill: <2 Seconds Gastrointestinal: Soft and benign, W/out hepatosplenomegaly Musculoskeletal: Contractures Integumentary: No rashes Neurological: Abnormal gait, Abnormal speech Lymphatics: No axilla or inguinal lymphadenopathy External genitalia: Deferred Rectal: Deferred Assessment & Plan - Problems (Diagnosis) (1) Constipation Current Visit: Yes Status: Acute (2) PEG (percutaneous endoscopic gastrostomy) status Current Visit: Yes Status: Chronic (3) Quadriplegia Current Visit: Yes Status: Chronic (4) Upper GI bleed Current Visit: Yes Status: Acute (5) Seizure Onset Date: 08/28/17 Current Visit: No Status: Chronic (6) TBI (traumatic brain injury) Onset Date: 08/28/17 Current Visit: No Status: Chronic Plan: Monitor closely On PPI CT abdomen and pelvis: No signs of bowel obstruction. Signs of constipation Appreciate help from surgery GI consult appreciated Status post EGD Hemorrhagic gastritis Pathology pending Possibly UTI noted Started on antibiotic empirically No further episodes of hematemesis Continue home medications. The HH is monitored and was stable Monitor closely Discussed with family once home health Will get a social service consult Possibly see in a.m. to home with home health 04/05/2019 Patient had leakage from the PEG site Held feeding last night No leakage at this time Will restart feeding Has thrush in the mouth Start on nystatin Monitor closely Possible Dc in a.m. if tolerates diet Qualifiers: Encounter type: sequela Loss of consciousness presence/duration: without LOC Qualified Code(s): S06.9X0S - Unspecified intracranial injury without loss of consciousness, sequela Discharge Plan: Other (home with Home Health) Time Spent Managing Pts Care (In Minutes): 42
[2019-04-05] MEDS: NYSTATIN 500,000 UNIT/5 ML UDC PO SCH ×2 (16:37→20:47)
[2019-04-05] MEDS: MONTELUKAST 10 MG TAB FT SCH (20:46)
[2019-04-05] MEDS: Levofloxacin500mg IV 500 MG/100 ML BAG IV SCH (20:47)
[2019-04-05] MEDS: ALBUTEROL 2.5 MG/3 ML NEB SOL IH PRN (21:46)
[2019-04-06] MEDS: JEVITY 1.5 CAL LIQUID 1,000 ML BOT FT SCH ×6 (07:00→22:00)
[2019-04-06] MEDS ORDERED: MAGNES/ALUMIN/SIMET 30ML UCUP PO ONE (08:30)
[2019-04-06] MEDS: PANTOPRAZOLE 40 MG INJ IVP SCH ×2 (09:36→21:02)
[2019-04-06] MEDS: CITALOPRAM 10 MG TABLET FT SCH (09:37)
[2019-04-06] MEDS: levETIRAcetam 500 MG/5 ML OSYR PO SCH ×2 (09:37→21:03)
[2019-04-06] MEDS: CETIRIZINE HCL 5 MG TABLET FT SCH (09:37)
[2019-04-06] MEDS: NYSTATIN 500,000 UNIT/5 ML UDC PO SCH ×4 (09:37→21:04)
[2019-04-06] MEDS: BACLOFEN 10 MG TAB FT SCH ×2 (09:37→21:03)
[2019-04-06] MEDS: RANITIDINE 150 MG TABLET FT SCH ×2 (09:38→21:03)
--- NOTE | 2019-04-06 10:53 | P.PN ---
Subjective Date of Service: 04/06/19 Chief Complaint: Coffee-ground emesis Subjective: Improving (Family states that he still having some leakage from the PEG tube site few hr after the feeding) Review of Systems is unable to be obtained Physical Examination - Vital Signs Temperature: 98 F Blood Pressure: 118/67 Pulse: 62 Respirations: 18 Pulse Ox (%): 96 - Physical Exam General: Alert, In no apparent distress HEENT: Atraumatic, Normocephalic Neck: Supple Respiratory: Clear to auscultation bilaterally Cardiovascular: Regular rate/rhythm, Normal S1 S2 Capillary refill: <2 Seconds Gastrointestinal: Soft and benign, W/out hepatosplenomegaly Musculoskeletal: No clubbing Integumentary: No rashes Neurological: Abnormal gait, Abnormal speech, Abnormal strength Lymphatics: No axilla or inguinal lymphadenopathy External genitalia: Deferred Rectal: Deferred - Studies Laboratory Last Values WBC 6.5 K/uL (4.3-10.9) 04/05/19 04:42 RBC 5.13 M/uL (4.33-5.43) 04/05/19 04:42 Hgb 12.7 g/dL (13.6-17.9) L 04/05/19 04:42 Hct 40.5 % (39.6-49.0) 04/05/19 04:42 MCV 79.1 fL (80-100) L 04/05/19 04:42 MCH 24.8 pg (27.0-35.0) L 04/05/19 04:42 MCHC 31.3 g/dL (32.0-36.0) L 04/05/19 04:42 RDW 15.0 % (12.1-15.2) 04/05/19 04:42 Plt Count 152 K/uL (152-406) 04/05/19 04:42 MPV 13.7 fL (7.6-11.3) H 04/05/19 04:42 Neutrophils % 45.8 % (41.7-73.7) 04/05/19 04:42 Lymphocytes % 43.5 % (15.3-44.8) 04/05/19 04:42 Monocytes % 8.8 % (3.3-12.3) 04/05/19 04:42 Eosinophils % 1.5 % (0-4.4) 04/05/19 04:42 Basophils % 0.4 % (0-1.3) 04/05/19 04:42 Absolute Neutrophils 3.0 K/uL (1.8-8.0) 04/05/19 04:42 Absolute Lymphocytes 2.8 K/uL (0.7-4.9) 04/05/19 04:42 Absolute Monocytes 0.6 K/uL (0.1-1.3) 04/05/19 04:42 Absolute Eosinophils 0.1 K/uL (0-0.5) 04/05/19 04:42 Absolute Basophils 0.0 K/uL (0-0.5) 04/05/19 04:42 Giant Platelets Few 04/03/19 03:04 Hypochromasia 1+ 04/03/19 03:04 Target Cells 1+ 04/03/19 03:04 Tear Drop Cells 1+ 04/03/19 03:04 Stomatocytes 1+ 04/03/19 03:04 Schistocytes 1+ 04/03/19 03:04 Morphology Comment Noted (NOT SEEN) 04/03/19 03:04 PT 12.5 SECONDS (9.5-12.5) 04/02/19 23:34 INR 1.06 04/02/19 23:34 Sodium 142 mmol/L (136-145) 04/05/19 04:42 Potassium 4.0 mmol/L (3.5-5.1) 04/05/19 04:42 Chloride 110 mmol/L (98-107) H 04/05/19 04:42 Carbon Dioxide 28 mmol/L (21-32) 04/05/19 04:42 BUN 10 mg/dL (7-18) 04/05/19 04:42 Creatinine 0.71 mg/dL (0.55-1.3) 04/05/19 04:42 Estimated GFR > 90 mL/min (=/>90) 04/05/19 04:42 Glucose 73 mg/dL (74-106) L 04/05/19 04:42 Calcium 8.5 mg/dL (8.5-10.1) 04/05/19 04:42 Phosphorus 3.1 mg/dL (2.5-4.9) 04/04/19 04:31 Magnesium 2.3 mg/dL (1.8-2.4) 04/04/19 04:31 Total Bilirubin 0.5 mg/dL (0.2-1.0) 04/03/19 03:04 Direct Bilirubin 0.1 mg/dL (0-0.2) 04/02/19 23:34 AST 19 U/L (15-37) 04/03/19 03:04 ALT 16 U/L (12-78) 04/03/19 03:04 Alkaline Phosphatase 98 U/L (45-117) 04/03/19 03:04 Rapid Troponin I < 0.02 ng/mL (0.0-0.045) 04/02/19 23:34 NT-Pro-B Natriuret Pep 14 pg/mL (<125) 04/02/19 23:34 Serum Total Protein 7.8 g/dL (6.4-8.2) 04/03/19 03:04 Albumin 3.1 g/dL (3.4-5.0) L 04/03/19 03:04 Globulin 4.7 g/dL (2.3-3.5) H 04/03/19 03:04 Albumin/Globulin Ratio 0.7 (1.1-1.8) L 04/03/19 03:04 Urine Color Yellow 04/03/19 14:03 Urine Appearance Cloudy 04/03/19 14:03 Urine pH 7.5 (5.0-7.0) H 04/03/19 14:03 Ur Specific [place] 1.010 (1.005-1.030) 04/03/19 14:03 Glucose (UA)(Auto) Negative (NEG) 04/03/19 14:03 Urine Ketones Negative (NEG) 04/03/19 14:03 Urine Blood Negative (NEG) 04/03/19 14:03 Urine Nitrite Negative (NEG) 04/03/19 14:03 Urine Bilirubin Negative (NEG) 04/03/19 14:03 Urine Urobilinogen 1.0 mg/dL (0.2-1.0) 04/03/19 14:03 Ur Leukocyte Esterase 3+ (NEG) H 04/03/19 14:03 Urine RBC <5 /HPF (NONE SEEN) 04/03/19 14:03 Urine WBC 20-50 /HPF (<5) H 04/03/19 14:03 Ur Squamous Epith Cells <5 /HPF (NONE SEEN) 04/03/19 14:03 Urine Bacteria >50 /HPF (NONE SEEN) H 04/03/19 14:03 Urine Culture Reflexed Reflexed 04/03/19 14:03 Urine Total Protein Negative (NEG) 04/03/19 14:03 ABO/Rh O POSITIVE 04/03/19 03:04 Solid Phase Ab Screen Negative 04/02/19 23:34 Assessment & Plan - Problems (Diagnosis) (1) Constipation Current Visit: Yes Status: Acute (2) PEG (percutaneous endoscopic gastrostomy) status Current Visit: Yes Status: Chronic (3) Quadriplegia Current Visit: Yes Status: Chronic (4) Upper GI bleed Current Visit: Yes Status: Acute (5) Seizure Onset Date: 08/28/17 Current Visit: No Status: Chronic (6) TBI (traumatic brain injury) Onset Date: 08/28/17 Current Visit: No Status: Chronic Plan: Monitor closely On PPI CT abdomen and pelvis: No signs of bowel obstruction. Signs of constipation Appreciate help from surgery GI consult appreciated Status post EGD Hemorrhagic gastritis Pathology pending Possibly UTI noted Started on antibiotic empirically No further episodes of hematemesis Continue home medications. The HH is monitored and was stable Monitor closely Discussed with family once home health Will get a social service consult Possibly see in a.m. to home with home health Patient had leakage from the PEG site No leakage at this time Will restart feeding and monitor closely Has thrush in the mouth on nystatin Monitor closely Possible Dc if tolerates diet Qualifiers: Encounter type: sequela Loss of consciousness presence/duration: without LOC Qualified Code(s): S06.9X0S - Unspecified intracranial injury without loss of consciousness, sequela Time Spent Managing Pts Care (In Minutes): 39
[2019-04-06] MEDS: Levofloxacin500mg IV 500 MG/100 ML BAG IV SCH (21:02)
[2019-04-06] MEDS: MONTELUKAST 10 MG TAB FT SCH (21:06)
[2019-04-07] MEDS: JEVITY 1.5 CAL LIQUID 1,000 ML BOT FT SCH ×6 (07:00→22:00)
[2019-04-07 07:07] LABS: BUN Blood Urea Nitrogen 12 mg/dL (7-18); Bicarbonate 27 mmol/L (21-32); Glucose Level 72 mg/dL (74-106); Potassium 4.6 mmol/L (3.5-5.1); Sodium Level 140 mmol/L (136-145)
[2019-04-07] MEDS: ALBUTEROL 2.5 MG/3 ML NEB SOL IH PRN (08:54)
[2019-04-07] MEDS: IPRATROPIUM BROM 0.5MG/2.5ML IH PRN (08:54)
[2019-04-07] MEDS: PANTOPRAZOLE 40 MG INJ IVP SCH ×3 (09:00→20:59)
[2019-04-07] MEDS: CETIRIZINE HCL 5 MG TABLET FT SCH ×2 (09:00→11:44)
[2019-04-07] MEDS: NYSTATIN 500,000 UNIT/5 ML UDC PO SCH ×5 (09:00→20:59)
[2019-04-07] MEDS: RANITIDINE 150 MG TABLET FT SCH ×3 (09:00→20:59)
[2019-04-07] MEDS: BACLOFEN 10 MG TAB FT SCH ×3 (09:00→20:59)
[2019-04-07] MEDS: CITALOPRAM 10 MG TABLET FT SCH ×2 (09:00→11:45)
[2019-04-07] MEDS: levETIRAcetam 500 MG/5 ML OSYR PO SCH ×3 (09:00→20:59)
--- NOTE | 2019-04-07 10:16 | P.PN ---
Subjective Date of Service: 04/07/19 Chief Complaint: Coffee-ground emesis Subjective: No new changes, Improving Review of Systems 10-point ROS is otherwise unremarkable Physical Examination - Vital Signs Temperature: 98.1 F Blood Pressure: 113/67 Pulse: 65 Respirations: 18 Pulse Ox (%): 95 - Physical Exam General: Alert, In no apparent distress HEENT: Atraumatic, Normocephalic Neck: Supple Respiratory: Clear to auscultation bilaterally Cardiovascular: Regular rate/rhythm Capillary refill: <2 Seconds Gastrointestinal: Non-distended, W/out hepatosplenomegaly Musculoskeletal: No clubbing Integumentary: No rashes Neurological: Abnormal speech, Abnormal strength External genitalia: Deferred Rectal: Deferred - Studies Laboratory Last Values WBC 6.5 K/uL (4.3-10.9) 04/05/19 04:42 RBC 5.13 M/uL (4.33-5.43) 04/05/19 04:42 Hgb 12.7 g/dL (13.6-17.9) L 04/05/19 04:42 Hct 40.5 % (39.6-49.0) 04/05/19 04:42 MCV 79.1 fL (80-100) L 04/05/19 04:42 MCH 24.8 pg (27.0-35.0) L 04/05/19 04:42 MCHC 31.3 g/dL (32.0-36.0) L 04/05/19 04:42 RDW 15.0 % (12.1-15.2) 04/05/19 04:42 Plt Count 152 K/uL (152-406) 04/05/19 04:42 MPV 13.7 fL (7.6-11.3) H 04/05/19 04:42 Neutrophils % 45.8 % (41.7-73.7) 04/05/19 04:42 Lymphocytes % 43.5 % (15.3-44.8) 04/05/19 04:42 Monocytes % 8.8 % (3.3-12.3) 04/05/19 04:42 Eosinophils % 1.5 % (0-4.4) 04/05/19 04:42 Basophils % 0.4 % (0-1.3) 04/05/19 04:42 Absolute Neutrophils 3.0 K/uL (1.8-8.0) 04/05/19 04:42 Absolute Lymphocytes 2.8 K/uL (0.7-4.9) 04/05/19 04:42 Absolute Monocytes 0.6 K/uL (0.1-1.3) 04/05/19 04:42 Absolute Eosinophils 0.1 K/uL (0-0.5) 04/05/19 04:42 Absolute Basophils 0.0 K/uL (0-0.5) 04/05/19 04:42 Giant Platelets Few 04/03/19 03:04 Hypochromasia 1+ 04/03/19 03:04 Target Cells 1+ 04/03/19 03:04 Tear Drop Cells 1+ 04/03/19 03:04 Stomatocytes 1+ 04/03/19 03:04 Schistocytes 1+ 04/03/19 03:04 Morphology Comment Noted (NOT SEEN) 04/03/19 03:04 PT 12.5 SECONDS (9.5-12.5) 04/02/19 23:34 INR 1.06 04/02/19 23:34 Sodium 140 mmol/L (136-145) 04/07/19 06:11 Potassium 4.6 mmol/L (3.5-5.1) 04/07/19 06:11 Chloride 107 mmol/L (98-107) 04/07/19 06:11 Carbon Dioxide 27 mmol/L (21-32) 04/07/19 06:11 BUN 12 mg/dL (7-18) 04/07/19 06:11 Creatinine 0.83 mg/dL (0.55-1.3) 04/07/19 06:11 Estimated GFR > 90 mL/min (=/>90) 04/07/19 06:11 Glucose 72 mg/dL (74-106) L 04/07/19 06:11 Calcium 8.5 mg/dL (8.5-10.1) 04/07/19 06:11 Phosphorus 3.1 mg/dL (2.5-4.9) 04/04/19 04:31 Magnesium 2.3 mg/dL (1.8-2.4) 04/04/19 04:31 Total Bilirubin 0.5 mg/dL (0.2-1.0) 04/03/19 03:04 Direct Bilirubin 0.1 mg/dL (0-0.2) 04/02/19 23:34 AST 19 U/L (15-37) 04/03/19 03:04 ALT 16 U/L (12-78) 04/03/19 03:04 Alkaline Phosphatase 98 U/L (45-117) 04/03/19 03:04 Rapid Troponin I < 0.02 ng/mL (0.0-0.045) 04/02/19 23:34 NT-Pro-B Natriuret Pep 14 pg/mL (<125) 04/02/19 23:34 Serum Total Protein 7.8 g/dL (6.4-8.2) 04/03/19 03:04 Albumin 3.1 g/dL (3.4-5.0) L 04/03/19 03:04 Globulin 4.7 g/dL (2.3-3.5) H 04/03/19 03:04 Albumin/Globulin Ratio 0.7 (1.1-1.8) L 04/03/19 03:04 Urine Color Yellow 04/03/19 14:03 Urine Appearance Cloudy 04/03/19 14:03 Urine pH 7.5 (5.0-7.0) H 04/03/19 14:03 Ur Specific [place] 1.010 (1.005-1.030) 04/03/19 14:03 Glucose (UA)(Auto) Negative (NEG) 04/03/19 14:03 Urine Ketones Negative (NEG) 04/03/19 14:03 Urine Blood Negative (NEG) 04/03/19 14:03 Urine Nitrite Negative (NEG) 04/03/19 14:03 Urine Bilirubin Negative (NEG) 04/03/19 14:03 Urine Urobilinogen 1.0 mg/dL (0.2-1.0) 04/03/19 14:03 Ur Leukocyte Esterase 3+ (NEG) H 04/03/19 14:03 Urine RBC <5 /HPF (NONE SEEN) 04/03/19 14:03 Urine WBC 20-50 /HPF (<5) H 04/03/19 14:03 Ur Squamous Epith Cells <5 /HPF (NONE SEEN) 04/03/19 14:03 Urine Bacteria >50 /HPF (NONE SEEN) H 04/03/19 14:03 Urine Culture Reflexed Reflexed 04/03/19 14:03 Urine Total Protein Negative (NEG) 04/03/19 14:03 ABO/Rh O POSITIVE 04/03/19 03:04 Solid Phase Ab Screen Negative 04/02/19 23:34 Assessment & Plan - Problems (Diagnosis) (1) Constipation Current Visit: Yes Status: Acute (2) PEG (percutaneous endoscopic gastrostomy) status Current Visit: Yes Status: Chronic (3) Quadriplegia Current Visit: Yes Status: Chronic (4) Upper GI bleed Current Visit: Yes Status: Acute (5) Seizure Onset Date: 08/28/17 Current Visit: No Status: Chronic (6) TBI (traumatic brain injury) Onset Date: 08/28/17 Current Visit: No Status: Chronic Plan: On PPI CT abdomen and pelvis: No signs of bowel obstruction. Signs of constipation Appreciate help from surgery GI consult appreciated Status post EGD Hemorrhagic gastritis Pathology pending Started on antibiotic for UTI No further episodes of hematemesis Continue home medications. The HH is monitored and was stable Monitor closely Social service consulted Patient had leakage from the PEG site No leakage at this time Will restart feeding and monitor closely Has thrush in the mouth on nystatin Monitor closely Possible Dc if tolerates diet Qualifiers: Encounter type: sequela Loss of consciousness presence/duration: without LOC Qualified Code(s): S06.9X0S - Unspecified intracranial injury without loss of consciousness, sequela Time Spent Managing Pts Care (In Minutes): 43
[2019-04-07 14:17] LABS: Absolute Lymphocytes (CBC) 2.6 K/uL (0.7-4.9); Basophils % 0.6 % (0-1.3); Hematocrit 42.1 % (39.6-49.0); Lymphocytes % 40.1 % (15.3-44.8); MPV 12.9 fL (7.6-11.3); RBC Red Blood Cell Count 5.41 M/uL (4.33-5.43)
[2019-04-07] MEDS: Levofloxacin500mg IV 500 MG/100 ML BAG IV SCH (20:58)
[2019-04-07] MEDS: MONTELUKAST 10 MG TAB FT SCH (21:00)
[2019-04-08 06:45] LABS: BUN Blood Urea Nitrogen 17 mg/dL (7-18); Bicarbonate 26 mmol/L (21-32); Glucose Level 75 mg/dL (74-106); Magnesium 2.3 mg/dL (1.8-2.4); Phosphorus 3.6 mg/dL (2.5-4.9); Sodium Level 140 mmol/L (136-145)
[2019-04-08] MEDS: JEVITY 1.5 CAL LIQUID 1,000 ML BOT FT SCH ×6 (07:00→22:00)
[2019-04-08] MEDS: PANTOPRAZOLE 40 MG INJ IVP SCH ×2 (08:56→22:04)
[2019-04-08] MEDS: NYSTATIN 500,000 UNIT/5 ML UDC PO SCH ×4 (08:56→22:01)
[2019-04-08] MEDS: levETIRAcetam 500 MG/5 ML OSYR PO SCH ×2 (08:56→22:02)
[2019-04-08] MEDS: CITALOPRAM 10 MG TABLET FT SCH (08:56)
[2019-04-08] MEDS: BACLOFEN 10 MG TAB FT SCH ×2 (08:56→22:01)
[2019-04-08] MEDS: RANITIDINE 150 MG TABLET FT SCH ×2 (08:56→22:01)
[2019-04-08] MEDS: CETIRIZINE HCL 5 MG TABLET FT SCH (08:56)
--- NOTE | 2019-04-08 12:10 | P.PN ---
Subjective Date of Service: 04/08/19 Chief Complaint: Coffee-ground emesis Mother states patient is doing much better and back to baseline. She reports he had good bowel movement. PEG tube has been changed, patient is tolerating feeding. He has been afebrile. No more vomiting. Physical Examination - Vital Signs Temperature: 97.3 F Blood Pressure: 108/64 Pulse: 78 Respirations: 14 Pulse Ox (%): 97 - Physical Exam General: In no apparent distress, Other (Awake) HEENT: Mucous membr. moist/pink, Sclerae nonicteric Neck: Supple Respiratory: Clear to auscultation bilaterally, Normal air movement Cardiovascular: No edema, Regular rate/rhythm, Normal S1 S2 Gastrointestinal: Normal bowel sounds, Soft and benign, Non-distended, Other ( PEG tube) Musculoskeletal: Other (Contracted upper and lower extremities) Neurological: Other (Quadriplegic) Assessment And Plan - Current Problems (Diagnosis) (1) Upper GI bleed Current Visit: Yes Status: Acute (2) PEG (percutaneous endoscopic gastrostomy) status Current Visit: Yes Status: Chronic (3) Quadriplegia Current Visit: Yes Status: Chronic (4) Seizure Onset Date: 08/28/17 Current Visit: No Status: Chronic (5) TBI (traumatic brain injury) Onset Date: 08/28/17 Current Visit: No Status: Chronic Qualifiers: Encounter type: sequela Loss of consciousness presence/duration: without LOC Qualified Code(s): S06.9X0S - Unspecified intracranial injury without loss of consciousness, sequela (6) Constipation Current Visit: Yes Status: Acute - Plan Patient has clinically improved and is currently at baseline. Continue tube feeding. Urine culture is growing sensitive E. coli and a multi-drug resistant pseudomonas. Will consult ID to assist with treatment of the UTI. Will switch antibiotics to IV meropenem for now. Continue Bowel regimen. Continue other home medications.
--- NOTE | 2019-04-08 15:16 | CON ---
History Of Present Illness: This is a 28-year-old male with quadriplegia secondary to TBI. Patient had trach, PEG tube placement and has a history of seizure disorder. I was consulted for urinary tra ct infection secondary to multidrug-resistant pseudomonas and E coli. Patient initially came in blue use of coffee-ground emesis. This is being done by GI team. Patient denies any problems at this trevon e. Follows simple commands, but unable to give any good history. Most of the history was obtained t [facility] staff and medical records. Past Medical History: Seizure disorder, traumatic brain injury and quadriplegia, recurrent urinary t ract infection, cystitis, eczema, asthma, GI tube placement, tracheostomy removed, protein calorie ma lnourishment. Social History: Nonsmoker, nondrinker. Family History: Noncontributory. Medications: Meropenem. See MAR for other medications. Allergies: PENICILLIN. Review of Systems: Unable to obtain. Physical Examination: General: This is a 28-year-old male, lying in bed, not in any acute cardiopulmonary distress. Vital Signs: Temperature 97, pulse 78, respirations 18, blood pressure 100/64. HEENT: Unremarkable. Neck: Supple. Lungs: Clear to auscultation. Heart: S1, S2. Regular. Abdomen: Soft. Bowel sounds present. Extremities: Muscle wasting noted. No edema. Genitourinary: Hiuzar catheter in place. Laboratory Data: Shows WBC 6.4, hemoglobin 13.3, platelets are 141. Chemistry shows sodium 140, pot assium 5, chloride 108, bicarb 26, BUN 17, creatinine 0.9, glucose is 75. Albumin level is 3.1. Ronny ro data reveal urine culture that was positive for E coli and Pseudomonas aeruginosa which is multidr ug resistant. No other cultures are available at this time. Chest x-ray shows no infiltrates. Assessment And Plan: 28-year-old male coming in with physiologic emesis with incidental finding of m ultidrug-resistant pseudomonas infection and Escherichia coli, currently being treated with meropenem . We will recommend to continue total course of 5 days meropenem and repeat urinalysis. We will fol low the patient closely. Thank you Dr. Velarde for consult. NF/MODL Voice ID: [id number] Report ID: [id number]
[2019-04-08] MEDS ORDERED: Meropenem 500 MG VIAL IV SCH (17:00)
[2019-04-08] MEDS: Meropenem 500 MG in NA CHLORIDE 0.9% 100 ML IV SCH (17:31)
[2019-04-08] MEDS: MONTELUKAST 10 MG TAB FT SCH (22:01)
[2019-04-09] MEDS: Meropenem 500 MG in NA CHLORIDE 0.9% 100 ML IV SCH ×2 (00:41→09:56)
[2019-04-09] MEDS: JEVITY 1.5 CAL LIQUID 1,000 ML BOT FT SCH ×4 (07:00→15:45)
[2019-04-09] MEDS: levETIRAcetam 500 MG/5 ML OSYR PO SCH ×2 (07:35→19:45)
[2019-04-09] MEDS: CITALOPRAM 10 MG TABLET FT SCH (07:35)
[2019-04-09] MEDS: BACLOFEN 10 MG TAB FT SCH ×2 (07:35→19:45)
[2019-04-09] MEDS: NYSTATIN 500,000 UNIT/5 ML UDC PO SCH ×4 (07:36→19:44)
[2019-04-09] MEDS: CETIRIZINE HCL 5 MG TABLET FT SCH (07:36)
[2019-04-09] MEDS: PANTOPRAZOLE 40 MG INJ IVP SCH ×2 (07:36→19:44)
[2019-04-09] MEDS: RANITIDINE 150 MG TABLET FT SCH ×2 (07:36→19:45)
--- NOTE | 2019-04-09 10:46 | RAD REPORT ---
EXAM DESCRIPTION: XR Chest, 1 View CLINICAL HISTORY: The patient is 28 years old and is Male; PICC Placement TECHNIQUE: Frontal view of the chest. COMPARISON: No relevant prior studies available. FINDINGS: LUNGS: Unremarkable. No consolidation. PLEURAL SPACE: Unremarkable. No pneumothorax. HEART: Unremarkable. No cardiomegaly. MEDIASTINUM: Unremarkable. BONES/JOINTS: Unremarkable. TUBES, LINES AND DEVICES: A right upper extremity PICC is present with the tip at the SVC/RA zaira ction. IMPRESSION: A right upper extremity PICC is present with the tip at the SVC/RA junction. Electronically signed by: Connie Snyder MD 04/09/2019 5:23 AM [employer]IL [employer] Due to temporary technical issues with the PACS/Fluency reporting system, reports are being signed b y the in house radiologist as a courtesy to ensure prompt reporting. The interpreting radiologist is fully responsible for the content of the report.
[2019-04-09] MEDS ORDERED: ERTAPENEM SODIUM 1 GM VIAL IVPB SCH (12:00)
[2019-04-09] MEDS ORDERED: ERTAPENEM NA 1 GM in NA CHLORIDE 0.9% 100 ML IVPB ONE (12:00)
--- NOTE | 2019-04-09 13:54 | P.DS ---
Admission Date: 04/03/19 Discharge Date: 04/09/19 Disposition: DC HOME/HOME HEALTH CARE Discharge Condition: GOOD Reason for Admission: Coffee-ground emesis Consultations: Infectious Disease-Dr. Ramirez General surgery-Dr. Harris. Procedures: None - Problems (1) Upper GI bleed Current Visit: Yes Status: Acute (2) PEG (percutaneous endoscopic gastrostomy) status Current Visit: Yes Status: Chronic (3) Quadriplegia Current Visit: Yes Status: Chronic (4) Seizure Onset Date: 08/28/17 Current Visit: No Status: Chronic (5) TBI (traumatic brain injury) Onset Date: 08/28/17 Current Visit: No Status: Chronic Qualifiers: Encounter type: sequela Loss of consciousness presence/duration: without LOC Qualified Code(s): S06.9X0S - Unspecified intracranial injury without loss of consciousness, sequela (6) Constipation Current Visit: Yes Status: Acute Brief History of Present Illness: 28-year-old gentleman with a history TBI with quadriplegia, status post PEG tube , history of seizure disorder, was brought to the emergency department due to coffee-ground emesis. Patient mother reported 1 episode of coffee-ground emesis which occurred yesterday. She also reported that his abdomen is distended. Mother report the patient had a small hard bowel movement yesterday, and a regular bowel movement 2 days ago. Mother reports an episode of fever yesterday. Blood work in the ED was unremarkable. CT abdomen and pelvis image reviewed and noted high stool burden in the entire colon and small bowel dilatation. Patient was admitted for further management. Hospital Course: Patient admitted to the medical floor and treated with bowel regimen including lactulose and enemas. Patient had multiple bowel movements. He was also seen by GI-Dr. Babcock. Endoscopy was performed which resulted hemorrhagic gastritis and erosions. His PEG tube was also changed during the endoscopy. Patient was placed on Protonix therapy. His urine culture grew E. coli and multi resistant pseudomonas. Infectious disease was consulted, patient was seen by Dr. Ramirez and he is planned for 5 days of IV Invanz to treat the UTI. PICC line has been placed for outpatient IV antibiotics. Patient has clinically improved and tolerated tube feeding. He is deemed clinically stable for discharge. Vital Signs/Physical Exam: Temp Pulse Resp BP Pulse Ox 97 F 93 H 18 110/63 92 02/25/20 08:00 04/09/19 08:00 04/09/19 08:00 04/09/19 08:00 04/09/19 08:00 General: In no apparent distress, Other (Awake) HEENT: Mucous membr. moist/pink, Sclerae nonicteric Neck: Supple, JVD not distended Respiratory: Clear to auscultation bilaterally, Normal air movement Cardiovascular: No edema, Regular rate/rhythm, Normal S1 S2 Gastrointestinal: Normal bowel sounds, Soft and benign, No tenderness, Other ( PEG tube) Musculoskeletal: Contractures Integumentary: No rashes Neurological: Other (Quadriplegia) Laboratory Data at Discharge: WBC 6.4 K/uL (4.3-10.9) 04/07/19 14:00 Hgb 13.3 g/dL (13.6-17.9) L 04/07/19 14:00 Hct 42.1 % (39.6-49.0) 04/07/19 14:00 Plt Count 141 K/uL (152-406) L 04/07/19 14:00 PT 12.5 SECONDS (9.5-12.5) 04/02/19 23:34 INR 1.06 04/02/19 23:34 Sodium 140 mmol/L (136-145) 04/08/19 05:50 Potassium 5.0 mmol/L (3.5-5.1) 04/08/19 05:50 BUN 17 mg/dL (7-18) 04/08/19 05:50 Creatinine 0.90 mg/dL (0.55-1.3) 04/08/19 05:50 Glucose 75 mg/dL (74-106) 04/08/19 05:50 Phosphorus 3.6 mg/dL (2.5-4.9) 04/08/19 05:50 Magnesium 2.3 mg/dL (1.8-2.4) 04/08/19 05:50 Total Bilirubin 0.5 mg/dL (0.2-1.0) 04/03/19 03:04 AST 19 U/L (15-37) 04/03/19 03:04 ALT 16 U/L (12-78) 04/03/19 03:04 Alkaline Phosphatase 98 U/L (45-117) 04/03/19 03:04 Home Medications: Jevity 1.5 Aaron [Jevity 1.5 Aaron*] 240 ml PF TID 04/03/19 levETIRAcetam [Keppra*] 1 tab FT BID 04/03/19 Acetaminophen [Tylenol] 2 tab FT Q6HP PRN #30 capsule 04/09/19 Albuterol Neb [Proventil 0.083% Neb Soln] 3 amp IH Q6HP PRN #120 amp 04/09/19 Baclofen [Lioresal] 20 mg PO BID #60 tablet 04/09/19 Cetirizine HCl [Zyrtec*] 10 mg PO DAILY #30 tablet 04/09/19 Citalopram [Celexa*] 20 mg PO DAILY 30 Days tablet 04/09/19 Fluticasone [Flonase 50MCG Nasal [place]*] 1 spray IH PRN #1 btl 04/09/19 Ipratropium Neb [Atrovent*] 0.5 mg IH Q6HP PRN #120 amp 04/09/19 Jevity 1.5 Aaron Liquid 237 ml FT 6XD bot 04/09/19 Lactulose [Cephulac*] 30 ml FT DAILYPRN PRN #30 ucup 04/09/19 Montelukast [Singulair*] 1 tab FT BEDTIME #30 tab 04/09/19 Pantoprazole [Protonix Tab*] 1 tab FT DAILY #30 tab 04/09/19 Ranitidine [Zantac*] 1 tab FT BID #60 tab 04/09/19 New Medications: Acetaminophen [Tylenol] 2 tab FT Q6HP PRN #30 capsule PRN Reason: Pain Scale 2-4 (Mild) Albuterol Neb [Proventil 0.083% Neb Soln] 3 amp IH Q6HP PRN #120 amp PRN Reason: Cough Ipratropium Neb [Atrovent*] 0.5 mg IH Q6HP PRN #120 amp PRN Reason: Cough Baclofen [Lioresal] 20 mg PO BID #60 tablet Cetirizine HCl [Zyrtec*] 10 mg PO DAILY #30 tablet Citalopram [Celexa*] 20 mg PO DAILY 30 Days tablet Fluticasone [Flonase 50MCG Nasal [place]*] 1 spray IH PRN #1 btl Lactulose [Cephulac*] 30 ml FT DAILYPRN PRN #30 ucup PRN Reason: Constipation Montelukast [Singulair*] 1 tab FT BEDTIME #30 tab Pantoprazole [Protonix Tab*] 1 tab FT DAILY #30 tab Ranitidine [Zantac*] 1 tab FT BID #60 tab Diet: Jevity tube feeding Activity: Fall precautions Time spent managing pt's care (in minutes): 45
[2019-04-09] MEDS: MONTELUKAST 10 MG TAB FT SCH (19:45)
[2019-04-09 19:54] VITALS: BP 110/64; TEMP 97.7
[2019-04-10 02:41] VITALS: O2SAT 95
== END 2019-04-09 20:53 | disposition home health service (06) | DRG 377 ==
LOC: ER 20:39 → 4TH 04-03 01:45
PROVIDERS: ADMIT Internal Medicine; ATTEND Internal Medicine
PROC: 0DH63UZ Insertion of Feeding Device into Stomach, Percutaneous Approach (ICD-10-PCS; principal; 2019-04-03 13:00)
PROC: 0DB78ZX Excision of Stomach, Pylorus, Via Natural or Artificial Opening Endoscopic, Diagnostic (ICD-10-PCS; 2019-04-03 13:00)
PROC: 02HV33Z Insertion of Infusion Device into Superior Vena Cava, Percutaneous Approach (ICD-10-PCS; 2019-04-09)
DX: K29.01 Acute gastritis with bleeding (principal); G82.50 Quadriplegia, unspecified; B37.0 Candidal stomatitis; N39.0 Urinary tract infection, site not specified; Z16.24 Resistance to multiple antibiotics; K59.00 Constipation, unspecified; Z93.1 Gastrostomy status; G40.909 Epilepsy, unspecified, not intractable, without status epilepticus; Z88.0 Allergy status to penicillin; Z87.820 Personal history of traumatic brain injury; B96.20 Unspecified Escherichia coli [E. coli] as the cause of diseases classified elsewhere; B96.5 Pseudomonas (aeruginosa) (mallei) (pseudomallei) as the cause of diseases classified elsewhere
CPT/HCPCS: 36415; 71045; 74176; 80048; 80053; 80076; 81003; 81015; 82271; 83735; 83880; 83986; 84100; 84484; 85025; 85610; 86850; 86900; 86901; 87077; 87086; 87088; 87186; 88305; 88312; 93005; 94640; 94760; 96361; 96365; 96375; 99285; C9113; J1335; J1953; J2405; J2704; J7030; J7040; J7042; J7120

== ENCOUNTER 2019-07-11 14:22 | Emergency (ER) | payer OTHER ==
--- OUTSIDE RECORDS SUMMARY | 2019-07-11 15:38 | XMS REPORT | Clinical Summary ---
:1990 Author Organization [facility] Address [address] [place] [address] Care Team Providers Name Role Phone Emilie Primary Care Provider Allergies Active Allergy Reactions Severity Noted Date Comments Penicillins Shortness Of Breath, Rash High 08/16/2015 Re action to ampicillin, but mother jerrod contreras patient had no reaction to cefepime/ceftri axone/zos yn. Tolerated cefep yasmin well inpatient. Medications Medication Sig Dispensed Refills [...] 0 Active MG tablet mouth daily. montelukast (SINGULAIR) Take 10 mg by 0 Active 10 mg tablet mouth nightly. Active Problems Problem Noted Date Pneumonia 05/23/2016 [...] Not on file Results Not on fileafter 07/10/2018 Insurance Payer Benefit Plan / Group Subscriber ID Type Phone A ddress MEDICARE MEDICARE A B xxxxxxxxxx Medicare MEDICAID MEDICAID OF [place] xxxxxxxxx Medicaid Advance Directives For more information, please contact:[place] [address] [place], [place] [phone] Code Status Date Activated Date Inactivated Comments Full Code 05/21/2016 5:03 PM 05/30/2016 4:08 PM This code status was determined by: Patient Full Code 01/10/2016 6:01 PM 01/21/2016 1:51 PM This code status was determined by: Patient Full Code 08/16/2015 5:09 PM 08/20/2015 4:36 PM This code status was determined by: Patient
--- OUTSIDE RECORDS SUMMARY | 2019-07-11 15:39 | XMS REPORT ---
:1990 Author Organization [facility] t Address [address] [place] [address] Care Team Providers Name Role Phone CATHIE ESPINOZA Attending Clinician Unavail able CATHIE ESPINOZA Admitting Clinician Unavail able Problems This patient has no known problems. Allergies, Adverse Reactions, Alerts This patient has no known allergies or adverse reactions. Medications This patient has no known medications. Procedures This patient has no known procedures. Results Test Description Test Time Test Comments Results Result Comments Source POCT-GLUCOSE METER 2016-05-30 12:23:00 Test Item Value Reference Range Interpretation Comme nts POC-GLUCOSE METER (Enevo) (test 82 mg/dL 70-110 TESTED AT [facility] [address] code = 1538) [facility] 7703 0 POCT-GLUCOSE [id number] 08:12:00 Test Item Value Reference Range Interpretation Comments POC-GLUCOSE METER 97 mg/dL 70-110 TESTED AT [facility] 6720 [facility] (test code = BERT[address] R [facility] [address] 1538) CBC W/PLT COUNT & AUTO [id number] 06:38:00 Test Item Value Reference Range Interpretation Comments WHITE BLOOD CELL COUNT (BEAKER) 8.1 K/ L 4.0-10.0 (test code = 775) RED BLOOD CELL COUNT (BEAKER) 5.24 M/ L 4.20-5.80 (test code = 761) HEMOGLOBIN (BEAKER) (test code = 13.1 GM/DL 13.0-16.8 410) HEMATOCRIT (BEAKER) (test code = 42.6 % 40.0-50.0 411) MEAN CORPUSCULAR VOLUME (BEAKER) 81.2 fL 82.0-98.0 L (test code = 753) MEAN CORPUSCULAR HEMOGLOBIN 25.0 pg 27.0-33.0 L (BEAKER) (test code = 751) MEAN CORPUSCULAR HEMOGLOBIN CONC 30.7 GM/DL 32.0-36.0 L (BEAKER) (test code = 752) RED CELL DISTRIBUTION WIDTH 14.6 % 10.3-14.2 H (BEAKER) (test code = 412) PLATELET COUNT (BEAKER) (test 172 K/CU MM 150-430 code = 756) MEAN PLATELET VOLUME (BEAKER) 11.6 fL 6.5-10.5 H (test code = 754) NUCLEATED RED BLOOD CELLS 0 /100 WBC 0-0 (BEAKER) (test code = 413) NEUTROPHILS RELATIVE PERCENT 42 % (BEAKER) (test code = 429) LYMPHOCYTES RELATIVE PERCENT 40 % (BEAKER) (test code = 430) MONOCYTES RELATIVE PERCENT 15 % (BEAKER) (test code = 431) EOSINOPHILS RELATIVE PERCENT 2 % (BEAKER) (test code = 432) BASOPHILS RELATIVE PERCENT 1 % (BEAKER) (test code = 437) NEUTROPHILS ABSOLUTE COUNT 3.39 K/ L 1.80-8.00 (BEAKER) (test code = 670) LYMPHOCYTES ABSOLUTE COUNT 3.28 K/ L 1.48-4.50 (BEAKER) (test code = 414) MONOCYTES ABSOLUTE COUNT (BEAKER) 1.24 K/ L 0.00-1.30 (test code = 415) EOSINOPHILS ABSOLUTE COUNT 0.12 K/ L 0.00-0.50 (BEAKER) (test code = 416) BASOPHILS ABSOLUTE COUNT (BEAKER) 0.09 K/ L 0.00-0.20 (test code = 417) 0.00POCT-GLUCOSE [id number] 04:47:00 Test Item Value Reference Range Interpretation Comments POC-GLUCOSE METER 73 mg/dL 70-110 TEST[facility] AT [place] [address] [facility] (test code = [facility] [address] 1538) POCT-GLUCOSE [id number] 00:27:00 Test Item Value Reference Range Interpretation Comments POC-GLUCOSE METER 71 mg/dL 70-110 TESTED AT [place] [address] ([facility] (test code = [facility] [address] 1538) POCT-GLUCOSE [id number] 12:03:00 Test Item Value Reference Range Interpretation Comments POC-GLUCOSE METER 86 mg/dL 70-110 TESTED AT [place] [address] ([facility]) (test code = [place] [address] 1538) POCT-GLUCOSE [id number] 06:10:00 Test Item Value Reference Range Interpretation Comments POC-GLUCOSE METER 89 mg/dL 70-110 TESTED AT [place] [address] ([facility]) (test code = [place] [address] 1538) POCT-GLUCOSE [id number] 00:20:00 Test Item Value Reference Range Interpretation Comments POC-GLUCOSE METER 77 mg/dL 70-110 TESTED AT [place] [address] ([facility]) (test code = [place] [address] 1538) POCT-GLUCOSE [id number] 19:04:00 Test Item Value Reference Range Interpretation Comments POC-GLUCOSE METER 129 mg/dL 70-110 H TESTED AT [place] [address] ([facility]) (test code = [address] 1538) [address] POCT-GLUCOSE [id number] 16:34:00 Test Item Value Reference Range Interpretation Comments POC-GLUCOSE METER 120 mg/dL 70-110 H TESTED AT [place] [address] ([facility]) (test code = [address] 1538) [address] POCT-GLUCOSE [id number] 06:09:00 Test Item Value Reference Range Interpretation Comments POC-GLUCOSE METER 76 mg/dL 70-110 TESTED AT [place] [address] ([facility]) (test code = [place] [address] 1538) POCT-GLUCOSE [id number] 00:51:00 Test Item Value Reference Range Interpretation Comments POC-GLUCOSE METER 84 mg/dL 70-110 TESTED AT [place] [address] ([facility]) (test code = [place] [address] 1538) POCT-GLUCOSE [id number] 14:52:00 Test Item Value Reference Range Interpretation Comments POC-GLUCOSE METER 125 mg/dL 70-110 H TESTED AT [place] [address] ([facility]) (test code = [address] 1538) [address] POCT-GLUCOSE [id number] 22:00:00 Test Item Value Reference Range Interpretation Comments POC-GLUCOSE METER 102 mg/dL 70-110 TESTED AT [place] [address] ([facility]) (test code = [address] 1538) [address] POCT-GLUCOSE [id number] 18:36:00 Test Item Value Reference Range Interpretation Comments POC-GLUCOSE METER 60 mg/dL 70-110 L TESTED AT [facility] 6720 ([facility]) (test code = [place] [address] 1538) BLOOD [id number] 15:25:00 Test Item Value Reference Range Interpretation Comments CULTURE A From Anaerobic Bottle ([facility]) (test Only Coagulas e code = 1095) negative Staphylococcus GRAM STAIN From anaerobic RESULT ([facility]) bottle only: gram (test code = positive cocci in 1123) clusters POCT-GLUCOSE [id number] 13:24:00 Test Item Value Reference Range Interpretation Comments POC-GLUCOSE METER 86 mg/dL 70-110 TESTED AT [facility] 67 ([facility]) (test code = [place] [facility] [address] 1538) CBC W/PLT COUNT & AUTO [id number] 10:10:00 Test Item Value Reference Range Interpretation Comments WHITE BLOOD CELL COUNT (BEAKER) 8.0 K/ L 4.0-10.0 (test code = 775) RED BLOOD CELL COUNT (BEAKER) 4.77 M/ L 4.20-5.80 (test code = 761) HEMOGLOBIN (BEAKER) (test code = 13.4 GM/DL 13.0-16.8 410) HEMATOCRIT (BEAKER) (test code = 38.7 % 40.0-50.0 L 411) MEAN CORPUSCULAR VOLUME (BEAKER) 81.1 fL 82.0-98.0 L (test code = 753) MEAN CORPUSCULAR HEMOGLOBIN 28.1 pg 27.0-33.0 (BEAKER) (test code = 751) MEAN CORPUSCULAR HEMOGLOBIN CONC 34.6 GM/DL 32.0-36.0 (BEAKER) (test code = 752) RED CELL DISTRIBUTION WIDTH 13.8 % 10.3-14.2 (BEAKER) (test code = 412) PLATELET COUNT (BEAKER) (test 109 K/CU MM 150-430 L code = 756) MEAN PLATELET VOLUME (BEAKER) 11.9 fL 6.5-10.5 H (test code = 754) NUCLEATED RED BLOOD CELLS 2 /100 WBC 0-0 H (BEAKER) (test code = 413) NEUTROPHILS RELATIVE PERCENT 41 % (BEAKER) (test code = 429) LYMPHOCYTES RELATIVE PERCENT 40 % (BEAKER) (test code = 430) MONOCYTES RELATIVE PERCENT 17 % (BEAKER) (test code = 431) EOSINOPHILS RELATIVE PERCENT 2 % (BEAKER) (test code = 432) BASOPHILS RELATIVE PERCENT 1 % (BEAKER) (test code = 437) NEUTROPHILS ABSOLUTE COUNT 3.26 K/ L 1.80-8.00 (BEAKER) (test code = 670) LYMPHOCYTES ABSOLUTE COUNT 3.16 K/ L 1.48-4.50 (BEAKER) (test code = 414) MONOCYTES ABSOLUTE COUNT (BEAKER) 1.39 K/ L 0.00-1.30 H (test code = 415) EOSINOPHILS ABSOLUTE COUNT 0.13 K/ L 0.00-0.50 (BEAKER) (test code = 416) BASOPHILS ABSOLUTE COUNT (BEAKER) 0.06 K/ L 0.00-0.20 (test code = 417) 0.00(MANUAL DIFFERENTIAL)2016-05-26 10:10:00 Test Item Value Reference Range Interpretation Comments TOTAL COUNTED (BEAKER) (test code = 1351) PLT MORPHOLOGY (BEAKER) (test code = Normal 486) RBC MORPHOLOGY (BEAKER) (test code = Normal 762) ATYPICAL LYMPHS(BEAKER) (test code = Present 5328) POCT-GLUCOSE [id number] 00:30:00 Test Item Value Reference Range Interpretation Comments POC-GLUCOSE METER 120 mg/dL 70-110 H TESTED AT [place] [address] ([facility] (test code = [facility] 1538) [address] POCT-GLUCOSE [id number] 18:23:00 Test Item Value Reference Range Interpretation Comments POC-GLUCOSE METER 82 mg/dL 70-110 TESTED AT [place] [address] (BEAKER) (test code = [facility] [address] 1538) ANTI-NUCLEAR ANTIBODY (NORMA)2016-05-25 13:07:00 Test Item Value Reference Range Interpretation Comments ANTI-NUCLEAR ANTIBODY (NORMA) (BEAKER) Negative Negative (test code = 418) POCT-GLUCOSE [id number] 12:50:00 Test Item Value Reference Range Interpretation Comments POC-GLUCOSE METER 115 mg/dL 70-110 H TESTED AT [place] [address] ([facility] (test code = [facility] 4225) [address] CBC W/PLT COUNT & AUTO [id number] 11:05:00 Test Item Value Reference Range Interpretation Comments WHITE BLOOD CELL COUNT (BEAKER) 8.3 K/ L 4.0-10.0 (test code = 775) RED BLOOD CELL COUNT (BEAKER) 4.95 M/ L 4.20-5.80 (test code = 761) HEMOGLOBIN (BEAKER) (test code = 13.2 GM/DL 13.0-16.8 410) HEMATOCRIT (BEAKER) (test code = 39.6 % 40.0-50.0 L 411) MEAN CORPUSCULAR VOLUME (BEAKER) 80.0 fL 82.0-98.0 L (test code = 753) MEAN CORPUSCULAR HEMOGLOBIN 26.7 pg 27.0-33.0 L (BEAKER) (test code = 751) MEAN CORPUSCULAR HEMOGLOBIN CONC 33.3 GM/DL 32.0-36.0 (BEAKER) (test code = 752) RED CELL DISTRIBUTION WIDTH 13.3 % 10.3-14.2 (BEAKER) (test code = 412) PLATELET COUNT (BEAKER) (test 101 K/CU MM 150-430 L code = 756) MEAN PLATELET VOLUME (BEAKER) 11.7 fL 6.5-10.5 H (test code = 754) NUCLEATED RED BLOOD CELLS 0 /100 WBC 0-0 (BEAKER) (test code = 413) NEUTROPHILS RELATIVE PERCENT 38 % (BEAKER) (test code = 429) LYMPHOCYTES RELATIVE PERCENT 39 % (BEAKER) (test code = 430) MONOCYTES RELATIVE PERCENT 21 % (BEAKER) (test code = 431) EOSINOPHILS RELATIVE PERCENT 2 % (BEAKER) (test code = 432) BASOPHILS RELATIVE PERCENT 1 % (BEAKER) (test code = 437) NEUTROPHILS ABSOLUTE COUNT 3.15 K/ L 1.80-8.00 (BEAKER) (test code = 670) LYMPHOCYTES ABSOLUTE COUNT 3.27 K/ L 1.48-4.50 (BEAKER) (test code = 414) MONOCYTES ABSOLUTE COUNT (BEAKER) 1.70 K/ L 0.00-1.30 H (test code = 415) EOSINOPHILS ABSOLUTE COUNT 0.15 K/ L 0.00-0.50 (BEAKER) (test code = 416) BASOPHILS ABSOLUTE COUNT (BEAKER) 0.04 K/ L 0.00-0.20 (test code = 417) 0.00POCT-GLUCOSE [id number] 06:12:00 Test Item Value Reference Range Interpretation Comments POC-GLUCOSE METER 83 mg/dL 70-110 TESTED AT [facility] 6720 ([facility]) (test code = [place] [address] 1538) SPUTUM CULTURE + GRAM [id number] 02:04:00 Test Item Value Reference Range Interpretation Comments CULTURE ([facility]) PSEUDOMONAS A 3+ Pseudomo ioana (test code = 1095) AERUGINOSA aeruginos a Amikacin (test code Susceptible 0-16 S = 1) , Resistant <0 or >16 Aztreonam (test Susceptible 0-8 S code = 32) , Resistant <0 or >8 Cefepime (test code Susceptible 0-8 S = 51) , Resistant <0 or >8 Ceftazidime (test Susceptible 0-8 S code = 27) , Resistant <0 or >8 Ciprofloxacin (test Susceptible 0-1 S code = 7) , Resistant <0 or >1 Doripenem (test Susceptible 0-2 S code = 100) , Resistant <0 or >2 Gentamicin (test Susceptible 0-4 S code = 18) , Resistant <0 or >4 Levofloxacin (test Susceptible 0-2 S code = 22) , Resistant <0 or >2 Meropenem (test Susceptible 0-2 S code = 34) , Resistant <0 or >2 Piperacillin (test Susceptible 0-16 S code = 24) , Resistant <0 or >16 Piperacillin + Susceptible 0-16 S Tazobactam (test , Resistant <0 code = 29) or >16 Tobramycin (test Susceptible 0-4 S code = 25) , Resistant <0 or >4 CULTURE ([facility]) A 3+ Moraxell a (test code = catarrhalis 041898) CULTURE ([facility]) PSEUDOMONAS A 3+ Pseudomo ioana (test code = 49214) AERUGINOSA aerugino saof a second type Amikacin (test code Susceptible 0-16 R = 1) , Resistant <0 or >16 Aztreonam (test Susceptible 0-8 S code = 32) , Resistant <0 or >8 Cefepime (test code Susceptible 0-8 S = 51) , Resistant <0 or >8 Ceftazidime (test Susceptible 0-8 S code = 27) , Resistant <0 or >8 Ciprofloxacin (test Susceptible 0-1 R code = 7) , Resistant <0 or >1 Doripenem (test Susceptible 0-2 S code = 100) , Resistant <0 or >2 Gentamicin (test Susceptible 0-4 R code = 18) , Resistant <0 or >4 Levofloxacin (test Susceptible 0-2 R code = 22) , Resistant <0 or >2 Meropenem (test Susceptible 0-2 R code = 34) , Resistant <0 or >2 Piperacillin (test Susceptible 0-16 R code = 24) , Resistant <0 or >16 Piperacillin + Susceptible 0-16 R Tazobactam (test , Resistant <0 code = 29) or >16 Tetracycline (test code = 2) Ticarcillin + Susceptible 0-16 R Clavulanic Acid , Resistant <0 (test code = 80) or >16 Tobramycin (test Susceptible 0-4 R code = 25) , Resistant <0 or >4 GRAM STAIN RESULT <1+ WBCs (BEAKER) (test code = 1123) GRAM STAIN RESULT 15-20 epithelial (BEAKER) (test code cells = 808260) GRAM STAIN RESULT 2+ gram negative (BEAKER) (test code rods = 842560) GRAM STAIN RESULT <1+ gram positive (BEAKER) (test code rods = 367833) GRAM STAIN RESULT 1+ gram positive (BEAKER) (test code cocci in chains = 182743) and pairs GRAM STAIN RESULT 1+ gram positive (BEAKER) (test code coccobacilli = 659912) 3+ Normal respiratory ralph presentPOCT-GLUCOSE [id number] 00:03:00 Test Item Value Reference Range Interpretation Comments POC-GLUCOSE METER 86 mg/dL 70-110 TESTED AT [facility] 6720 ([facility]) (test code = [facility] [address] 1538) POCT-GLUCOSE [id number] 14:08:00 Test Item Value Reference Range Interpretation Comments POC-GLUCOSE METER 71 mg/dL 70-110 TESTED AT [facility] 6720 ([facility]) (test code = [facility] [address] 1538) HEPATITIS B SURFACE [id number] 10:56:00 Test Item Value Reference Range Interpretation Comments HEPATITIS B SURFACE ANTIBODY < mIU/mL <8.0 (BEAKER) (test code = 647) HEPATITIS B SURFACE [id number] 10:52:00 Test Item Value Reference Range Interpretation Comments HEPATITIS B SURFACE ANTIGEN (2) Nonreactive Nonreactive (BEAKER) (test code = 2585) HEPATITIS C [id number] 10:52:00 Test Item Value Reference Range Interpretation Comments HEPATITIS C ANTIBODY (BEAKER) Nonreactive Nonreactive (test code = 367) HEPATITIS B CORE ANTIBODY, [id number] 10:52:00 Test Item Value Reference Range Interpretation Comments HEPATITIS B CORE TOTAL ANTIBODY Nonreactive Nonreactive (BEAKER) (test code = 497) HIV-1 ANTIGEN WITH HIV-1/2 [id number] 10:52:00 Test Item Value Reference Range Interpretation Comments HIV-1 ANTIGEN WITH HIV 1\T\2 Nonreactive Nonreactive ANTIBODY (2) (BEAKER) (test code = 2586) PERIPHERAL BLOOD SMEAR - HOLD [id number] 07:58:00 Test Item Value Reference Range Interpretation Comments PERIPHERAL SMEAR SAVE (BEAKER) (test saved code = 1815) CBC W/PLT COUNT & AUTO [id number] 07:58:00 Test Item Value Reference Range Interpretation Comments WHITE BLOOD CELL COUNT (BEAKER) 7.1 K/ L 4.0-10.0 (test code = 775) RED BLOOD CELL COUNT (BEAKER) 5.04 M/ L 4.20-5.80 (test code = 761) HEMOGLOBIN (BEAKER) (test code = 13.1 GM/DL 13.0-16.8 410) HEMATOCRIT (BEAKER) (test code = 41.3 % 40.0-50.0 411) MEAN CORPUSCULAR VOLUME (BEAKER) 81.9 fL 82.0-98.0 L (test code = 753) MEAN CORPUSCULAR HEMOGLOBIN 26.0 pg 27.0-33.0 L (BEAKER) (test code = 751) MEAN CORPUSCULAR HEMOGLOBIN CONC 31.8 GM/DL 32.0-36.0 L (BEAKER) (test code = 752) RED CELL DISTRIBUTION WIDTH 13.9 % 10.3-14.2 (BEAKER) (test code = 412) PLATELET COUNT (BEAKER) (test code 87 K/CU MM 150-430 L = 756) MEAN PLATELET VOLUME (BEAKER) 12.1 fL 6.5-10.5 H (test code = 754) NUCLEATED RED BLOOD CELLS (BEAKER) 0 /100 WBC 0-0 (test code = 413) NEUTROPHILS RELATIVE PERCENT 42 % (BEAKER) (test code = 429) LYMPHOCYTES RELATIVE PERCENT 35 % (BEAKER) (test code = 430) MONOCYTES RELATIVE PERCENT 21 % (BEAKER) (test code = 431) EOSINOPHILS RELATIVE PERCENT 2 % (BEAKER) (test code = 432) BASOPHILS RELATIVE PERCENT 1 % (BEAKER) (test code = 437) NEUTROPHILS ABSOLUTE COUNT 2.95 K/ L 1.80-8.00 (BEAKER) (test code = 670) LYMPHOCYTES ABSOLUTE COUNT 2.44 K/ L 1.48-4.50 (BEAKER) (test code = 414) MONOCYTES ABSOLUTE COUNT (BEAKER) 1.50 K/ L 0.00-1.30 H (test code = 415) EOSINOPHILS ABSOLUTE COUNT 0.12 K/ L 0.00-0.50 (BEAKER) (test code = 416) BASOPHILS ABSOLUTE COUNT (BEAKER) 0.07 K/ L 0.00-0.20 (test code = 417) 0.00VITAMIN B12 AND [id number] 07:13:00 Test Item Value Reference Range Interpretation Comments VITAMIN B12 (BEAKER) (test code = 1822 pg/mL 213-816 H 774) FOLATE (BEAKER) (test code = 362) 15.2 ng/mL >=7.0 Effective 2013: Folate Reference Range ChangeNew: >=7.0 Previous: >=[id number] 06:54:00 Test Item Value Reference Range Interpretation Comments D-DIMER QUANTITATIVE (BEAKER) 1.39 MG/L FEU <0.50 H (test code = 671) Intended Use: The D-Dimer Assay can be used to aid in the diagnosis of Deep Vein Thrombosis (DVT) and Pulmonary Embolism Disease (PED).In patients with low pre- test probability, various studies concerning STA Liatest D-dimer test have reported that with a cutoff value of 0.50 MG/L FEU, the Negative Predictive Value (NPV) regarding the exclusion of thrombosis is within 95-100% range. [id number] 06:53:00 Test Item Value Reference Range Interpretation Comments FIBRINOGEN LEVEL (BEAKER) (test 355 mg/dl 225-434 code = 658) [id number] 06:53:00 Test Item Value Reference Range Interpretation Comments PROTIME (BEAKER) (test code = 13.9 seconds 11.7-14.7 759) INR (BEAKER) (test code = 370) 1.1 <=5.9 PARTIAL THROMBOPLASTIN TIME 31.7 seconds 22.5-36.0 (BEAKER) (test code = 760) RECOMMENDED COUMADIN/WARFARIN INR THERAPY RANGESSTANDARD DOSE: 2.0 - 3.0 Includes: PROPHYLAXIS forvenous thrombosis, systemic embolization; TREATMENT for venous thrombosis and/or pulmonary embolus.HIGH RISK: Target INR is 2.5-3.5 for patients with mechanical heart valves.COMPREHENSIVE METABOLIC [id number] 06:40:00 Test Item Value Reference Range Interpretation Comments TOTAL PROTEIN 6.8 gm/dL 6.0-8.3 (BEAKER) (test code = 770) ALBUMIN (BEAKER) 3.1 g/dL 3.5-5.0 L (test code = 1145) ALKALINE PHOSPHATASE 72 U/L 40-150 (BEAKER) (test code = 346) BILIRUBIN TOTAL 0.4 mg/dL 0.2-1.2 (BEAKER) (test code = 377) SODIUM (BEAKER) (test 138 meq/L 136-145 code = 381) POTASSIUM (BEAKER) 4.1 meq/L 3.5-5.1 (test code = 379) CHLORIDE (BEAKER) 106 meq/L 98-107 (test code = 382) CO2 (BEAKER) (test 27 meq/L 22-29 code = 355) BLOOD UREA NITROGEN 9 mg/dL 7-21 (BEAKER) (test code = 354) CREATININE (BEAKER) 0.79 mg/dL 0.57-1.25 (test code = 358) GLUCOSE RANDOM 74 mg/dL 70-105 (BEAKER) (test code = 652) CALCIUM (BEAKER) 8.7 mg/dL 8.4-10.2 (test code = 697) AST (SGOT) (BEAKER) 37 U/L 5-34 H (test code = 353) ALT (SGPT) (BEAKER) 27 U/L 6-55 (test code = 347) EGFR ([facility]) (test 143 ESTIMATE D GFR IS code = 1092) mL/min/1.73 sq NOT ACCURA TE m CREATININE CLEARANCE IN PREDICTING GLOMERULAR FILTRATION RATE . ESTIMATED GFR I S NOT APPLICABLE FOR DIALYSIS PATIEN TS. POCT-GLUCOSE [id number] 00:38:00 Test Item Value Reference Range Interpretation Comments POC-GLUCOSE METER 104 mg/dL 70-110 TESTED AT [place] [address] ([facility]) (test code = [facility] 1538) [address] POCT-GLUCOSE [id number] 17:31:00 Test Item Value Reference Range Interpretation Comments POC-GLUCOSE METER 83 mg/dL 70-110 TESTED AT [place] [address] ([facility]) (test code = [facility] [address] 1538) HEPARIN [id number] 14:04:00 Test Item Value Reference Range Interpretation Comments HEPARIN ANTIBODY ([facility]) (test code Negative Negative = 646) HEPARIN ANTIBODY OD ([facility]) (test 0.067 <0.400 code = 2659) 4T TOTAL SCORE ([facility]) (test code = 4 7153) Probability of HIT based on scoring system: 6-8 = High probability; 4-5 = intermediate probability;0-3 = low probabilityPOCT-GLUCOSE [id number] 09:07:00 Test Item Value Reference Range Interpretation Comments POC-GLUCOSE METER 124 mg/dL 70-110 H TESTED AT [place] [address] ([facility]) (test code = [facility] 1538) [address] CBC W/PLT COUNT & AUTO [id number] 07:37:00 Test Item Value Reference Range Interpretation Comments WHITE BLOOD CELL COUNT ([facility]) 9.1 K/ L 4.0-10.0 (test code = 775) RED BLOOD CELL COUNT (AKER) 4.92 M/ L 4.20-5.80 (test code = 761) HEMOGLOBIN (AKER) (test code = 13.1 GM/DL 13.0-16.8 410) HEMATOCRIT ([facility]) (test code = 40.0 % 40.0-50.0 411) MEAN CORPUSCULAR VOLUME ([facility]) 81.2 fL 82.0-98.0 L (test code = 753) MEAN CORPUSCULAR HEMOGLOBIN 26.7 pg 27.0-33.0 L (BEAKER) (test code = 751) MEAN CORPUSCULAR HEMOGLOBIN CONC 32.8 GM/DL 32.0-36.0 (BEAKER) (test code = 752) RED CELL DISTRIBUTION WIDTH 13.6 % 10.3-14.2 (BEAKER) (test code = 412) PLATELET COUNT (BEAKER) (test code 72 K/CU MM 150-430 L = 756) MEAN PLATELET VOLUME (BEAKER) 12.7 fL 6.5-10.5 H (test code = 754) NUCLEATED RED BLOOD CELLS (BEAKER) 0 /100 WBC 0-0 (test code = 413) NEUTROPHILS RELATIVE PERCENT 46 % (BEAKER) (test code = 429) LYMPHOCYTES RELATIVE PERCENT 33 % (BEAKER) (test code = 430) MONOCYTES RELATIVE PERCENT 19 % (BEAKER) (test code = 431) EOSINOPHILS RELATIVE PERCENT 1 % (BEAKER) (test code = 432) BASOPHILS RELATIVE PERCENT 0 % (BEAKER) (test code = 437) NEUTROPHILS ABSOLUTE COUNT 4.22 K/ L 1.80-8.00 (BEAKER) (test code = 670) LYMPHOCYTES ABSOLUTE COUNT 2.99 K/ L 1.48-4.50 (BEAKER) (test code = 414) MONOCYTES ABSOLUTE COUNT (BEAKER) 1.72 K/ L 0.00-1.30 H (test code = 415) EOSINOPHILS ABSOLUTE COUNT 0.12 K/ L 0.00-0.50 (BEAKER) (test code = 416) BASOPHILS ABSOLUTE COUNT (BEAKER) 0.03 K/ L 0.00-0.20 (test code = 417) 0.00BASI METABOLIC [id number] 07:14:00 Test Item Value Reference Range Interpretation Comments SODIUM (BEAKER) 140 meq/L 136-145 (test code = 381) POTASSIUM (BEAKER) 3.3 meq/L 3.5-5.1 L (test code = 379) CHLORIDE (BEAKER) 109 meq/L 98-107 H (test code = 382) CO2 (BEAKER) (test 24 meq/L 22-29 code = 355) BLOOD UREA NITROGEN 9 mg/dL 7-21 (BEAKER) (test code = 354) CREATININE (BEAKER) 0.75 mg/dL 0.57-1.25 (test code = 358) GLUCOSE RANDOM 119 mg/dL 70-105 H ([facility]) (test code = 652) CALCIUM ([facility]) 8.2 mg/dL 8.4-10.2 L (test code = 697) EGFR ([facility]) (test 151 mL/min/1.73 ESTIM ATED GFR IS code = 1092) sq m NOT ACCURATE CREATININE CLEARANCE IN PREDICTING GLOMERULAR FILTRATION RATE . ESTIMATED GFR I S NOT APPLICABLE FOR DIALYSIS PATIEN TS. POCT-GLUCOSE [id number] 06:57:00 Test Item Value Reference Range Interpretation Comments POC-GLUCOSE METER 123 mg/dL 70-110 H TESTED AT [place] [address] ([facility]) (test code = [facility] 1538) [id number] POCT-GLUCOSE [id number] 02:04:00 Test Item Value Reference Range Interpretation Comments POC-GLUCOSE METER 144 mg/dL 70-110 H TESTED AT [place] [address] ([facility]) (test code = [facility] 1538) [id number] POCT-GLUCOSE [id number] 21:58:00 Test Item Value Reference Range Interpretation Comments POC-GLUCOSE METER 69 mg/dL 70-110 L TESTED AT [place] [address] ([facility]) (test code = [facility] [id number] 1538) POCT-GLUCOSE [id number] 18:24:00 Test Item Value Reference Range Interpretation Comments POC-GLUCOSE METER 155 mg/dL 70-110 H TESTED AT [place] [address] ([facility]) (test code = [facility] 1538) [id number] POCT-GLUCOSE [id number] 12:34:00 Test Item Value Reference Range Interpretation Comments POC-GLUCOSE METER 123 mg/dL 70-110 H TESTED AT [place] [address] ([facility]) (test code = [facility] 1538) [id number] URINE [id number] 10:43:00 Test Item Value Reference Range Interpretation Comments CULTURE ([facility]) (test code = 1095) No growth CBC W/PLT COUNT & AUTO [id number] 08:07:00 Test Item Value Reference Range Interpretation Comments WHITE BLOOD CELL COUNT ([facility]) 7.1 K/ L 4.0-10.0 (test code = 775) RED BLOOD CELL COUNT (BEAKER) 4.91 M/ L 4.20-5.80 (test code = 761) HEMOGLOBIN (BEAKER) (test code = 12.5 GM/DL 13.0-16.8 L 410) HEMATOCRIT (BEAKER) (test code = 40.0 % 40.0-50.0 411) MEAN CORPUSCULAR VOLUME (BEAKER) 81.5 fL 82.0-98.0 L (test code = 753) MEAN CORPUSCULAR HEMOGLOBIN 25.5 pg 27.0-33.0 L (BEAKER) (test code = 751) MEAN CORPUSCULAR HEMOGLOBIN CONC 31.2 GM/DL 32.0-36.0 L (BEAKER) (test code = 752) RED CELL DISTRIBUTION WIDTH 13.4 % 10.3-14.2 (BEAKER) (test code = 412) PLATELET COUNT (BEAKER) (test code 56 K/CU MM 150-430 L = 756) MEAN PLATELET VOLUME (BEAKER) 13.5 fL 6.5-10.5 H (test code = 754) NUCLEATED RED BLOOD CELLS (BEAKER) 0 /100 WBC 0-0 (test code = 413) NEUTROPHILS RELATIVE PERCENT 46 % (BEAKER) (test code = 429) LYMPHOCYTES RELATIVE PERCENT 37 % (BEAKER) (test code = 430) MONOCYTES RELATIVE PERCENT 15 % (BEAKER) (test code = 431) EOSINOPHILS RELATIVE PERCENT 1 % (BEAKER) (test code = 432) BASOPHILS RELATIVE PERCENT 0 % (BEAKER) (test code = 437) NEUTROPHILS ABSOLUTE COUNT 3.27 K/ L 1.80-8.00 (BEAKER) (test code = 670) LYMPHOCYTES ABSOLUTE COUNT 2.58 K/ L 1.48-4.50 (BEAKER) (test code = 414) MONOCYTES ABSOLUTE COUNT (BEAKER) 1.09 K/ L 0.00-1.30 (test code = 415) EOSINOPHILS ABSOLUTE COUNT 0.10 K/ L 0.00-0.50 (BEAKER) (test code = 416) BASOPHILS ABSOLUTE COUNT (BEAKER) 0.03 K/ L 0.00-0.20 (test code = 417) 0.00BASI METABOLIC [id number] 07:39:00 Test Item Value Reference Range Interpretation Comments SODIUM (BEAKER) 141 meq/L 136-145 (test code = 381) POTASSIUM (BEAKER) 3.6 meq/L 3.5-5.1 (test code = 379) CHLORIDE (BEAKER) 112 meq/L 98-107 H (test code = 382) CO2 (BEAKER) (test 23 meq/L 22-29 code = 355) BLOOD UREA NITROGEN 8 mg/dL 7-21 (BEAKER) (test code = 354) CREATININE (BEAKER) 0.74 mg/dL 0.57-1.25 (test code = 358) GLUCOSE RANDOM 132 mg/dL 70-105 H (BEAKER) (test code = 652) CALCIUM (BEAKER) 8.0 mg/dL 8.4-10.2 L (test code = 697) EGFR (BEAKER) (test 154 mL/min/1.73 ESTIM ATED GFR IS code = 1092) sq m NOT ACCURATE CREATININE CLEARANCE IN PREDICTING GLOMERULAR FILTRATION RATE . ESTIMATED GFR I S NOT APPLICABLE FOR DIALYSIS PATIEN TS. LACTIC ACID, VENOUS, WHOLE [id number] 07:32:00 Test Item Value Reference Range Interpretation Comments LACTATE BLOOD VENOUS 1.8 mmol/L 0.5-2.2 Specime n slightly (2) (BEAKER) (test hemolyzed code = 0452) Effective 06/17/2015: Units/Reference Range ChangeNew: 0.5-2.2 mmol/L Previous: 5-20 mg/dLPOCT-GLUCOSE [id number] 07:05:00 Test Item Value Reference Range Interpretation Comments POC-GLUCOSE METER 138 mg/dL 70-110 H [facility]ED [facility] (test code = [place] 1538) [address] POCT-GLUCOSE [id number] 00:44:00 Test Item Value Reference Range Interpretation Comments POC-GLUCOSE METER 124 mg/dL 70-110 H TESTED AT [facility] (test code = [place] 1538) [id number] POCT-GLUCOSE [id number] 18:45:00 Test Item Value Reference Range Interpretation Comments POC-GLUCOSE METER 125 mg/dL 70-110 H TESTED AT [facility] (test code = [place] 1538) [id number] LACTIC ACID, VENOUS, WHOLE [id number] 17:34:00 Test Item Value Reference Range Interpretation Comments LACTATE BLOOD VENOUS (2) (BEAKER) 0.8 mmol/L 0.5-2.2 (test code = 2872) Effective 06/17/2015: Units/Reference Range ChangeNew: 0.5-2.2 mmol/L Previous: 5-20 mg/dLPOCT-GLUCOSE [id number] 13:08:00 Test Item Value Reference Range Interpretation Comments POC-GLUCOSE METER 130 mg/dL 70-110 H TESTED AT [place] [address] ([facility]) (test code = [place] 1538) [id number] POCT-GLUCOSE [id number] 12:04:00 Test Item Value Reference Range Interpretation Comments POC-GLUCOSE METER 60 mg/dL 70-110 L Notified R Tiburcio or ([facility]) (test code = Hanane glasgow refused repeat 1538) test/TESTED AT [facility] [address] [place] [address] CBC W/PLT COUNT & AUTO [id number] 06:22:00 Test Item Value Reference Range Interpretation Comments WHITE BLOOD CELL COUNT (BEAKER) 8.3 K/ L 4.0-10.0 (test code = 775) RED BLOOD CELL COUNT (BEAKER) 4.70 M/ L 4.20-5.80 (test code = 761) HEMOGLOBIN (BEAKER) (test code = 12.4 GM/DL 13.0-16.8 L 410) HEMATOCRIT (BEAKER) (test code = 38.3 % 40.0-50.0 L 411) MEAN CORPUSCULAR VOLUME (BEAKER) 81.4 fL 82.0-98.0 L (test code = 753) MEAN CORPUSCULAR HEMOGLOBIN 26.3 pg 27.0-33.0 L (BEAKER) (test code = 751) MEAN CORPUSCULAR HEMOGLOBIN CONC 32.4 GM/DL 32.0-36.0 (BEAKER) (test code = 752) RED CELL DISTRIBUTION WIDTH 13.4 % 10.3-14.2 (BEAKER) (test code = 412) PLATELET COUNT (BEAKER) (test code 56 K/CU MM 150-430 L = 756) MEAN PLATELET VOLUME (BEAKER) 11.4 fL 6.5-10.5 H (test code = 754) NUCLEATED RED BLOOD CELLS (BEAKER) 0 /100 WBC 0-0 (test code = 413) NEUTROPHILS RELATIVE PERCENT 52 % (BEAKER) (test code = 429) LYMPHOCYTES RELATIVE PERCENT 33 % (BEAKER) (test code = 430) MONOCYTES RELATIVE PERCENT 14 % (BEAKER) (test code = 431) EOSINOPHILS RELATIVE PERCENT 0 % (BEAKER) (test code = 432) BASOPHILS RELATIVE PERCENT 0 % (BEAKER) (test code = 437) NEUTROPHILS ABSOLUTE COUNT 4.33 K/ L 1.80-8.00 (BEAKER) (test code = 670) LYMPHOCYTES ABSOLUTE COUNT 2.75 K/ L 1.48-4.50 (BEAKER) (test code = 414) MONOCYTES ABSOLUTE COUNT (BEAKER) 1.16 K/ L 0.00-1.30 (test code = 415) EOSINOPHILS ABSOLUTE COUNT 0.04 K/ L 0.00-0.50 (BEAKER) (test code = 416) BASOPHILS ABSOLUTE COUNT (BEAKER) 0.03 K/ L 0.00-0.20 (test code = 417) 0.00POCT-GLUCOSE [id number] 06:16:00 Test Item Value Reference Range Interpretation Comments POC-GLUCOSE METER 100 mg/dL 70-110 TESTED AT [facility] 67[address] (BEAKER) (test code = [place] 1538) [id number] CALCIUM, [id number] 06:05:00 Test Item Value Reference Range Interpretation Comments CALCIUM IONIZED (BEAKER) (test 0.96 mmol/L 1.12-1.27 L code = 698) PH, BLOOD (BEAKER) (test code = 7.44 1810) Check serum Ionized Calcium level after 4 hours after IV Calcium replacement. [id number] 05:48:00 Test Item Value Reference Range Interpretation Comments MAGNESIUM (BEAKER) (test code = 1.9 mg/dL 1.6-2.6 627) BASIC METABOLIC [id number] 05:48:00 Test Item Value Reference Range Interpretation Comments SODIUM (BEAKER) 140 meq/L 136-145 (test code = 381) POTASSIUM (BEAKER) 3.5 meq/L 3.5-5.1 (test code = 379) CHLORIDE (BEAKER) 110 meq/L 98-107 H (test code = 382) CO2 (BEAKER) (test 22 meq/L 22-29 code = 355) BLOOD UREA NITROGEN 9 mg/dL 7-21 (BEAKER) (test code = 354) CREATININE (BEAKER) 0.71 mg/dL 0.57-1.25 (test code = 358) GLUCOSE RANDOM 81 mg/dL 70-105 (BEAKER) (test code = 652) CALCIUM (BEAKER) 8.0 mg/dL 8.4-10.2 L (test code = 697) EGFR (BEAKER) (test 161 mL/min/1.73 ESTIM ATED GFR IS code = 1092) sq m NOT ACCURATE CREATININE CLEARANCE IN PREDICTING GLOMERULAR FILTRATION RATE . ESTIMATED GFR I S NOT APPLICABLE FOR DIALYSIS PATIEN TS. POCT-GLUCOSE [id number] 19:22:00 Test Item Value Reference Range Interpretation Comments POC-GLUCOSE METER 105 mg/dL 70-110 TESTED AT [place] [address] ([facility]) (test code = ALEXIS [place] [facility] 1538) [address] POCT-GLUCOSE [id number] 12:14:00 Test Item Value Reference Range Interpretation Comments POC-GLUCOSE METER 67 mg/dL 70-110 L Notified Fili Dey MD/TESTED AT ([facility]) (test code = [place] [address] [place] 1538) [facility] 7703 0 URINALYSIS W/ [id number] 08:32:00 Test Item Value Reference Range Interpretation Comments COLOR (BEAKER) (test code = 470) Yellow CLARITY (BEAKER) (test code = 469) Hazy SPECIFIC GRAVITY UA (BEAKER) (test 1.022 1.001-1.035 code = 468) PH UA (BEAKER) (test code = 467) 6.5 5.0-8.0 PROTEIN UA (BEAKER) (test code = 200 mg/dL Negative A 464) GLUCOSE UA (BEAKER) (test code = Negative Negative 365) KETONES UA (BEAKER) (test code = 10 mg/dL Negative A 371) BILIRUBIN UA (BEAKER) (test code = Negative Negative 462) BLOOD UA (BEAKER) (test code = Moderate Negative A 461) NITRITE UA (BEAKER) (test code = Negative Negative 465) LEUKOCYTE ESTERASE UA (BEAKER) Negative Negative (test code = 466) UROBILINOGEN UA (BEAKER) (test 0.2 mg/dL 0.2-1.0 code = 463) RBC UA (BEAKER) (test code = 519) > /HPF WBC UA (BEAKER) (test code = 520) 4 /HPF BACTERIA (BEAKER) (test code = Occasional 517) MUCUS (BEAKER) (test code = 1574) Many AMORPHOUS CRYSTALS (BEAKER) (test Moderate code = 1584) SOURCE(BEAKER) (test code = 2005) POCT-GLUCOSE [id number] 06:40:00 Test Item Value Reference Range Interpretation Comments POC-GLUCOSE METER 90 mg/dL 70-110 TESTED AT [facility] 67[address] (BEAKER) (test code = [place] [address] 1538) PROTHROMBIN [id number] 04:47:00 Test Item Value Reference Range Interpretation Comments PROTIME (BEAKER) (test code = 14.3 seconds 11.7-14.7 759) INR (BEAKER) (test code = 370) 1.1 <=5.9 RECOMMENDED COUMADIN/WARFARIN INR THERAPY RANGESSTANDARD DOSE: 2.0 - 3.0 Includes: PROPHYLAXIS forvenous thrombosis, systemic embolization; TREATMENT for venous thrombosis and/or pulmonary embolus.HIGH RISK: Target INR is 2.5-3.5 for patients with mechanical heart valves.CBC W/PLT COUNT & AUTO DIFFERENTIAL 2016-05-20 04:37:00 Test Item Value Reference Range Interpretation Comments WHITE BLOOD CELL COUNT (BEAKER) 12.8 K/ L 4.0-10.0 H (test code = 775) RED BLOOD CELL COUNT (BEAKER) 4.89 M/ L 4.20-5.80 (test code = 761) HEMOGLOBIN (BEAKER) (test code = 12.9 GM/DL 13.0-16.8 L 410) HEMATOCRIT (BEAKER) (test code = 39.7 % 40.0-50.0 L 411) MEAN CORPUSCULAR VOLUME (BEAKER) 81.3 fL 82.0-98.0 L (test code = 753) MEAN CORPUSCULAR HEMOGLOBIN 26.4 pg 27.0-33.0 L (BEAKER) (test code = 751) MEAN CORPUSCULAR HEMOGLOBIN CONC 32.4 GM/DL 32.0-36.0 (BEAKER) (test code = 752) RED CELL DISTRIBUTION WIDTH 14.2 % 10.3-14.2 (BEAKER) (test code = 412) PLATELET COUNT (BEAKER) (test code 77 K/CU MM 150-430 L = 756) MEAN PLATELET VOLUME (BEAKER) 9.1 fL 6.5-10.5 (test code = 754) NUCLEATED RED BLOOD CELLS (BEAKER) 0 /100 WBC 0-0 (test code = 413) NEUTROPHILS RELATIVE PERCENT 77 % (BEAKER) (test code = 429) LYMPHOCYTES RELATIVE PERCENT 13 % (BEAKER) (test code = 430) MONOCYTES RELATIVE PERCENT 9 % (BEAKER) (test code = 431) EOSINOPHILS RELATIVE PERCENT 0 % (BEAKER) (test code = 432) BASOPHILS RELATIVE PERCENT 0 % (BEAKER) (test code = 437) NEUTROPHILS ABSOLUTE COUNT 9.91 K/ L 1.80-8.00 H (BEAKER) (test code = 670) LYMPHOCYTES ABSOLUTE COUNT 1.72 K/ L 1.48-4.50 (BEAKER) (test code = 414) MONOCYTES ABSOLUTE COUNT (BEAKER) 1.13 K/ L 0.00-1.30 (test code = 415) EOSINOPHILS ABSOLUTE COUNT 0.02 K/ L 0.00-0.50 (BEAKER) (test code = 416) BASOPHILS ABSOLUTE COUNT (BEAKER) 0.05 K/ L 0.00-0.20 (test code = 417) [id number] 04:27:00 Test Item Value Reference Range Interpretation Comments ALBUMIN (BEAKER) (test code = 1145) 2.9 g/dL 3.5-5.0 L BASIC METABOLIC [id number] 04:25:00 Test Item Value Reference Range Interpretation Comments SODIUM (BEAKER) 141 meq/L 136-145 (test code = 381) POTASSIUM (BEAKER) 4.6 meq/L 3.5-5.1 (test code = 379) CHLORIDE (BEAKER) 111 meq/L 98-107 H (test code = 382) CO2 (BEAKER) (test 19 meq/L 22-29 L code = 355) BLOOD UREA NITROGEN 13 mg/dL 7-21 (BEAKER) (test code = 354) CREATININE (BEAKER) 0.81 mg/dL 0.57-1.25 (test code = 358) GLUCOSE RANDOM 99 mg/dL 70-105 (BEAKER) (test code = 652) CALCIUM ([facility]) 8.1 mg/dL 8.4-10.2 L (test code = 697) EGFR ([facility]) (test 139 mL/min/1.73 ESTIM ATED GFR IS code = 1092) sq m NOT ACCURATE CREATININE CLEARANCE IN PREDICTING GLOMERULAR FILTRATION RATE . ESTIMATED GFR I S NOT APPLICABLE FOR DIALYSIS PATIEN TS. PHENYTOIN LEVEL, [id number] 04:17:00 Test Item Value Reference Range Interpretation Comments PHENYTOIN (DILANTIN) ([facility]) (test 5.9 ug/mL 10.0-20.0 L code = 605) POCT-GLUCOSE [id number] 00:13:00 Test Item Value Reference Range Interpretation Comments POC-GLUCOSE METER 96 mg/dL 70-110 TESTED AT [facility] 67[address] ([facility]) (test code = [place] [id number] [id number])
--- NOTE | 2019-07-11 17:17 | RAD REPORT ---
EXAM DESCRIPTION: RAD - Pelvis - 07/11/2019 4:58 pm CLINICAL HISTORY: ABD PAIN, fall with pelvic and hip pain COMPARISON: Hip Right 2 View dated 07/11/2019; Hip Left 2 View dated 07/11/2019 TECHNIQUE: AP imaging of the pelvis was obtained. FINDINGS: Patient is significantly rotated which distorts the bony pelvic anatomy. No pelvic fractur e is identifiable. No periosteal reaction or acute bone process seen. IMPRESSION: No pelvic fracture identifiable. Hip joints are separately detailed.
--- NOTE | 2019-07-11 17:19 | RAD REPORT ---
EXAM DESCRIPTION: RAD - Hip Right 2 View - 07/11/2019 4:58 pm CLINICAL HISTORY: PAIN COMPARISON: Abdomen Pelvis Wo Contrast dated 04/02/2019 FINDINGS: Portable two view right hip examination obtained. There is no fracture or dislocation. No AVN or focal head abnormality. Deformity along the superior f emoral neck and subcapital region matches the prior CT study. This may be remodeling from old fractur e or remodeling from altered mechanics of loading. No joint effusion. No periarticular abnormality. IMPRESSION: Negative right hip examination for acute or significant findings.
--- NOTE | 2019-07-11 17:20 | RAD REPORT ---
EXAM DESCRIPTION: RAD - Hip Left 2 View - 07/11/2019 4:58 pm CLINICAL HISTORY: PAIN COMPARISON: Abdomen Pelvis Wo Contrast dated 04/02/2019 FINDINGS: Portable two view left hip examination performed. There is no fracture or dislocation. No AVN or focal femoral head abnormality seen. Bones appear oste openic for age probably due to nonweightbearing status. No pathologic bone process. Joint effusion. No soft tissue abnormality. IMPRESSION: Negative left hip examination for acute or significant findings.
[2019-07-11 18:57] VITALS: TEMP 97.9
[2019-07-11 19:02] VITALS: BP 100/65; O2SAT 95
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
== END 2019-07-11 18:51 | disposition home or self-care (01) ==
LOC: ER 14:22
DX: M25.551 Pain in right hip (principal); Z88.0 Allergy status to penicillin
CPT/HCPCS: 72170; 99284